=== PATIENT | male | born 1960 | race Caucasian/White ===

== ENCOUNTER 2017-02-01 12:47 | Inpatient (IN) ==
[2017-02-01] MEDS ORDERED: HYDROMORPHONE 2 MG/ML INJECTION IVP ONE ×2 (13:17→14:35)
[2017-02-01] MEDS ORDERED: ONDANSETRON 4 MG/2 ML INJECTION IVP ONE ×2 (13:17→14:20)
[2017-02-01] MEDS ORDERED: NS 1,000 ML IV ONE (13:17)
--- NOTE | 2017-02-01 13:34 | Emergency Department Report ---
General Adult HPI - General Chief complaint: Nausea/Vomiting/Diarrhea Stated complaint: Vomitting Time Seen by Provider: 02/01/17 12:59 Source: patient Mode of arrival: ambulatory Limitations: no limitations - History of Present Illness HPI narrative: 56-year-old male presents to the emergency department with a chief complaint of nausea and vomiting with abdominal pain. Patient states that he has a history of inflammatory bowel disease and has had frequent exacerbations with similar symptoms. Patient was at home when the symptoms began at approximately 8:00 this morning. He denies any trauma, travel, poorly prepared food, recent antibiotic use. Patient describes his abdominal discomfort is generalized throughout the lower abdomen. No radiation. It is moderate in nature. The abdominal discomfort is dull in nature. Patient notes multiple episodes of nonbloody nonbilious emesis. Patient states that he has a long-standing history of similar symptoms in the past. He has no other complaints or associated symptoms. Patient was at home when his symptoms began. Symptoms have been persistent in nature since onset. - Related Data Home Medications Medication Instructions Recorded Confirmed Escitalopram [Lexapro] 10 mg PO DAILY 02/01/17 02/01/17 Lipase/Protease/Amylase [Creon Dr 3 cap PO WM 02/01/17 02/01/17 36,000 Units Capsule] Mesalamine [Lialda] 4 tab PO DAILY 02/01/17 02/01/17 Ondansetron [Zofran Odt] 1 tab PO Q4HR 02/01/17 02/01/17 Oxycodone/Apap 10325 [Percocet 1 tab PO Q4H PRN 02/01/17 02/01/17 10325] Pregabalin Cap [Lyrica] 75 mg PO BID 02/01/17 02/01/17 Allergies Allergy/AdvReac Type Severity Reaction Status Date / Time codeine [Codiene] Allergy Unknown Verified 02/01/17 13:02 Penicillins Allergy Unknown Verified 02/01/17 13:02 Review of Systems Constitutional: Denies: fever, weakness Eyes: Denies: eye pain, vision change ENT: Denies: ear pain, throat pain Cardiovascular: Denies: chest pain, palpitations Respiratory: Denies: cough, dyspnea Gastrointestinal: Reports: abdominal pain, nausea, vomiting, diarrhea Genitourinary: Denies: urgency, dysuria Musculoskeletal: Denies: back pain, arthralgia Integumentary: Denies: erythema, rash Neurological: Denies: headache, numbness Psychiatric: Denies: anxiety, depression Endocrine: Denies: fatigue, heat or cold intolerance Hematological/Lymphatic: Denies: easy bleeding, easy bruising Allergic/Immunologic: Denies: facial swelling, urticaria PFSH Patient Stated Medical History Other GI Yes: pancreatitis, ulcerative colitis Other Musculoskeletal Yes: neck surgery Surgical History: Cholecystectomy, back surgery 4, neck surgery, appendectomy, bilateral carpal tunnels release, hand surgery Family History: Reviewed and Non-contributory. - Social History Smoking status: Never smoker Substance use type: does not use Alcohol intake frequency: does not drink Physical Exam - Limitations Limitations: no limitations - General General appearance: alert, in no apparent distress - Normal Exams: Head:: Normocephalic without trauma Eyes:: Pupils are PERRLA w/ EOMI, No scleral icterus, irritation, or foreign bodies noted ENMT:: No facial trauma, nasal exudates, pharyngeal erythema, or exudates are noted Dental: No fractured, loose, or missing teeth noted Neck:: Full range of motion, without adenopathy, JVD, bruits or thyromegaly Chest/Respirations:: Clear all amado, with good airflow, and symmetry bilaterally Cardiovascular:: Regular rate and rhythm, without murmur or gallop, Pulses 2+ all extremities, capillary refill, <2 seconds all extremities Abdomen:: Bowel sounds positive, non-distended (Soft. Generalized tenderness to palpation without rebound or guarding. No CVA tenderness.), no hepatosplenomegaly, masses or bruits noted Lymphatic:: No lymphadenopathy, or lymphedema noted Musculoskeletal:: No tenderness, or deformity noted, good range of motion, all extremities Integumentary:: No rashes, hives, or bruising noted, hair and nails, without abnormality Neurological:: Patient is alert, and oriented, cranial nerves, motor/sensory/ cerebellar, exams w/o gross deficits, to observation Psychiatric:: Patient exhibits, appropriate attention, emotion and affect Course Vital Signs Temperature 98.4 F 02/01/17 12:50 Pulse Rate 71 02/01/17 12:50 Respiratory Rate 24 02/01/17 12:50 Blood Pressure 175/98 H 02/01/17 12:50 Pulse Oximetry 100 02/01/17 12:50 Temperature 98.4 F 02/02/17 00:14 Pulse Rate 89 02/02/17 00:14 Respiratory Rate 16 02/02/17 00:14 Blood Pressure 104/65 02/02/17 00:14 Pulse Oximetry 96 02/02/17 00:14 Medical Decision Making - MDM Narrative Medical decision making narrative: Labs/imaging were discussed in detail with the patient and questions are answered. Patient is given parental narcotic and antiemetic medications intravenously with improvement of symptoms. Patient is given gentle IV hydration. Patient is admitted to the service of the hospitalist for further evaluation and treatment. I have no source for antibiotic therapy at this time. Patient is in agreement with the current plan of management. Patient is admitted to the service of Dr. Kent after discussion with the hospitalist in improved condition. No further orders from accepting physician who is in agreement with the current plan of management. - Differential Diagnosis dehydration, intractable nausea and vomiting, gastroenteritis, UC - Lab Data Result diagrams: 02/02/17 04:46 02/02/17 04:46 Lab Results 02/01/17 02/01/17 02/01/17 Range/Units 13:23 13:23 14:08 WBC 12.8 H (4.5-11.0) T/MM3 RBC 4.30 L (4.50-5.90) M/MM3 Hgb 13.0 L (13.5-17.5) GM/DL Hct 39.1 L (41-53) % MCV 90.9 (80-100) UM3 MCH 30.2 (26-34) UUG MCHC 33.2 (31-37) GM/DL RDW Std Deviation 43.4 (36.9-50.2) FL Plt Count 352 (130-400) T/MM3 MPV 10.6 (9.4-12.4) UM3 Immature Gran % (Auto) Not performed Neut % (Auto) Not performed Lymph % (Auto) Not performed Gaines % (Auto) Not performed Eos % (Auto) Not performed Baso % (Auto) Not performed Neut # (Auto) Not performed Lymph # (Auto) Not performed Gaines # (Auto) Not performed Eos # (Auto) Not performed Baso # (Auto) Not performed Abs Immat Gran (auto) Not performed Neutrophils % (Manual) 76.0 H (33-66) % Band Neutrophils % 17.0 H (0-6) % Lymphocytes % (Manual) 7.0 L (23-45) % Neutrophils # (Manual) 9.7 H (1.8-7.7) T/MM3 Band Neutrophils # 2.2 T/MM3 Lymphocytes # (Manual) 0.9 L (1-4.8) T/MM3 RBC Morph Comment Normal Turbidity < 20 (0-20) Sodium 141 (134-144) MEQ/L Potassium 3.6 (3.6-5) MEQ/L Chloride 105 (98-107) MEQ/L Carbon Dioxide 23 (22-30) MEQ/L Anion Gap 13 (5-15) MEQ/L BUN 8.0 L (9-20) MG/DL Creatinine 0.8 (0.8-1.5) MG/DL GFR Calculation 101 BUN/Creatinine Ratio 10 (6-26) RATIO Glucose 158 H (75-110) MG/DL Calculated Osmolality 272 (261-280) MOSM/KG Calcium 9.7 (8.4-10.2) MG/DL Total Bilirubin 1.10 (0.20-1.30) MG/DL Icterus Index < 2 (0-7) AST 25 (17-59) U/L ALT 32 (21-72) U/L Alkaline Phosphatase 119 (38-126) U/L Total Protein 7.9 (6.3-8.2) G/DL Albumin 4.5 (3.5-5.0) G/DL Globulin 3.4 (2.4-3.6) G/DL Albumin/Globulin Ratio 1.3 (1.1-2.2) RATIO Lipase 34 (23-300) U/L Plasma Lactate 1.5 (0.6-2.2) MMOL/L Procalcitonin NG/ML Specimen Hemolysis < 15 (0-25) Ur Collection Type Urine Color (YELLOW) Urine Clarity Urine pH (5.0-8.0) Ur Specific Holton (1.015-1.025) Urine Protein (NEGATIVE) Urine Glucose (UA) (NEGATIVE) Urine Ketones (NEGATIVE) Urine Occult Blood (NEGATIVE) Urine Nitrate (NEGATIVE) Urine Bilirubin (NEGATIVE) Urine Urobilinogen (NORMAL) EU/DL Ur Leukocyte Esterase (NEGATIVE) Urinalysis Comment 02/01/17 02/01/17 Range/Units 14:08 15:00 WBC (4.5-11.0) T/MM3 RBC (4.50-5.90) M/MM3 Hgb (13.5-17.5) GM/DL Hct (41-53) % MCV (80-100) UM3 MCH (26-34) UUG MCHC (31-37) GM/DL RDW Std Deviation (36.9-50.2) FL Plt Count (130-400) T/MM3 MPV (9.4-12.4) UM3 Immature Gran % (Auto) Neut % (Auto) Lymph % (Auto) Gaines % (Auto) Eos % (Auto) Baso % (Auto) Neut # (Auto) Lymph # (Auto) Gaines # (Auto) Eos # (Auto) Baso # (Auto) Abs Immat Gran (auto) Neutrophils % (Manual) (33-66) % Band Neutrophils % (0-6) % Lymphocytes % (Manual) (23-45) % Neutrophils # (Manual) (1.8-7.7) T/MM3 Band Neutrophils # T/MM3 Lymphocytes # (Manual) (1-4.8) T/MM3 RBC Morph Comment Turbidity (0-20) Sodium (134-144) MEQ/L Potassium (3.6-5) MEQ/L Chloride (98-107) MEQ/L Carbon Dioxide (22-30) MEQ/L Anion Gap (5-15) MEQ/L BUN (9-20) MG/DL Creatinine (0.8-1.5) MG/DL GFR Calculation BUN/Creatinine Ratio (6-26) RATIO Glucose (75-110) MG/DL Calculated Osmolality (261-280) MOSM/KG Calcium (8.4-10.2) MG/DL Total Bilirubin (0.20-1.30) MG/DL Icterus Index (0-7) AST (17-59) U/L ALT (21-72) U/L Alkaline Phosphatase (38-126) U/L Total Protein (6.3-8.2) G/DL Albumin (3.5-5.0) G/DL Globulin (2.4-3.6) G/DL Albumin/Globulin Ratio (1.1-2.2) RATIO Lipase (23-300) U/L Plasma Lactate (0.6-2.2) MMOL/L Procalcitonin 0.07 NG/ML Specimen Hemolysis (0-25) Ur Collection Type Urine, clean catch Urine Color Yellow (YELLOW) Urine Clarity Clear Urine pH 7.0 (5.0-8.0) Ur Specific Holton 1.020 (1.015-1.025) Urine Protein Negative (NEGATIVE) Urine Glucose (UA) Negative (NEGATIVE) Urine Ketones 3+ A (NEGATIVE) Urine Occult Blood Negative (NEGATIVE) Urine Nitrate Negative (NEGATIVE) Urine Bilirubin Negative (NEGATIVE) Urine Urobilinogen 0.2 (NORMAL) EU/DL Ur Leukocyte Esterase Negative (NEGATIVE) Urinalysis Comment Microscopic not ind. - Radiology Data CT ABD/PELVIS: No acute processes. - EKG Data EKG #1 EKG results narrative: Sinus rhythm. 73 bpm. No STEMI. Disposition Clinical Impression: Gastroenteritis Abdominal pain Qualifiers: Abdominal location: unspecified location Qualified Code(s): R10.9 - Unspecified abdominal pain Disposition: 02 To [facility] Condition: Stable Time of Disposition: 15:30 (Admit. Dr. Kent. ) - Seen By: physician
--- OUTSIDE RECORDS SUMMARY | 2017-02-01 13:53 | External Medical Summary ---
:1960 Author Organization [facility] Summary purpose CCDA Sent to [facility] Chief Complaint and Reason for Visit No authorized Reason for Visit (Admitting Diagnosis) is available for this visit. Problem list No authorized problems tracked for continuity of care are available for this visit. Encounters No authorized problems tracked for encounter diagnoses are available for this visit. Medications No medications recorded for this patient visit Allergies, adverse reactions, alerts Allergen Category Ingredient Status Reaction Severity Onset Codeine Drug Codeine Active Hives Adolescence Penicillins Drug Penicillins Active Hives Moderate Adolescence No known food No known food No known food Active allergies allergies allergies Immunizations No immunizations recorded for this patient visit Relevant diagnostic tests and/or laboratory data No authorized results are available for this patient visit History of procedures Procedure Code Code Type Description Date Performed Performing Physician 00930 CPT-4 HOSPITAL DISCHARGE DAY 10-28-2015 PEARL REZA 02920 CPT-4 SUBSEQUENT HOSPITAL 10-27-2015 PEARL REZA CARE 33266 CPT-4 INITIAL HOSPITAL CARE 10-26-2015 PEARL REZA Functional status No functional or cognitive status observations are available for this visit. Vital signs No authorized vital signs are available for this visit. Social history No Social History or smoking status observations were recorded for this visit. ( Unknown if ever smoked.) Treatment Plan No treatment plan text is available for this visit. Hospital discharge instructions No discharge instruction text is available for this visit.
--- OUTSIDE RECORDS SUMMARY | 2017-02-01 13:53 | External Medical Summary ---
:1960 Author Organization [facility] Summary purpose CCDA Sent to [facility] Chief Complaint and Reason for Visit No authorized Reason for Visit (Admitting Diagnosis) is available for this visit. Problem list No authorized problems tracked for continuity of care are available for this visit. Encounters No authorized problems tracked for encounter diagnoses are available for this visit. Medications No home medications recorded for this patient visit Allergies, [...] Code Type Description Date Performed Performing Physician [id number] CPT-4 OFFICE/OUTPATIENT VISIT 02-14-2015 PEARL DENG Functional status No functional or cognitive status [...]
--- OUTSIDE RECORDS SUMMARY | 2017-02-01 13:53 | External Medical Summary | Continuity Of Care Document ---
:1960 Author Organization [facility] Address [address] [place] [address] Phone Care Team Providers Name Role Phone SAKSHI SANDERS MD Primary Care Provider HANS BAEZA MD Consulting Provider UNASSIGNED, ED PHYSICIAN Unavailable Unavailable PREETHI ROOT MD Attending Provider TENZIN VELAZQUEZ DO Unavailable EDI RODRIGUEZ DO Consulting Provider Results Lab Results Visit/Account #[id number] (November 05, 2016 10:57am - November 09, 2016 2:18pm) Test Result Date/Time COMPLETE BLOOD COUNT WITH DIFF WHITE BLOOD COUNT(4.0-11.0 10E3/UL) 16.3 10E3/UL November 05, 2016 11:20am 11.1 10E3/UL November 06, 2016 5:32am RED BLOOD COUNT(4.50-5.90 10E6/UL) 4.45 10E6/UL November 05, 2016 11:20am 4.06 10E6/UL November 06, 2016 5:32am HEMOGLOBIN(13.5-17.5 G/DL) 13.3 G/DL November 05, 2016 11:20am 12.3 G/DL November 06, 2016 5:32am HEMATOCRIT(41.0-53.0 %) 39.1 % November 05, 2016 11:20am 36.4 % November 06, 2016 5:32am MEAN CORPUSCULAR VOLUME(82.0-100.0 FL) 87.9 FL November 05, 2016 11:20am 89.7 FL November 06, 2016 5:32am MEAN CORPUSCULAR HEMOGLOBIN(26.0-34.0 PG) 29.9 PG November 05, 2016 11:20am 30.3 PG November 06, 2016 5:32am MEAN CORPUSCULAR HGB CONC(31.5-36.5 G/DL) 34.0 G/DL November 05, 2016 11:20am 33.8 G/DL November 06, 2016 5:32am RED CELL DISTRIBUTION WIDTH(11.5-14.5 %) 14.6 % November 05, 2016 11:20am 14.8 % November 06, 2016 5:32am 777-3: PLATELET COUNT(150-450 10E3/UL) 396 10E3/UL November 05, 2016 11:20am 330 10E3/UL November 06, 2016 5:32am MEAN PLATELET VOLUME(8.2-12.4 FL) 10.6 FL November 05, 2016 11:20am 10.4 FL November 06, 2016 5:32am NEUTROPHILS % (AUTO)(40-70 %) 90 % November 05, 2016 11:20am 84 % November 06, 2016 5:32am LYMPHOCYTES % (AUTO)(15-45 %) 7 % November 05, 2016 11:20am 12 % November 06, 2016 5:32am MONOCYTES % (AUTO)(2-10 %) 3 % November 05, 2016 11:20am 4 % November 06, 2016 5:32am EOSINOPHILS % (AUTO)(0-6 %) 0 % November 05, 2016 11:20am 0 % November 06, 2016 5:32am BASOPHILS % (AUTO)(0-1 %) 0 % November 05, 2016 11:20am 0 % November 06, 2016 5:32am IMMATURE GRANS % (AUTO)(0-0 %) 1 % November 05, 2016 11:20am 1 % November 06, 2016 5:32am NUCLEATED RBCS (AUTO)(0-0 %) 0 % November 05, 2016 11:20am 0 % November 06, 2016 5:32am NEUTROPHILS # (AUTO)(2.5-7.5 10E3/UL) 14.6 10E3/UL November 05, 2016 11:20am 9.3 10E3/UL November 06, 2016 5:32am LYMPHOCYTES # (AUTO)(1.0-4.0 10E3/UL) 1.1 10E3/UL November 05, 2016 11:20am 1.3 10E3/UL November 06, 2016 5:32am MONOCYTES # (AUTO)(0.2-0.8 10E3/UL) 0.4 10E3/UL November 05, 2016 11:20am 0.4 10E3/UL November 06, 2016 5:32am EOSINOPHILS # (AUTO)(0.0-0.4 10E3/UL) 0.0 10E3/UL November 05, 2016 11:20am 0.0 10E3/UL November 06, 2016 5:32am BASOPHILS # (AUTO)(0.0-0.2 10E3/UL) 0.0 10E3/UL November 05, 2016 11:20am 0.0 10E3/UL November 06, 2016 5:32am IMMATURE GRANS # (AUTO)(0.0-0.0 10E3/UL) 0.2 10E3/UL November 05, 2016 11:20am 0.1 10E3/UL November 06, 2016 5:32am DIFF TYPE AUTOMATED November 05, 2016 11:20am AUTOMATED November 06, 2016 5:32am UA WITH SCREEN FOR CULTURE COLOR,URINE COLORLESS November 05, 2016 11:50am CLARITY,URINE CLEAR November 05, 2016 11:50am GLUCOSE, URINE(NEGATIVE MG/DL) NEGATIVE MG/DL November 05, 2016 11:50am URINE BILIRUBIN(NEGATIVE) NEGATIVE November 05, 2016 11:50am KETONES,URINE(NEGATIVE MG/DL) 15 MG/DL November 05, 2016 11:50am URINE SPECIFIC GRAVITY(1.001-1.035) 1.004 November 05, 2016 11:50am URINE BLOOD(NEGATIVE) NEGATIVE November 05, 2016 11:50am URINE PH(5.0-9.0) 8.0 November 05, 2016 11:50am URINE PROTEIN(Less than 20 MG/DL) NEGATIVE MG/DL November 05, 2016 11:50am URINE UROBILINOGEN(0.2-1.0 MG/DL) 0.2-1.0 MG/DL November 05, 2016 11:50am URINE NITRITE(NEGATIVE) NEGATIVE November 05, 2016 11:50am LEUKOCYTE ESTERASE ,URINE(NEGATIVE) NEGATIVE November 05, 2016 11:50am URINE CULTURE NOT INDICATED November 05, 2016 11:50am URINE MICROSCOPIC REQUIRED NO November 05, 2016 11:50am COMPLETE METABOLIC PROFILE GLUCOSE(70-110 MG/DL) 160 MG/DL November 05, 2016 11:20am BLOOD UREA NITROGEN(6-20 MG/DL) 13 MG/DL November 05, 2016 11:20am CREATININE(0.50-1.20 MG/DL) 0.89 MG/DL November 05, 2016 11:20am EST GLOMERULAR FILTRATION RATE(Greater than or equal to 60) Greater than or equal to 60 November 05, 2016 11:20am Result Comments: If the patient is of -Cub[place] descent/extraction multiply the eGFR value by 1.212 to obtain the actual eGFR. >=60 mg/dL Normal 30-59 mg/dL Moderate Kidney Disease 15-29 mg/dL Severe Kidney Disease <15 mg/dL Kidney Failure BUN CREATININE RATIO(10.0-20.0 RATIO) 15.0 RATIO November 05, 2016 11:20am SODIUM(135-145 MMOL/L) 137 MMOL/L November 05, 2016 11:20am POTASSIUM(3.6-5.0 MMOL/L) 3.1 MMOL/L November 05, 2016 11:20am CHLORIDE(101-111 MMOL/L) 100 MMOL/L November 05, 2016 11:20am CO2(21-31 MMOL/L) 22 MMOL/L November 05, 2016 11:20am ANION GAP(8-18) 18 November 05, 2016 11:20am OSMO CALCULATED(270.0-290.0) 277.4 November 05, 2016 11:20am CALCIUM(8.5-10.5 MG/DL) 9.0 MG/DL November 05, 2016 11:20am BILIRUBIN,TOTAL(0.1-1.2 MG/DL) 1.1 MG/DL November 05, 2016 11:20am ALKALINE PHOSPHATASE(42-121 IU/L) 80 IU/L November 05, 2016 11:20am ASPARTATE AMINO TRANSFERASE(10-42 IU/L) 27 IU/L November 05, 2016 11:20am ALANINE AMINOTRANSFERASE(10-60 IU/L) 18 IU/L November 05, 2016 11:20am TOTAL PROTEIN(6.4-8.2 G/DL) 7.8 G/DL November 05, 2016 11:20am ALBUMIN(3.5-5.5 G/DL) 4.2 G/DL November 05, 2016 11:20am GLOBULIN(2.4-3.6) 3.6 November 05, 2016 11:20am ALBUMIN/GLOBULIN RATIO(0.9-1.8 RATIO) 1.2 RATIO November 05, 2016 11:20am BASIC METABOLIC PANEL GLUCOSE(70-110 MG/DL) 113 MG/DL November 06, 2016 5:32am BLOOD UREA NITROGEN(6-20 MG/DL) 13 MG/DL November 06, 2016 5:32am CREATININE(0.50-1.20 MG/DL) 0.88 MG/DL November 06, 2016 5:32am EST GLOMERULAR FILTRATION RATE(Greater than or equal to 60) Greater than or equal to 60 November 06, 2016 5:32am Result Comments: If the patient is of -Cuban descent/extraction multiply the eGFR value by 1.212 to obtain the actual eGFR. >=60 mg/dL Normal 30-59 mg/dL Moderate Kidney Disease 15-29 mg/dL Severe Kidney Disease <15 mg/dL Kidney Failure BUN CREATININE RATIO(10.0-20.0 RATIO) 15.0 RATIO November 06, 2016 5:32am SODIUM(135-145 MMOL/L) 137 MMOL/L November 06, 2016 5:32am POTASSIUM(3.6-5.0 MMOL/L) 4.1 MMOL/L November 06, 2016 5:32am CHLORIDE(101-111 MMOL/L) 103 MMOL/L November 06, 2016 5:32am CO2(21-31 MMOL/L) 28 MMOL/L November 06, 2016 5:32am ANION GAP(8-18) 10 November 06, 2016 5:32am OSMO CALCULATED(270.0-290.0) 274.7 November 06, 2016 5:32am CALCIUM(8.5-10.5 MG/DL) 8.5 MG/DL November 06, 2016 5:32am POTASSIUM POTASSIUM(3.6-5.0 MMOL/L) 3.7 MMOL/L November 07, 2016 6:00am MAGNESIUM MAGNESIUM(1.8-2.5 MG/DL) 1.5 MG/DL November 05, 2016 11:20am LIPASE LIPASE(22-51 U/L) 20 U/L November 05, 2016 11:20am Allergies and Adverse Reactions Allergies and Adverse Reactions Patient Unit Number: [id number] Agent Type Reaction Severity Status PENICILLINS Drug Allergy rash and get sick Mild Active CODEINE Drug Allergy rash and get sick Mild Active Problem List Problem List Visit/Account #[id number] (November 05, 2016 10:57am - November 09, 2016 2:18pm) Acute Problems: Code/Condition Comments Documented Start Documented Code(s) Date Resolved Date Nausea and vomiting ICD10: R11.2 Nausea and vomiting SNOMED: 01207295 Nausea and vomiting Abdominal pain ICD10: R10.9 Abdominal pain SNOMED: 14536538 Abdominal pain Inflammatory bowel disease (ulcerative colitis) ICD10: K51.90 Inflammatory bowel disease (ulcerative colitis) SNOMED: 59599595 Ulcerative colitis Patient Unit Number: [id number] Chronic Problems: Code/Condition Comments Documented Start Documented Code(s) Date Resolved Date Chronic pancreatitis ICD10: K86.1 Chronic pancreatitis SNOMED: 595408986 Chronic pancreatitis Plan of Care Plan Of Care Visit/Account #[id number] (November 05, 2016 10:57am - November 09, 2016 2:18pm) Patient Instructions Instructions [facility] Resources Drug/Alcohol Use Resources for Recovery from Drug/Alcohol Use [facility] [address] [place] [address] Website: [email or web address] Email: [email or web address] [facility] offers Detoxification services, Residential services, Outpatient services, and Assessments. We can be reached at the phone number listed 23/11. [facility] [place] [address] [place] [address] Website: [email or web address] Email: [email or web address] Open 7a-9p Wednesday-Wednesday Open 1p-9p Wednesday Closed Wednesday [facility] is a drop-in center that offers support and events in a sober environment during the days/times listed. Alcoholics Anonymous (AA) Meetings in [place] [facility] [address] [place] [address] Website: www.[employer] [place] and [place]round[place] Area (For those who have been affected by someone else's drinking) , Website: [email or web address] Email: [email or web address] Narcotics Anonymous (NA) Meetings in [facility] [address] [place] [address] Website: [email or web address] Email: [email or web address] Vital Signs Vital Signs Visit/Account #[id number] (November 05, 2016 10:57am - November 09, 2016 2:18pm) Sign First Result Last Result Code(s) Blood Pressure 124/ 93 mm[Hg] On November 05, 2016 6:00pm 129/ 85 mm[Hg] On November 09, 2016 10:25am 8462-4 BP Diastolic 8480-6 BP Systolic Heart Rate/Pulse Pulse Rate (adult): 62 /min On November 05, 2016 6:00pm Pulse Rate (adult): 83 /min On November 09, 2016 10:25am 8867-4 Heart Rate Respiratory Rate Respiratory Rate: 16 /min On November 05, 2016 6:00pm Respiratory Rate: 20 /min On November 09, 2016 10:25am 9279-1 Respiratory Rate Temperature in Fahrenheit Temperature (Fahrenheit): 98.4 [degF] On November 05, 2016 10:56am Temperature (Fahrenheit): 98.1 [degF] On November 09, 2016 10:25am 8310-5 Body Temperature Weight in Kilograms Weight (Kilograms): 76.2000 kg On November 05, 2016 10:56am 3141-9 Weight Measured Functional Status Functional and Cognitive Status No Functional Status Data Medications Home Medications - Medications that the patient was taking prior to arrival at the hospital Visit/Account #[id number] (November 05, 2016 10:57am - November 09, 2016 2:18pm) Medication Route Sig/Schedule Precondition/Indication Comments/ Instructions Codes LYRICA(PREGABALIN) 75 MG CAP ORAL TWICE A DAY Rx Note Text Comments: pregabalin 75 MG Oral Capsule [Lyrica] (RxNorm): 935663 Dose: 75 MG *LF 10/26/16 #60* LYRICA (PREGABALIN) [facility]: [id number] SANDRO THORNTON 36,000 UNITS CAPSULE(LIPASE/PROTEASE/AMYLASE) 1 EACH CAPSULE.DR ORAL 3 TIMES DAILY WITH MEALS Amylases 682575 UNT / Endopeptidases 874656 UNT / Lipase 43702 UNT Delayed Release Oral Caps (RxNorm): 1768073 Dose: [address] 36,000 UNITS CAPSULE (LIPASE/PROTEASE/AMYLASE) NDC: 69224707347 CREON 36,000 UNITS CAPSULE(LIPASE/PROTEASE/AMYLASE) 1 EACH CAPSULE. ORAL NEEDED WITH SNACKS Amylases 473130 UNT / Endopeptidases 126405 UNT / Lipase 14735 UNT Delayed Release Oral Caps (RxNorm): 5995933 Dose: 1 CAP CREON 36,000 UNITS CAPSULE (LIPASE/PROTEASE/AMYLASE) NDC: 89488423328 PERCOCET 10-325(OxyCODONE HCL/ACETAMINOPHEN) 1 EACH TABLET ORAL 3 TIMES A DAY PAIN Rx Note Text Comments: Acetaminophen 325 MG / Oxycodone Hydrochloride 10 MG Oral Tablet [Percocet] (RxNorm): 2319586 Dose: 1 TAB * 10/19/16 #90* PERCOCET 10-325 (OxyCODONE HCL/ACETAMINOPHEN) NDC: 08023666467 FLEXERIL(CYCLOBENZAPRINE HCL) 10 MG TAB ORAL 3 TIMES A DAY MUSCLE SPASM Rx Note Text Comments: Cyclobenzaprine hydrochloride 10 MG Oral Tablet (RxNorm): 595460 Dose: 10 MG *LF 08/19/16 #90* FLEXERIL (CYCLOBENZAPRINE HCL) NDC: 87047347738 ELAVIL(AMITRIPTYLINE HCL) 50 MG TABLET ORAL AT BEDTIME Amitriptyline Hydrochloride 50 MG Oral Tablet (RxNorm): 856941 Dose: 50 MG ELAVIL (AMITRIPTYLINE HCL) NDC: 92872673878 Omeprazole(OMEPRAZOLE) 20 MG CAP ORAL 60 MIN BEFORE BKFST Rx Note Text Comments: Omeprazole 20 MG Delayed Release Oral Capsule (RxNorm): 923438 Dose: 20 MG * 09/19/16 #30* Omeprazole (OMEPRAZOLE) NDC: 95461768730 HALDOL(HALOPERIDOL) 5 MG TABLET ORAL AT BEDTIME NAUSEA Haloperidol 5 MG Oral Tablet (RxNorm): 609716 Dose: 5 MG HALDOL (HALOPERIDOL) NDC: 43788361172 LEXAPRO(ESCITALOPRAM OXALATE) 10 MG TABLET ORAL DAILY Rx Note Text Comments: Escitalopram 10 MG Oral Tablet [Lexapro] (RxNorm): 536391 Dose: 10 MG *LF 09/22/16 #30* LEXAPRO (ESCITALOPRAM OXALATE) NDC: 49149774630 LIALDA(MESALAMINE) 1.2 GM TABLET.DR ORAL DAILY AT [facility] mesalamine 1200 MG Delayed Release Oral Tablet [Lialda] (RxNorm): 620804 Dose: 2.4 GM LIALDA (MESALAMINE) NDC: 35192380626 DELTASONE(PredniSONE) 20 MG TAB ORAL DAILY AT [facility] Rx Instructions: Prednisone 20 MG Oral Tablet (RxNorm): 068558 Dose: 40 MG Taper prednisone by 5 mg weekly DELTASONE (PredniSONE) NDC: 02948355503 ZOFRAN ODT(ONDANSETRON) 4 MG TAB.RAPDIS ORAL EVERY 6 HOURS NAUSEA/VOMITING Ondansetron 4 MG Disintegrating Oral Tablet [Zofran] (RxNorm): 157130 Dose: 4 MG ZOFRAN ODT (ONDANSETRON) NDC: 11192312783 LIALDA(MESALAMINE) 1.2 GM TABLET.DR ORAL DAILY AT [facility] mesalamine 1200 MG Delayed Release Oral Tablet [Lialda] (RxNorm): 434711 Dose: 2.4 GM LIALDA (MESALAMINE) NDC: 39083698980 ZOFRAN ODT(ONDANSETRON) 4 MG TAB.RAPDIS ORAL EVERY 4 HOURS NAUSEA/VOMITING Ondansetron 4 MG Disintegrating Oral Tablet [Zofran] (RxNorm): 757471 Dose: 4 MG ZOFRAN ODT (ONDANSETRON) NDC: 02095892262 DELTASONE(PredniSONE) 20 MG TAB ORAL DAILY AT [facility] Rx Instructions: Prednisone 20 MG Oral Tablet (RxNorm): 771828 Dose: 40 MG STARTED 11/05/16 TAKE 40 MG DAILY x30 DAYS, THEN TAPER BY 5 MG WEEKLY DELTASONE ( PredniSONE) NDC: 13670790710 Inpatient/Ordered Medications - Medications administered during hospital visit Visit/Account #[id number] (November 05, 2016 10:57am - November 09, 2016 2:18pm) Medication Route Sig/Schedule Precondition/Indication Comments/ Instructions Codes NORMAL SALINE(SODIUM CHLORIDE) 20 ML INJECTION Route .THREAT STREAM 20 ML Sodium Chloride 9 MG/ML Injection (RxNorm): 0214095 Dose: 20 ML NORMAL SALINE (SODIUM CHLORIDE) NDC: 38711161072 IV Medication INTRAVEN .Q1H (Rate: 1000 MLS/HR Duration: 1 HR) Carriers: Carriers: 1000 ML Sodium Chloride 9 MG/ML Injection (RxNorm): 0600526 NORMAL SALINE(SODIUM CHLORIDE) 1000 ML INJECTION NORMAL SALINE ( SODIUM CHLORIDE) NDC: 65980274761 Dose: 1000 ML ZOFRAN INJ(ONDANSETRON HCL) 4 MG/2 ML INJECTION INTRAVEN NOW Rx Order Comments: 2 ML Ondansetron 2 MG/ML Injection (RxNorm): 6794695 Dose: 2 ML Order placed as verified: Dose Warnings differ from mill order scheduler ZOFRAN INJ (ONDANSETRON HCL) NDC : 27641417595 Label Comments: SLOW IV PUSH MAY INCREASE FALL RISK IV Medication INTRAVEN NOW (Rate: 400 MLS/HR Duration: 15 MIN) Label Comments: Carriers: * PROTECT FROM LIGHT * Carriers: 1 ML Promethazine Hydrochloride 25 MG/ML Injection (RxNorm) : 241708 PHENERGAN 25 MG/100 ML NS(PROMETHAZINE HCL IN 0.9 % NACL) 25 MG/100 ML INJECTION PHENERGAN 25 MG/100 ML NS (PROMETHAZINE HCL IN 0.9 % NACL) NDC: 98151908744 Dose: 100 ML BENADRYL INJ(DiphenhydrAMINE HCL) 50 MG/ML INJECTION INTRAVEN NOW Label Comments: Diphenhydramine Hydrochloride 50 MG/ML Injectable Solution (RxNorm): 1303428 Dose: 1 ML MAY INCREASE FALL RISK BENADRYL INJ (DiphenhydrAMINE HCL) NDC: 30619448545 DILAUDID(HYDROmorphone HCL) 2 MG/ML INJECTION INTRAVEN NOW Label Comments : 1 ML Hydromorphone Hydrochloride 2 MG/ML Cartridge (RxNorm): 0003721 Dose: 0.5 ML MAY INCREASE FALL RISK DILAUDID (HYDROmorphone HCL) NDC: 88625511999 KETALAR INJ(KETAMINE HCL IN 0.9 % NACL) 50 MG/5 ML INJECTION INTRAVEN NOW KETALAR INJ (KETAMINE HCL IN 0.9 % NACL) NDC: 68796637511 Dose: 2.3 ML HALDOL INJ(HALOPERIDOL LACTATE) 5 MG/ML INJECTION INTRAVEN NOW Label Comments: 1 ML Haloperidol 5 MG/ML Injection (RxNorm): 2504707 Dose: 1 ML MAY INCREASE FALL RISK HALDOL INJ (HALOPERIDOL LACTATE) NDC: 00220663807 NORCO 5-325(HYDROcodone BIT/ACETAMINOPHEN) 1 TAB TAB ORAL Q4H PRN Reason: MODERATE PAIN Label Comments: Acetaminophen 325 MG / Hydrocodone Bitartrate 5 MG Oral Tablet (RxNorm): 221282 Dose: 0 TAB Do not exceed 4000 mg acetaminophen/24 hours. NORCO 5-325 (HYDROcodone BIT/ACETAMINOPHEN) NDC: 93380710575 Special Dose Instructions: 1-2 TABS PROTONIX(PANTOPRAZOLE SOD) 40 MG TAB ORAL DAILY@06 pantoprazole 40 MG Delayed Release Oral Tablet [Protonix] (RxNorm): 781788 Dose: 40 MG PROTONIX (PANTOPRAZOLE SOD) NDC: 89781331997 IV Medication INTRAVEN .Q8H (Rate: 125 MLS/HR Duration: 8 HR) Carriers: Carriers: Glucose 50 MG/ML / Potassium Chloride 0.02 MEQ/ML / Sodium Chloride 0.0769 MEQ/ML Injectable (RxNorm): 176131 DEXTROSE 5% SODIUM CHLORIDE 0.45%- KCL 20 MEQ(KCL/DEXTROSE/SOD CHLORIDE) 20 MEQ /1000 ML INJECTION DEXTROSE 5% SODIUM CHLORIDE 0.45%- KCL 20 MEQ (KCL/ DEXTROSE/SOD CHLORIDE) NDC: 94997939715 Dose: 1000 ML DELTASONE(PredniSONE) 20 MG TAB ORAL DAILY AT [facility] Label Comments: Prednisone 20 MG Oral Tablet (RxNorm): 088636 Dose: 40 MG TAKE WITH FOOD OR MILK DELTASONE (PredniSONE) NDC: 53344448257 SANDRO Gilliam(LIPASE/AMYLASE/PROTEASE) 1 CAP CAP ORAL 3 TIMES DAILY WITH MEALS Rx Order Comments: Amylases 48777 UNT / Endopeptidases 35351 UNT / Lipase 28737 UNT Delayed Release Oral Capsul (RxNorm): 377973 Dose: 3 CAP Order filed UNV: Dose Warnings differ from mill order scheduler SANDRO Gilliam (LIPASE/AMYLASE/ PROTEASE) NDC: 46093793989 LOVENOX(ENOXAPARIN) 40 MG/0.4 ML INJECTION SUBCUTANEOUSLY DAILY@06 Label Comments: 0.4 ML Enoxaparin sodium 100 MG/ML Prefilled Syringe [Lovenox] ( RxNorm): 603619 Dose: 0.4 ML INJECT SC INTO ABDOMINAL WALL ONLY. LOVENOX (ENOXAPARIN) NDC: 03592799702 SUBLIMAZE INJ(FentaNYL CITRATE) 250 MCG/5 ML INJECTION Route .STK-MED Label Comments: 5 ML Fentanyl 0.05 MG/ML Injection (RxNorm): 7312028 Dose: 250 MCG GIVE BY SLOW PUSH OVER 2-5 MIN MAY INCREASE FALL RISK SUBLIMAZE INJ (FentaNYL CITRATE) NDC: 16454604835 VERSED INJ(MIDAZOLAM HCL) 10 MG/10 ML INJECTION Route .STK-MED Label Comments: Midazolam 1 MG/ML Injectable Solution (RxNorm): 023899 Dose: 10 MG MAY INCREASE FALL RISK VERSED INJ (MIDAZOLAM HCL) NDC: 69701644312 IV Medication INTRAVEN .Q10H (Rate: 100 MLS/HR Duration: 10 HR) Carriers : Carriers: Potassium Chloride 0.04 MEQ/ML / Sodium Chloride 0.154 MEQ/ ML Injectable Solution (RxNorm): 630944 SODIUM CHLORIDE 0.9%- POTASSIUM CHLOR 40 MEQ(KCL/SODIUM CHLORIDE) 40 MEQ/1000 ML INJECTION SODIUM CHLORIDE 0.9%- POTASSIUM CHLOR 40 MEQ (KCL/SODIUM CHLORIDE) NDC: 37360867553 Dose: 1000 ML ELAVIL(AMITRIPTYLINE HCL) 50 MG TAB ORAL AT BEDTIME Label Comments: Amitriptyline Hydrochloride 50 MG Oral Tablet (RxNorm): 796529 Dose: 50 MG MAY INCREASE FALL RISK ELAVIL (AMITRIPTYLINE HCL) NDC: 39417634527 LEXAPRO(ESCITALOPRAM OXALATE) 10 MG TAB ORAL DAILY Label Comments: Escitalopram 10 MG Oral Tablet (RxNorm): 773122 Dose: 10 MG MAY INCREASE FALL RISK LEXAPRO (ESCITALOPRAM OXALATE) NDC: 97160708400 LIALDA(MESALAMINE) 1.2 GM TAB ORAL DAILY AT [facility] Label Comments: mesalamine 1200 MG Delayed Release Oral Tablet [Lialda] (RxNorm): 107833 Dose: 2.4 GM TAKE WITH FOOD. DO NOT CRUSH, BREAK OR CHEW LIALDA (MESALAMINE) NDC: 12090674095 PERCOCET 10/325 MG(OxyCODONE/ACETAMINOPHEN) 1 TAB TAB ORAL 3 TIMES A DAY PRN Reason: PAIN Label Comments: Acetaminophen 325 MG / Oxycodone Hydrochloride 10 MG Oral Tablet (RxNorm): 9095635 Dose: 1 TAB MAX REC DOSE ACETAMINOPHEN: 4000MG/24HRS MAY INCREASE FALL RISK PERCOCET 10/325 MG (OxyCODONE/ACETAMINOPHEN) NDC: 01693823988 LYRICA(PREGABALIN) 75 MG CAP ORAL TWICE A DAY Label Comments: pregabalin 75 MG Oral Capsule [Lyrica] (RxNorm): 259662 Dose: 75 MG MAY INCREASE FALL RISK LYRICA (PREGABALIN) NDC: 10888759328 REGLAN INJ(METOCLOPRAMIDE HCL) 5 MG/ML INJECTION INTRAVEN EVERY 6 HOURS Label Comments: 2 ML Metoclopramide 5 MG/ML Injection (RxNorm): 346797 Dose: 2 ML MAY INCREASE FALL RISK REGLAN INJ (METOCLOPRAMIDE HCL) NDC: 10481445742 REGLAN(METOCLOPRAMIDE HCL) 10 MG TAB ORAL 30 MIN BEFORE MEALS & BEDTIME Label Comments: Metoclopramide 10 MG Oral Tablet (RxNorm): 772739 Dose: 10 MG MAY INCREASE FALL RISK REGLAN (METOCLOPRAMIDE HCL) NDC: 54916715268 HEP-LOCK FLUSH SYRINGE(HEPARIN LOCK FLUSH) 500 UNIT/5 ML INJECTION INTRAVEN NEEDED PRN Reason: PORT FLUSH Label Comments: HEP-LOCK FLUSH SYRINGE ( HEPARIN LOCK FLUSH) NDC: 31045189020 Dose: 5 ML PORT FLUSHES: 5 mls after saline flush after medications OR blood draws. ACCESSED minimum: at least 1-2 times per week DEACCESSED minimum: at least monthly Discharge Medications - Medications that patient should continue to take. Review with physician Visit/Account #[id number] (November 05, 2016 10:57am - November 09, 2016 2:18pm) Medication Route Sig/Schedule Precondition/Indication Comments/ Instructions Codes LYRICA(PREGABALIN) 75 MG CAP ORAL TWICE A DAY Rx Note Text Comments: pregabalin 75 MG Oral Capsule [Lyrica] (RxNorm): 684929 Dose: 75 MG *LF 10/26/16 #60* LYRICA (PREGABALIN) NDC: 80472941483 CREFRANCIS THORNTON 36,000 UNITS CAPSULE(LIPASE/PROTEASE/AMYLASE) 1 EACH CAPSULE. ORAL 3 TIMES DAILY WITH MEALS Amylases 565587 UNT / Endopeptidases 805859 UNT / Lipase 48517 UNT Delayed Release Oral Caps (RxNorm): 7114916 Dose: 1 CAP CREON 36,000 UNITS CAPSULE (LIPASE/PROTEASE/AMYLASE) NDC: 81789551982 SANDRO THORNTON 36,000 UNITS CAPSULE(LIPASE/PROTEASE/AMYLASE) 1 EACH CAPSULE. ORAL NEEDED WITH SNACKS Amylases 300817 UNT / Endopeptidases 194027 UNT / Lipase 07918 UNT Delayed Release Oral Caps (RxNorm): 2412580 Dose: 1 CAP CREON 36,000 UNITS CAPSULE (LIPASE/PROTEASE/AMYLASE) NDC: 17830906103 PERCOCET 10-325(OxyCODONE HCL/ACETAMINOPHEN) 1 EACH TABLET ORAL 3 TIMES A DAY PAIN Rx Note Text Comments: Acetaminophen 325 MG / Oxycodone Hydrochloride 10 MG Oral Tablet [Percocet] (RxNorm): 5400357 Dose: 1 TAB * 10/19/16 #90* PERCOCET 10-325 (OxyCODONE HCL/ACETAMINOPHEN) NDC: 92817398209 FLEXERIL(CYCLOBENZAPRINE HCL) 10 MG TAB ORAL 3 TIMES A DAY MUSCLE SPASM Rx Note Text Comments: Cyclobenzaprine hydrochloride 10 MG Oral Tablet (RxNorm): 078270 Dose: 10 MG * 08/19/16 #90* FLEXERIL (CYCLOBENZAPRINE HCL) NDC: 28400434475 ELAVIL(AMITRIPTYLINE HCL) 50 MG TABLET ORAL AT BEDTIME Amitriptyline Hydrochloride 50 MG Oral Tablet (RxNorm): 117178 Dose: 50 MG ELAVIL (AMITRIPTYLINE HCL) NDC: 85477922254 Omeprazole(OMEPRAZOLE) 20 MG CAP ORAL 60 MIN BEFORE BKFST Rx Note Text Comments: Omeprazole 20 MG Delayed Release Oral Capsule (RxNorm): 404923 Dose: 20 MG * 09/19/16 #30* Omeprazole (OMEPRAZOLE) NDC: 80295600835 HALDOL(HALOPERIDOL) 5 MG TABLET ORAL AT BEDTIME NAUSEA Haloperidol 5 MG Oral Tablet (RxNorm): 760724 Dose: 5 MG HALDOL (HALOPERIDOL) NDC: 05952190215 LEXAPRO(ESCITALOPRAM OXALATE) 10 MG TABLET ORAL DAILY Rx Note Text Comments: Escitalopram 10 MG Oral Tablet [Lexapro] (RxNorm): 720107 Dose: 10 MG *LF 09/22/16 #30* LEXAPRO (ESCITALOPRAM OXALATE) NDC: 44134401884 LIALDA(MESALAMINE) 1.2 GM TABLET.DR ORAL DAILY AT [facility] mesalamine 1200 MG Delayed Release Oral Tablet [Lialda] (RxNorm): 514521 Dose: 2.4 GM LIALDA (MESALAMINE) NDC: 26133432751 ZOFRAN ODT(ONDANSETRON) 4 MG TAB.RAPDIS ORAL EVERY 4 HOURS NAUSEA/VOMITING Ondansetron 4 MG Disintegrating Oral Tablet [Zofran] (RxNorm): 156853 Dose: 4 MG ZOFRAN ODT (ONDANSETRON) NDC: 79149641872 DELTASONE(PredniSONE) 20 MG TAB ORAL DAILY AT [facility] Rx Instructions: Prednisone 20 MG Oral Tablet (RxNorm): 795893 Dose: 40 MG STARTED 11/05/16 TAKE 40 MG DAILY x30 DAYS, THEN TAPER BY 5 MG WEEKLY DELTASONE ( PredniSONE) NDC: 41434186073 History Of Encounters Encounters Visit/Account #[id number] (November 05, 2016 10:57am - November 09, 2016 2:18pm) Account Status Physican Of Reason For Visit Diagnosis Start Date/Time Stop Date/Time Record Visit ER HANS BAEZA MD ABD PAIN Not Available Nov 05, 2016 10:57am Nov 05, 2016 2 :00pm Sarah PREETHI ROOT MD ABD PAIN Not Available Nov 08, 2016 10:48am Nov 09, 2016 2:18pm IN PREETHI ROOT MD ABD PAIN Not Available Nov 08, 2016 10:48am Nov 09, 2016 2:18pm History of Procedures Procedure List No procedures recorded. Discharge Instructions Discharge Instructions Visit/Account #[id number] (November 05, 2016 10:57am - November 09, 2016 2:18pm) DISCHARGE INSTRUCTIONS Physician Documentation PROVIDER INSTRUCTIONS Discharge Diet Low Residue Discharge Diet Low Residue FOLLOW UP APPOINTMENTS Follow Up Appointment Date/Time: Dr. China Helton [phone] Wednesday, November 16, 2016 at 10:30am. Social History Social History No Social History Data. Immunizations Immunizations Patient Unit Number: [id number] Immunizations No immunizations recorded.
--- OUTSIDE RECORDS SUMMARY | 2017-02-01 13:53 | External Medical Summary ---
:1960 Author Organization [facility] Summary purpose CCDA Sent to [facility] Chief Complaint and Reason for Visit No authorized Reason for Visit (Admitting Diagnosis) is available for this visit. Problem list No authorized problems tracked for continuity of care are available for this visit. Encounters No authorized problems tracked for encounter diagnoses are available for this visit. Medications Discharge Medications Status Medication Directions Current amitriptyline 50 mg tablet 50 miligram(s) oral BEDTIME Current Creon 24,000-76,000-120,000 unit 1 capsule(s) oral oral NEEDED for home med capsule,delayed release 3 caps with meals; 2 caps with snacks Current cyclobenzaprine 10 mg tablet 10 miligram(s) oral oral EVERY EIGHT HOURS NEEDED for home med Current diazepam 5 mg tablet 5 miligram(s) oral ONE TIME A DAY Current dicyclomine 10 mg capsule 10 miligram(s) oral ONE TIME A DAY Current gabapentin 300 mg capsule 300 miligram(s) oral FOUR TIMES A DAY Current Lialda 1.2 g tablet,delayed release 1.2 gram(s) oral FOUR TIMES A DAY Current ondansetron 8 mg disintegrating tablet 8 miligram(s) oral oral NEEDED for home med Current oxyCODONE-acetaminophen 7.5 mg-325 mg 1 tab(s) oral oral FOUR TIMES A DAY NEEDED for pain tablet gets med from pain clinic- Dr. Field Current pantoprazole 40 mg tablet,delayed release 40 miligram(s) oral oral ONE TIME A DAY Allergies, adverse reactions, alerts Allergen Category Ingredient Status Reaction Severity Onset Codeine Drug Codeine Active Hives Adolescence Penicillins Drug Penicillins Active Hives Moderate Adolescence No known food No known food No known food Active allergies allergies allergies Immunizations No immunizations recorded for this patient visit Relevant diagnostic tests and/or laboratory data RESULTS Chemistry Group [id number]:22:00 Result Normal Range Units Glucose H 118 74-106 mg/dl BUN 8 7-18 mg/dl Osmolality 277 268.0-292.0 Creatinine 0.82 0.70-1.30 mg/dl Sodium 139 136-145 mmol/L Potassium L 3.2 3.5-5.1 mmol/L Chloride 103 98-107 mmol/L CO2 21.4 21.0-32.0 mmol/L Calcium L 8.2 8.5-10.1 mg/dl Total Protein 7.7 6.4-8.2 g/dl Albumin 3.7 3.4-5.0 g/dl AST 34 15-37 U/L ALT 34 30-65 U/L ALP 89 50-136 U/L Bilirubin, Total 0.7 0.2-1.0 mg/dl eGFR 98 >=60 ml/min. 59-50-102142:40:00 Result Normal Range Units Glucose H 170 74-106 mg/dl BUN 9 7-18 mg/dl Osmolality 278 268.0-292.0 Creatinine 1.13 0.70-1.30 mg/dl Sodium 138 136-145 mmol/L Potassium 3.6 3.5-5.1 mmol/L Chloride 99 98-107 mmol/L CO2 24.2 21.0-32.0 mmol/L Calcium 8.9 8.5-10.1 mg/dl Total Protein 7.9 6.4-8.2 g/dl Albumin 4.0 3.4-5.0 g/dl AST H 39 15-37 U/L ALT 51 30-65 U/L ALP 96 50-136 U/L Bilirubin, Total 0.6 0.2-1.0 mg/dl eGFR 68 >=60 ml/min. Amylase 76 25-115 U/L Lipase 93 73-393 U/L [facility] :22:00 Result Normal Range Units Glucose H 118 74-106 mg/dl BUN 8 7-18 mg/dl Osmolality 277 268.0-292.0 Creatinine 0.82 0.70-1.30 mg/dl Sodium 139 136-145 mmol/L Potassium L 3.2 3.5-5.1 mmol/L Chloride 103 98-107 mmol/L CO2 21.4 21.0-32.0 mmol/L Calcium L 8.2 8.5-10.1 mg/dl Total Protein 7.7 6.4-8.2 g/dl Albumin 3.7 3.4-5.0 g/dl AST 34 15-37 U/L ALT 34 30-65 U/L ALP 89 50-136 U/L Bilirubin, Total 0.7 0.2-1.0 mg/dl eGFR 98 >=60 ml/min. :40:00 Result Normal Range Units Glucose H 170 74-106 mg/dl BUN 9 7-18 mg/dl Osmolality 278 268.0-292.0 Creatinine 1.13 0.70-1.30 mg/dl Sodium 138 136-145 mmol/L Potassium 3.6 3.5-5.1 mmol/L Chloride 99 98-107 mmol/L CO2 24.2 21.0-32.0 mmol/L Calcium 8.9 8.5-10.1 mg/dl Total Protein 7.9 6.4-8.2 g/dl Albumin 4.0 3.4-5.0 g/dl AST H 39 15-37 U/L ALT 51 30-65 U/L ALP 96 50-136 U/L Bilirubin, Total 0.6 0.2-1.0 mg/dl eGFR 68 >=60 ml/min. BMP :22:00 Result Normal Range Units Glucose H 118 74-106 mg/dl BUN 8 7-18 mg/dl Osmolality 277 268.0-292.0 Creatinine 0.82 0.70-1.30 mg/dl Sodium 139 136-145 mmol/L Potassium L 3.2 3.5-5.1 mmol/L Chloride 103 98-107 mmol/L CO2 21.4 21.0-32.0 mmol/L Calcium L 8.2 8.5-10.1 mg/dl eGFR 98 >=60 ml/min. :40:00 Result Normal Range Units Glucose H 170 74-106 mg/dl BUN 9 7-18 mg/dl Osmolality 278 268.0-292.0 Creatinine 1.13 0.70-1.30 mg/dl Sodium 138 136-145 mmol/L Potassium 3.6 3.5-5.1 mmol/L Chloride 99 98-107 mmol/L CO2 24.2 21.0-32.0 mmol/L Calcium 8.9 8.5-10.1 mg/dl eGFR 68 >=60 ml/min. Electrolyte Panel :22:00 Result Normal Range Units Sodium 139 136-145 mmol/L Potassium L 3.2 3.5-5.1 mmol/L Chloride 103 98-107 mmol/L CO2 21.4 21.0-32.0 mmol/L :40:00 Result Normal Range Units Sodium 138 136-145 mmol/L Potassium 3.6 3.5-5.1 mmol/L Chloride 99 98-107 mmol/L CO2 24.2 21.0-32.0 mmol/L Hepatic Profile :22:00 Result Normal Range Units Total Protein 7.7 6.4-8.2 g/dl Albumin 3.7 3.4-5.0 g/dl AST 34 15-37 U/L ALT 34 30-65 U/L ALP 89 50-136 U/L Bilirubin, Total 0.7 0.2-1.0 mg/dl :40:00 Result Normal Range Units Total Protein 7.9 6.4-8.2 g/dl Albumin 4.0 3.4-5.0 g/dl AST H 39 15-37 U/L ALT 51 30-65 U/L ALP 96 50-136 U/L Bilirubin, Total 0.6 0.2-1.0 mg/dl Renal Panel :22:00 Result Normal Range Units Glucose H 118 74-106 mg/dl BUN 8 7-18 mg/dl Osmolality 277 268.0-292.0 Creatinine 0.82 0.70-1.30 mg/dl Sodium 139 136-145 mmol/L Potassium L 3.2 3.5-5.1 mmol/L Chloride 103 98-107 mmol/L CO2 21.4 21.0-32.0 mmol/L Calcium L 8.2 8.5-10.1 mg/dl Albumin 3.7 3.4-5.0 g/dl eGFR 98 >=60 ml/min. :40:00 Result Normal Range Units Glucose H 170 74-106 mg/dl BUN 9 7-18 mg/dl Osmolality 278 268.0-292.0 Creatinine 1.13 0.70-1.30 mg/dl Sodium 138 136-145 mmol/L Potassium 3.6 3.5-5.1 mmol/L Chloride 99 98-107 mmol/L CO2 24.2 21.0-32.0 mmol/L Calcium 8.9 8.5-10.1 mg/dl Albumin 4.0 3.4-5.0 g/dl eGFR 68 >=60 ml/min. CBC [id number]:22:00 Result Normal Range Units WBC 10.2 4.5-11.0 K/uL Lymphocyte # 1.4 0.6-4.1 Lymphocyte % 13.6 10.0-58.5 % Mid # 0.7 0.0-1.8 *MID cells may include less frequently occurring and rare cells correlating to monocytes, eosinophils, basophils, blasts and other precursor white cells. Mid % 6.6 0.1-24.0 % Granulocyte # H 8.1 2.0-7.8 Granulocyte % 79.8 37.0-92.0 % RBC 4.43 4.20-6.30 M/uL Hemoglobin L 13.1 13.5-17.5 g/dl Hematocrit L 39.9 41.0-53.0 % MCV 90 80-100 FL MCH 29.6 26.0-32.0 pg MCHC 32.8 31.0-37.0 g/dl RDW 13.5 11.5-14.5 % Platelets 341 150-350 K/uL [id number]:40:00 Result Normal Range Units WBC H 12.4 4.5-11.0 K/uL Lymphocyte # 1 0.6-4.1 Lymphocyte % L 8.4 10.0-58.5 % Mid # 1.1 0.0-1.8 *MID cells may include less frequently occurring and rare cells correlating to monocytes, eosinophils, basophils, blasts and other precursor white cells. Mid % 9.1 0.1-24.0 % Granulocyte # H 10.2 2.0-7.8 Granulocyte % 82.5 37.0-92.0 % RBC 4.77 4.20-6.30 M/uL Hemoglobin 14.2 13.5-17.5 g/dl Hematocrit 43 41.0-53.0 % MCV 90.2 80-100 FL MCH 29.8 26.0-32.0 pg MCHC 33 31.0-37.0 g/dl RDW 12.8 11.5-14.5 % Platelets 349 150-350 K/uL CBC with Manual Diff [id number]:22:00 Result Normal Range Units WBC 10.2 4.5-11.0 K/uL Lymphocyte # 1.4 0.6-4.1 Lymphocyte % 13.6 10.0-58.5 % Mid # 0.7 0.0-1.8 *MID cells may include less frequently occurring and rare cells correlating to monocytes, eosinophils, basophils, blasts and other precursor white cells. Mid % 6.6 0.1-24.0 % Granulocyte # H 8.1 2.0-7.8 Granulocyte % 79.8 37.0-92.0 % RBC 4.43 4.20-6.30 M/uL Hemoglobin L 13.1 13.5-17.5 g/dl Hematocrit L 39.9 41.0-53.0 % MCV 90 80-100 FL MCH 29.6 26.0-32.0 pg MCHC 32.8 31.0-37.0 g/dl RDW 13.5 11.5-14.5 % Platelets 341 150-350 K/uL [id number]:40:00 Result Normal Range Units WBC H 12.4 4.5-11.0 K/uL Lymphocyte # 1 0.6-4.1 Lymphocyte % L 8.4 10.0-58.5 % Mid # 1.1 0.0-1.8 *MID cells may include less frequently occurring and rare cells correlating to monocytes, eosinophils, basophils, blasts and other precursor white cells. Mid % 9.1 0.1-24.0 % Granulocyte # H 10.2 2.0-7.8 Granulocyte % 82.5 37.0-92.0 % RBC 4.77 4.20-6.30 M/uL Hemoglobin 14.2 13.5-17.5 g/dl Hematocrit 43 41.0-53.0 % MCV 90.2 80-100 FL MCH 29.8 26.0-32.0 pg MCHC 33 31.0-37.0 g/dl RDW 12.8 11.5-14.5 % Platelets 349 150-350 K/uL Urinalysis [id number]:00:00 Result Normal Range Units Site Voided Color Yellow Yellow Appearance Clear Glucose Negative Negative Bilirubin Negative Negative Ketones AB 2+ Negative Specific [place] H 1.025 1.005-1.015 Blood Negative Negative PH 6.0 6.0-7.0 Protein AB Trace Negative mg/dl Urobilinogen 0.2 0.0-1.0 mg/dl Nitrites Negative Negative Leukocytes Negative Negative Occult Blood Screen [id number]:04:00 Result Normal Range Units Occult Blood #3 Negative Result Amended on 2015-09-05 at 16:17:29. Previous status was FR. [id number]:19:00 Result Normal Range Units Occult Blood #2 Positive Result Amended on 2015-09-05 at 16:17:29. Previous status was FR. Test Occult Bld 2nd with result of Positive was originally reported as Negative and was changed on 09/05/2015 16:17 by [facility] [id number]:07:00 Occult Blood #1 Positive - WEAK History of procedures Procedure Code Code Type Description Date Performed Performing Physician G0378 CPT-4 HOSPITAL OBSERVATION PER 09-04-[place] [address] CPT-4 HYDRATE IV INFUSION, 09-04-2015 PEARL REZA ADD-ON 28146 CPT-4 TX/PRO/DX INJ NEW DRUG 09-04-2015 PEARL REZA ADDON 70018 CPT-4 THER/PROPH/DIAG INJ, IV 09-04-2015 PEARL REZA PUSH 20792 CPT-4 EMERGENCY DEPT VISIT 09-04-2015 PEARL REZA 52664 CPT-4 HYDRATE IV INFUSION, 09-04-2015 PEARL REZA ADD-ON 46294 CPT-4 COMPLETE CBC W/AUTO DIFF 09-04-2015 PEARL REZA WBC 29238 CPT-4 COMPREHEN METABOLIC 09-04-2015 PEARL REZA PANEL 89483 CPT-4 ASSAY OF AMYLASE 09-04-2015 PEARL REZA 13933 CPT-4 ASSAY OF LIPASE 09-04-2015 PEARL REZA 36576 CPT-4 X-RAY EXAM OF ABDOMEN 09-04-2015 PEARL REZA 63759 CPT-4 CT ABD&PELV 1+ 09-04-2015 PEARL REZA SECTION/REGNS Q9967 CPT-4 LOCM 300-399MG/ML 09-04-2015 PEARL REZA IODINE,1ML 37851 CPT-4 COMPLETE CBC W/AUTO DIFF 09-04-2015 PEARL REZA WBC 54617 CPT-4 URINALYSIS, AUTO, W/O 09-05-2015 PEARL REZA SCOPE 95454 CPT-4 COMPREHEN METABOLIC 09-04-2015 PEARL REZA PANEL G0328 CPT-4 FECAL BLOOD SCRN 09-05-2015 PEARL REZA IMMUNOASSAY 69265 CPT-4 CLOSTRIDIUM AG, EIA 09-05-2015 PEARL REZA 45417 CPT-4 ROUTINE VENIPUNCTURE 09-04-2015 PEARL REZA 89116 CPT-4 ROUTINE VENIPUNCTURE 09-04-2015 PEARL REZA 84775 CPT-4 TX/PRO/DX INJ NEW DRUG 09-05-2015 PEARL REZA DOCTOR OF DENTAL SURGERY 25695 CPT-4 HYDRATE IV INFUSION, 09-05-2015 PEARL REZA ADD-ON J7030 CPT-4 INFUSION, NS, 1000 CC 09-04-2015 TIMOTHY BEREENS J2405 CPT-4 ONDANSETRON HCL 09-04-2015 TIMOTHY HOUCHENS INJECTION J7030 CPT-4 INFUSION, NS, 1000 CC 09-04-2015 TIMOTHY HOUCHENS J2550 CPT-4 PROMETHAZINE HCL 09-04-2015 TIMOTHY HOUCHENS INJECTION J2175 CPT-4 MEPERIDINE HYDROCHL /100 09-04-2015 TIMOTHY HOUCHENS MG J7030 CPT-4 INFUSION, NS, 1000 CC 09-04-2015 TIMOTHY HOUCHENS J2550 CPT-4 PROMETHAZINE HCL 09-05-2015 TIMOTHY HOUCHENS INJECTION J2175 CPT-4 MEPERIDINE HYDROCHL /100 09-05-2015 TIMOTHY HOUCHENS MG J2175 CPT-4 MEPERIDINE HYDROCHL /100 09-05-2015 TIMOTHY HOUCHENS MG J7030 CPT-4 INFUSION, NS, 1000 CC 09-05-2015 TIMOTHY HOUCHENS J7030 CPT-4 INFUSION, NS, 1000 CC 09-05-2015 TIMOTHY HOUCHENS Functional status Functional Status Finding Observation Time Weight Bearing Statu Full 22-02-238527:12 Cognitive Status Finding Observation Time Level of Consciousne Alert [id number]:02 Oriented to Person Yes 83-52-879436:[address] Yes :02 Oriented to Time Yes :02 Vital signs Type Value Date Respirations 20 :45 Pulse 91 :45 O2 Saturation 98% :45 Systolic Blood Press 154mm/HG :45 Diastolic Blood Pres 99mm/HG :45 Temperature (Fahr) 99.2Degrees :45 Height 70in : Weight 180.4LB :00 Social history Type Value Smoking Status FORMER SMOKER Treatment Plan No treatment plan text is available for this visit. Hospital discharge instructions Diagnosis Abdominal pain/ nausea/ hx pancreatitis Diet Clear Liquid Activity Level Bed Rest Other Instructions Follow up with DR Reza next week or clinic in am if any problems. Continue home meds as ordered.
--- OUTSIDE RECORDS SUMMARY | 2017-02-01 13:53 | External Medical Summary ---
:1960 Author Organization [facility] Summary purpose CCDA Sent to [facility] Chief Complaint and Reason for Visit Admit Diagnosis 1 CHRONIC PAIN NEC Admit Diagnosis 2 B-COMPLEX DEFIC NEC Problem list No authorized problems tracked for [...] Code Type Description Date Performed Performing Physician 10106 CPT-4 OFFICE/OUTPATIENT VISIT 01-17-2015 PEARL DENG Functional status No functional or [...]
--- OUTSIDE RECORDS SUMMARY | 2017-02-01 13:53 | External Medical Summary ---
:1960 Author Organization [facility] Care Team Providers Name Role Phone PEARL REZA MD Primary Care Provider [phone] Summary purpose CCDA Sent to [facility] Chief Complaint and Reason for Visit No [...] Allergen Category Ingredient Status Reaction Severity Onset Penicillins Drug Penicillins Active Rash codeine Drug codeine Active Nausea/Vomiting Mild Adult Immunizations No immunizations recorded for this patient visit Relevant diagnostic tests and/or laboratory data No authorized results are available for this patient visit History of procedures No procedures recorded for this patient visit. Functional status No functional or cognitive status [...]
--- OUTSIDE RECORDS SUMMARY | 2017-02-01 13:53 | External Medical Summary | Continuity Of Care Document ---
:1960 Author Organization [facility] Address [address] [place] [address] Phone Care Team Providers Name Role Phone SAKSHI SANDERS MD Primary Care Provider UNASSIGNED, ED PHYSICIAN Unavailable Unavailable MARIA TERESA LOWERY MD Consulting Provider TENZIN VELAZQUEZ DO Attending Provider Results Lab Results Visit/Account #[id number] (November 02, 2016 5:04pm - November 02, 2016 8:15pm) Test Result Date/Time COMPLETE BLOOD COUNT WITH DIFF WHITE BLOOD COUNT(4.0-11.0 10E3/UL) 12.4 10E3/UL November 02, 2016 5:23pm RED BLOOD COUNT(4.50-5.90 10E6/UL) 4.29 10E6/UL November 02, 2016 5:23pm HEMOGLOBIN(13.5-17.5 G/DL) 12.9 G/DL November 02, 2016 5:23pm HEMATOCRIT(41.0-53.0 %) 38.5 % November 02, 2016 5:23pm MEAN CORPUSCULAR VOLUME(82.0-100.0 FL) 89.7 FL November 02, 2016 5:23pm MEAN CORPUSCULAR HEMOGLOBIN(26.0-34.0 PG) 30.1 PG November 02, 2016 5:23pm MEAN CORPUSCULAR HGB CONC(31.5-36.5 G/DL) 33.5 G/DL November 02, 2016 5:23pm RED CELL DISTRIBUTION WIDTH(11.5-14.5 %) 14.3 % November 02, 2016 5:23pm 777-3: PLATELET COUNT(150-450 10E3/UL) 373 10E3/UL November 02, 2016 5:23pm MEAN PLATELET VOLUME(8.2-12.4 FL) 10.3 FL November 02, 2016 5:23pm NEUTROPHILS % (AUTO)(40-70 %) 90 % November 02, 2016 5:23pm LYMPHOCYTES % (AUTO)(15-45 %) 7 % November 02, 2016 5:23pm MONOCYTES % (AUTO)(2-10 %) 3 % November 02, 2016 5:23pm EOSINOPHILS % (AUTO)(0-6 %) 0 % November 02, 2016 5:23pm BASOPHILS % (AUTO)(0-1 %) 0 % November 02, 2016 5:23pm IMMATURE GRANS % (AUTO)(0-0 %) 1 % November 02, 2016 5:23pm NUCLEATED RBCS (AUTO)(0-0 %) 0 % November 02, 2016 5:23pm NEUTROPHILS # (AUTO)(2.5-7.5 10E3/UL) 11.2 10E3/UL November 02, 2016 5:23pm LYMPHOCYTES # (AUTO)(1.0-4.0 10E3/UL) 0.8 10E3/UL November 02, 2016 5:23pm MONOCYTES # (AUTO)(0.2-0.8 10E3/UL) 0.4 10E3/UL November 02, 2016 5:23pm EOSINOPHILS # (AUTO)(0.0-0.4 10E3/UL) 0.0 10E3/UL November 02, 2016 5:23pm BASOPHILS # (AUTO)(0.0-0.2 10E3/UL) 0.0 10E3/UL November 02, 2016 5:23pm IMMATURE GRANS # (AUTO)(0.0-0.0 10E3/UL) 0.1 10E3/UL November 02, 2016 5:23pm DIFF TYPE AUTOMATED November 02, 2016 5:23pm UA WITH SCREEN FOR CULTURE COLOR,URINE LIGHT YELLOW November 02, 2016 6:59pm CLARITY,URINE CLEAR November 02, 2016 6:59pm GLUCOSE, URINE(NEGATIVE MG/DL) TRACE MG/DL November 02, 2016 6:59pm URINE BILIRUBIN(NEGATIVE) NEGATIVE November 02, 2016 6:59pm KETONES,URINE(NEGATIVE MG/DL) NEGATIVE MG/DL November 02, 2016 6:59pm URINE SPECIFIC GRAVITY(1.001-1.035) 1.008 November 02, 2016 6:59pm URINE BLOOD(NEGATIVE) NEGATIVE November 02, 2016 6:59pm URINE PH(5.0-9.0) 7.5 November 02, 2016 6:59pm URINE PROTEIN(Less than 20 MG/DL) NEGATIVE MG/DL November 02, 2016 6:59pm URINE UROBILINOGEN(0.2-1.0 MG/DL) 0.2-1.0 MG/DL November 02, 2016 6:59pm URINE NITRITE(NEGATIVE) NEGATIVE November 02, 2016 6:59pm LEUKOCYTE ESTERASE ,URINE(NEGATIVE) NEGATIVE November 02, 2016 6:59pm URINE CULTURE NOT INDICATED November 02, 2016 6:59pm URINE MICROSCOPIC REQUIRED NO November 02, 2016 6:59pm COMPLETE METABOLIC PROFILE GLUCOSE(70-110 MG/DL) 169 MG/DL November 02, 2016 5:23pm BLOOD UREA NITROGEN(6-20 MG/DL) 9 MG/DL November 02, 2016 5:23pm CREATININE(0.50-1.20 MG/DL) 0.84 MG/DL November 02, 2016 5:23pm EST GLOMERULAR FILTRATION RATE(Greater than or equal to 60) Greater than or equal to 60 November 02, 2016 5:23pm Result Comments: If the patient is of -[place] descent/extraction multiply the eGFR value by 1.212 to obtain the actual eGFR. >=60 mg/dL Normal 30-59 mg/dL Moderate Kidney Disease 15-29 mg/dL Severe Kidney Disease <15 mg/dL Kidney Failure BUN CREATININE RATIO(10.0-20.0 RATIO) 11.0 RATIO November 02, 2016 5:23pm SODIUM(135-145 MMOL/L) 135 MMOL/L November 02, 2016 5:23pm POTASSIUM(3.6-5.0 MMOL/L) 3.3 MMOL/L November 02, 2016 5:23pm CHLORIDE(101-111 MMOL/L) 100 MMOL/L November 02, 2016 5:23pm CO2(21-31 MMOL/L) 21 MMOL/L November 02, 2016 5:23pm ANION GAP(8-18) 17 November 02, 2016 5:23pm OSMO CALCULATED(270.0-290.0) 272.7 November 02, 2016 5:23pm CALCIUM(8.5-10.5 MG/DL) 8.8 MG/DL November 02, 2016 5:23pm BILIRUBIN,TOTAL(0.1-1.2 MG/DL) 0.4 MG/DL November 02, 2016 5:23pm ALKALINE PHOSPHATASE(42-121 IU/L) 89 IU/L November 02, 2016 5:23pm ASPARTATE AMINO TRANSFERASE(10-42 IU/L) 29 IU/L November 02, 2016 5:23pm ALANINE AMINOTRANSFERASE(10-60 IU/L) 16 IU/L November 02, 2016 5:23pm TOTAL PROTEIN(6.4-8.2 G/DL) 7.7 G/DL November 02, 2016 5:23pm ALBUMIN(3.5-5.5 G/DL) 4.4 G/DL November 02, 2016 5:23pm GLOBULIN(2.4-3.6) 3.3 November 02, 2016 5:23pm ALBUMIN/GLOBULIN RATIO(0.9-1.8 RATIO) 1.3 RATIO November 02, 2016 5:23pm LIPASE LIPASE(22-51 U/L) 16 U/L November 02, 2016 5:23pm Allergies and Adverse Reactions Allergies and Adverse Reactions Patient Unit Number: [id number] Agent Type Reaction Severity Status PENICILLINS Drug Allergy UNSURE Mild Active CODEINE Drug Allergy UNSURE Mild Active Problem List Problem List Visit/Account #[id number] (November 02, 2016 5:04pm - November 02, 2016 8:15pm) Acute Problems: Code/Condition Comments Documented Start Documented Resolved Code(s) Date Date Nausea and vomiting ICD10: R11.2 Nausea and vomiting SNOMED: 74642539 Nausea and vomiting Abdominal pain ICD10: R10.9 Abdominal pain SNOMED: 37428739 Abdominal pain Plan of Care Plan Of Care Visit/Account #[id number] (November 02, 2016 5:04pm - November 02, 2016 8:15pm) Patient Instructions Return to the ED for any concerns. Take the Zofran every 6 hours as needed for nausea. Vital Signs Vital Signs Visit/Account #[id number] (November 02, 2016 5:04pm - November 02, 2016 8:15pm) Sign First Result Last Result Code(s) Temperature in Fahrenheit Temperature (Fahrenheit): 97.9 [degF] On November 02, 2016 5:05pm Temperature (Fahrenheit): 99.0 [degF] On November 02, 2016 8:15pm 8310 -5 Body Temperature Functional Status Functional and Cognitive Status No Functional Status Data Medications Inpatient/Ordered Medications - Medications administered during hospital visit Visit/Account #[id number] (November 02, 2016 5:04pm - November 02, 2016 8:15pm) Medication Route Sig/Schedule Precondition/Indication Comments/ Instructions Codes DILAUDID(HYDROmorphone HCL) 2 MG/ML INJECTION INTRAVEN NOW Label Comments : 1 ML Hydromorphone Hydrochloride 2 MG/ML Cartridge (RxNorm): 6369252 Dose: 0.5 ML MAY INCREASE FALL RISK DILAUDID (HYDROmorphone HCL) NDC: 04183787060 ZOFRAN INJ(ONDANSETRON HCL) 4 MG/2 ML INJECTION INTRAVEN ONE TIME ORDER Label Comments: 2 ML Ondansetron 2 MG/ML Injection (RxNorm): 2212366 Dose: 2 ML SLOW IV PUSH MAY BE SUBSTITUTED FOR ANZEMET (DOLASETRON) ZOFRAN INJ (ONDANSETRON HCL) NDC: 44708459291 MAY INCREASE FALL RISK HEP-LOCK FLUSH SYRINGE(HEPARIN LOCK FLUSH) 500 UNIT/5 ML INJECTION INTRAVEN NEEDED PRN Reason: PORT FLUSH Rx Order Comments: HEP-LOCK FLUSH SYRINGE ( HEPARIN LOCK FLUSH) NDC: 31134691650 Dose: 5 ML Order filed UNV: Allergies/Duplicates/Interactions differ from order tracer Label Comments: PORT FLUSHES: 5 mls after saline flush after medications OR blood draws. ACCESSED minimum: at least 1-2 times per week DEACCESSED minimum: at least monthly IV Medication INTRAVEN .Q1H (Rate: 1000 MLS/HR Duration: 1 HR) Carriers: Carriers: 1000 ML Sodium Chloride 9 MG/ML Injection (RxNorm): 8738462 NORMAL SALINE(SODIUM CHLORIDE) 1000 ML INJECTION NORMAL SALINE ( SODIUM CHLORIDE) NDC: 26720000139 Dose: 1000 ML IV Medication INTRAVEN .Q1H (Rate: 1000 MLS/HR Duration: 1 HR) Carriers: Carriers: 1000 ML Sodium Chloride 9 MG/ML Injection (RxNorm): 9260320 NORMAL SALINE(SODIUM CHLORIDE) 1000 ML INJECTION NORMAL SALINE ( SODIUM CHLORIDE) NDC: 70278455310 Dose: 1000 ML IV Medication INTRAVEN NOW (Rate: 400 MLS/HR Duration: 15 MIN) Label Comments: Carriers: * PROTECT FROM LIGHT * Carriers: 1 ML Promethazine Hydrochloride 25 MG/ML Injection (RxNorm) : 923641 PHENERGAN 25 MG/100 ML NS(PROMETHAZINE HCL IN 0.9 % NACL) 25 MG/100 ML INJECTION PHENERGAN 25 MG/100 ML NS (PROMETHAZINE HCL IN 0.9 % NACL) NDC: 55988098397 Dose: 100 ML ATIVAN INJ(LORazepam) 2 MG/ML INJECTION Route .STK-MED Label Comments: 1 ML Lorazepam 2 MG/ML Injection [Ativan] (RxNorm): 4525786 Dose: 2 MG *DILUTE WITH EQUAL VOLUME OF NORMAL SALINE PRIOR TO IV ADMINISTRATION ATIVAN INJ (LORazepam) NDC: 52103201909 MAY INCREASE FALL RISK K-DUR(POTASSIUM CHLORIDE) 20 MEQ TAB ORAL ONE TIME ORDER Label Comments: Microencapsulated Potassium Chloride 20 MEQ Extended Release Oral Tablet [Klor- Con] (RxNorm): [id number] Dose: 20 MEQ TAKE WITH FOOD TO AVOID GI UPSET K-DUR (POTASSIUM CHLORIDE) NDC: [id number] TORADOL INJ(KETOROLAC TROMETHAMINE) 30 MG/ML INJECTION Route .STK-MED Label Comments: 1 ML Ketorolac Tromethamine 30 MG/ML Injection (RxNorm): 2662368 Dose: 30 MG DO NOT EXCEED 5 DAYS OF THERAPY TORADOL INJ (KETOROLAC TROMETHAMINE) NDC: [id number] ZOFRAN INJ(ONDANSETRON HCL) 4 MG/2 ML INJECTION Route .STK-MED Label Comments: 2 ML Ondansetron 2 MG/ML Injection (RxNorm): 7095634 Dose: 4 MG SLOW IV PUSH MAY INCREASE FALL RISK ZOFRAN INJ (ONDANSETRON HCL) NDC: [id number] Discharge Medications - Medications that patient should continue to take. Review with physician Visit/Account #[id number] (November 02, 2016 5:04pm - November 02, 2016 8:15pm) Medication Route Sig/Schedule Precondition/Indication Comments/ Instructions Codes ZOFRAN ODT(ONDANSETRON) 4 MG TAB.RAPDIS ORAL EVERY 6 HOURS NAUSEA/VOMITING Ondansetron 4 MG Disintegrating Oral Tablet [Zofran] (RxNorm): 799562 Dose: 4 MG ZOFRAN ODT (ONDANSETRON) NDC: [id number] POTASSIUM CHLORIDE(POTASSIUM CHLORIDE) 10 MEQ CAPSULE.ER ORAL TWICE A DAY Potassium Chloride 10 MEQ Extended Release Oral Capsule (RxNorm): 981935 Dose: 20 MEQ POTASSIUM CHLORIDE (POTASSIUM CHLORIDE) NDC: [id number] History Of Encounters Encounters Visit/Account #[id number] (November 02, 2016 5:04pm - November 02, 2016 8:15pm) Account Physican Of Reason For Visit Diagnosis Start Date/Time Stop Date/ Time Status Record Visit ER TENZIN VELAZQUEZ, DO ABDOMEN PAIN SINCE THIS AM Not Available Nov 02, 2016 5:04pm Nov 02, 2016 8:15pm History of Procedures Procedure List No procedures recorded. Discharge Instructions Discharge Instructions Visit/Account #[id number] (November 02, 2016 5:04pm - November 02, 2016 8:15pm) DISCHARGE INSTRUCTIONS Physician Documentation Social History Social History No Social History Data. Immunizations Immunizations Patient Unit Number: [id number] Immunizations No immunizations recorded.
--- OUTSIDE RECORDS SUMMARY | 2017-02-01 13:53 | External Medical Summary ---
:1960 Author Organization [facility] Summary purpose CCDA Sent to [facility] Chief Complaint and Reason for Visit No [...] tests and/or laboratory data RESULTS Chemistry Group [id number]:00 Result Normal Range Units Glucose H 147 74-106 mg/dl BUN 8 7-18 mg/dl Osmolality 275 268.0-292.0 Creatinine 0.9 0.6-1.3 mg/dl Sodium 137 136-145 mmol/L Potassium L 3.1 3.5-5.1 mmol/L Chloride 100 98-107 mmol/L CO2 23.4 21.0-32.0 mmol/L Calcium 8.6 8.5-10.1 mg/dl Total Protein 7.5 6.4-8.2 g/dl Albumin 4.0 3.4-5.0 g/dl AST 22 15-37 U/L ALT L 25 30-65 U/L ALP 87 50-136 U/L Bilirubin, Total 0.6 0.2-1.0 mg/dl eGFR 88 >=60 ml/min. Amylase 86 25-115 U/L [facility] :35:00 Result Normal Range Units Glucose H 147 74-106 mg/dl BUN 8 7-18 mg/dl Osmolality 275 268.0-292.0 Creatinine 0.9 0.6-1.3 mg/dl Sodium 137 136-145 mmol/L Potassium L 3.1 3.5-5.1 mmol/L Chloride 100 98-107 mmol/L CO2 23.4 21.0-32.0 mmol/L Calcium 8.6 8.5-10.1 mg/dl Total Protein 7.5 6.4-8.2 g/dl Albumin 4.0 3.4-5.0 g/dl AST 22 15-37 U/L ALT L 25 30-65 U/L ALP 87 50-136 U/L Bilirubin, Total 0.6 0.2-1.0 mg/dl eGFR 88 >=60 ml/min. BMP :35:00 Result Normal Range Units Glucose H 147 74-106 mg/dl BUN 8 7-18 mg/dl Osmolality 275 268.0-292.0 Creatinine 0.9 0.6-1.3 mg/dl Sodium 137 136-145 mmol/L Potassium L 3.1 3.5-5.1 mmol/L Chloride 100 98-107 mmol/L CO2 23.4 21.0-32.0 mmol/L Calcium 8.6 8.5-10.1 mg/dl eGFR 88 >=60 ml/min. Electrolyte Panel :35:00 Result Normal Range Units Sodium 137 136-145 mmol/L Potassium L 3.1 3.5-5.1 mmol/L Chloride 100 98-107 mmol/L CO2 23.4 21.0-32.0 mmol/L Hepatic Profile :35:00 Result Normal Range Units Total Protein 7.5 6.4-8.2 g/dl Albumin 4.0 3.4-5.0 g/dl AST 22 15-37 U/L ALT L 25 30-65 U/L ALP 87 50-136 U/L Bilirubin, Total 0.6 0.2-1.0 mg/dl Renal Panel :35:00 Result Normal Range Units Glucose H 147 74-106 mg/dl BUN 8 7-18 mg/dl Osmolality 275 268.0-292.0 Creatinine 0.9 0.6-1.3 mg/dl Sodium 137 136-145 mmol/L Potassium L 3.1 3.5-5.1 mmol/L Chloride 100 98-107 mmol/L CO2 23.4 21.0-32.0 mmol/L Calcium 8.6 8.5-10.1 mg/dl Albumin 4.0 3.4-5.0 g/dl eGFR 88 >=60 ml/min. CBC :35:00 Result Normal Range Units WBC 10.5 4.5-11.0 K/uL Lymphocyte # 1.5 0.6-4.1 Lymphocyte % 14.6 10.0-58.5 % Mid # 1.1 0.0-1.8 *MID cells may include less frequently occurring and rare cells correlating to monocytes, eosinophils, basophils, blasts and other precursor white cells. Mid % 10.1 0.1-24.0 % Granulocyte # H 7.9 2.0-7.8 Granulocyte % 75.3 37.0-92.0 % RBC 4.51 4.20-6.30 M/uL Hemoglobin L 13.4 13.5-17.5 g/dl Hematocrit 41.3 41.0-53.0 % MCV 91.6 80-100 FL MCH 29.7 26.0-32.0 pg MCHC 32.4 31.0-37.0 g/dl RDW 14 11.5-14.5 % Platelets 345 150-350 K/uL CBC with Manual Diff :35:00 Result Normal Range Units WBC 10.5 4.5-11.0 K/uL Lymphocyte # 1.5 0.6-4.1 Lymphocyte % 14.6 10.0-58.5 % Mid # 1.1 0.0-1.8 *MID cells may include less frequently occurring and rare cells correlating to monocytes, eosinophils, basophils, blasts and other precursor white cells. Mid % 10.1 0.1-24.0 % Granulocyte # H 7.9 2.0-7.8 Granulocyte % 75.3 37.0-92.0 % RBC 4.51 4.20-6.30 M/uL Hemoglobin L 13.4 13.5-17.5 g/dl Hematocrit 41.3 41.0-53.0 % MCV 91.6 80-100 FL MCH 29.7 26.0-32.0 pg MCHC 32.4 31.0-37.0 g/dl RDW 14 11.5-14.5 % Platelets 345 150-350 K/uL History of procedures No procedures recorded for this patient visit. Functional status Cognitive Status Finding Observation Time Level of Consciousne Alert :18 Oriented to Person Yes :[address] Yes :18 Oriented to Time Yes :18 Vital signs Type Value Date Respirations 18 :07 Pulse 80 :24 O2 Saturation 97% :24 Systolic Blood Press 139mm/HG :24 Diastolic Blood Pres 97mm/HG :24 Temperature (Fahr) 98.9Degrees :07 Height 70in :06 Weight 178.8LB :06 Social history Type Value Smoking Status FORMER SMOKER Treatment Plan Treatment Plan at patient is to get medication filled that he was sent home with 07/23/15. Script given today for Percocet 7.5/325mg take one three times daily as needed Hospital discharge instructions Diagnosis nausea, vomiting, and abdomen pain Diet as tolerated Activity Level as tolerated Flu Vaccine Given Current/Not Needed Follow up with Dr. Calderon Other Instructions get medication filled that he was sent home with 07/23/2015 : Zoloft, and new script today for pain is Percocet 7.5/325mg one three times daily as needed for pain
--- OUTSIDE RECORDS SUMMARY | 2017-02-01 13:53 | External Medical Summary ---
:1960 Author Organization [facility] Care Team Providers Name Role Phone PEARL REZA MD Primary Care Provider [phone] Summary purpose CCDA Sent to [facility] Chief Complaint and Reason for Visit No [...]
--- OUTSIDE RECORDS SUMMARY | 2017-02-01 13:53 | External Medical Summary ---
:1960 Author Organization [facility] Summary purpose CCDA Sent to [facility] Chief Complaint and Reason for Visit Admit Diagnosis 1 NAUSEA WITH VOMITING Problem list No authorized problems tracked for continuity of care are available for this visit. Encounters No authorized problems tracked for encounter diagnoses are available for this visit. Medications Home Medications Medication Directions Started Status Source Mylanta oral 30 ml oral As needed for GI 07-14-13 Discont Physician Order not given at this hospital stay traMADol 50 mg tablet 1 tablet oral As Needed Every 4 Hours for pain Discont Physician Order not given at this hospital stay cyclobenzaprine 10 mg 1 tablet oral As Needed Every 8 Hours Current tablet not given at this hospital stay Lialda 1.2 g 1.2 gm Oral 4 times per day for colitis not given during Current Medication bottle tablet,delayed release not given at this hospital stay this admit label Creon 24,000 units Oral Before meals for colitis not given during Current Physician Order 24,000-76,000-120,000 not given at this hospital stay this admit unit capsule,delayed release amitriptyline 50 mg 1 tablet Oral At bed time for colitis not given during Current Physician Order tablet not given at this hospital stay this admit cyclobenzaprine 10 mg 1 tablet oral As Needed Every 8 Hours Current tablet not given at this hospital stay Percocet 10 mg-325 mg 1 tablet oral 2 Current Physician Order tablet times per day for pain Allergies, adverse reactions, alerts Allergen Category Ingredient [...] Code Type Description Date Performed Performing Physician 81064 CPT-4 THER/PROPH/DIAG INJ 10-31-2014 PEARL REZA SC/IM 21981 CPT-4 EMERGENCY DEPT VISIT 10-31-2014 PEARL REZA J2405 CPT-4 ONDANSETRON HCL 10-31-2014 JANIA DUNSTAN INJECTION J2175 CPT-4 MEPERIDINE HYDROCHL /100 10-31-2014 JANIA DUNSTAN MG J2550 CPT-4 PROMETHAZINE HCL 10-31-2014 JANIA DUNSTAN INJECTION J2175 CPT-4 MEPERIDINE HYDROCHL /100 10-31-2014 JANIA DUNSTAN MG Functional status No functional or cognitive status observations are available for this visit. Vital signs Type Value Date Respirations 22 :06 Pulse 92 :06 O2 Saturation 99% :06 Systolic Blood Press 151mm/HG :06 Diastolic Blood Pres 89mm/HG :06 Temperature (Fahr) 98.1Degrees 23-28-293654:06 Height 70in :21 Weight 162.6LB 50-70-093176:21 Social history Type Value Smoking Status FORMER SMOKER Treatment Plan No treatment plan text is available for this visit. Hospital discharge instructions Diagnosis nausea and vomiting Diet clear liquids Activity Level rest tonight stay out of sun and heat for 48 hours Flu Vaccine Given Current/Not Needed Follow up with clinic Appointment Date and as needed Other Instructions rest tonight, drink plenty of fluids to stay hydrated return if gets worse do not drive tonight family to give ride home
--- OUTSIDE RECORDS SUMMARY | 2017-02-01 13:54 | External Medical Summary ---
:1960 Author Organization [facility] Summary purpose CCDA Sent to [facility] Chief Complaint and Reason for Visit Admit Diagnosis 1 NAUSEA WITH VOMITING Problem list Condition Status Certainty Chronicity Onset .Nausea Active .Vomiting Active Encounters The following conditions tracked for encounter diagnoses were recorded for this visit: Finding or Diagnosis Status Certainty Chronicity Onset .Nausea Active .Vomiting Active Medications Home Medications Medication Directions Started Status Source cyclobenzaprine 10 mg 1 tablet oral As Needed Every 8 Hours for Muscle spasm Current Physician Order tablet not given at [...] given at this hospital stay this admit Percocet 10 mg-325 mg 1 tablet oral [...] Relevant diagnostic tests and/or laboratory data RESULTS Reference Lab Group [id number]:00 Result Normal Range Units Hepatitis A IgM NON-REACTIVE NON-REACTIVE Result Amended on 2014-12-25 at 09:17:42. Previous status was UT. TEST PERFORMED AT: [facility] [address] [place] [address] MERRICK HOLLEY DO,MPH Hepatitis B core Ab IgM NON-REACTIVE NON-REACTIVE Result Amended on 2014-12-25 at 09:17:45. Previous status was UT. TEST PERFORMED AT: [facility] [address] [address] MERRICK HOLLEY DO,MPH Hepatitis C Ab NON-REACTIVE NON-REACTIVE Result Amended on 2014-12-25 at 09:17:45. Previous status was UT. Signal to Cut-off 0.02 <1.00 Result Amended on 2014-12-25 at 09:17:45. Previous status was UT. TEST PERFORMED AT: [facility] [address] MERRICK HOLLEY DO,MPH Hepatitis BsAg NON-REACTIVE NON-REACTIVE Result Amended on 2014-12-25 at 09:17:45. Previous status was UT. TEST PERFORMED AT: [facility] [address] MERRICK HOLLEY DO,MPH Acute Hepatitis Profile [id number]:00 Result Normal Range Units Hepatitis A IgM NON-REACTIVE NON-REACTIVE Result Amended on 2014-12-25 at 09:17:42. Previous status was UT. TEST PERFORMED AT: [facility] [address] MERRICK HOLLEY DO,MPH Hepatitis B core Ab IgM NON-REACTIVE NON-REACTIVE Result Amended on 2014-12-25 at 09:17:45. Previous status was UT. TEST PERFORMED AT: [facility] [address] MERRICK HOLLEY DO,MPH Hepatitis C Ab NON-REACTIVE NON-REACTIVE Result Amended on 2014-12-25 at 09:17:45. Previous status was UT. Signal to Cut-off 0.02 <1.00 Result Amended on 2014-12-25 at 09:17:45. Previous status was UT. TEST PERFORMED AT: [facility] [address] MERRICK HOLLEY DO,MPH Hepatitis BsAg NON-REACTIVE NON-REACTIVE Result Amended on 2014-12-25 at 09:17:45. Previous status was UT. TEST PERFORMED AT: [facility] [place] [address] MERRICK HOLLEY DO,MPH History of procedures Procedure Code Code Type Description Date Performed Performing Physician G0378 CPT-4 HOSPITAL OBSERVATION PER 12-17-2014 PEARLSteven REZA HR G0378 CPT-4 HOSPITAL OBSERVATION PER 12-18-2014 [place] [address] CPT-4 THER/PROPH/DIAG INJ IV 12-17-2014 PEARLSteven REZA PUSH 80879 CPT-4 TX/PRO/DX INJ NEW DRUG 12-17-2014 PEARLSteven REZA ADDON 77166 CPT-4 TX/PRO/DX INJ SAME DRUG 12-17-2014 PEARLSteven REZA C[employer] BRICK 13823 CPT-4 HYDRATE IV INFUSION 12-17-2014 PEARLSteven REZA ADD-ON C9113 CPT-4 INJ PANTOPRAZOLE SODIUM, 12-17-2014 JANIA DUNSTAN VIA J7030 CPT-4 NORMAL SALINE SOLUTION 12-17-2014 JANIA DUNSTAN INFUS J2270 CPT-4 MORPHINE SULFATE 12-17-2014 JANIA DUNSTAN INJECTION J2270 CPT-4 MORPHINE SULFATE 12-17-2014 JANIA DUNSTAN INJECTION J2405 CPT-4 ONDANSETRON HCL 12-17-2014 JANIA DUNSTAN INJECTION J2270 CPT-4 MORPHINE SULFATE 12-17-2014 JANIA DUNSTAN INJECTION J2175 CPT-4 MEPERIDINE HYDROCHL /100 12-17-2014 SELAM BLACK MG C9113 CPT-4 INJ PANTOPRAZOLE SODIUM, 12-18-2014 JANIA DUNSTAN VIA J7030 CPT-4 NORMAL SALINE SOLUTION 12-18-2014 JANIA DUNSTAN INFUS J7030 CPT-4 NORMAL SALINE SOLUTION 12-18-2014 JANIA DUNSTAN INFUS J2175 CPT-4 MEPERIDINE HYDROCHL /100 12-18-2014 SELAM BLACK MG J2175 CPT-4 MEPERIDINE HYDROCHL /100 12-18-2014 SELAM BLACK MG C9113 CPT-4 INJ PANTOPRAZOLE SODIUM, 12-18-2014 JANIA DUNSTAN VIA 68699 CPT-4 ROUTINE VENIPUNCTURE 12-18-2014 PEARL REZA 96697 CPT-4 TX/PRO/DX INJ NEW DRUG 12-18-2014 PEARLSteven REZA ADDON 66442 CPT-4 HYDRATE IV INFUSION 12-18-2014 PEARL REZA ADD-ON Functional status Functional Status Finding Observation Time Dexterity Right-handed 98-36-651808:00 Weight Bearing Statu Full 13-61-668715:19 Transferring/Ambulat Independent 72-78-952156:00 Bathing Independent :00 Dressing Independent :00 Eating Independent : Drinking Independent : Toileting Independent : Able to Turn Self in Independent : Cognitive Status Finding Observation Time Level of Consciousne Alert :30 Oriented to Person Yes :[address] Yes :30 Oriented to Time Yes :30 Eyes - TROY Yes :00 Vital signs Type Value Date Respirations 22 :58 Pulse 82 :58 O2 Saturation 98% :58 Systolic Blood Press 152mm/HG : Diastolic Blood Pres 90mm/HG :58 Temperature (Fahr) 98.3Degrees :58 Height 70in :12 Weight 163.2LB 69-01-957885:12 Social history Type Value Smoking Status FORMER SMOKER Treatment Plan Treatment Plan at Di Return to Clinic to f/u Dr. Reza on 12-20-14 3: 15pm Hospital discharge instructions Diagnosis Abdominal Pain Diet Clear Liquid until after you see Dr. Reza 12-20-14 @ 3:15pm. He will give you further instructions at that time Activity Level Rest Flu Vaccine Given Current/Not Needed Follow up with Dr. Reza Appointment Date and 3:15pm 12-20-14 Other Instructions Follow up with Dr. Reza in Clinic on , discuss diet, testing and other questions you may have.
--- OUTSIDE RECORDS SUMMARY | 2017-02-01 13:54 | External Medical Summary ---
:1960 Author Organization [facility] Summary purpose CCDA Sent to [facility] Chief Complaint and Reason for Visit [...] Code Type Description Date Performed Performing Physician 39734 CPT-4 OFFICE/OUTPATIENT VISIT, 12-23-2015 JANIA DENG Functional status No functional or cognitive [...]
--- OUTSIDE RECORDS SUMMARY | 2017-02-01 13:54 | External Medical Summary ---
:1960 Author Organization [facility] Summary purpose CCDA Sent to [facility] Chief Complaint and Reason for Visit No [...] Code Type Description Date Performed Performing Physician 92229 CPT-4 OFFICE/OUTPATIENT VISIT, 11-05-2015 JANIA DENG Functional status No functional or [...]
--- OUTSIDE RECORDS SUMMARY | 2017-02-01 13:54 | External Medical Summary ---
:1960 Author Organization [facility] Summary purpose CCDA Sent to [facility] Chief Complaint and Reason for Visit Admit Diagnosis 1 ABDOMINAL PAIN LT LW CITLALI Problem list No authorized problems tracked for [...] Code Type Description Date Performed Performing Physician 68327 CPT-4 OFFICE/OUTPATIENT VISIT 12-07-2014 JANIA DENG Functional status No functional or [...]
--- OUTSIDE RECORDS SUMMARY | 2017-02-01 13:54 | External Medical Summary ---
:1960 Author Organization [facility] Summary purpose CCDA Sent to [facility] Chief Complaint and Reason for [...] tests and/or laboratory data RESULTS Chemistry Group :43:00 Result Normal Range Units Glucose H 153 74-106 mg/dl BUN 7 7-18 mg/dl Osmolality 277 268.0-292.0 Creatinine 1.0 0.6-1.3 mg/dl Sodium 138 136-145 mmol/L Potassium 3.5 3.5-5.1 mmol/L Chloride 100 98-107 mmol/L CO2 24.2 21.0-32.0 mmol/L Calcium 9.0 8.5-10.1 mg/dl Total Protein 8.0 6.4-8.2 g/dl Albumin 4.0 3.4-5.0 g/dl AST 25 15-37 U/L ALT 30 30-65 U/L ALP 107 50-136 U/L Bilirubin, Total 0.5 0.2-1.0 mg/dl eGFR 78 >=60 ml/min. Amylase 92 25-115 U/L Lipase 90 73-393 U/L [facility] :43:00 Result Normal Range Units Glucose H 153 74-106 mg/dl BUN 7 7-18 mg/dl Osmolality 277 268.0-292.0 Creatinine 1.0 0.6-1.3 mg/dl Sodium 138 136-145 mmol/L Potassium 3.5 3.5-5.1 mmol/L Chloride 100 98-107 mmol/L CO2 24.2 21.0-32.0 mmol/L Calcium 9.0 8.5-10.1 mg/dl Total Protein 8.0 6.4-8.2 g/dl Albumin 4.0 3.4-5.0 g/dl AST 25 15-37 U/L ALT 30 30-65 U/L ALP 107 50-136 U/L Bilirubin, Total 0.5 0.2-1.0 mg/dl eGFR 78 >=60 ml/min. BMP :43:00 Result Normal Range Units Glucose H 153 74-106 mg/dl BUN 7 7-18 mg/dl Osmolality 277 268.0-292.0 Creatinine 1.0 0.6-1.3 mg/dl Sodium 138 136-145 mmol/L Potassium 3.5 3.5-5.1 mmol/L Chloride 100 98-107 mmol/L CO2 24.2 21.0-32.0 mmol/L Calcium 9.0 8.5-10.1 mg/dl eGFR 78 >=60 ml/min. Electrolyte Panel :43:00 Result Normal Range Units Sodium 138 136-145 mmol/L Potassium 3.5 3.5-5.1 mmol/L Chloride 100 98-107 mmol/L CO2 24.2 21.0-32.0 mmol/L Hepatic Profile :43:00 Result Normal Range Units Total Protein 8.0 6.4-8.2 g/dl Albumin 4.0 3.4-5.0 g/dl AST 25 15-37 U/L ALT 30 30-65 U/L ALP 107 50-136 U/L Bilirubin, Total 0.5 0.2-1.0 mg/dl Renal Panel :43:00 Result Normal Range Units Glucose H 153 74-106 mg/dl BUN 7 7-18 mg/dl Osmolality 277 268.0-292.0 Creatinine 1.0 0.6-1.3 mg/dl Sodium 138 136-145 mmol/L Potassium 3.5 3.5-5.1 mmol/L Chloride 100 98-107 mmol/L CO2 24.2 21.0-32.0 mmol/L Calcium 9.0 8.5-10.1 mg/dl Albumin 4.0 3.4-5.0 g/dl eGFR 78 >=60 ml/min. CBC :43:00 Result Normal Range Units WBC H 12.8 4.5-11.0 K/uL Lymphocyte # 1.3 0.6-4.1 Lymphocyte % 10 10.0-58.5 % Mid # 0.8 0.0-1.8 *MID cells may include less frequently occurring and rare cells correlating to monocytes, eosinophils, basophils, blasts and other precursor white cells. Mid % 6.2 0.1-24.0 % Granulocyte # H 10.7 2.0-7.8 Granulocyte % 83.8 37.0-92.0 % RBC 4.53 4.20-6.30 M/uL Hemoglobin 13.6 13.5-17.5 g/dl Hematocrit 41.4 41.0-53.0 % MCV 91.4 80-100 FL MCH 30 26.0-32.0 pg MCHC 32.9 31.0-37.0 g/dl RDW 14.5 11.5-14.5 % Platelets 329 150-350 K/uL CBC with Manual Diff :43:00 Result Normal Range Units WBC H 12.8 4.5-11.0 K/uL Lymphocyte # 1.3 0.6-4.1 Lymphocyte % 10 10.0-58.5 % Mid # 0.8 0.0-1.8 *MID cells may include less frequently occurring and rare cells correlating to monocytes, eosinophils, basophils, blasts and other precursor white cells. Mid % 6.2 0.1-24.0 % Granulocyte # H 10.7 2.0-7.8 Granulocyte % 83.8 37.0-92.0 % RBC 4.53 4.20-6.30 M/uL Hemoglobin 13.6 13.5-17.5 g/dl Hematocrit 41.4 41.0-53.0 % MCV 91.4 80-100 FL MCH 30 26.0-32.0 pg MCHC 32.9 31.0-37.0 g/dl RDW 14.5 11.5-14.5 % Platelets 329 150-350 K/uL History of procedures Procedure Code Code Type Description Date Performed Performing Physician 59716 CPT-4 OFFICE/OUTPATIENT VISIT, 06-07-2015 DEBBIE ALCOCER EST J2550 CPT-4 PROMETHAZINE HCL 06-07-2015 DEBBIE ALCOCER INJECTION 82145 CPT-4 THER/PROPH/DIAG INJ, 06-07-2015 DEBBIE ALCOCER SC/IM Functional status No functional or cognitive status [...]
--- OUTSIDE RECORDS SUMMARY | 2017-02-01 13:54 | External Medical Summary ---
:1960 Author Organization [facility] Summary purpose CCDA Sent to [facility] Chief Complaint and Reason for [...]
--- OUTSIDE RECORDS SUMMARY | 2017-02-01 13:54 | External Medical Summary ---
:1960 Author Organization [facility] Summary purpose CCDA Sent to [facility] Chief Complaint and Reason for Visit Admit Diagnosis 1 NAUSEA AND DIARRHEA Problem list Condition Status Certainty Chronicity Onset .Colitis Active .Abdominal pain Active .Nausea Active .Vomiting Active Encounters The following conditions tracked for encounter diagnoses were recorded for this visit: Finding or Diagnosis Status Certainty Chronicity Onset .Colitis Active .Abdominal pain Active .Nausea Active .Vomiting Active Medications Discharge Medications Status Medication Directions Current amitriptyline 10 mg tablet 10 miligram(s) oral TWO TIMES A DAY 10mg in AM and afternoon Current amitriptyline 50 mg tablet 50 miligram(s) oral BEDTIME Current Creon 36,000-114,000-180,000 unit 1 capsule(s) oral oral NEEDED for with meals capsule,delayed release 3 capsules with meals; 2 capsules with snacks Current cyclobenzaprine 10 mg tablet 10 miligram(s) oral oral EVERY EIGHT HOURS NEEDED for back pain Current diazepam 5 mg tablet 5 miligram(s) oral ONE TIME A DAY Current dicyclomine 10 mg capsule 10 miligram(s) oral ONE TIME A DAY Current gabapentin 300 mg capsule 300 miligram(s) oral THREE TIMES A DAY Current Lialda 1.2 g tablet,delayed release 1.2 gram(s) oral FOUR TIMES A DAY Current ondansetron 8 mg disintegrating tablet 8 miligram(s) oral oral NEEDED for nausea Current oxyCODONE-acetaminophen 10 mg-325 mg 1 tab(s) oral oral FOUR TIMES A DAY tablet NEEDED for pain Current pantoprazole 40 mg tablet,delayed release 40 miligram(s) oral ONE TIME A DAY Current potassium chloride ER 10 mEq 10 milliequivilant(s) oral ONE TIME capsule,extended release A DAY Allergies, adverse reactions, alerts Allergen Category Ingredient Status Reaction Severity Onset Codeine Drug Codeine Active Hives Adolescence Penicillins Drug Penicillins Active Hives Moderate Adolescence No known food No known food No known food Active allergies allergies allergies Immunizations No immunizations recorded for this patient visit Relevant diagnostic tests and/or laboratory data RESULTS Chemistry Group :50:00 Result Normal Range Units Glucose 97 74-106 mg/dl BUN 13 7-18 mg/dl Osmolality 279 268.0-292.0 Creatinine 0.92 0.70-1.30 mg/dl Sodium 140 136-145 mmol/L Potassium 3.5 3.5-5.1 mmol/L Chloride 104 98-107 mmol/L CO2 24.0 21.0-32.0 mmol/L Calcium L 8.1 8.5-10.1 mg/dl Total Protein 6.7 6.4-8.2 g/dl Albumin L 3.3 3.4-5.0 g/dl AST 30 15-37 U/L ALT 30 30-65 U/L ALP 85 50-136 U/L Bilirubin, Total 0.5 0.2-1.0 mg/dl eGFR 86 >=60 ml/min. :04:00 Result Normal Range Units Glucose H 171 74-106 mg/dl BUN 13 7-18 mg/dl Osmolality 278 268.0-292.0 Creatinine 1.21 0.70-1.30 mg/dl Sodium 137 136-145 mmol/L Potassium 3.7 3.5-5.1 mmol/L Chloride 98 98-107 mmol/L CO2 26.7 21.0-32.0 mmol/L Calcium 9.6 8.5-10.1 mg/dl Total Protein 8.1 6.4-8.2 g/dl Albumin 4.2 3.4-5.0 g/dl AST 32 15-37 U/L ALT 45 30-65 U/L ALP 103 50-136 U/L Bilirubin, Total 0.4 0.2-1.0 mg/dl eGFR 63 >=60 ml/min. Amylase 83 25-115 U/L Lipase 88 73-393 U/L [facility] :50:00 Result Normal Range Units Glucose 97 74-106 mg/dl BUN 13 7-18 mg/dl Osmolality 279 268.0-292.0 Creatinine 0.92 0.70-1.30 mg/dl Sodium 140 136-145 mmol/L Potassium 3.5 3.5-5.1 mmol/L Chloride 104 98-107 mmol/L CO2 24.0 21.0-32.0 mmol/L Calcium L 8.1 8.5-10.1 mg/dl Total Protein 6.7 6.4-8.2 g/dl Albumin L 3.3 3.4-5.0 g/dl AST 30 15-37 U/L ALT 30 30-65 U/L ALP 85 50-136 U/L Bilirubin, Total 0.5 0.2-1.0 mg/dl eGFR 86 >=60 ml/min. :04:00 Result Normal Range Units Glucose H 171 74-106 mg/dl BUN 13 7-18 mg/dl Osmolality 278 268.0-292.0 Creatinine 1.21 0.70-1.30 mg/dl Sodium 137 136-145 mmol/L Potassium 3.7 3.5-5.1 mmol/L Chloride 98 98-107 mmol/L CO2 26.7 21.0-32.0 mmol/L Calcium 9.6 8.5-10.1 mg/dl Total Protein 8.1 6.4-8.2 g/dl Albumin 4.2 3.4-5.0 g/dl AST 32 15-37 U/L ALT 45 30-65 U/L ALP 103 50-136 U/L Bilirubin, Total 0.4 0.2-1.0 mg/dl eGFR 63 >=60 ml/min. [facility] :50:00 Result Normal Range Units Glucose 97 74-106 mg/dl BUN 13 7-18 mg/dl Osmolality 279 268.0-292.0 Creatinine 0.92 0.70-1.30 mg/dl Sodium 140 136-145 mmol/L Potassium 3.5 3.5-5.1 mmol/L Chloride 104 98-107 mmol/L CO2 24.0 21.0-32.0 mmol/L Calcium L 8.1 8.5-10.1 mg/dl eGFR 86 >=60 ml/min. :04:00 Result Normal Range Units Glucose H 171 74-106 mg/dl BUN 13 7-18 mg/dl Osmolality 278 268.0-292.0 Creatinine 1.21 0.70-1.30 mg/dl Sodium 137 136-145 mmol/L Potassium 3.7 3.5-5.1 mmol/L Chloride 98 98-107 mmol/L CO2 26.7 21.0-32.0 mmol/L Calcium 9.6 8.5-10.1 mg/dl eGFR 63 >=60 ml/min. Electrolyte Panel :50:00 Result Normal Range Units Sodium 140 136-145 mmol/L Potassium 3.5 3.5-5.1 mmol/L Chloride 104 98-107 mmol/L CO2 24.0 21.0-32.0 mmol/L :04:00 Result Normal Range Units Sodium 137 136-145 mmol/L Potassium 3.7 3.5-5.1 mmol/L Chloride 98 98-107 mmol/L CO2 26.7 21.0-32.0 mmol/L Hepatic Profile :50:00 Result Normal Range Units Total Protein 6.7 6.4-8.2 g/dl Albumin L 3.3 3.4-5.0 g/dl AST 30 15-37 U/L ALT 30 30-65 U/L ALP 85 50-136 U/L Bilirubin, Total 0.5 0.2-1.0 mg/dl :04:00 Result Normal Range Units Total Protein 8.1 6.4-8.2 g/dl Albumin 4.2 3.4-5.0 g/dl AST 32 15-37 U/L ALT 45 30-65 U/L ALP 103 50-136 U/L Bilirubin, Total 0.4 0.2-1.0 mg/dl Renal Panel :50:00 Result Normal Range Units Glucose 97 74-106 mg/dl BUN 13 7-18 mg/dl Osmolality 279 268.0-292.0 Creatinine 0.92 0.70-1.30 mg/dl Sodium 140 136-145 mmol/L Potassium 3.5 3.5-5.1 mmol/L Chloride 104 98-107 mmol/L CO2 24.0 21.0-32.0 mmol/L Calcium L 8.1 8.5-10.1 mg/dl Albumin L 3.3 3.4-5.0 g/dl eGFR 86 >=60 ml/min. :04:00 Result Normal Range Units Glucose H 171 74-106 mg/dl BUN 13 7-18 mg/dl Osmolality 278 268.0-292.0 Creatinine 1.21 0.70-1.30 mg/dl Sodium 137 136-145 mmol/L Potassium 3.7 3.5-5.1 mmol/L Chloride 98 98-107 mmol/L CO2 26.7 21.0-32.0 mmol/L Calcium 9.6 8.5-10.1 mg/dl Albumin 4.2 3.4-5.0 g/dl eGFR 63 >=60 ml/min. CBC :50:00 Result Normal Range Units WBC 10.3 4.5-11.0 K/uL Lymphocyte # 1.7 0.6-4.1 Lymphocyte % 16.9 10.0-58.5 % RBC 4.34 4.20-6.30 M/uL Hemoglobin L 13.0 13.5-17.5 g/dl Hematocrit L 38.2 41.0-53.0 % MCV 88.0 80-100 FL MCH 30.0 26.0-32.0 pg MCHC 34.0 31.0-37.0 g/dl RDW 14.2 11.5-14.5 % MPV 10.4 FL Platelets H 359 150-350 K/uL Neutrophil # H 7.7 2.5-7.0 Neutrophil % 74.4 37.0-80.0 % Monocyte # H 0.8 0.2-0.6 Monocyte % 8.1 0-9 % Eosinophil # L 0.0 0.1-0.3 Eosinophil % 0.3 0-5 % Basophil # L 0.0 .04-.10 Basophil % 0.3 0-2 % :04:00 Result Normal Range Units WBC H 14.2 4.5-11.0 K/uL Lymphocyte # 0.7 0.6-4.1 Lymphocyte % L 5.1 10.0-58.5 % RBC 4.95 4.20-6.30 M/uL Hemoglobin 14.9 13.5-17.5 g/dl Hematocrit 42.4 41.0-53.0 % MCV 85.7 80-100 FL MCH 30.1 26.0-32.0 pg MCHC 35.1 31.0-37.0 g/dl RDW 13.5 11.5-14.5 % MPV 10.1 FL Platelets H 396 150-350 K/uL Neutrophil # H 13.0 2.5-7.0 Neutrophil % H 91.4 37.0-80.0 % Monocyte # 0.5 0.2-0.6 Monocyte % 3.3 0-9 % Eosinophil # L 0.0 0.1-0.3 Eosinophil % 0.0 0-5 % Basophil # L 0.0 .04-.10 Basophil % 0.2 0-2 % CBC with Manual Diff :50:00 Result Normal Range Units WBC 10.3 4.5-11.0 K/uL Lymphocyte # 1.7 0.6-4.1 Lymphocyte % 16.9 10.0-58.5 % RBC 4.34 4.20-6.30 M/uL Hemoglobin L 13.0 13.5-17.5 g/dl Hematocrit L 38.2 41.0-53.0 % MCV 88.0 80-100 FL MCH 30.0 26.0-32.0 pg MCHC 34.0 31.0-37.0 g/dl RDW 14.2 11.5-14.5 % MPV 10.4 FL Platelets H 359 150-350 K/uL Neutrophil # H 7.7 2.5-7.0 Neutrophil % 74.4 37.0-80.0 % Monocyte # H 0.8 0.2-0.6 Monocyte % 8.1 0-9 % Eosinophil # L 0.0 0.1-0.3 Eosinophil % 0.3 0-5 % Basophil # L 0.0 .04-.10 Basophil % 0.3 0-2 % :04:00 Result Normal Range Units WBC H 14.2 4.5-11.0 K/uL Lymphocyte # 0.7 0.6-4.1 Lymphocyte % L 5.1 10.0-58.5 % RBC 4.95 4.20-6.30 M/uL Hemoglobin 14.9 13.5-17.5 g/dl Hematocrit 42.4 41.0-53.0 % MCV 85.7 80-100 FL MCH 30.1 26.0-32.0 pg MCHC 35.1 31.0-37.0 g/dl RDW 13.5 11.5-14.5 % MPV 10.1 FL Platelets H 396 150-350 K/uL Neutrophil # H 13.0 2.5-7.0 Neutrophil % H 91.4 37.0-80.0 % Monocyte # 0.5 0.2-0.6 Monocyte % 3.3 0-9 % Eosinophil # L 0.0 0.1-0.3 Eosinophil % 0.0 0-5 % Basophil # L 0.0 .04-.10 Basophil % 0.2 0-2 % Urinalysis 65-98-450749:10:00 Result Normal Range Units Site Voided Color Yellow Yellow Appearance Clear Glucose Negative Negative Bilirubin Negative Negative Ketones AB 1+ Negative Specific [place] 1.015 1.005-1.015 Blood Negative Negative PH H 8.5 6.0-7.0 Protein AB Trace Negative mg/dl Urobilinogen 0.2 0.0-1.0 mg/dl Nitrites Negative Negative Leukocytes Negative Negative History of procedures Procedure Code Code Type Description Date Performed Performing Physician G0378 CPT-4 HOSPITAL OBSERVATION PER 10-25-2015 [place] [address] CPT-4 HYDRATE IV INFUSION, 10-24-2015 JESSIKA BEAVERS ADD-ON 49139 CPT-4 EMERGENCY DEPT VISIT 10-24-2015 JESSIKA BEAVERS 21243 CPT-4 TX/PRO/DX INJ NEW DRUG 10-25-2015 JESSIKA BEAVERS HYDRAULIC MINER BLASTING 99088 CPT-4 HYDRATE IV INFUSION, 10-25-2015 JESSIKA BEAVERS ADD-ON 41017 CPT-4 OBSERVATION CARE 10-25-2015 JESSIKA BEAVERS DISCHARGE 16887 CPT-4 THER/PROPH/DIAG INJ, IV 10-24-2015 JESSIKA BEAVERS PUSH 22159 CPT-4 HYDRATE IV INFUSION, 10-24-2015 JESSIKA BEAVERS ADD-ON 66702 CPT-4 OBSERVATION CARE 10-24-2015 JESSIKA BEAVERS 22244 CPT-4 COMPLETE CBC W/AUTO DIFF 10-24-2015 JESSIKA BEAVERS WBC 09193 CPT-4 COMPREHEN METABOLIC 10-24-2015 JESSIKAGALLITO ZACARIASAVERS PANEL 75278 CPT-4 URINALYSIS, AUTO, W/O 10-24-2015 JESSIKA WALLER SCOPE 67420 CPT-4 ASSAY OF AMYLASE 10-24-2015 JESSIKA WALLER 66918 CPT-4 ASSAY OF LIPASE 10-24-2015 JESSIKA WALLER 98292 CPT-4 X-RAY EXAM OF ABDOMEN 10-24-2015 JESSIKA WALLER 93109 CPT-4 CT ABDOMEN&PELVIS 10-24-2015 JESSIKA WALLER W/CONTRAST Q9967 CPT-4 LOCM 300-399MG/ML 10-24-2015 JESSIKA WALLER IODINE,1ML 93414 CPT-4 COMPLETE CBC W/AUTO DIFF 10-25-2015 JESSIKA WALLER WBC 13744 CPT-4 COMPREHEN METABOLIC 10-25-2015 JESSIKA WILLINGHAMS PANEL J2550 CPT-4 PROMETHAZINE HCL 10-24-2015 TIMOTHY HOUCHENS INJECTION J7030 CPT-4 INFUSION, NS, 1000 CC 10-24-2015 TIMOTHY BEREENS J2300 CPT-4 NUBAIN INJ 10-24-2015 TIMOTHY HOUCHENS J7030 CPT-4 INFUSION, NS, 1000 CC 10-24-2015 TIMOTHY HOUCHENS J7030 CPT-4 INFUSION, NS, 1000 CC 10-24-2015 TIMOTHY HOUCHENS J2300 CPT-4 NUBAIN INJ 10-24-2015 TIMOTHY BLACKBURNENS J2550 CPT-4 PROMETHAZINE HCL 10-24-2015 TIMOTHY HOUCHENS INJECTION J1885 CPT-4 KETOROLAC TROMETHAMINE 10-24-2015 TIMOTHY HOUCHENS INJ J7030 CPT-4 INFUSION, NS, 1000 CC 10-25-2015 TIMOTHY HOUCHENS J2300 CPT-4 NUBAIN INJ 10-25-2015 TIMOTHY BEREENS 84193 CPT-4 ROUTINE VENIPUNCTURE 10-25-2015 JESSIKA WALLER Functional status Functional Status Finding Observation Time Dexterity Right-handed 22-95-656986:52 Weight Bearing Statu Full 31-26-324754:11 Transferring/Ambulat Independent 53-70-201344:52 Bathing Independent 22-50-380338:52 Dressing Independent 54-72-066799:52 Eating Independent 93-34-688908:52 Drinking Independent 26-87-884019:52 Toileting Independent :52 Able to Turn Self in Independent :52 Cognitive Status Finding Observation Time Level of Consciousne Alert :30 Oriented to Person Yes :[address] Yes :30 Oriented to Time Yes :30 Eyes - TROY Yes :30 Vital signs Type Value Date Respirations 20 :37 Pulse 82 :37 O2 Saturation 97% :37 Systolic Blood Press 132mm/HG :37 Diastolic Blood Pres 79mm/HG :37 Temperature (Fahr) 97.5Degrees :37 Height 70in :12 Weight 173LB 26-39-669649:12 Social history Type Value Smoking Status FORMER SMOKER Treatment Plan No treatment plan text is available for this visit. Hospital discharge instructions No discharge instruction text is available for this visit.
--- OUTSIDE RECORDS SUMMARY | 2017-02-01 13:54 | External Medical Summary ---
:1960 Author Organization [facility] Summary purpose CCDA Sent to [facility] Chief Complaint and Reason for Visit Admit Diagnosis 1 ACUTE BRONCHITIS Problem list No authorized problems tracked for [...] Code Type Description Date Performed Performing Physician 56581 CPT-4 OFFICE/OUTPATIENT VISIT, 07-06-2014 JANIA DENG Functional status No functional or [...]
--- OUTSIDE RECORDS SUMMARY | 2017-02-01 13:54 | External Medical Summary ---
:1960 Author Organization [facility] Summary purpose CCDA Sent to [facility] Chief Complaint and Reason for Visit [...] Code Type Description Date Performed Performing Physician 78615 CPT-4 OBSERVATION CARE 07-22-2015 PEARL REZA 25150 CPT-4 OBSERVATION CARE 07-23-2015 PEARL REZA DISCHARGE Functional status No functional or cognitive status [...]
--- OUTSIDE RECORDS SUMMARY | 2017-02-01 13:54 | External Medical Summary | Continuity Of Care Document ---
:1960 Author Organization [facility] Address [address] [place] [address] Phone Care Team Providers Name Role Phone SAKSHI SANDERS MD Primary Care Provider HANS BAEZA MD Attending Provider Results Lab Results Visit/Account #[id number] (August 27, 2016 4:59pm - August 27, 2016 7:45pm) Test Result Date/Time CREATININE,POINT OF CARE POC CREATININE(0.6-1.3 MG/DL) 0.8 MG/DL August 27, 2016 5:07pm EST GLOMERULAR FILTRATION RATE(Greater than or equal to 60) Greater than 60 August 27, 2016 5:07pm CBC WITH REFLEXED MANUAL DIFF WHITE BLOOD COUNT(4.0-11.0 10E3/UL) 16.7 10E3/UL August 27, 2016 5:00pm RED BLOOD COUNT(4.50-5.90 10E6/UL) 4.77 10E6/UL August 27, 2016 5:00pm HEMOGLOBIN(13.5-17.5 G/DL) 14.1 G/DL August 27, 2016 5:00pm HEMATOCRIT(41.0-53.0 %) 41.6 % August 27, 2016 5:00pm MEAN CORPUSCULAR VOLUME(82.0-100.0 FL) 87.2 FL August 27, 2016 5:00pm MEAN CORPUSCULAR HEMOGLOBIN(26.0-34.0 PG) 29.6 PG August 27, 2016 5:00pm MEAN CORPUSCULAR HGB CONC(31.5-36.5 G/DL) 33.9 G/DL August 27, 2016 5:00pm RED CELL DISTRIBUTION WIDTH(11.5-14.5 %) 13.4 % August 27, 2016 5:00pm 777-3: PLATELET COUNT(150-450 10E3/UL) 377 10E3/UL August 27, 2016 5:00pm MEAN PLATELET VOLUME(8.2-12.4 FL) 10.6 FL August 27, 2016 5:00pm DIFF TYPE MANUAL August 27, 2016 5:00pm NEUTROPHIL % (MANUAL)(40-70 %) 95 % August 27, 2016 5:00pm LYMPHOCYTES % (MANUAL)(15-45 %) 2 % August 27, 2016 5:00pm MONOCYTES % (MANUAL)(2-10 %) 3 % August 27, 2016 5:00pm EOSINOPHILS % (MANUAL)(0-6 %) 0 % August 27, 2016 5:00pm BASOPHILS % (MANUAL)(0-1 %) 0 % August 27, 2016 5:00pm NUCLEATED RBCS (MANUAL)(0-0 %) 0 % August 27, 2016 5:00pm NEUTROPHILS # (MANUAL)(2.5-7.5 10E3/UL) 15.9 10E3/UL August 27, 2016 5:00pm LYMPHOCYTES # (MANUAL)(1.0-4.0 10E3/UL) 0.3 10E3/UL August 27, 2016 5:00pm MONOCYTES # (MANUAL)(0.2-0.8 10E3/UL) 0.5 10E3/UL August 27, 2016 5:00pm EOSINOPHILS # (MANUAL)(0.0-0.4 10E3/UL) 0.0 10E3/UL August 27, 2016 5:00pm BASOPHILS # (MANUAL)(0.0-0.2 10E3/UL) 0.0 10E3/UL August 27, 2016 5:00pm PLATELET ESTIMATE ADEQUATE August 27, 2016 5:00pm WBC MORPHOLOGY COMMENT 1+ VACUOLIZATION August 27, 2016 5:00pm RBC MORPHOLOGY COMMENT NORMAL August 27, 2016 5:00pm PLATELET MORPHOLOGY COMMENT NORMAL August 27, 2016 5:00pm UA WITH SCREEN FOR CULTURE COLOR,URINE COLORLESS August 27, 2016 5:58pm CLARITY,URINE CLEAR August 27, 2016 5:58pm GLUCOSE, URINE(NEGATIVE MG/DL) NEGATIVE MG/DL August 27, 2016 5:58pm URINE BILIRUBIN(NEGATIVE) NEGATIVE August 27, 2016 5:58pm KETONES,URINE(NEGATIVE MG/DL) 15 MG/DL August 27, 2016 5:58pm URINE SPECIFIC GRAVITY(1.001-1.035) 1.026 August 27, 2016 5:58pm URINE BLOOD(NEGATIVE) NEGATIVE August 27, 2016 5:58pm URINE PH(5.0-9.0) 8.5 August 27, 2016 5:58pm URINE PROTEIN(Less than 20 MG/DL) NEGATIVE MG/DL August 27, 2016 5:58pm URINE UROBILINOGEN(0.2-1.0 MG/DL) 0.2-1.0 MG/DL August 27, 2016 5:58pm URINE NITRITE(NEGATIVE) NEGATIVE August 27, 2016 5:58pm LEUKOCYTE ESTERASE ,URINE(NEGATIVE) NEGATIVE August 27, 2016 5:58pm URINE CULTURE NOT INDICATED August 27, 2016 5:58pm URINE MICROSCOPIC REQUIRED NO August 27, 2016 5:58pm COMPLETE METABOLIC PROFILE GLUCOSE(70-110 MG/DL) 166 MG/DL August 27, 2016 5:00pm BLOOD UREA NITROGEN(6-20 MG/DL) 8 MG/DL August 27, 2016 5:00pm CREATININE(0.50-1.20 MG/DL) 1.03 MG/DL August 27, 2016 5:00pm EST GLOMERULAR FILTRATION RATE(Greater than or equal to 60) Greater than or equal to 60 August 27, 2016 5:00pm Result Comments: If the patient is of -[place] descent/extraction multiply the eGFR value by 1.212 to obtain the actual eGFR. >=60 mg/dL Normal 30-59 mg/dL Moderate Kidney Disease 15-29 mg/dL Severe Kidney Disease <15 mg/dL Kidney Failure BUN CREATININE RATIO(10.0-20.0 RATIO) 8.0 RATIO August 27, 2016 5:00pm SODIUM(135-145 MMOL/L) 134 MMOL/L August 27, 2016 5:00pm POTASSIUM(3.6-5.0 MMOL/L) 3.3 MMOL/L August 27, 2016 5:00pm CHLORIDE(101-111 MMOL/L) 98 MMOL/L August 27, 2016 5:00pm CO2(21-31 MMOL/L) 19 MMOL/L August 27, 2016 5:00pm ANION GAP(8-18) 20 August 27, 2016 5:00pm OSMO CALCULATED(270.0-290.0) 270.3 August 27, 2016 5:00pm CALCIUM(8.5-10.5 MG/DL) 9.2 MG/DL August 27, 2016 5:00pm BILIRUBIN,TOTAL(0.1-1.2 MG/DL) 1.0 MG/DL August 27, 2016 5:00pm ALKALINE PHOSPHATASE(42-121 IU/L) 97 IU/L August 27, 2016 5:00pm ASPARTATE AMINO TRANSFERASE(10-42 IU/L) 34 IU/L August 27, 2016 5:00pm ALANINE AMINOTRANSFERASE(10-60 IU/L) 22 IU/L August 27, 2016 5:00pm TOTAL PROTEIN(6.4-8.2 G/DL) 7.9 G/DL August 27, 2016 5:00pm ALBUMIN(3.5-5.5 G/DL) 4.4 G/DL August 27, 2016 5:00pm GLOBULIN(2.4-3.6) 3.5 August 27, 2016 5:00pm ALBUMIN/GLOBULIN RATIO(0.9-1.8 RATIO) 1.3 RATIO August 27, 2016 5:00pm LIPASE LIPASE(22-51 U/L) 14 U/L August 27, 2016 5:00pm ALCOHOL ALCOHOL(0.0-5.0 MG/DL) Less than 5.0 MG/DL August 27, 2016 5:00pm Allergies and Adverse Reactions Allergies and Adverse Reactions Patient Unit Number: [id number] Agent Type Reaction Severity Status PENICILLINS Drug Allergy UNSURE Mild Active CODEINE Drug Allergy UNSURE Mild Active Problem List Problem List Visit/Account #[id number] (August 27, 2016 4:59pm - August 27, 2016 7:45pm) Acute Problems: Code/Condition Comments Documented Start Date Documented Resolved Code(s) Date Abdominal pain ICD10: R10.9 Abdominal pain SNOMED: 86319077 Abdominal pain Plan of Care Plan Of Care Visit/Account #[id number] (August 27, 2016 4:59pm - August 27, 2016 7:45pm) Patient Instructions Return for uncontrolled pain, vomiting, any concern Followup with your doctor on Wednesday Take Zofran as needed for nausea/vomiting Vital Signs Vital Signs Visit/Account #[id number] (August 27, 2016 4:59pm - August 27, 2016 7:45pm) Sign First Result Last Result Code(s) Temperature in Fahrenheit Temperature (Fahrenheit): 98.0 [degF] On August 27, 2016 4:58pm Temperature (Fahrenheit): 98.0 [degF] On August 27, 2016 7:30pm 8310-5 Body Temperature Weight in Kilograms Weight (Kilograms): 79.2000 kg On August 27, 2016 4:58pm 3141-9 Weight Measured Functional Status Functional and Cognitive Status No Functional Status Data Medications Inpatient/Ordered Medications - Medications administered during hospital visit Visit/Account #[id number] (August 27, 2016 4:59pm - August 27, 2016 7:45pm) Medication Route Sig/Schedule Precondition/Indication Comments/ Instructions Codes NORMAL SALINE(SODIUM CHLORIDE) 20 ML INJECTION Route .[facility]-MED 20 ML Sodium Chloride 9 MG/ML Injection (RxNorm): 7646827 Dose: 20 ML NORMAL SALINE (SODIUM CHLORIDE) NDC: 14796444145 MORPHINE SULFATE 10 MG/ML INJECTION INTRAVEN NOW Label Comments: 1 ML Morphine Sulfate 10 MG/ML Cartridge (RxNorm): 5841973 Dose: 0.8 ML MAY INCREASE FALL RISK (MORPHINE SULFATE) NDC: 58747823138 ZOFRAN INJ(ONDANSETRON HCL) 4 MG/2 ML INJECTION INTRAVEN NOW Label Comments: 2 ML Ondansetron 2 MG/ML Injection (RxNorm): 3881212 Dose: 2 ML SLOW IV PUSH MAY INCREASE FALL RISK ZOFRAN INJ (ONDANSETRON HCL) NDC: 24165799778 IV Medication INTRAVEN .Q1H (Rate: 1000 MLS/HR Duration: 1 HR) Carriers: Carriers: 1000 ML Sodium Chloride 9 MG/ML Injection (RxNorm): 3289705 NORMAL SALINE(SODIUM CHLORIDE) 1000 ML INJECTION NORMAL SALINE ( SODIUM CHLORIDE) NDC: 08095215258 Dose: 1000 ML HEP-LOCK FLUSH SYRINGE(HEPARIN LOCK FLUSH) 500 UNIT/5 ML INJECTION INTRAVEN NEEDED PRN Reason: PORT FLUSH Rx Order Comments: HEP-LOCK FLUSH SYRINGE ( HEPARIN LOCK FLUSH) NDC: 71519290066 Dose: 5 ML Order filed UNV: Allergies/Duplicates/Interactions differ from service order clerk Label Comments: PORT FLUSHES: 5 mls after saline flush after medications OR blood draws. ACCESSED minimum: at least 1-2 times per week DEACCESSED minimum: at least monthly IV Medication INTRAVEN .Q1H (Rate: 1000 MLS/HR Duration: 1 HR) Carriers: Carriers: 1000 ML Sodium Chloride 9 MG/ML Injection (RxNorm): 7838131 NORMAL SALINE(SODIUM CHLORIDE) 1000 ML INJECTION NORMAL SALINE ( SODIUM CHLORIDE) NDC: 02286301478 Dose: 1000 ML DILAUDID(HYDROmorphone HCL) 2 MG/ML INJECTION INTRAVEN NOW Label Comments : 1 ML Hydromorphone Hydrochloride 2 MG/ML Cartridge (RxNorm): 6102723 Dose: 0.5 ML MAY INCREASE FALL RISK DILAUDID (HYDROmorphone HCL) NDC: 45767774054 DILAUDID(HYDROmorphone HCL) 2 MG/ML INJECTION INTRAVEN NOW Label Comments : 1 ML Hydromorphone Hydrochloride 2 MG/ML Cartridge (RxNorm): 0786672 Dose: 0.5 ML MAY INCREASE FALL RISK DILAUDID (HYDROmorphone HCL) NDC: 38585090625 KETALAR INJ(KETAMINE HCL IN 0.9 % NACL) 50 MG/5 ML INJECTION INTRAVEN NOW KETALAR INJ (KETAMINE HCL IN 0.9 % NACL) NDC: 94329941627 Dose: 1 ML ZOFRAN INJ(ONDANSETRON HCL) 4 MG/2 ML INJECTION INTRAVEN NOW Label Comments: 2 ML Ondansetron 2 MG/ML Injection (RxNorm): 8530122 Dose: 2 ML SLOW IV PUSH MAY INCREASE FALL RISK ZOFRAN INJ (ONDANSETRON HCL) NDC: 65016412114 IV Medication INTRAVEN NOW (Rate: 400 MLS/HR Duration: 15 MIN) Label Comments: Carriers: * PROTECT FROM LIGHT * Carriers: 1 ML Promethazine Hydrochloride 25 MG/ML Injection (RxNorm) : 216287 PHENERGAN 25 MG/100 ML NS(PROMETHAZINE HCL IN 0.9 % NACL) 25 MG/100 ML INJECTION PHENERGAN 25 MG/100 ML NS (PROMETHAZINE HCL IN 0.9 % NACL) NDC: 32141289577 Dose: 100 ML History Of Encounters Encounters Visit/Account #[id number] (August 27, 2016 4:59pm - August 27, 2016 7:45pm) Account Physican Of Reason For Visit Diagnosis Start Stop Date/Time Status Record Visit Date/Time ER HANS BAEZA MD ABDOMINAL PAIN R10.13: EPIGASTRIC PAIN ICD10 Aug 27, 2016 4:59pm Aug 27, 2016 7:45pm History of Procedures Procedure List No procedures recorded. Discharge Instructions Discharge Instructions Visit/Account #[id number] (August 27, 2016 4:59pm - August 27, 2016 7:45pm) DISCHARGE INSTRUCTIONS Physician Documentation Social History Social History No Social History Data. Immunizations Immunizations Patient Unit Number: [id number] Immunizations No immunizations recorded.
--- OUTSIDE RECORDS SUMMARY | 2017-02-01 13:54 | External Medical Summary ---
:1960 Author Organization [facility] Summary purpose CCDA Sent to [facility] Chief Complaint and Reason for Visit [...] Code Type Description Date Performed Performing Physician 71927 CPT-4 OFFICE/OUTPATIENT VISIT, 07-18-2015 PEARL DENG Functional status No functional or [...]
--- OUTSIDE RECORDS SUMMARY | 2017-02-01 13:54 | External Medical Summary ---
:1960 Author Organization [facility] Summary purpose CCDA Sent to [facility] Chief Complaint and Reason for [...] and/or laboratory data RESULTS Reference Lab Group [id number]:00 Result Normal Range Units Testosterone Total [phone] ng/dL TEST PERFORMED AT: [facility] [id number] [place] [id number] KHARI MATHEW MD,FCAP History of procedures Procedure Code Code Type Description Date Performed Performing Physician 89801 CPT-4 ROUTINE VENIPUNCTURE 08-06-2015 PEARL REZA Functional status No functional or [...]
--- OUTSIDE RECORDS SUMMARY | 2017-02-01 13:54 | External Medical Summary ---
:1960 Author Organization [facility] Summary purpose CCDA Sent to [facility] Chief Complaint and Reason for Visit Admit Diagnosis 1 ABDOMINAL PAIN, UNSPECIF Problem list Condition Status Certainty Chronicity Onset .Dehydration Active .Nausea Active .Vomiting Active Encounters The following conditions tracked for encounter diagnoses were recorded for this visit: Finding or Diagnosis Status Certainty Chronicity Onset .Dehydration Active .Nausea Active .Vomiting Active Medications Home Medications [...] Performing Physician G0378 CPT-4 HOSPITAL OBSERVATION PER 11-23-2014 [place] [address] CPT-4 EMERGENCY DEPT VISIT 11-22-2014 JESSIKA WALLER 86968 CPT-4 THER/PROPH/DIAG IV INF 11-23-2014 JESSIKA WALLER INIT 53841 CPT-4 TX/PRO/DX INJ NEW DRUG 11-23-2014 JESSIKA WALLER ADDON 96789 CPT-4 TX/PRO/DX INJ SAME DRUG 11-23-2014 JESSIKA WALLER ELECTRIC SWITCH TESTER 85946 CPT-4 HYDRATE IV INFUSION 11-23-2014 JESSIKA DEANNAVERS ADD-ON C9113 CPT-4 INJ PANTOPRAZOLE SODIUM, 11-23-2014 JANIA DUNSTAN VIA J7030 CPT-4 NORMAL SALINE SOLUTION 11-23-2014 JANIA DUNSTAN INFUS J2405 CPT-4 ONDANSETRON HCL 11-23-2014 JANIA DUNSTAN INJECTION J2175 CPT-4 MEPERIDINE HYDROCHL /100 11-23-2014 JANIA DUNSTAN MG J2405 CPT-4 ONDANSETRON HCL 11-23-2014 JANIA DUNSTAN INJECTION J2175 CPT-4 MEPERIDINE HYDROCHL /100 11-23-2014 JANIA DUNSTAN MG J7030 CPT-4 NORMAL SALINE SOLUTION 11-23-2014 JANIA DUNSTAN INFUS J2175 CPT-4 MEPERIDINE HYDROCHL /100 11-23-2014 JANIA MICHAELSTAN MG J1956 CPT-4 LEVOFLOXACIN INJECTION 11-23-2014 JANIA DUNSTAN J2175 CPT-4 MEPERIDINE HYDROCHL /100 11-23-2014 JANIA DUNSTAN MG Functional status Functional Status Finding Observation Time Dexterity Right-handed 48-31-365080:00 Weight Bearing Statu Full 13-77-178442:00 Transferring/Ambulat Independent 62-39-640161:00 Bathing Independent 86-25-432568:00 Dressing Independent 08-88-338834:00 Eating Independent 73-78-801460:00 Drinking Independent 99-15-960382:00 Toileting Independent 32-28-962191:00 Able to Turn Self in Independent 01-79-891606:00 Cognitive Status Finding Observation Time Level of Consciousne Alert 35-28-783822:15 Oriented to Person Yes 29-64-793357:[address] Yes 62-65-239191:15 Oriented to Time Yes 74-95-149693:15 Eyes - TROY Yes 12-93-316502:15 Vital signs Type Value Date Respirations 20 47-84-243638:28 Pulse 77 89-79-860413:28 O2 Saturation 97% 13-30-123428:28 Systolic Blood Press 116mm/HG 67-47-202820:28 Diastolic Blood Pres 70mm/HG :28 Temperature (Fahr) 99.1Degrees :28 Height 70in :23 Weight 150.2LB :23 Social history Type Value Smoking Status FORMER SMOKER Treatment Plan Treatment Plan at Take antibiotic daily for UTI and follow up in 1 week at clinic Hospital discharge instructions Diagnosis Dehydration, Nausea, and Vomiting Diet As Tolerated Activity Level As Tolerated Med Dispensed by [facility] called to [facility] for Levaquin 500mg Daily x 7 days Flu Vaccine Given Current/Not Needed Follow up with Victor Manuel Rivera Appointment Date and 11-30-14
--- OUTSIDE RECORDS SUMMARY | 2017-02-01 13:54 | External Medical Summary ---
:1960 Author Organization [facility] Summary purpose CCDA Sent to [facility] Chief Complaint and Reason for [...] Code Type Description Date Performed Performing Physician 55868 CPT-4 OFFICE/OUTPATIENT VISIT, 09-04-2015 TIMOTHY DENG Functional status No functional or cognitive [...]
--- OUTSIDE RECORDS SUMMARY | 2017-02-01 13:54 | External Medical Summary ---
:1960 Author Organization [facility] Summary purpose CCDA Sent to [facility] Chief Complaint and Reason for Visit Admit Diagnosis 1 FOLLOW-UP EXAM NEC Problem list No authorized problems tracked [...] Code Type Description Date Performed Performing Physician 57777 CPT-4 OFFICE/OUTPATIENT VISIT 10-05-2014 JANIA DENG Functional status No functional or [...]
--- OUTSIDE RECORDS SUMMARY | 2017-02-01 13:54 | External Medical Summary ---
:1960 Author Organization [facility] Summary purpose CCDA Sent to [facility] Chief Complaint and Reason for Visit No authorized Reason for Visit (Admitting Diagnosis) is available for this visit. Problem list Condition Status Certainty Chronicity Onset .Abdominal pain Active .Nausea Active .Vomiting Active .Pancreatic disorder Active Encounters The following conditions tracked for encounter diagnoses were recorded for this visit: Finding or Diagnosis Status Certainty Chronicity Onset .Abdominal pain Active .Nausea Active .Vomiting Active .Pancreatic disorder Active Medications Discharge Medications Status Medication Directions Current amitriptyline 10 mg tablet 1 oral oral TWO TIMES A DAY Current amitriptyline 50 mg tablet 50 miligram(s) oral BEDTIME Current Creon 24,000-76,000-120,000 unit 1 capsule(s) oral oral NEEDED for digestion capsule,delayed release 3 caps with meals; 2 caps with snacks Current diazepam 5 mg tablet 5 miligram(s) oral ONE TIME A DAY Current dicyclomine 10 mg capsule 10 miligram(s) oral oral THREE TIMES A DAY Current gabapentin 300 mg capsule 300 miligram(s) oral FOUR TIMES A DAY Current Lialda 1.2 g tablet,delayed release 1.2 gram(s) oral FOUR TIMES A DAY Current ondansetron 8 mg disintegrating tablet 8 miligram(s) oral oral NEEDED for nausea Current oxyCODONE-acetaminophen 7.5 mg-325 mg 1 tab(s) oral oral FOUR TIMES A DAY NEEDED for pain tablet gets med from pain clinic- Dr. Field Current pantoprazole 40 mg tablet,delayed release 40 miligram(s) oral ONE TIME A DAY Current potassium chloride (KLOR-CON) 10 mEq: Tab 10 milliequivilant(s) oral Give ORAL ER 12HR ONE TIME A DAY Stopped cyclobenzaprine 10 mg tablet 10 miligram(s) oral EVERY EIGHT HOURS NEEDED Allergies, adverse reactions, alerts Allergen Category Ingredient Status Reaction Severity Onset Codeine Drug Codeine Active Hives Adolescence Penicillins Drug Penicillins Active Hives Moderate Adolescence No known food No known food No known food Active allergies allergies allergies Immunizations No immunizations recorded for this patient visit Relevant diagnostic tests and/or laboratory data RESULTS Chemistry Group :30:00 Result Normal Range Units Glucose 94 74-106 mg/dl BUN L 6 7-18 mg/dl Osmolality 279 268.0-292.0 Creatinine 0.87 0.70-1.30 mg/dl Sodium 141 136-145 mmol/L Potassium L 3.0 3.5-5.1 mmol/L Chloride 103 98-107 mmol/L CO2 26.7 21.0-32.0 mmol/L Calcium 8.7 8.5-10.1 mg/dl Total Protein 7.3 6.4-8.2 g/dl Albumin 4.0 3.4-5.0 g/dl AST 25 15-37 U/L ALT 33 30-65 U/L ALP 79 50-136 U/L Bilirubin, Total 0.9 0.2-1.0 mg/dl eGFR 92 >=60 ml/min. :05:00 Result Normal Range Units Glucose 76 74-106 mg/dl BUN 8 7-18 mg/dl Osmolality 276 268.0-292.0 Creatinine 0.78 0.70-1.30 mg/dl Sodium 140 136-145 mmol/L Potassium L 3.1 3.5-5.1 mmol/L Chloride 104 98-107 mmol/L CO2 23.7 21.0-32.0 mmol/L Calcium L 7.6 8.5-10.1 mg/dl Total Protein L 6.2 6.4-8.2 g/dl Albumin L 3.3 3.4-5.0 g/dl AST 28 15-37 U/L ALT L 29 30-65 U/L ALP 74 50-136 U/L Bilirubin, Total H 1.1 0.2-1.0 mg/dl eGFR 104 >=60 ml/min. :25:00 Result Normal Range Units Glucose H 112 74-106 mg/dl BUN 11 7-18 mg/dl Osmolality 270 268.0-292.0 Creatinine 0.94 0.70-1.30 mg/dl Sodium L 135 136-145 mmol/L Potassium L 2.8 3.5-5.1 mmol/L Chloride 98 98-107 mmol/L CO2 L 19.8 21.0-32.0 mmol/L Calcium L 8.4 8.5-10.1 mg/dl Total Protein 7.6 6.4-8.2 g/dl Albumin 4.1 3.4-5.0 g/dl AST H 55 15-37 U/L ALT 42 30-65 U/L ALP 86 50-136 U/L Bilirubin, Total 0.8 0.2-1.0 mg/dl eGFR 84 >=60 ml/min. CMP :30:00 Result Normal Range Units Glucose 94 74-106 mg/dl BUN L 6 7-18 mg/dl Osmolality 279 268.0-292.0 Creatinine 0.87 0.70-1.30 mg/dl Sodium 141 136-145 mmol/L Potassium L 3.0 3.5-5.1 mmol/L Chloride 103 98-107 mmol/L CO2 26.7 21.0-32.0 mmol/L Calcium 8.7 8.5-10.1 mg/dl Total Protein 7.3 6.4-8.2 g/dl Albumin 4.0 3.4-5.0 g/dl AST 25 15-37 U/L ALT 33 30-65 U/L ALP 79 50-136 U/L Bilirubin, Total 0.9 0.2-1.0 mg/dl eGFR 92 >=60 ml/min. :05:00 Result Normal Range Units Glucose 76 74-106 mg/dl BUN 8 7-18 mg/dl Osmolality 276 268.0-292.0 Creatinine 0.78 0.70-1.30 mg/dl Sodium 140 136-145 mmol/L Potassium L 3.1 3.5-5.1 mmol/L Chloride 104 98-107 mmol/L CO2 23.7 21.0-32.0 mmol/L Calcium L 7.6 8.5-10.1 mg/dl Total Protein L 6.2 6.4-8.2 g/dl Albumin L 3.3 3.4-5.0 g/dl AST 28 15-37 U/L ALT L 29 30-65 U/L ALP 74 50-136 U/L Bilirubin, Total H 1.1 0.2-1.0 mg/dl eGFR 104 >=60 ml/min. 51-85-267930:25:00 Result Normal Range Units Glucose H 112 74-106 mg/dl BUN 11 7-18 mg/dl Osmolality 270 268.0-292.0 Creatinine 0.94 0.70-1.30 mg/dl Sodium L 135 136-145 mmol/L Potassium L 2.8 3.5-5.1 mmol/L Chloride 98 98-107 mmol/L CO2 L 19.8 21.0-32.0 mmol/L Calcium L 8.4 8.5-10.1 mg/dl Total Protein 7.6 6.4-8.2 g/dl Albumin 4.1 3.4-5.0 g/dl AST H 55 15-37 U/L ALT 42 30-65 U/L ALP 86 50-136 U/L Bilirubin, Total 0.8 0.2-1.0 mg/dl eGFR 84 >=60 ml/min. [facility] :30:00 Result Normal Range Units Glucose 94 74-106 mg/dl BUN L 6 7-18 mg/dl Osmolality 279 268.0-292.0 Creatinine 0.87 0.70-1.30 mg/dl Sodium 141 136-145 mmol/L Potassium L 3.0 3.5-5.1 mmol/L Chloride 103 98-107 mmol/L CO2 26.7 21.0-32.0 mmol/L Calcium 8.7 8.5-10.1 mg/dl eGFR 92 >=60 ml/min. :05:00 Result Normal Range Units Glucose 76 74-106 mg/dl BUN 8 7-18 mg/dl Osmolality 276 268.0-292.0 Creatinine 0.78 0.70-1.30 mg/dl Sodium 140 136-145 mmol/L Potassium L 3.1 3.5-5.1 mmol/L Chloride 104 98-107 mmol/L CO2 23.7 21.0-32.0 mmol/L Calcium L 7.6 8.5-10.1 mg/dl eGFR 104 >=60 ml/min. :25:00 Result Normal Range Units Glucose H 112 74-106 mg/dl BUN 11 7-18 mg/dl Osmolality 270 268.0-292.0 Creatinine 0.94 0.70-1.30 mg/dl Sodium L 135 136-145 mmol/L Potassium L 2.8 3.5-5.1 mmol/L Chloride 98 98-107 mmol/L CO2 L 19.8 21.0-32.0 mmol/L Calcium L 8.4 8.5-10.1 mg/dl eGFR 84 >=60 ml/min. Electrolyte Panel :30:00 Result Normal Range Units Sodium 141 136-145 mmol/L Potassium L 3.0 3.5-5.1 mmol/L Chloride 103 98-107 mmol/L CO2 26.7 21.0-32.0 mmol/L :05:00 Result Normal Range Units Sodium 140 136-145 mmol/L Potassium L 3.1 3.5-5.1 mmol/L Chloride 104 98-107 mmol/L CO2 23.7 21.0-32.0 mmol/L :25:00 Result Normal Range Units Sodium L 135 136-145 mmol/L Potassium L 2.8 3.5-5.1 mmol/L Chloride 98 98-107 mmol/L CO2 L 19.8 21.0-32.0 mmol/L Hepatic Profile :30:00 Result Normal Range Units Total Protein 7.3 6.4-8.2 g/dl Albumin 4.0 3.4-5.0 g/dl AST 25 15-37 U/L ALT 33 30-65 U/L ALP 79 50-136 U/L Bilirubin, Total 0.9 0.2-1.0 mg/dl :05:00 Result Normal Range Units Total Protein L 6.2 6.4-8.2 g/dl Albumin L 3.3 3.4-5.0 g/dl AST 28 15-37 U/L ALT L 29 30-65 U/L ALP 74 50-136 U/L Bilirubin, Total H 1.1 0.2-1.0 mg/dl :25:00 Result Normal Range Units Total Protein 7.6 6.4-8.2 g/dl Albumin 4.1 3.4-5.0 g/dl AST H 55 15-37 U/L ALT 42 30-65 U/L ALP 86 50-136 U/L Bilirubin, Total 0.8 0.2-1.0 mg/dl Renal Panel :30:00 Result Normal Range Units Glucose 94 74-106 mg/dl BUN L 6 7-18 mg/dl Osmolality 279 268.0-292.0 Creatinine 0.87 0.70-1.30 mg/dl Sodium 141 136-145 mmol/L Potassium L 3.0 3.5-5.1 mmol/L Chloride 103 98-107 mmol/L CO2 26.7 21.0-32.0 mmol/L Calcium 8.7 8.5-10.1 mg/dl Albumin 4.0 3.4-5.0 g/dl eGFR 92 >=60 ml/min. :05:00 Result Normal Range Units Glucose 76 74-106 mg/dl BUN 8 7-18 mg/dl Osmolality 276 268.0-292.0 Creatinine 0.78 0.70-1.30 mg/dl Sodium 140 136-145 mmol/L Potassium L 3.1 3.5-5.1 mmol/L Chloride 104 98-107 mmol/L CO2 23.7 21.0-32.0 mmol/L Calcium L 7.6 8.5-10.1 mg/dl Albumin L 3.3 3.4-5.0 g/dl eGFR 104 >=60 ml/min. :25:00 Result Normal Range Units Glucose H 112 74-106 mg/dl BUN 11 7-18 mg/dl Osmolality 270 268.0-292.0 Creatinine 0.94 0.70-1.30 mg/dl Sodium L 135 136-145 mmol/L Potassium L 2.8 3.5-5.1 mmol/L Chloride 98 98-107 mmol/L CO2 L 19.8 21.0-32.0 mmol/L Calcium L 8.4 8.5-10.1 mg/dl Albumin 4.1 3.4-5.0 g/dl eGFR 84 >=60 ml/min. CBC :30:00 Result Normal Range Units WBC 8.1 4.5-11.0 K/uL Lymphocyte # 1.9 0.6-4.1 Lymphocyte % 22.9 10.0-58.5 % Mid # 0.8 0.0-1.8 *MID cells may include less frequently occurring and rare cells correlating to monocytes, eosinophils, basophils, blasts and other precursor white cells. Mid % 10.2 0.1-24.0 % Granulocyte # 5.4 2.0-7.8 Granulocyte % 66.9 37.0-92.0 % RBC 4.58 4.20-6.30 M/uL Hemoglobin 13.5 13.5-17.5 g/dl Hematocrit 42.1 41.0-53.0 % MCV 91.9 80-100 FL MCH 29.5 26.0-32.0 pg MCHC 32.1 31.0-37.0 g/dl RDW 12.8 11.5-14.5 % Platelets 343 150-350 K/uL :05:00 Result Normal Range Units WBC 7.5 4.5-11.0 K/uL Lymphocyte # 1.9 0.6-4.1 Lymphocyte % 25.2 10.0-58.5 % Mid # 0.9 0.0-1.8 *MID cells may include less frequently occurring and rare cells correlating to monocytes, eosinophils, basophils, blasts and other precursor white cells. Mid % 12 0.1-24.0 % Granulocyte # 4.7 2.0-7.8 Granulocyte % 62.8 37.0-92.0 % RBC 4.28 4.20-6.30 M/uL Hemoglobin L 12.5 13.5-17.5 g/dl Hematocrit L 38.9 41.0-53.0 % MCV 90.9 80-100 FL MCH 29.2 26.0-32.0 pg MCHC 32.1 31.0-37.0 g/dl RDW 13.2 11.5-14.5 % Platelets 301 150-350 K/uL :25:00 Result Normal Range Units WBC H 12.5 4.5-11.0 K/uL Lymphocyte # 1.4 0.6-4.1 Lymphocyte % 11 10.0-58.5 % Mid # 0.7 0.0-1.8 *MID cells may include less frequently occurring and rare cells correlating to monocytes, eosinophils, basophils, blasts and other precursor white cells. Mid % 5.9 0.1-24.0 % Granulocyte # H 10.4 2.0-7.8 Granulocyte % 83.1 37.0-92.0 % RBC 4.58 4.20-6.30 M/uL Hemoglobin 13.6 13.5-17.5 g/dl Hematocrit 41.7 41.0-53.0 % MCV 91.1 80-100 FL MCH 29.7 26.0-32.0 pg MCHC 32.6 31.0-37.0 g/dl RDW 13.8 11.5-14.5 % Platelets H 365 150-350 K/uL CBC with Manual Diff :30:00 Result Normal Range Units WBC 8.1 4.5-11.0 K/uL Lymphocyte # 1.9 0.6-4.1 Lymphocyte % 22.9 10.0-58.5 % Mid # 0.8 0.0-1.8 *MID cells may include less frequently occurring and rare cells correlating to monocytes, eosinophils, basophils, blasts and other precursor white cells. Mid % 10.2 0.1-24.0 % Granulocyte # 5.4 2.0-7.8 Granulocyte % 66.9 37.0-92.0 % RBC 4.58 4.20-6.30 M/uL Hemoglobin 13.5 13.5-17.5 g/dl Hematocrit 42.1 41.0-53.0 % MCV 91.9 80-100 FL MCH 29.5 26.0-32.0 pg MCHC 32.1 31.0-37.0 g/dl RDW 12.8 11.5-14.5 % Platelets 343 150-350 K/uL :05:00 Result Normal Range Units WBC 7.5 4.5-11.0 K/uL Lymphocyte # 1.9 0.6-4.1 Lymphocyte % 25.2 10.0-58.5 % Mid # 0.9 0.0-1.8 *MID cells may include less frequently occurring and rare cells correlating to monocytes, eosinophils, basophils, blasts and other precursor white cells. Mid % 12 0.1-24.0 % Granulocyte # 4.7 2.0-7.8 Granulocyte % 62.8 37.0-92.0 % RBC 4.28 4.20-6.30 M/uL Hemoglobin L 12.5 13.5-17.5 g/dl Hematocrit L 38.9 41.0-53.0 % MCV 90.9 80-100 FL MCH 29.2 26.0-32.0 pg MCHC 32.1 31.0-37.0 g/dl RDW 13.2 11.5-14.5 % Platelets 301 150-350 K/uL :25:00 Result Normal Range Units WBC H 12.5 4.5-11.0 K/uL Lymphocyte # 1.4 0.6-4.1 Lymphocyte % 11 10.0-58.5 % Mid # 0.7 0.0-1.8 *MID cells may include less frequently occurring and rare cells correlating to monocytes, eosinophils, basophils, blasts and other precursor white cells. Mid % 5.9 0.1-24.0 % Granulocyte # H 10.4 2.0-7.8 Granulocyte % 83.1 37.0-92.0 % RBC 4.58 4.20-6.30 M/uL Hemoglobin 13.6 13.5-17.5 g/dl Hematocrit 41.7 41.0-53.0 % MCV 91.1 80-100 FL MCH 29.7 26.0-32.0 pg MCHC 32.6 31.0-37.0 g/dl RDW 13.8 11.5-14.5 % Platelets H 365 150-350 K/uL History of procedures No procedures recorded for this patient visit. Functional status Functional Status Finding Observation Time Dexterity Right-handed : Weight Bearing Statu Full :41 Transferring/Ambulat Independent :01 Bathing Independent :01 Dressing Independent :01 Eating Independent :01 Drinking Independent : Toileting Independent : Able to Turn Self in Independent :01 Cognitive Status Finding Observation Time Level of Consciousne Alert :48 Oriented to Person Yes :[address] Yes :48 Oriented to Time Yes :48 Eyes - TROY Yes :11 Vital signs Type Value Date Respirations 20 :14 Pulse 78 :14 O2 Saturation 98% :14 Systolic Blood Press 136mm/HG :14 Diastolic Blood Pres 91mm/HG 72-11-887929:14 Temperature (Fahr) 98.6Degrees :14 Height 70in :45 Weight 170.4LB :45 Social history Type Value Smoking Status FORMER SMOKER Treatment Plan No treatment plan text is available for this visit. Hospital discharge instructions Diagnosis Abdominal Pain, N/V, Hx Pancreatitis Diet As tolerates Activity Level As Tolerates Flu Vaccine Given Current/Not Needed Follow up with Bridget Appointment Date and 09-16-15 @ 10am Other Instructions Advance diet slowly, and continue to stay in contact with specialist @ [facility].
--- OUTSIDE RECORDS SUMMARY | 2017-02-01 13:55 | External Medical Summary ---
:1960 Author Organization [facility] Summary purpose CCDA Sent to [facility] Chief Complaint and Reason for Visit Admit Diagnosis 1 ABDOMINAL PAIN, UNSPECIF Problem list No authorized problems tracked for [...] Code Type Description Date Performed Performing Physician 51815 CPT-4 X-RAY EXAM OF ABDOMEN 12-07-2014 JESSIKA WALLER 62782 CPT-4 X-RAY EXAM THORAC SPINE 12-07-2014 JESSIKA WALLER 2VWS Functional status No functional or cognitive status [...]
--- OUTSIDE RECORDS SUMMARY | 2017-02-01 13:55 | External Medical Summary ---
:1960 Author Organization [facility] Summary purpose CCDA Sent to [facility] Chief Complaint and Reason for Visit Admit Diagnosis 1 CHRONIC PAIN NEC Problem list No authorized problems tracked [...] Code Type Description Date Performed Performing Physician 04667 CPT-4 OFFICE/OUTPATIENT VISIT 12-04-2014 SELAM DENG Functional status No functional or cognitive [...]
--- OUTSIDE RECORDS SUMMARY | 2017-02-01 13:55 | External Medical Summary ---
:1960 Author Organization [facility] Summary purpose CCDA Sent to [facility] Chief Complaint and Reason for Visit Admit Diagnosis 1 NONINF GASTROENTERIT NEC Problem list No authorized problems tracked [...] Code Type Description Date Performed Performing Physician 51523 CPT-4 OFFICE/OUTPATIENT VISIT 11-30-2014 JANIA DENG Functional status No functional or [...]
--- OUTSIDE RECORDS SUMMARY | 2017-02-01 13:55 | External Medical Summary ---
:1960 Author Organization [facility] Summary purpose CCDA Sent to [facility] Chief Complaint and Reason for [...] Code Type Description Date Performed Performing Physician 51667 CPT-4 OBSERVATION CARE 09-04-2015 PEARL REZA 18824 CPT-4 OBSERVATION CARE 09-05-2015 PEARL REZA DISCHARGE Functional status No functional [...]
--- OUTSIDE RECORDS SUMMARY | 2017-02-01 13:55 | External Medical Summary ---
:1960 Author Organization [facility] Summary purpose CCDA Sent to [facility] Chief Complaint and Reason for Visit Admit Diagnosis 1 FOLLOW UP EXAM AFTER NATALIA Problem list No authorized problems tracked for [...] Code Type Description Date Performed Performing Physician 32637 CPT-4 X-RAY EXAM NECK SPINE 07-31-2014 PEARL REZA 4/5VWS Functional status No functional or cognitive status [...]
--- OUTSIDE RECORDS SUMMARY | 2017-02-01 13:55 | External Medical Summary | Continuity Of Care Document ---
:1960 Author Organization [facility] Address [address] [place] [address] Phone Care Team Providers Name Role Phone SAKSHI SANDERS MD Primary Care Provider UNASSIGNED, ED PHYSICIAN Unavailable Unavailable RA RICARDO MD Unavailable GABBIE ANDERSON MD Attending Provider Results Lab Results Visit/Account #[id number] (July 13, 2016 4:44pm - July 13, 2016 7:45pm) Test Result Date/Time COMPLETE BLOOD COUNT WITH DIFF WHITE BLOOD COUNT(4.0-11.0 10E3/UL) 13.9 10E3/UL July 13, 2016 5:00pm RED BLOOD COUNT(4.50-5.90 10E6/UL) 4.81 10E6/UL July 13, 2016 5:00pm HEMOGLOBIN(13.5-17.5 G/DL) 14.5 G/DL July 13, 2016 5:00pm HEMATOCRIT(41.0-53.0 %) 43.3 % July 13, 2016 5:00pm MEAN CORPUSCULAR VOLUME(82.0-100.0 FL) 90.0 FL July 13, 2016 5:00pm MEAN CORPUSCULAR HEMOGLOBIN(26.0-34.0 PG) 30.1 PG July 13, 2016 5:00pm MEAN CORPUSCULAR HGB CONC(31.5-36.5 G/DL) 33.5 G/DL July 13, 2016 5:00pm RED CELL DISTRIBUTION WIDTH(11.5-14.5 %) 13.7 % July 13, 2016 5:00pm 777-3: PLATELET COUNT(150-450 10E3/UL) 360 10E3/UL July 13, 2016 5:00pm MEAN PLATELET VOLUME(8.2-12.4 FL) 10.4 FL July 13, 2016 5:00pm NEUTROPHILS % (AUTO)(40-70 %) 89 % July 13, 2016 5:00pm LYMPHOCYTES % (AUTO)(15-45 %) 7 % July 13, 2016 5:00pm MONOCYTES % (AUTO)(2-10 %) 4 % July 13, 2016 5:00pm EOSINOPHILS % (AUTO)(0-6 %) 0 % July 13, 2016 5:00pm BASOPHILS % (AUTO)(0-1 %) 0 % July 13, 2016 5:00pm IMMATURE GRANS % (AUTO)(0-0 %) 1 % July 13, 2016 5:00pm NUCLEATED RBCS (AUTO)(0-0 %) 0 % July 13, 2016 5:00pm NEUTROPHILS # (AUTO)(2.5-7.5 10E3/UL) 12.3 10E3/UL July 13, 2016 5:00pm LYMPHOCYTES # (AUTO)(1.0-4.0 10E3/UL) 1.0 10E3/UL July 13, 2016 5:00pm MONOCYTES # (AUTO)(0.2-0.8 10E3/UL) 0.5 10E3/UL July 13, 2016 5:00pm EOSINOPHILS # (AUTO)(0.0-0.4 10E3/UL) 0.0 10E3/UL July 13, 2016 5:00pm BASOPHILS # (AUTO)(0.0-0.2 10E3/UL) 0.0 10E3/UL July 13, 2016 5:00pm IMMATURE GRANS # (AUTO)(0.0-0.0 10E3/UL) 0.1 10E3/UL July 13, 2016 5:00pm DIFF TYPE AUTOMATED July 13, 2016 5:00pm COMPLETE METABOLIC PROFILE GLUCOSE(70-110 MG/DL) 166 MG/DL July 13, 2016 5:00pm BLOOD UREA NITROGEN(6-20 MG/DL) 8 MG/DL July 13, 2016 5:00pm CREATININE(0.50-1.20 MG/DL) 0.91 MG/DL July 13, 2016 5:00pm EST GLOMERULAR FILTRATION RATE(Greater than or equal to 60) Greater than or equal to 60 July 13, 2016 5:00pm Result Comments: If the patient is of -[place] descent/extraction multiply the eGFR value by 1.212 to obtain the actual eGFR. >=60 mg/dL Normal 30-59 mg/dL Moderate Kidney Disease 15-29 mg/dL Severe Kidney Disease <15 mg/dL Kidney Failure BUN CREATININE RATIO(10.0-20.0 RATIO) 9.0 RATIO July 13, 2016 5:00pm SODIUM(135-145 MMOL/L) 135 MMOL/L July 13, 2016 5:00pm POTASSIUM(3.6-5.0 MMOL/L) 3.7 MMOL/L July 13, 2016 5:00pm CHLORIDE(101-111 MMOL/L) 102 MMOL/L July 13, 2016 5:00pm CO2(21-31 MMOL/L) 22 MMOL/L July 13, 2016 5:00pm ANION GAP(8-18) 15 July 13, 2016 5:00pm OSMO CALCULATED(270.0-290.0) 272.2 July 13, 2016 5:00pm CALCIUM(8.5-10.5 MG/DL) 9.1 MG/DL July 13, 2016 5:00pm BILIRUBIN,TOTAL(0.1-1.2 MG/DL) 0.6 MG/DL July 13, 2016 5:00pm ALKALINE PHOSPHATASE(42-121 IU/L) 108 IU/L July 13, 2016 5:00pm ASPARTATE AMINO TRANSFERASE(10-42 IU/L) 34 IU/L July 13, 2016 5:00pm ALANINE AMINOTRANSFERASE(10-60 IU/L) 24 IU/L July 13, 2016 5:00pm TOTAL PROTEIN(6.4-8.2 G/DL) 8.2 G/DL July 13, 2016 5:00pm ALBUMIN(3.5-5.5 G/DL) 4.3 G/DL July 13, 2016 5:00pm GLOBULIN(2.4-3.6) 3.9 July 13, 2016 5:00pm ALBUMIN/GLOBULIN RATIO(0.9-1.8 RATIO) 1.1 RATIO July 13, 2016 5:00pm LIPASE LIPASE(22-51 U/L) 12 U/L July 13, 2016 5:00pm ALCOHOL ALCOHOL(0.0-5.0 MG/DL) Less than 5.0 MG/DL July 13, 2016 5:00pm Allergies and Adverse Reactions Allergies and Adverse Reactions Patient Unit Number: [id number] Agent Type Reaction Severity Status PENICILLINS Drug Allergy UNSURE Mild Active CODEINE Drug Allergy UNSURE Mild Active Problem List Problem List Visit/Account #[id number] (July 13, 2016 4:44pm - July 13, 2016 7:45pm) Acute Problems: Code/Condition Comments Documented Start Date Documented Resolved Code(s) Date Abdominal pain ICD10: R10.9 Abdominal pain SNOMED: 42671541 Abdominal pain Plan of Care Plan Of Care Visit/Account #[id number] (July 13, 2016 4:44pm - July 13, 2016 7:45pm) Patient Instructions Home to rest. Clear liquid diet until symptoms are resolved. 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 this week, if not improving Vital Signs Vital Signs Visit/Account #[id number] (July 13, 2016 4:44pm - July 13, 2016 7:45pm) Sign First Result Last Result Code(s) Temperature in Fahrenheit Temperature (Fahrenheit): 97.8 [degF] On July 13, 2016 4:44pm Temperature (Fahrenheit): 98.9 [degF] On July 13, 2016 7:39pm 8310-5 Body Temperature Weight in Kilograms Weight (Kilograms): 77.27 kg On July 13, 2016 4:44pm 3141-9 Weight Measured Functional Status Functional and Cognitive Status No Functional Status Data Medications Inpatient/Ordered Medications - Medications administered during hospital visit Visit/Account #[id number] (July 13, 2016 4:44pm - July 13, 2016 7:45pm) Medication Route Sig/Schedule Precondition/Indication Comments/ Instructions Codes NORMAL SALINE(SODIUM CHLORIDE) 20 ML INJECTION Route .STK-MED 20 ML Sodium Chloride 9 MG/ML Injection (RxNorm): 2535737 Dose: 20 ML NORMAL SALINE (SODIUM CHLORIDE) NDC: 95043787649 IV Medication INTRAVEN .Q1H (Rate: 1000 MLS/HR Duration: 1 HR) Carriers: Carriers: 1000 ML Sodium Chloride 9 MG/ML Injection (RxNorm): 3561938 NORMAL SALINE(SODIUM CHLORIDE) 1000 ML INJECTION NORMAL SALINE ( SODIUM CHLORIDE) NDC: 75482813929 Dose: 1000 ML PROTONIX INJ(PANTOPRAZOLE) 40 MG INJECTION INTRAVEN NOW Label Comments: pantoprazole 40 MG Injection [Protonix] (RxNorm): 232368 Dose: 40 MG DILUTE WITH 10 ML OF NORMAL SALINE. GIVE OVER 2 MINUTES. PROTONIX INJ (PANTOPRAZOLE) NDC: 04359005720 IV Medication INTRAVEN NOW (Rate: 400 MLS/HR Duration: 15 MIN) Label Comments: Carriers: * PROTECT FROM LIGHT * Carriers: 1 ML Promethazine Hydrochloride 25 MG/ML Injection (RxNorm) : 483947 PHENERGAN 25 MG/100 ML NS(PROMETHAZINE HCL IN 0.9 % NACL) 25 MG/100 ML INJECTION PHENERGAN 25 MG/100 ML NS (PROMETHAZINE HCL IN 0.9 % NACL) NDC: 06426556724 Dose: 100 ML DILAUDID(HYDROmorphone HCL) 2 MG/ML INJECTION INTRAVEN NOW Label Comments : 1 ML Hydromorphone Hydrochloride 2 MG/ML Cartridge (RxNorm): 5847734 Dose: 0.5 ML MAY INCREASE FALL RISK DILAUDID (HYDROmorphone HCL) NDC: 55574085554 IV Medication INTRAVEN NOW (Rate: 216 MLS/HR Duration: 15 MIN) Label Comments: Additives: MAY INCREASE FALL RISK Additives: 2 ML Metoclopramide 5 MG/ML Injection (RxNorm): 919642 REGLAN INJ(METOCLOPRAMIDE HCL) 5 MG/ML INJECTION REGLAN INJ ( METOCLOPRAMIDE HCL) NDC: 41778331833 Dose: 20 MG Carriers: Carriers: 50 ML Sodium Chloride 9 MG/ML Injection (RxNorm): 7090254 NORMAL SALINE(SODIUM CHLORIDE) 50 ML INJECTION Dose: 50 ML NORMAL SALINE (SODIUM CHLORIDE) NDC: 46185801373 ATIVAN INJ(LORazepam) 2 MG/ML INJECTION INTRAVEN NOW Label Comments: 1 ML Lorazepam 2 MG/ML Injection [Ativan] (RxNorm): 8780042 Dose: 0.5 ML *DILUTE WITH EQUAL VOLUME OF NORMAL SALINE PRIOR TO IV ATIVAN INJ (LORazepam) NDC: 22174666108 ADMINISTRATION MAY INCREASE FALL RISK DECADRON INJ(DEXAMETHASONE SOD PHOS) 10 MG/ML INJECTION INTRAVEN NOW Dexamethasone phosphate 10 MG/ML Injectable Solution (RxNorm): 182475 Dose: 1 ML DECADRON INJ (DEXAMETHASONE SOD PHOS) NDC: 68918548893 DILAUDID(HYDROmorphone HCL) 2 MG/ML INJECTION INTRAVEN NOW Label Comments : 1 ML Hydromorphone Hydrochloride 2 MG/ML Cartridge (RxNorm): 9420139 Dose: 0.5 ML MAY INCREASE FALL RISK DILAUDID (HYDROmorphone HCL) NDC: 22306266654 HEP-LOCK FLUSH SYRINGE(HEPARIN LOCK FLUSH) 500 UNIT/5 ML INJECTION INTRAVEN NEEDED PRN Reason: PORT FLUSH Label Comments: HEP-LOCK FLUSH SYRINGE ( HEPARIN LOCK FLUSH) NDC: 09807027551 Dose: 5 ML PORT FLUSHES: 5 mls after saline flush after medications OR blood draws. ACCESSED minimum: at least 1-2 times per week DEACCESSED minimum: at least monthly Discharge Medications - Medications that patient should continue to take. Review with physician Visit/Account #[id number] (July 13, 2016 4:44pm - July 13, 2016 7:45pm) Medication Route Sig/Schedule Precondition/Indication Comments/ Instructions Codes ZOFRAN ODT(ONDANSETRON) 4 MG/UDTABLET TAB.RAPDIS ORAL EVERY 8 HOURS NAUSEA/ VOMITING Ondansetron 4 MG Disintegrating Oral Tablet [Zofran] (RxNorm): 004246 Dose: 4 MG ZOFRAN ODT (ONDANSETRON) NDC: 13285682250 History Of Encounters Encounters Visit/Account #[id number] (July 13, 2016 4:44pm - July 13, 2016 7:45pm) Account Physican Of Reason For Visit Diagnosis Start Date/Time Stop Date/ Time Status Record Visit ER GABBIE ANDERSON MD N/V SINCE EARLY THIS AM R11.2: NAUSEA WITH VOMITING, UNSPECIFIED ICD10 Jul 13, 2016 4:44pm Jul 13, 2016 7:45pm History of Procedures Procedure List No procedures recorded. Discharge Instructions Discharge Instructions Visit/Account #[id number] (July 13, 2016 4:44pm - July 13, 2016 7:45pm) DISCHARGE INSTRUCTIONS Physician Documentation Social History Social History No Social History Data. Immunizations Immunizations Patient Unit Number: [id number] Immunizations No immunizations recorded.
--- OUTSIDE RECORDS SUMMARY | 2017-02-01 13:55 | External Medical Summary ---
:1960 Author Organization [facility] Summary purpose CCDA Sent to [facility] Chief Complaint and Reason for [...]
--- OUTSIDE RECORDS SUMMARY | 2017-02-01 13:55 | External Medical Summary | Continuity Of Care Document ---
:1960 Author Organization [facility] Address [address] [facility] [facility] [place] [address] Phone Care Team Providers Name Role Phone JANIA PABON Primary Care Provider CHI ALEXANDER, WINNIE Lindsay Attending Provider LIBIA ALEXANDER, PEARL Rausch Unavailable [phone] Results Lab Results Visit/Account #[id number] (February 11, 2016 5:18pm - February 11, 2016 9:59pm) Test Result Date/Time CBC WITH REFLEXED MANUAL DIFF WHITE BLOOD COUNT(4.0-11.0 10E3/UL) 14.9 10E3/UL February 11, 2016 6:00pm RED BLOOD COUNT(4.50-5.90 10E6/UL) 4.45 10E6/UL February 11, 2016 6:00pm HEMOGLOBIN(13.5-17.5 G/DL) 13.5 G/DL February 11, 2016 6:00pm HEMATOCRIT(41.0-53.0 %) 39.4 % February 11, 2016 6:00pm MEAN CORPUSCULAR VOLUME(82.0-100.0 FL) 88.5 FL February 11, 2016 6:00pm 98038-3: MEAN CORPUSCULAR HEMOGLOBIN(26.0-34.0 PG) 30.3 PG February 11, 2016 6 :00pm MEAN CORPUSCULAR HGB CONC(31.5-36.5 G/DL) 34.3 G/DL February 11, 2016 6:00pm RED CELL DISTRIBUTION WIDTH(11.5-14.5 %) 13.2 % February 11, 2016 6:00pm 777-3: PLATELET COUNT(150-450 10E3/UL) 346 10E3/UL February 11, 2016 6:00pm MEAN PLATELET VOLUME(8.2-12.4 FL) 11.0 FL February 11, 2016 6:00pm DIFF TYPE MANUAL February 11, 2016 6:00pm NEUTROPHIL % (MANUAL)(40-70 %) 97 % February 11, 2016 6:00pm LYMPHOCYTES % (MANUAL)(15-45 %) 2 % February 11, 2016 6:00pm MONOCYTES % (MANUAL)(2-10 %) 1 % February 11, 2016 6:00pm EOSINOPHILS % (MANUAL)(0-6 %) 0 % February 11, 2016 6:00pm 99034-1: BASOPHILS % (MANUAL)(0-1 %) 0 % February 11, 2016 6:00pm NUCLEATED RBCS (MANUAL)(0-0 %) 0 % February 11, 2016 6:00pm 753-4: NEUTROPHILS # (MANUAL)(2.5-7.5 10E3/UL) 14.5 10E3/UL February 11, 2016 6:00pm 732-8: LYMPHOCYTES # (MANUAL)(1.0-4.0 10E3/UL) 0.3 10E3/UL February 11, 2016 6 :00pm 743-5: MONOCYTES # (MANUAL)(0.2-0.8 10E3/UL) 0.1 10E3/UL February 11, 2016 6: 00pm 705-4: BASOPHILS # (MANUAL)(0.0-0.2 10E3/UL) 0.0 10E3/UL February 11, 2016 6: 00pm 9317-9: PLATELET ESTIMATE ADEQUATE February 11, 2016 6:00pm 77026-0: WBC MORPHOLOGY COMMENT NORMAL February 11, 2016 6:00pm 6742-1: RBC MORPHOLOGY COMMENT NORMAL February 11, 2016 6:00pm 00404-9: PLATELET MORPHOLOGY COMMENT NORMAL February 11, 2016 6:00pm 00930-5: COMPLETE METABOLIC PROFILE GLUCOSE(70-110 MG/DL) 184 MG/DL February 11, 2016 6:00pm BLOOD UREA NITROGEN(6-20 MG/DL) 8 MG/DL February 11, 2016 6:00pm CREATININE(0.50-1.20 MG/DL) 0.89 MG/DL February 11, 2016 6:00pm 99458-8: EST GLOMERULAR FILTRATION RATE(Greater than or equal to 60) Greater than or equal to 60 February 11, 2016 6:00pm Result Comments: If the patient is of -[place] descent/extraction multiply the eGFR value by 1.212 to obtain the actual eGFR. >=60 mg/dL Normal 30-59 mg/dL Moderate Kidney Disease 15-29 mg/dL Severe Kidney Disease <15 mg/dL Kidney Failure BUN CREATININE RATIO(10.0-20.0 RATIO) 9.0 RATIO February 11, 2016 6:00pm SODIUM(135-145 MMOL/L) 138 MMOL/L February 11, 2016 6:00pm POTASSIUM(3.6-5.0 MMOL/L) 3.6 MMOL/L February 11, 2016 6:00pm CHLORIDE(101-111 MMOL/L) 102 MMOL/L February 11, 2016 6:00pm CO2(21-31 MMOL/L) 21 MMOL/L February 11, 2016 6:00pm ANION GAP(8-18) 19 February 11, 2016 6:00pm OSMO CALCULATED(270.0-290.0) 278.8 February 11, 2016 6:00pm CALCIUM(8.5-10.5 MG/DL) 9.6 MG/DL February 11, 2016 6:00pm BILIRUBIN,TOTAL(0.1-1.2 MG/DL) 0.7 MG/DL February 11, 2016 6:00pm ALKALINE PHOSPHATASE(42-121 IU/L) 77 IU/L February 11, 2016 6:00pm ASPARTATE AMINO TRANSFERASE(10-42 IU/L) 42 IU/L February 11, 2016 6:00pm ALANINE AMINOTRANSFERASE(10-60 IU/L) 27 IU/L February 11, 2016 6:00pm TOTAL PROTEIN(6.4-8.2 G/DL) 7.5 G/DL February 11, 2016 6:00pm ALBUMIN(3.5-5.5 G/DL) 4.4 G/DL February 11, 2016 6:00pm GLOBULIN(2.4-3.6) 3.1 February 11, 2016 6:00pm ALBUMIN/GLOBULIN RATIO(0.9-1.8 RATIO) 1.4 RATIO February 11, 2016 6:00pm 3040-3: LIPASE 3040-3: LIPASE(22-51 U/L) 15 U/L February 11, 2016 6:00pm Allergies and Adverse Reactions Allergies and Adverse Reactions Patient Unit Number: [id number] Agent Type Reaction Severity Status PENICILLINS Drug Allergy UNSURE Mild Active CODEINE Drug Allergy UNSURE Mild Active Problem List Problem List Visit/Account #[id number] (February 11, 2016 5:18pm - February 11, 2016 9:59pm) Acute Problems: Code/Condition Comments Documented Start Documented Code(s) Date Resolved Date Nausea and vomiting ICD10: R11.2 Nausea and vomiting ICD9: 787.01 Nausea and vomiting SNOMED: 62813857 Nausea and vomiting Abdominal pain ICD10: R10.9 Abdominal pain ICD9: 789.00 Abdominal pain SNOMED: 07581606 Abdominal pain Inflammatory bowel disease (ulcerative colitis) ICD10: K51.919 Ulcerative colitis ICD9: 556.9 Ulcerative colitis SNOMED: 52896242 Ulcerative colitis Plan of Care Plan Of Care Visit/Account #[id number] (February 11, 2016 5:18pm - February 11, 2016 9:59pm) Patient Instructions Recommend a clear liquid diet and push fluids for 24 hours, then slowly advance as tolerated. Take your prescribed pain medicine that you've already have at home, as directed by your pain management doctor. Take the prednisone as directed this evening. 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 Return to the ER if symptoms worsen acutely or worsening symptoms. Vital Signs Vital Signs Visit/Account #[id number] (February 11, 2016 5:18pm - February 11, 2016 9:59pm) Sign First Result Last Result Code(s) Temperature in Fahrenheit Temperature (Fahrenheit): 98.1 [degF] On January 5:15pm Temperature (Fahrenheit): 98.2 [degF] On February 11, 2016 9: 50pm 8310-5 Body Temperature Weight in Kilograms Weight (Kilograms): 73.3 kg On February 11, 2016 5:15pm 3141-9 Weight Measured 38610-5 Body weight measured in kilograms Functional Status Functional and Cognitive Status No Functional Status Data Medications Inpatient/Ordered Medications - Medications administered during hospital visit Visit/Account #[id number] (February 11, 2016 5:18pm - February 11, 2016 9:59pm) Medication Route Sig/Schedule Precondition/Indication Comments/ Instructions Codes HEP-LOCK FLUSH SYRINGE(HEPARIN LOCK FLUSH) 500 UNIT/5 ML INJECTION INTRAVEN NEEDED PRN Reason: PORT FLUSH Special Dose Instructions: HEP-LOCK FLUSH SYRINGE (HEPARIN LOCK FLUSH) NDC: 02182214655 Dose: 5 ML PORT FLUSH IV Medication INTRAVEN .Q1H (Rate: 1000 MLS/HR Duration: 1 HR) Carriers: Carriers: Sodium Chloride 0.154 MEQ/ML Injectable Solution (RxNorm): 933188 NORMAL SALINE(SODIUM CHLORIDE) 1000 ML INJECTION NORMAL SALINE ( SODIUM CHLORIDE) NDC: 60717360194 Dose: 1000 ML ZOFRAN INJ(ONDANSETRON HCL) 4 MG/2 ML INJECTION INTRAVEN NOW 2 ML Ondansetron 2 MG/ML Injection (RxNorm): 2007928 Dose: 2 ML ZOFRAN INJ (ONDANSETRON HCL) NDC: 19661435863 NORMAL SALINE(SODIUM CHLORIDE) 20 ML INJECTION Route .[facility] Sodium Chloride 0.154 MEQ/ML Injectable Solution (RxNorm): 734031 Dose: 20 ML NORMAL SALINE (SODIUM CHLORIDE) NDC: 57121533037 SUBLIMAZE INJ(FentaNYL CITRATE) 100 MCG/2 ML INJECTION INTRAVEN NOW SUBLIMAZE INJ (FentaNYL CITRATE) NDC: 73643141468 Dose: 1 ML DILAUDID(HYDROmorphone HCL) 2 MG/ML INJECTION INTRAVEN NOW 1 ML Hydromorphone Hydrochloride 2 MG/ML Cartridge (RxNorm): 2777050 Dose: 0.5 ML DILAUDID (HYDROmorphone HCL) NDC: 87064459821 IV Medication INTRAVEN NOW (Rate: 402 MLS/HR Duration: 15 MIN) Additives : Additives: 1 ML Promethazine Hydrochloride 25 MG/ML Injection (RxNorm) : 298879 PHENERGAN INJ(PROMETHAZINE HCL) 25 MG/ML INJECTION PHENERGAN INJ ( PROMETHAZINE HCL) NDC: 28057992852 Dose: 12.5 MG Carriers: Carriers: Sodium Chloride 0.154 MEQ/ML Injectable Solution (RxNorm): 348970 SODIUM CHLORIDE 100 ML INJECTION Dose: 100 ML (SODIUM CHLORIDE) NDC: 86132260483 IV Medication INTRAVEN .Q1H (Rate: 1000 MLS/HR Duration: 1 HR) Carriers: Carriers: Sodium Chloride 0.154 MEQ/ML Injectable Solution (RxNorm): 805294 NORMAL SALINE(SODIUM CHLORIDE) 1000 ML INJECTION NORMAL SALINE ( SODIUM CHLORIDE) NDC: 17787787916 Dose: 1000 ML DILAUDID(HYDROmorphone HCL) 2 MG/ML INJECTION INTRAVEN NOW 1 ML Hydromorphone Hydrochloride 2 MG/ML Cartridge (RxNorm): 4349055 Dose: 0.5 ML DILAUDID (HYDROmorphone HCL) NDC: 19428683593 Solu-MEDROL INJ(MethylPREDNISolone SOD SUCC) 125 MG/2 ML INJECTION INTRAVEN NOW Methylprednisolone 125 MG Injection [Solu-Medrol] (RxNorm): 2615830 Dose: 2 ML Solu-MEDROL INJ (MethylPREDNISolone SOD SUCC) NDC: 87449240252 Discharge Medications - Medications that patient should continue to take. Review with physician Visit/Account #[id number] (February 11, 2016 5:18pm - February 11, 2016 9:59pm) Medication Route Sig/Schedule Precondition/Indication Comments/ Instructions Codes Prednisone(PredniSONE) 20 MG TAB ORAL DAILY Prednisone 20 MG Oral Tablet (RxNorm): 211828 Dose: 40 MG Prednisone (PredniSONE) NDC: 92635974870 PROMETHazine HCL(PROMETHAZINE HCL) 25 MG TABLET ORAL EVERY 6 HOURS NAUSEA/ VOMITING Promethazine Hydrochloride 25 MG Oral Tablet (RxNorm): 432717 Dose: 0.5-1 MG PROMETHazine HCL (PROMETHAZINE HCL) NDC: 09022860614 History Of Encounters Encounters Visit/Account #[id number] (February 11, 2016 5:18pm - February 11, 2016 9:59pm) Account Physican Of Reason For Visit Diagnosis Start Stop Date/Time Status Record Visit Date/Time ER WINNIE MIRELES MD VOMITING R11.2: NAUSEA WITH VOMITING, UNSPECIFIED ICD10 Feb 11, 2016 5:18pm Feb 11, 2016 9:59pm History of Procedures Procedure List No procedures recorded. Discharge Instructions Discharge Instructions Visit/Account #[id number] (February 11, 2016 5:18pm - February 11, 2016 9:59pm) DISCHARGE INSTRUCTIONS Physician Documentation Social History Social History No Social History Data. Immunizations Immunizations Patient Unit Number: [id number] Immunizations No immunizations recorded.
--- OUTSIDE RECORDS SUMMARY | 2017-02-01 13:55 | External Medical Summary ---
:1960 Author Organization [facility] Summary purpose CCDA Sent to [facility] Chief Complaint and Reason for Visit [...] Code Type Description Date Performed Performing Physician [id number] CPT-4 EMERGENCY DEPT VISIT 10-31-2014 PEARL REZA Functional status No functional or [...]
--- OUTSIDE RECORDS SUMMARY | 2017-02-01 13:55 | External Medical Summary ---
:1960 Author Organization [facility] Care Team Providers Name Role Phone LIBIA ALEXANDER, PEARL Primary Care Provider [phone] PEARL REZA MD Primary Care Provider [phone] Summary purpose CCDA Sent to [facility] Chief Complaint and Reason for Visit No authorized Reason for Visit (Admitting Diagnosis) is available for this visit. Problem list Condition Status Certainty Chronicity Onset .Abdominal pain; MID ABDOMEN (STATES CHRONIC Active PANCREATITIS/ULCERATIVE COLITIS) .Nausea Active .Vomiting Active Encounters The following conditions tracked for encounter diagnoses were recorded for this visit: Finding or Diagnosis Status Certainty Chronicity Onset .Abdominal pain; MID ABDOMEN (STATES CHRONIC Active PANCREATITIS/ULCERATIVE COLITIS) .Nausea Active .Vomiting Active Medications Home Medications Medication Directions Started Status Source oxyCODONE-acetaminophen 5 1 tablet oral As Needed Current Physician Order mg-325 mg tablet Every 4-6 Hours methocarbamol 750 mg tablet 1 tablet oral 3 times Current Physician Order per day Neurontin 100 mg capsule 1 capsule oral 3 times Current Physician Order per day Lialda 1.2 gram 4 tablet oral -Daily Current Physician Order tablet,delayed release Flexeril 10 mg tablet 1 tablet oral As Needed Current Physician Order Every 8 Hours Creon 24,000-76,000-120,000 2 capsule oral 3 times per day Current Physician Order unit capsule,delayed release NOTICE DOSE CHANGE TO 2 CAPSULES WITH MEALS Protonix 40 mg tablet,delayed 1 tablet oral -Daily Current Physician Order release Allergy (diphenhydramine) 25 1 tablet oral As Needed Current Patient recall mg tablet Every 4-6 Hours B complex-folic acid oral 1 tablet oral -Daily Current Physician Order Lactobacills 1 tablet oral -Daily Current Physician Order gasseri-Bifidobac bifidum&longum 1.5 billion cell capsule Zofran ODT 8 mg 1 tablet oral As Needed Current Physician Order disintegrating tablet Every 4 Hours amitriptyline 50 mg tablet 1 tablet oral At bed Current Physician Order time Linzess 145 mcg capsule 1 capsule oral -Daily Current Physician Order for IRRITABLE BOWEL Allergies, adverse reactions, alerts Allergen Category Ingredient Status Reaction Severity Onset Penicillins Drug Penicillins Active Rash codeine Drug codeine Active Nausea/Vomiting Mild Adult Immunizations No immunizations recorded for this patient visit Relevant diagnostic tests and/or laboratory data RESULTS CBC :05:00 Result Normal Range Units White Blood Count 6.73 4.80-10.80 x 103/uL Red Blood Cells L 4.11 4.70-6.10 x 106/uL Hemoglobin L 12.5 14.0-18.0 g/dl Hematocrit L 36.4 42.0-52.0 % Mean Woody Volume 88.6 80.0-100.0 fL Mean Woody Hemoglobin 30.4 27.0-31.0 pg Mean Woody Hemoglobin Conc 34.3 32.0-36.0 g/dl Platelet Count 283 130-450 x 103/uL Mean Platelet Volume 10.8 FL :50:00 Result Normal Range Units White Blood Count 6.66 4.80-10.80 x 103/uL Red Blood Cells L 4.18 4.70-6.10 x 106/uL Hemoglobin L 12.8 14.0-18.0 g/dl Hematocrit L 37.0 42.0-52.0 % Mean Owody Volume 88.5 80.0-100.0 fL Mean Woody Hemoglobin 30.6 27.0-31.0 pg Mean Woody Hemoglobin Conc 34.6 32.0-36.0 g/dl Platelet Count 254 130-450 x 103/uL Mean Platelet Volume 11.3 FL :10:00 Result Normal Range Units White Blood Count 8.09 4.80-10.80 x 103/uL Red Blood Cells L 4.29 4.70-6.10 x 106/uL Hemoglobin L 13.0 14.0-18.0 g/dl Hematocrit L 37.5 42.0-52.0 % Mean Woody Volume 87.4 80.0-100.0 fL Mean Woody Hemoglobin 30.3 27.0-31.0 pg Mean Woody Hemoglobin Conc 34.7 32.0-36.0 g/dl Platelet Count 282 130-450 x 103/uL Mean Platelet Volume 10.5 FL :35:00 Result Normal Range Units White Blood Count H 11.88 4.80-10.80 x 103/uL Red Blood Cells L 4.67 4.70-6.10 x 106/uL Hemoglobin 14.2 14.0-18.0 g/dl Hematocrit L 40.5 42.0-52.0 % Mean Woody Volume 86.7 80.0-100.0 fL Mean Woody Hemoglobin 30.4 27.0-31.0 pg Mean Woody Hemoglobin Conc 35.1 32.0-36.0 g/dl Platelet Count 350 130-450 x 103/uL Mean Platelet Volume 10.9 FL Chemistry Group :05:00 Result Normal Range Units Glucose 79 75-110 mg/dl Creatinine .8 0.8-1.5 mg/dl Urea Nitrogen (BUN) L 3 9-20 mg/dl Bun/Creatinine Ratio 4.2 Ratio Sodium 140 137-145 mmol/L Potassium 3.9 3.6-5.0 mmol/L Chloride 102 98-107 mmol/L CO2 27 22-30 mmol/L Anion GAP 11 mmol Protein Total 6.5 6.3-8.2 g/dl Albumin 3.7 3.5-5.0 g/dl Globulin 2.7 mg/dl A/G Ratio 1.4 Ratio Bilirubin Total .8 0.2-1.3 mg/dl Alkaline Phosphatase 74 38-126 U/L AST 17 17-59 U/L ALT 27 21-72 U/L Calcium 9.2 8.4-10.2 mg/dl Osmolality Calculation 267 mOsm/kg 00-02-544569:50:00 Result Normal Range Units Glucose 103 75-110 mg/dl Creatinine L .7 0.8-1.5 mg/dl Urea Nitrogen (BUN) L 4 9-20 mg/dl Bun/Creatinine Ratio 5.7 Ratio Sodium 139 137-145 mmol/L Potassium 3.7 3.6-5.0 mmol/L Chloride 103 98-107 mmol/L CO2 26 22-30 mmol/L Anion GAP 10 mmol Protein Total L 6.2 6.3-8.2 g/dl Albumin 3.5 3.5-5.0 g/dl Globulin 2.7 mg/dl A/G Ratio 1.3 Ratio Bilirubin Total .8 0.2-1.3 mg/dl Alkaline Phosphatase 69 38-126 U/L AST 28 17-59 U/L ALT 41 21-72 U/L Calcium 9.2 8.4-10.2 mg/dl Osmolality Calculation 265 mOsm/kg 44-64-453330:10:00 Result Normal Range Units Glucose H 112 75-110 mg/dl Creatinine L .7 0.8-1.5 mg/dl Urea Nitrogen (BUN) L 6 9-20 mg/dl Bun/Creatinine Ratio 8.4 Ratio Sodium 137 137-145 mmol/L Potassium L 3.5 3.6-5.0 mmol/L Chloride 100 98-107 mmol/L CO2 25 22-30 mmol/L Anion GAP 12 mmol Protein Total 6.6 6.3-8.2 g/dl Albumin 3.7 3.5-5.0 g/dl Globulin 2.9 mg/dl A/G Ratio 1.3 Ratio Bilirubin Total .7 0.2-1.3 mg/dl Alkaline Phosphatase 75 38-126 U/L AST 48 17-59 U/L ALT 54 21-72 U/L Calcium 9.2 8.4-10.2 mg/dl Osmolality Calculation 263 mOsm/kg 00-82-482804:35:00 Result Normal Range Units Glucose H 129 75-110 mg/dl Creatinine .8 0.8-1.5 mg/dl Urea Nitrogen (BUN) L 6 9-20 mg/dl Bun/Creatinine Ratio 7.8 Ratio Sodium 138 137-145 mmol/L Potassium L 3.2 3.6-5.0 mmol/L Chloride 98 98-107 mmol/L CO2 L 21 22-30 mmol/L Anion GAP 19 mmol Protein Total 7.8 6.3-8.2 g/dl Albumin 4.5 3.5-5.0 g/dl Globulin 3.3 mg/dl A/G Ratio 1.4 Ratio Bilirubin Total .8 0.2-1.3 mg/dl Alkaline Phosphatase 96 38-126 U/L AST H 68 17-59 U/L ALT 58 21-72 U/L Calcium 9.4 8.4-10.2 mg/dl Osmolality Calculation 266 mOsm/kg Amylase H 128 30-110 U/L Lipase 67 23-300 U/L History of procedures No procedures recorded for this patient visit. Functional status Functional Status Finding Observation Time Dexterity Right-handed 10-25-962842:20 Weight Bearing Statu Full 50-48-274383:42 Transferring/Ambulat Independent :20 Bathing Independent :20 Dressing Independent :20 Eating Independent :20 Drinking Independent :20 Toileting Independent :20 Able to Turn Self in Independent :20 Stairs Independent :20 Cognitive Status Finding Observation Time Level of Consciousne Alert : Oriented to Person Yes : Oriented to Place Yes :00 Oriented to Time Yes : Vital signs Type Value Date Respirations 18 :35 Pulse 81 :35 O2 Saturation 97% :35 Systolic Blood Press 134mm/HG :35 Diastolic Blood Pres 76mm/HG :35 Temperature (Fahr) 98.4Degrees :35 Height 70in :10 Weight 164.6LB :10 Social history Type Value Smoking Status NEVER SMOKER Treatment Plan No treatment plan text is available for this visit. Hospital discharge instructions Diagnosis ABDOMEN PAIN Diet TOLERATES Activity Level AMBULATE Med Dispensed by [facility] Follow up with DR REZA Appointment Date and Jan @ 1 30 Wound Care CLEAN INSION WITH SOAP AND WATER DAILY. WATCH FOR SIGNS OF INFECTIONS SUCH REDNESS, WARMTH AND PUS. Other Instructions CONTINUE HOME MEDICATIONS BEFORE. NOTICE THE DOSE CHANGE ON YOUR LIPASE, YOU WILL NEED TO TAKE 2 CAPSULES WITH EACH MEAL. YOU HAVE ONE NEW MEDICATION CALLED LINZESS, YOU WILL NEED TO TAKE 1 TABLET DAILY. YOU CAN SEE THE LAST DOSE AND TIME GIVEN OF EACH MEDICATION LISTED BELOW. IF YOU HAVE ANY QUESTION REGUARDING YOUR DISCHARGE PLEASE CALL THE HOSPITAL AT [phone] AND ASK FOR THE NURSES STATION;.
--- OUTSIDE RECORDS SUMMARY | 2017-02-01 13:55 | External Medical Summary ---
:1960 Author Organization [facility] Summary purpose CCDA Sent to [facility] Chief Complaint and Reason for Visit No authorized Reason for Visit (Admitting Diagnosis) is available for this visit. Problem list Condition Status Certainty Chronicity Onset .Nausea Active .Vomiting Active .Diarrhea Active Encounters The following conditions tracked for encounter diagnoses were recorded for this visit: Finding or Diagnosis Status Certainty Chronicity Onset .Nausea Active .Vomiting Active .Diarrhea Active Medications Discharge Medications Status Medication Directions Current acetaminophen (TYLENOL) 325 mg: TABLET 650 MG oral EVERY SIX HOURS NEEDED for PAIN OR FEVER Current amitriptyline 10 mg tablet 10 miligram(s) oral TWO TIMES A DAY 10mg in AM and afternoon Current amitriptyline 50 mg tablet 50 miligram(s) oral BEDTIME Current Creon 36,000-114,000-180,000 unit 1 capsule(s) oral oral NEEDED for diarrhea capsule,delayed release 3 capsules with meals; 2 capsules with snacks Current cyclobenzaprine 10 mg tablet 10 miligram(s) oral oral EVERY EIGHT HOURS NEEDED for muscle pain Current diazepam 5 mg tablet 5 miligram(s) oral ONE TIME A DAY Current dicyclomine 10 mg capsule 10 miligram(s) oral ONE TIME A DAY Current gabapentin 300 mg capsule 300 miligram(s) oral THREE TIMES A DAY Current Lialda 1.2 g tablet,delayed release 1.2 gram(s) oral FOUR TIMES A DAY Current ondansetron 8 mg disintegrating tablet 8 miligram(s) oral oral NEEDED for nausea or vomiting Current oxyCODONE-acetaminophen 10 mg-325 mg 1 tab(s) oral oral FOUR TIMES A DAY tablet NEEDED for pain Current pantoprazole 40 mg tablet,delayed release 40 miligram(s) oral ONE TIME A DAY Current potassium chloride ER 10 mEq 10 milliequivilant(s) oral ONE TIME capsule,extended release A DAY Current promethazine (PHENERGAN) 25 mg/mL: VIAL 25 MG injection Give IV EVERY FOUR HOURS NEEDED for NAUSEA Allergies, adverse reactions, alerts Allergen Category Ingredient Status Reaction Severity Onset Codeine Drug Codeine Active Hives Adolescence Penicillins Drug Penicillins Active Hives Moderate Adolescence No known food No known food No known food Active allergies allergies allergies Immunizations No immunizations recorded for this patient visit Relevant diagnostic tests and/or laboratory data RESULTS Chemistry Group [id number]:20:00 Result Normal Range Units Glucose 83 74-106 mg/dl BUN L 6 7-18 mg/dl Osmolality 276 268.0-292.0 Creatinine 0.89 0.70-1.30 mg/dl Sodium 140 136-145 mmol/L Potassium L 3.3 3.5-5.1 mmol/L Chloride 104 98-107 mmol/L CO2 26.2 21.0-32.0 mmol/L Calcium L 8.4 8.5-10.1 mg/dl eGFR 89 >=60 ml/min. :40:00 Result Normal Range Units Glucose 87 74-106 mg/dl BUN 8 7-18 mg/dl Osmolality 275 268.0-292.0 Creatinine 1.00 0.70-1.30 mg/dl Sodium 139 136-145 mmol/L Potassium L 2.9 3.5-5.1 mmol/L Chloride 102 98-107 mmol/L CO2 27.2 21.0-32.0 mmol/L Calcium L 8.2 8.5-10.1 mg/dl Total Protein 6.8 6.4-8.2 g/dl Albumin 3.4 3.4-5.0 g/dl AST 30 15-37 U/L ALT 30 30-65 U/L ALP 83 50-136 U/L Bilirubin, Total H 1.1 0.2-1.0 mg/dl eGFR 78 >=60 ml/min. :54:00 Result Normal Range Units Glucose 102 74-106 mg/dl BUN 11 7-18 mg/dl Osmolality 273 268.0-292.0 Creatinine 1.18 0.70-1.30 mg/dl Sodium 137 136-145 mmol/L Potassium L 3.2 3.5-5.1 mmol/L Chloride 99 98-107 mmol/L CO2 26.3 21.0-32.0 mmol/L Calcium L 8.4 8.5-10.1 mg/dl Total Protein 7.7 6.4-8.2 g/dl Albumin 3.9 3.4-5.0 g/dl AST H 43 15-37 U/L ALT 35 30-65 U/L ALP 97 50-136 U/L Bilirubin, Total 0.8 0.2-1.0 mg/dl eGFR 65 >=60 ml/min. Amylase 72 25-115 U/L Lipase 89 73-393 U/L [facility] [id number]:20:00 Result Normal Range Units Glucose 83 74-106 mg/dl BUN L 6 7-18 mg/dl Osmolality 276 268.0-292.0 Creatinine 0.89 0.70-1.30 mg/dl Sodium 140 136-145 mmol/L Potassium L 3.3 3.5-5.1 mmol/L Chloride 104 98-107 mmol/L CO2 26.2 21.0-32.0 mmol/L Calcium L 8.4 8.5-10.1 mg/dl eGFR 89 >=60 ml/min. 35-95-198562:40:00 Result Normal Range Units Glucose 87 74-106 mg/dl BUN 8 7-18 mg/dl Osmolality 275 268.0-292.0 Creatinine 1.00 0.70-1.30 mg/dl Sodium 139 136-145 mmol/L Potassium L 2.9 3.5-5.1 mmol/L Chloride 102 98-107 mmol/L CO2 27.2 21.0-32.0 mmol/L Calcium L 8.2 8.5-10.1 mg/dl Total Protein 6.8 6.4-8.2 g/dl Albumin 3.4 3.4-5.0 g/dl AST 30 15-37 U/L ALT 30 30-65 U/L ALP 83 50-136 U/L Bilirubin, Total H 1.1 0.2-1.0 mg/dl eGFR 78 >=60 ml/min. 87-53-759269:54:00 Result Normal Range Units Glucose 102 74-106 mg/dl BUN 11 7-18 mg/dl Osmolality 273 268.0-292.0 Creatinine 1.18 0.70-1.30 mg/dl Sodium 137 136-145 mmol/L Potassium L 3.2 3.5-5.1 mmol/L Chloride 99 98-107 mmol/L CO2 26.3 21.0-32.0 mmol/L Calcium L 8.4 8.5-10.1 mg/dl Total Protein 7.7 6.4-8.2 g/dl Albumin 3.9 3.4-5.0 g/dl AST H 43 15-37 U/L ALT 35 30-65 U/L ALP 97 50-136 U/L Bilirubin, Total 0.8 0.2-1.0 mg/dl eGFR 65 >=60 ml/min. [facility] 72-59-589095:20:00 Result Normal Range Units Glucose 83 74-106 mg/dl BUN L 6 7-18 mg/dl Osmolality 276 268.0-292.0 Creatinine 0.89 0.70-1.30 mg/dl Sodium 140 136-145 mmol/L Potassium L 3.3 3.5-5.1 mmol/L Chloride 104 98-107 mmol/L CO2 26.2 21.0-32.0 mmol/L Calcium L 8.4 8.5-10.1 mg/dl eGFR 89 >=60 ml/min. :40:00 Result Normal Range Units Glucose 87 74-106 mg/dl BUN 8 7-18 mg/dl Osmolality 275 268.0-292.0 Creatinine 1.00 0.70-1.30 mg/dl Sodium 139 136-145 mmol/L Potassium L 2.9 3.5-5.1 mmol/L Chloride 102 98-107 mmol/L CO2 27.2 21.0-32.0 mmol/L Calcium L 8.2 8.5-10.1 mg/dl eGFR 78 >=60 ml/min. :54:00 Result Normal Range Units Glucose 102 74-106 mg/dl BUN 11 7-18 mg/dl Osmolality 273 268.0-292.0 Creatinine 1.18 0.70-1.30 mg/dl Sodium 137 136-145 mmol/L Potassium L 3.2 3.5-5.1 mmol/L Chloride 99 98-107 mmol/L CO2 26.3 21.0-32.0 mmol/L Calcium L 8.4 8.5-10.1 mg/dl eGFR 65 >=60 ml/min. Electrolyte Panel :20:00 Result Normal Range Units Sodium 140 136-145 mmol/L Potassium L 3.3 3.5-5.1 mmol/L Chloride 104 98-107 mmol/L CO2 26.2 21.0-32.0 mmol/L :40:00 Result Normal Range Units Sodium 139 136-145 mmol/L Potassium L 2.9 3.5-5.1 mmol/L Chloride 102 98-107 mmol/L CO2 27.2 21.0-32.0 mmol/L :54:00 Result Normal Range Units Sodium 137 136-145 mmol/L Potassium L 3.2 3.5-5.1 mmol/L Chloride 99 98-107 mmol/L CO2 26.3 21.0-32.0 mmol/L Hepatic Profile :40:00 Result Normal Range Units Total Protein 6.8 6.4-8.2 g/dl Albumin 3.4 3.4-5.0 g/dl AST 30 15-37 U/L ALT 30 30-65 U/L ALP 83 50-136 U/L Bilirubin, Total H 1.1 0.2-1.0 mg/dl :54:00 Result Normal Range Units Total Protein 7.7 6.4-8.2 g/dl Albumin 3.9 3.4-5.0 g/dl AST H 43 15-37 U/L ALT 35 30-65 U/L ALP 97 50-136 U/L Bilirubin, Total 0.8 0.2-1.0 mg/dl Renal Panel :20:00 Result Normal Range Units Glucose 83 74-106 mg/dl BUN L 6 7-18 mg/dl Osmolality 276 268.0-292.0 Creatinine 0.89 0.70-1.30 mg/dl Sodium 140 136-145 mmol/L Potassium L 3.3 3.5-5.1 mmol/L Chloride 104 98-107 mmol/L CO2 26.2 21.0-32.0 mmol/L Calcium L 8.4 8.5-10.1 mg/dl eGFR 89 >=60 ml/min. :40:00 Result Normal Range Units Glucose 87 74-106 mg/dl BUN 8 7-18 mg/dl Osmolality 275 268.0-292.0 Creatinine 1.00 0.70-1.30 mg/dl Sodium 139 136-145 mmol/L Potassium L 2.9 3.5-5.1 mmol/L Chloride 102 98-107 mmol/L CO2 27.2 21.0-32.0 mmol/L Calcium L 8.2 8.5-10.1 mg/dl Albumin 3.4 3.4-5.0 g/dl eGFR 78 >=60 ml/min. :54:00 Result Normal Range Units Glucose 102 74-106 mg/dl BUN 11 7-18 mg/dl Osmolality 273 268.0-292.0 Creatinine 1.18 0.70-1.30 mg/dl Sodium 137 136-145 mmol/L Potassium L 3.2 3.5-5.1 mmol/L Chloride 99 98-107 mmol/L CO2 26.3 21.0-32.0 mmol/L Calcium L 8.4 8.5-10.1 mg/dl Albumin 3.9 3.4-5.0 g/dl eGFR 65 >=60 ml/min. CBC :40:00 Result Normal Range Units WBC 7.4 4.5-11.0 K/uL Lymphocyte # 2.1 0.6-4.1 Lymphocyte % 28.9 10.0-58.5 % RBC 4.42 4.20-6.30 M/uL Hemoglobin L 13.4 13.5-17.5 g/dl Hematocrit L 38.8 41.0-53.0 % MCV 87.8 80-100 FL MCH 30.3 26.0-32.0 pg MCHC 34.5 31.0-37.0 g/dl RDW 13.5 11.5-14.5 % MPV 10.5 FL Platelets H 353 150-350 K/uL Neutrophil # 4.5 2.5-7.0 Neutrophil % 61.3 37.0-80.0 % Monocyte # 0.5 0.2-0.6 Monocyte % 7.2 0-9 % Eosinophil # 0.1 0.1-0.3 Eosinophil % 1.8 0-5 % Basophil # 0.1 .04-.10 Basophil % 0.8 0-2 % :54:00 Result Normal Range Units WBC H 12.9 4.5-11.0 K/uL Lymphocyte # 1.5 0.6-4.1 Lymphocyte % 11.7 10.0-58.5 % RBC 4.73 4.20-6.30 M/uL Hemoglobin 14.2 13.5-17.5 g/dl Hematocrit 41.1 41.0-53.0 % MCV 86.9 80-100 FL MCH 30.0 26.0-32.0 pg MCHC 34.5 31.0-37.0 g/dl RDW 13.8 11.5-14.5 % MPV 10.6 FL Platelets H 363 150-350 K/uL Neutrophil # H 10.7 2.5-7.0 Neutrophil % H 82.6 37.0-80.0 % Monocyte # H 0.7 0.2-0.6 Monocyte % 5.2 0-9 % Eosinophil # L 0.0 0.1-0.3 Eosinophil % 0.0 0-5 % Basophil # 0.1 .04-.10 Basophil % 0.5 0-2 % CBC with Manual Diff :40:00 Result Normal Range Units WBC 7.4 4.5-11.0 K/uL Lymphocyte # 2.1 0.6-4.1 Lymphocyte % 28.9 10.0-58.5 % RBC 4.42 4.20-6.30 M/uL Hemoglobin L 13.4 13.5-17.5 g/dl Hematocrit L 38.8 41.0-53.0 % MCV 87.8 80-100 FL MCH 30.3 26.0-32.0 pg MCHC 34.5 31.0-37.0 g/dl RDW 13.5 11.5-14.5 % MPV 10.5 FL Platelets H 353 150-350 K/uL Neutrophil # 4.5 2.5-7.0 Neutrophil % 61.3 37.0-80.0 % Monocyte # 0.5 0.2-0.6 Monocyte % 7.2 0-9 % Eosinophil # 0.1 0.1-0.3 Eosinophil % 1.8 0-5 % Basophil # 0.1 .04-.10 Basophil % 0.8 0-2 % 24-69-728919:54:00 Result Normal Range Units WBC H 12.9 4.5-11.0 K/uL Lymphocyte # 1.5 0.6-4.1 Lymphocyte % 11.7 10.0-58.5 % RBC 4.73 4.20-6.30 M/uL Hemoglobin 14.2 13.5-17.5 g/dl Hematocrit 41.1 41.0-53.0 % MCV 86.9 80-100 FL MCH 30.0 26.0-32.0 pg MCHC 34.5 31.0-37.0 g/dl RDW 13.8 11.5-14.5 % MPV 10.6 FL Platelets H 363 150-350 K/uL Neutrophil # H 10.7 2.5-7.0 Neutrophil % H 82.6 37.0-80.0 % Monocyte # H 0.7 0.2-0.6 Monocyte % 5.2 0-9 % Eosinophil # L 0.0 0.1-0.3 Eosinophil % 0.0 0-5 % Basophil # 0.1 .04-.10 Basophil % 0.5 0-2 % History of procedures No procedures recorded for this patient visit. Functional status Functional Status Finding Observation Time Dexterity Right-handed :35 Weight Bearing Statu Full 22-63-787767:40 Transferring/Ambulat Independent :35 Bathing Independent :35 Dressing Independent :35 Eating Independent :35 Drinking Independent :35 Toileting Independent :35 Able to Turn Self in Independent :35 Cognitive Status Finding Observation Time Level of Consciousne Alert :45 Oriented to Person Yes :[address] Yes :45 Oriented to Time Yes :45 Eyes - TROY Yes :36 Vital signs Type Value Date Respirations 18 :27 Pulse 70 :27 O2 Saturation 97% :27 Systolic Blood Press 132mm/HG : Diastolic Blood Pres 80mm/HG :27 Temperature (Fahr) 98.8Degrees :27 Height 70in :49 Weight 172.2LB :49 Social history Type Value Smoking Status FORMER SMOKER Treatment Plan No treatment plan text is available for this visit. Hospital discharge instructions Diagnosis Nausea, vomiting, and diarrhea Diet BRAT diet as tolerates Activity Level As tolerates Follow up with Clinic Appointment Date and 1 week
--- OUTSIDE RECORDS SUMMARY | 2017-02-01 13:55 | External Medical Summary | Continuity Of Care Document ---
:1960 Author Organization [facility] Address [address] [place] [address] Phone Care Team Providers Name Role Phone SAKSHI SANDERS MD Primary Care Provider UNASSIGNED, ED PHYSICIAN Unavailable Unavailable CHI ALEXANDER, WINNIE Lindsay Consulting Provider PREETHI ROOT MD Consulting Provider SHILOH LOPEZ MD Attending Provider Results Lab Results Visit/Account #[id number] (November 03, 2016 9:35am - November 04, 2016 2:30pm) Test Result Date/Time COMPLETE BLOOD COUNT WITH DIFF WHITE BLOOD COUNT(4.0-11.0 10E3/UL) 12.0 10E3/UL November 03, 2016 10:06am RED BLOOD COUNT(4.50-5.90 10E6/UL) 4.59 10E6/UL November 03, 2016 10:06am HEMOGLOBIN(13.5-17.5 G/DL) 13.6 G/DL November 03, 2016 10:06am HEMATOCRIT(41.0-53.0 %) 40.6 % November 03, 2016 10:06am MEAN CORPUSCULAR VOLUME(82.0-100.0 FL) 88.5 FL November 03, 2016 10:06am MEAN CORPUSCULAR HEMOGLOBIN(26.0-34.0 PG) 29.6 PG November 03, 2016 10:06am MEAN CORPUSCULAR HGB CONC(31.5-36.5 G/DL) 33.5 G/DL November 03, 2016 10:06am RED CELL DISTRIBUTION WIDTH(11.5-14.5 %) 14.6 % November 03, 2016 10:06am 777-3: PLATELET COUNT(150-450 10E3/UL) 380 10E3/UL November 03, 2016 10:06am MEAN PLATELET VOLUME(8.2-12.4 FL) 10.3 FL November 03, 2016 10:06am NEUTROPHILS % (AUTO)(40-70 %) 82 % November 03, 2016 10:06am LYMPHOCYTES % (AUTO)(15-45 %) 11 % November 03, 2016 10:06am MONOCYTES % (AUTO)(2-10 %) 6 % November 03, 2016 10:06am EOSINOPHILS % (AUTO)(0-6 %) 0 % November 03, 2016 10:06am BASOPHILS % (AUTO)(0-1 %) 0 % November 03, 2016 10:06am IMMATURE GRANS % (AUTO)(0-0 %) 1 % November 03, 2016 10:06am NUCLEATED RBCS (AUTO)(0-0 %) 0 % November 03, 2016 10:06am NEUTROPHILS # (AUTO)(2.5-7.5 10E3/UL) 9.9 10E3/UL November 03, 2016 10:06am LYMPHOCYTES # (AUTO)(1.0-4.0 10E3/UL) 1.3 10E3/UL November 03, 2016 10:06am MONOCYTES # (AUTO)(0.2-0.8 10E3/UL) 0.8 10E3/UL November 03, 2016 10:06am EOSINOPHILS # (AUTO)(0.0-0.4 10E3/UL) 0.0 10E3/UL November 03, 2016 10:06am BASOPHILS # (AUTO)(0.0-0.2 10E3/UL) 0.0 10E3/UL November 03, 2016 10:06am IMMATURE GRANS # (AUTO)(0.0-0.0 10E3/UL) 0.1 10E3/UL November 03, 2016 10:06am DIFF TYPE AUTOMATED November 03, 2016 10:06am COMPLETE BLOOD COUNT WHITE BLOOD COUNT(4.0-11.0 10E3/UL) 10.3 10E3/UL November 04, 2016 6:17am RED BLOOD COUNT(4.50-5.90 10E6/UL) 4.12 10E6/UL November 04, 2016 6:17am HEMOGLOBIN(13.5-17.5 G/DL) 12.4 G/DL November 04, 2016 6:17am HEMATOCRIT(41.0-53.0 %) 37.3 % November 04, 2016 6:17am MEAN CORPUSCULAR VOLUME(82.0-100.0 FL) 90.5 FL November 04, 2016 6:17am MEAN CORPUSCULAR HEMOGLOBIN(26.0-34.0 PG) 30.1 PG November 04, 2016 6:17am MEAN CORPUSCULAR HGB CONC(31.5-36.5 G/DL) 33.2 G/DL November 04, 2016 6:17am RED CELL DISTRIBUTION WIDTH(11.5-14.5 %) 14.9 % November 04, 2016 6:17am 777-3: PLATELET COUNT(150-450 10E3/UL) 330 10E3/UL November 04, 2016 6:17am MEAN PLATELET VOLUME(8.2-12.4 FL) 10.0 FL November 04, 2016 6:17am NUCLEATED RBCS (AUTO)(0-0 %) 0 % November 04, 2016 6:17am UA WITH SCREEN FOR CULTURE COLOR,URINE LIGHT YELLOW November 03, 2016 11:12am CLARITY,URINE CLEAR November 03, 2016 11:12am GLUCOSE, URINE(NEGATIVE MG/DL) NEGATIVE MG/DL November 03, 2016 11:12am URINE BILIRUBIN(NEGATIVE) NEGATIVE November 03, 2016 11:12am KETONES,URINE(NEGATIVE MG/DL) 15 MG/DL November 03, 2016 11:12am URINE SPECIFIC GRAVITY(1.001-1.035) 1.013 November 03, 2016 11:12am URINE BLOOD(NEGATIVE) NEGATIVE November 03, 2016 11:12am URINE PH(5.0-9.0) 8.0 November 03, 2016 11:12am URINE PROTEIN(Less than 20 MG/DL) TRACE MG/DL November 03, 2016 11:12am URINE UROBILINOGEN(0.2-1.0 MG/DL) 0.2-1.0 MG/DL November 03, 2016 11:12am URINE NITRITE(NEGATIVE) NEGATIVE November 03, 2016 11:12am LEUKOCYTE ESTERASE ,URINE(NEGATIVE) NEGATIVE November 03, 2016 11:12am URINE RBCS(0-3 /HPF) 0-3 /HPF November 03, 2016 11:12am URINE WBCS(0-3 /HPF) 0-3 /HPF November 03, 2016 11:12am URINE EPITHELIAL CELLS(0-3 /HPF) 0-3 /HPF November 03, 2016 11:12am URINE HYALINE CASTS(0-3 /LPF) 0-3 /LPF November 03, 2016 11:12am URINE BACTERIA(NEGATIVE /HPF) NEGATIVE /HPF November 03, 2016 11:12am URINE CULTURE NOT INDICATED November 03, 2016 11:12am URINE MICROSCOPIC REQUIRED YES November 03, 2016 11:12am COMPLETE METABOLIC PROFILE GLUCOSE(70-110 MG/DL) 155 MG/DL November 03, 2016 10:06am BLOOD UREA NITROGEN(6-20 MG/DL) 10 MG/DL November 03, 2016 10:06am CREATININE(0.50-1.20 MG/DL) 1.10 MG/DL November 03, 2016 10:06am EST GLOMERULAR FILTRATION RATE(Greater than or equal to 60) Greater than or equal to 60 November 03, 2016 10:06am Result Comments: If the patient is of -[place]amese descent/extraction multiply the eGFR value by 1.212 to obtain the actual eGFR. >=60 mg/dL Normal 30-59 mg/dL Moderate Kidney Disease 15-29 mg/dL Severe Kidney Disease <15 mg/dL Kidney Failure BUN CREATININE RATIO(10.0-20.0 RATIO) 9.0 RATIO November 03, 2016 10:06am SODIUM(135-145 MMOL/L) 139 MMOL/L November 03, 2016 10:06am POTASSIUM(3.6-5.0 MMOL/L) 3.2 MMOL/L November 03, 2016 10:06am CHLORIDE(101-111 MMOL/L) 102 MMOL/L November 03, 2016 10:06am CO2(21-31 MMOL/L) 23 MMOL/L November 03, 2016 10:06am ANION GAP(8-18) 17 November 03, 2016 10:06am OSMO CALCULATED(270.0-290.0) 279.7 November 03, 2016 10:06am CALCIUM(8.5-10.5 MG/DL) 9.4 MG/DL November 03, 2016 10:06am BILIRUBIN,TOTAL(0.1-1.2 MG/DL) 0.7 MG/DL November 03, 2016 10:06am ALKALINE PHOSPHATASE(42-121 IU/L) 84 IU/L November 03, 2016 10:06am ASPARTATE AMINO TRANSFERASE(10-42 IU/L) 26 IU/L November 03, 2016 10:06am ALANINE AMINOTRANSFERASE(10-60 IU/L) 15 IU/L November 03, 2016 10:06am TOTAL PROTEIN(6.4-8.2 G/DL) 7.9 G/DL November 03, 2016 10:06am ALBUMIN(3.5-5.5 G/DL) 4.1 G/DL November 03, 2016 10:06am GLOBULIN(2.4-3.6) 3.8 November 03, 2016 10:06am ALBUMIN/GLOBULIN RATIO(0.9-1.8 RATIO) 1.1 RATIO November 03, 2016 10:06am BASIC METABOLIC PANEL GLUCOSE(70-110 MG/DL) 136 MG/DL November 04, 2016 6:17am BLOOD UREA NITROGEN(6-20 MG/DL) 13 MG/DL November 04, 2016 6:17am CREATININE(0.50-1.20 MG/DL) 0.70 MG/DL November 04, 2016 6:17am EST GLOMERULAR FILTRATION RATE(Greater than or equal to 60) Greater than or equal to 60 November 04, 2016 6:17am Result Comments: If the patient is of -[place] descent/extraction multiply the eGFR value by 1.212 to obtain the actual eGFR. >=60 mg/dL Normal 30-59 mg/dL Moderate Kidney Disease 15-29 mg/dL Severe Kidney Disease <15 mg/dL Kidney Failure BUN CREATININE RATIO(10.0-20.0 RATIO) 19.0 RATIO November 04, 2016 6:17am SODIUM(135-145 MMOL/L) 137 MMOL/L November 04, 2016 6:17am POTASSIUM(3.6-5.0 MMOL/L) 4.0 MMOL/L November 04, 2016 6:17am CHLORIDE(101-111 MMOL/L) 105 MMOL/L November 04, 2016 6:17am CO2(21-31 MMOL/L) 24 MMOL/L November 04, 2016 6:17am ANION GAP(8-18) 12 November 04, 2016 6:17am OSMO CALCULATED(270.0-290.0) 276.0 November 04, 2016 6:17am CALCIUM(8.5-10.5 MG/DL) 8.7 MG/DL November 04, 2016 6:17am LIPASE LIPASE(22-51 U/L) 19 U/L November 03, 2016 10:06am ALCOHOL ALCOHOL(0.0-5.0 MG/DL) Less than 5.0 MG/DL November 03, 2016 10:06am DRUGS OF ABUSE, URINE OPIATE SCREEN,URINE(NEGATIVE) NEGATIVE November 03, 2016 11:12am BARBITURATES SCREEN, URINE(NEGATIVE) NEGATIVE November 03, 2016 11:12am AMPHETAMINE SCREEN,URINE(NEGATIVE) NEGATIVE November 03, 2016 11:12am BENZODIAZEPINES SCREEN,URINE(NEGATIVE) NEGATIVE November 03, 2016 11:12am COCAINE SCREEN, URINE(NEGATIVE) NEGATIVE November 03, 2016 11:12am CANNABINOID SCREEN,URINE(NEGATIVE) PRESUMPTIVE POSITIVE November 03, 2016 11:12am Allergies and Adverse Reactions Allergies and Adverse Reactions Patient Unit Number: [id number] Agent Type Reaction Severity Status PENICILLINS Drug Allergy rash and get sick Mild Active CODEINE Drug Allergy rash and get sick Mild Active Problem List Problem List Visit/Account #[id number] (November 03, 2016 9:35am - November 04, 2016 2:30pm) Acute Problems: Code/Condition Comments Documented Start Date Documented Resolved Code(s) Date Abdominal pain ICD10: R10.9 Abdominal pain SNOMED: [id number] Abdominal pain Patient Unit Number: [id number] Chronic Problems: Code/Condition Comments Documented Start Documented Code(s) Date Resolved Date Chronic pancreatitis ICD10: K86.1 Chronic pancreatitis SNOMED: [id number] Chronic pancreatitis Plan of Care Plan Of Care Visit/Account #[id number] (November 03, 2016 9:35am - November 04, 2016 2:30pm) Patient Instructions Instructions DI for Ulcerative Colitis Prednisone Mesalamine Vital Signs Vital Signs Visit/Account #[id number] (November 03, 2016 9:35am - November 04, 2016 2:30pm) Sign First Result Last Result Code(s) Blood Pressure 134/ 88 mm[Hg] On November 03, 2016 2:50pm 123/ 79 mm[Hg] On October 1:45pm 8462-4 BP Diastolic 8480-6 BP Systolic Heart Rate/Pulse Pulse Rate (adult): 85 /min On November 03, 2016 2:50pm Pulse Rate (adult): 79 /min On November 04, 2016 1:45pm 8867-4 Heart Rate Respiratory Rate Respiratory Rate: 18 /min On November 03, 2016 10:10pm Respiratory Rate: 20 /min On November 04, 2016 1:45pm 9279-1 Respiratory Rate Temperature in Fahrenheit Temperature (Fahrenheit): 98.2 [degF] On November 03, 2016 9:40am Temperature (Fahrenheit): 98.1 [degF] On November 04, 2016 1:45pm 8310 -5 Body Temperature Functional Status Functional and Cognitive Status No Functional Status Data Medications Home Medications - Medications that the patient was taking prior to arrival at the hospital Visit/Account #[id number] (November 03, 2016 9:35am - November 04, 2016 2:30pm) Medication Route Sig/Schedule Precondition/Indication Comments/ Instructions Codes LIALDA(MESALAMINE) 1.2 G TAB ORAL 4 TIMES DAILY mesalamine 1200 MG Delayed Release Oral Tablet [Lialda] (RxNorm): 989683 Dose: 1.2 G LIALDA (MESALAMINE) NDC: 59464963222 LYRICA(PREGABALIN) 75 MG CAP ORAL TWICE A DAY Rx Note Text Comments: pregabalin 75 MG Oral Capsule [Lyrica] (RxNorm): 916253 Dose: 75 MG *LF 10/26/16 #60* LYRICA (PREGABALIN) NDC: 24162813102 SANDRO THORNTON 36,000 UNITS CAPSULE(LIPASE/PROTEASE/AMYLASE) 1 EACH CAPSULE.DR ORAL 3 TIMES DAILY WITH MEALS Amylases 213551 UNT / Endopeptidases 816287 UNT / Lipase 76647 UNT Delayed Release Oral Caps (RxNorm): 3156904 Dose: 1 CAP CREFRANCIS THORNTON 36,000 UNITS CAPSULE (LIPASE/PROTEASE/AMYLASE) NDC: 66648992113 SANDRO THORNTON 36,000 UNITS CAPSULE(LIPASE/PROTEASE/AMYLASE) 1 EACH CAPSULE. ORAL NEEDED WITH SNACKS Amylases 774431 UNT / Endopeptidases 766961 UNT / Lipase 42484 UNT Delayed Release Oral Caps (RxNorm): 2142679 Dose: 1 CAP CREFRANCIS THORNTON 36,000 UNITS CAPSULE (LIPASE/PROTEASE/AMYLASE) NDC: 09529605508 ZOFRAN ODT(ONDANSETRON) 4 MG/UDTABLET TAB.RAPDIS ORAL EVERY 8 HOURS NAUSEA/ VOMITING Ondansetron 4 MG Disintegrating Oral Tablet [Zofran] (RxNorm): 434271 Dose: 4 MG ZOFRAN ODT (ONDANSETRON) NDC: 86146780216 PERCOCET 10-325(OxyCODONE HCL/ACETAMINOPHEN) 1 EACH TABLET ORAL 3 TIMES A DAY PAIN Rx Note Text Comments: Acetaminophen 325 MG / Oxycodone Hydrochloride 10 MG Oral Tablet [Percocet] (RxNorm): 8162470 Dose: 1 TAB *LF 10/19/16 #90* PERCOCET 10-325 (OxyCODONE HCL/ACETAMINOPHEN) NDC: 65678666721 FLEXERIL(CYCLOBENZAPRINE HCL) 10 MG TAB ORAL 3 TIMES A DAY MUSCLE SPASM Rx Note Text Comments: Cyclobenzaprine hydrochloride 10 MG Oral Tablet (RxNorm): 859802 Dose: 10 MG *LF 08/19/16 #90* FLEXERIL (CYCLOBENZAPRINE HCL) NDC: 22711087870 ELAVIL(AMITRIPTYLINE HCL) 50 MG TABLET ORAL AT BEDTIME Amitriptyline Hydrochloride 50 MG Oral Tablet (RxNorm): 168191 Dose: 50 MG ELAVIL (AMITRIPTYLINE HCL) NDC: 38837542938 Omeprazole(OMEPRAZOLE) 20 MG CAP ORAL 60 MIN BEFORE BKFST Rx Note Text Comments: Omeprazole 20 MG Delayed Release Oral Capsule (RxNorm): 716918 Dose: 20 MG *LF 09/19/16 #30* Omeprazole (OMEPRAZOLE) NDC: 70520216285 VOLTAREN 1% GEL(DICLOFENAC SODIUM) 100 GM GEL..GRAM. TOPICALLY 4 TIMES DAILY PAIN Diclofenac Sodium 0.01 MG/MG Topical Gel [Voltaren] (RxNorm): 683270 Dose: 2 GM VOLTAREN 1% GEL (DICLOFENAC SODIUM) NDC: 19503447599 DILAUDID(HYDROmorphone HCL) 4 MG TABLET ORAL 3 TIMES A DAY PAIN Rx Note Text Comments: Hydromorphone Hydrochloride 4 MG Oral Tablet [Dilaudid] (RxNorm) : 771567 Dose: 4 MG LAST FILLED 07/17/16 #90 DILAUDID (HYDROmorphone HCL) NDC: 31256192245 HALDOL(HALOPERIDOL) 5 MG TABLET ORAL AT BEDTIME NAUSEA Haloperidol 5 MG Oral Tablet (RxNorm): 781291 Dose: 5 MG HALDOL (HALOPERIDOL) NDC: 42927432896 ZOFRAN ODT(ONDANSETRON) 4 MG TAB.RAPDIS ORAL EVERY 6 HOURS NAUSEA/VOMITING Ondansetron 4 MG Disintegrating Oral Tablet [Zofran] (RxNorm): 596580 Dose: 4 MG ZOFRAN ODT (ONDANSETRON) NDC: 05129224188 POTASSIUM CHLORIDE(POTASSIUM CHLORIDE) 10 MEQ CAPSULE.ER ORAL TWICE A DAY Potassium Chloride 10 MEQ Extended Release Oral Capsule (RxNorm): 526285 Dose: 20 MEQ POTASSIUM CHLORIDE (POTASSIUM CHLORIDE) NDC: 03454643111 HALDOL(HALOPERIDOL) 5 MG TABLET ORAL AT BEDTIME NAUSEA Haloperidol 5 MG Oral Tablet (RxNorm): 584047 Dose: 5 MG HALDOL (HALOPERIDOL) NDC: 69480636610 LEXAPRO(ESCITALOPRAM OXALATE) 10 MG TABLET ORAL DAILY Rx Note Text Comments: Escitalopram 10 MG Oral Tablet [Lexapro] (RxNorm): 277274 Dose: 10 MG *LF 09/22/16 #30* LEXAPRO (ESCITALOPRAM OXALATE) NDC: 12106329375 LIALDA(MESALAMINE) 1.2 GM TABLET.DR ORAL DAILY AT [facility] mesalamine 1200 MG Delayed Release Oral Tablet [Lialda] (RxNorm): 478385 Dose: 2.4 GM LIALDA (MESALAMINE) NDC: 21329824715 ZOFRAN ODT(ONDANSETRON) 4 MG TAB.RAPDIS ORAL EVERY 6 HOURS NAUSEA/VOMITING Ondansetron 4 MG Disintegrating Oral Tablet [Zofran] (RxNorm): 786871 Dose: 4 MG ZOFRAN ODT (ONDANSETRON) NDC: 69200257489 Inpatient/Ordered Medications - Medications administered during hospital visit Visit/Account #[id number] (November 03, 2016 9:35am - November 04, 2016 2:30pm) Medication Route Sig/Schedule Precondition/Indication Comments/ Instructions Codes IV Medication INTRAVEN .Q1H (Rate: 1000 MLS/HR Duration: 1 HR) Carriers: Carriers: 1000 ML Sodium Chloride 9 MG/ML Injection (RxNorm): 6677516 NORMAL SALINE(SODIUM CHLORIDE) 1000 ML INJECTION NORMAL SALINE ( SODIUM CHLORIDE) NDC: 70529016827 Dose: 1000 ML ZOFRAN INJ(ONDANSETRON HCL) 4 MG/2 ML INJECTION INTRAVEN NOW Rx Order Comments: 2 ML Ondansetron 2 MG/ML Injection (RxNorm): 2429837 Dose: 2 ML Order placed as verified: Dose Warnings differ from border measurer ZOFRAN INJ (ONDANSETRON HCL) NDC : 55827265288 HEP-LOCK FLUSH SYRINGE(HEPARIN LOCK FLUSH) 500 UNIT/5 ML INJECTION INTRAVEN NEEDED PRN Reason: PORT FLUSH Rx Order Comments: HEP-LOCK FLUSH SYRINGE ( HEPARIN LOCK FLUSH) NDC: 52964762705 Dose: 5 ML Order filed UNV: Allergies/Duplicates/Interactions differ from border measurer Special Dose Instructions: PORT FLUSH SUBLIMAZE INJ(FentaNYL CITRATE) 100 MCG/2 ML INJECTION INTRAVEN NOW SUBLIMAZE INJ (FentaNYL CITRATE) NDC: 73610643723 Dose: 1 ML IV Medication INTRAVEN NOW (Rate: 400 MLS/HR Duration: 15 MIN) Label Comments: Carriers: * PROTECT FROM LIGHT * Carriers: 1 ML Promethazine Hydrochloride 25 MG/ML Injection (RxNorm) : 840443 PHENERGAN 25 MG/100 ML NS(PROMETHAZINE HCL IN 0.9 % NACL) 25 MG/100 ML INJECTION PHENERGAN 25 MG/100 ML NS (PROMETHAZINE HCL IN 0.9 % NACL) NDC: 11599151980 Dose: 100 ML IV Medication INTRAVEN .Q1H (Rate: 1000 MLS/HR Duration: 1 HR) Carriers: Carriers: 1000 ML Sodium Chloride 9 MG/ML Injection (RxNorm): 0853941 NORMAL SALINE(SODIUM CHLORIDE) 1000 ML INJECTION NORMAL SALINE ( SODIUM CHLORIDE) NDC: 20811721975 Dose: 1000 ML SUBLIMAZE INJ(FentaNYL CITRATE) 100 MCG/2 ML INJECTION Route .STK-MED Label Comments: SUBLIMAZE INJ (FentaNYL CITRATE) NDC: 00424597549 Dose: 100 MCG GIVE BY SLOW PUSH OVER 2-5 MIN MAY INCREASE FALL RISK ZOFRAN INJ(ONDANSETRON HCL) 4 MG/2 ML INJECTION Route .STK-MED Label Comments: 2 ML Ondansetron 2 MG/ML Injection (RxNorm): 6926768 Dose: 4 MG SLOW IV PUSH MAY INCREASE FALL RISK ZOFRAN INJ (ONDANSETRON HCL) NDC: 55079609852 IV Medication INTRAVEN .Q1H (Rate: 1000 MLS/HR Duration: 1 HR) Carriers: Carriers: 1000 ML Sodium Chloride 9 MG/ML Injection (RxNorm): 5557614 NORMAL SALINE(SODIUM CHLORIDE) 1000 ML INJECTION NORMAL SALINE ( SODIUM CHLORIDE) NDC: 54260995081 Dose: 1000 ML ZOFRAN INJ(ONDANSETRON HCL) 4 MG/2 ML INJECTION INTRAVEN Q4H PRN Reason: NAUSEA/VOMITING Rx Order Comments: 2 ML Ondansetron 2 MG/ML Injection (RxNorm) : 8982661 Dose: 2 ML Order filed UNV: Allergies/Duplicates/Interactions differ from border measurer ZOFRAN INJ ( ONDANSETRON HCL) NDC: 77695942905 PROTONIX(PANTOPRAZOLE SOD) 40 MG TAB ORAL DAILY@06 pantoprazole 40 MG Delayed Release Oral Tablet [Protonix] (RxNorm): 130262 Dose: 40 MG PROTONIX (PANTOPRAZOLE SOD) NDC: 72751522188 LOVENOX(ENOXAPARIN) 40 MG/0.4 ML INJECTION SUBCUTANEOUSLY DAILY@06 Label Comments: 0.4 ML Enoxaparin sodium 100 MG/ML Prefilled Syringe [Lovenox] ( RxNorm): 733717 Dose: 0.4 ML INJECT SC INTO ABDOMINAL WALL ONLY. LOVENOX (ENOXAPARIN) NDC: 52189875066 SOLU-Medrol INJ(MethylPREDNISolone SOD SUCC) 125 MG/2 ML INJECTION INTRAVEN EVERY 12 HOURS Methylprednisolone 125 MG Injection [Solu-Medrol] (RxNorm): 3769873 Dose: 0.96 ML SOLU-Medrol INJ (MethylPREDNISolone SOD SUCC) NDC: 57286910464 LIALDA(MESALAMINE) 1.2 GM TAB ORAL DAILY AT [facility] Label Comments: mesalamine 1200 MG Delayed Release Oral Tablet [Lialda] (RxNorm): 307081 Dose: 2.4 GM TAKE WITH FOOD. DO NOT CRUSH, BREAK OR CHEW LIALDA (MESALAMINE) NDC: 24308119416 PERCOCET 10/325 MG(OxyCODONE/ACETAMINOPHEN) 1 TAB TAB ORAL Q4H PRN Reason: MODERATE TO SEVERE PAIN Label Comments: Acetaminophen 325 MG / Oxycodone Hydrochloride 10 MG Oral Tablet (RxNorm): 1893621 Dose: 1 TAB MAX REC DOSE ACETAMINOPHEN: 4000MG/24HRS MAY INCREASE FALL RISK PERCOCET 10/325 MG (OxyCODONE/ACETAMINOPHEN) NDC: 55973759282 ELAVIL(AMITRIPTYLINE HCL) 50 MG TAB ORAL AT BEDTIME Label Comments: Amitriptyline Hydrochloride 50 MG Oral Tablet (RxNorm): 385802 Dose: 50 MG MAY INCREASE FALL RISK ELAVIL (AMITRIPTYLINE HCL) NDC: 26988407218 LEXAPRO(ESCITALOPRAM OXALATE) 10 MG TAB ORAL DAILY Label Comments: Escitalopram 10 MG Oral Tablet (RxNorm): 930454 Dose: 10 MG MAY INCREASE FALL RISK LEXAPRO (ESCITALOPRAM OXALATE) NDC: 20815842726 LYRICA(PREGABALIN) 75 MG CAP ORAL TWICE A DAY Label Comments: pregabalin 75 MG Oral Capsule [Lyrica] (RxNorm): 540349 Dose: 75 MG MAY INCREASE FALL RISK LYRICA (PREGABALIN) NDC: 76006433721 MORPHINE SULFATE 4 MG/ML INJECTION INTRAVEN Q2H PRN Reason: SEVERE PAIN Label Comments: 1 ML Morphine Sulfate 4 MG/ML Cartridge (RxNorm): 4885392 Dose: 0 ML MAY INCREASE FALL RISK (MORPHINE SULFATE) NDC: 45082677893 Special Dose Instructions: 1-4 MG IV Medication INTRAVEN .Q10H (Rate: 100 MLS/HR Duration: 10 HR) Carriers : Carriers: Potassium Chloride 0.04 MEQ/ML / Sodium Chloride 0.154 MEQ/ ML Injectable Solution (RxNorm): 941978 SODIUM CHLORIDE 0.9%- POTASSIUM CHLOR 40 MEQ(KCL/SODIUM CHLORIDE) 40 MEQ/1000 ML INJECTION SODIUM CHLORIDE 0.9%- POTASSIUM CHLOR 40 MEQ (KCL/SODIUM CHLORIDE) NDC: 53702391419 Dose: [address] [place] [address](LIPASE/AMYLASE/PROTEASE) 1 CAP CAP ORAL 3 TIMES DAILY WITH MEALS Label Comments: Amylases 48099 UNT / Endopeptidases 53941 UNT / Lipase 48483 UNT Delayed Release Oral Capsul (RxNorm): 705914 Dose: 3 CAP FOR [place] 36[address] [address] (LIPASE/AMYLASE/PROTEASE) NDC: 80415045895 Discharge Medications - Medications that patient should continue to take. Review with physician Visit/Account #[id number] (November 03, 2016 9:35am - November 04, 2016 2:30pm) Medication Route Sig/Schedule Precondition/Indication Comments/ Instructions Codes LYRICA(PREGABALIN) 75 MG CAP ORAL TWICE A DAY Rx Note Text Comments: pregabalin 75 MG Oral Capsule [Lyrica] (RxNorm): 056246 Dose: 75 MG *LF 10/26/16 #60* LYRICA (PREGABALIN) NDC: 65744877899 SANDRO THORNTON 36,000 UNITS CAPSULE(LIPASE/PROTEASE/AMYLASE) 1 EACH CAPSULE.DR PERERA 3 TIMES DAILY WITH MEALS Amylases 486582 UNT / Endopeptidases 341009 UNT / Lipase 06540 UNT Delayed Release Oral Caps (RxNorm): 1009067 Dose: 1 CAP SANDRO THORNTON 36,000 UNITS CAPSULE (LIPASE/PROTEASE/AMYLASE) NDC: 50245674102 SANDRO THORNTON 36,000 UNITS CAPSULE(LIPASE/PROTEASE/AMYLASE) 1 EACH CAPSULE.DR PERERA NEEDED WITH SNACKS Amylases 949632 UNT / Endopeptidases 632939 UNT / Lipase 62876 UNT Delayed Release Oral Caps (RxNorm): 1194490 Dose: 1 CAP SANDRO THORNTON 36,000 UNITS CAPSULE (LIPASE/PROTEASE/AMYLASE) NDC: 39829840907 PERCOCET 10-325(OxyCODONE HCL/ACETAMINOPHEN) 1 EACH TABLET ORAL 3 TIMES A DAY PAIN Rx Note Text Comments: Acetaminophen 325 MG / Oxycodone Hydrochloride 10 MG Oral Tablet [Percocet] (RxNorm): 0690376 Dose: 1 TAB *LF 10/19/16 #90* PERCOCET 10-325 (OxyCODONE HCL/ACETAMINOPHEN) NDC: 46646926663 FLEXERIL(CYCLOBENZAPRINE HCL) 10 MG TAB ORAL 3 TIMES A DAY MUSCLE SPASM Rx Note Text Comments: Cyclobenzaprine hydrochloride 10 MG Oral Tablet (RxNorm): 497018 Dose: 10 MG *LF 08/19/16 #90* FLEXERIL (CYCLOBENZAPRINE HCL) NDC: 09696715044 ELAVIL(AMITRIPTYLINE HCL) 50 MG TABLET ORAL AT BEDTIME Amitriptyline Hydrochloride 50 MG Oral Tablet (RxNorm): 711634 Dose: 50 MG ELAVIL (AMITRIPTYLINE HCL) NDC: 64250471130 Omeprazole(OMEPRAZOLE) 20 MG CAP ORAL 60 MIN BEFORE [facility] Rx Note Text Comments: Omeprazole 20 MG Delayed Release Oral Capsule (RxNorm): 572374 Dose: 20 MG *LF 09/19/16 #30* Omeprazole (OMEPRAZOLE) NDC: 98948606853 HALDOL(HALOPERIDOL) 5 MG TABLET ORAL AT BEDTIME NAUSEA Haloperidol 5 MG Oral Tablet (RxNorm): 573899 Dose: 5 MG HALDOL (HALOPERIDOL) NDC: 50892502056 LEXAPRO(ESCITALOPRAM OXALATE) 10 MG TABLET ORAL DAILY Rx Note Text Comments: Escitalopram 10 MG Oral Tablet [Lexapro] (RxNorm): 731248 Dose: 10 MG *LF 09/22/16 #30* LEXAPRO (ESCITALOPRAM OXALATE) NDC: 76712355977 LIALDA(MESALAMINE) 1.2 GM TABLET.DR ORAL DAILY AT [facility] mesalamine 1200 MG Delayed Release Oral Tablet [Lialda] (RxNorm): 558077 Dose: 2.4 GM LIALDA (MESALAMINE) NDC: 43950017261 DELTASONE(PredniSONE) 20 MG TAB ORAL DAILY AT [facility] Rx Instructions: Prednisone 20 MG Oral Tablet (RxNorm): 189768 Dose: 40 MG Taper prednisone by 5 mg weekly DELTASONE (PredniSONE) NDC: 80689801429 ZOFRAN ODT(ONDANSETRON) 4 MG TAB.RAPDIS ORAL EVERY 6 HOURS NAUSEA/VOMITING Ondansetron 4 MG Disintegrating Oral Tablet [Zofran] (RxNorm): 554614 Dose: 4 MG ZOFRAN ODT (ONDANSETRON) NDC: 53663283311 History Of Encounters Encounters Visit/Account #[id number] (November 03, 2016 9:35am - November 04, 2016 2:30pm) Account Physican Of Reason For Visit Visit Diagnosis Start Stop Status Record Date/Time Date/Time RYLEE MIRELES MD INFLAMMATORY BOWEL DISEASE (ULCERATIVE COLITIS) K51.90: ULCERATIVE COLITIS, UNSPECIFIED, WITHOUT COMPLICATIONS ICD10 Nov 03, 2016 9:35am Nov 03, 2016 2:45pm Sarah LOPEZ MD INFLAMMATORY BOWEL DISEASE (ULCERATIVE COLITIS) K51.90 : ULCERATIVE COLITIS, UNSPECIFIED, WITHOUT COMPLICATIONS ICD10 Nov 03, 2016 12: 46pm Nov 04, 2016 2:30pm History of Procedures Procedure List No procedures recorded. Discharge Instructions Discharge Instructions Visit/Account #[id number] (November 03, 2016 9:35am - November 04, 2016 2:30pm) DISCHARGE INSTRUCTIONS Physician Documentation FOLLOW UP APPOINTMENTS Follow Up Appointment Date/Time: I called Dr. Aaron Zeng [phone]) to make appointment and they asked I fax the discharge order to the office and they stated they would call you back with an appointment but if you hadn't heard from them in 48 hours to give the office a call. Thank you and sorry for any inconviences! Social History Social History No Social History Data. Immunizations Immunizations Patient Unit Number: [id number] Immunizations No immunizations recorded.
--- OUTSIDE RECORDS SUMMARY | 2017-02-01 13:55 | External Medical Summary ---
:1960 Author Organization [facility] Summary purpose CCDA Sent to [facility] Chief Complaint and Reason for Visit No authorized Reason for Visit (Admitting Diagnosis) is available for this visit. Problem list Condition Status Certainty Chronicity Onset .Abdominal pain Active .Dehydration Active Encounters The following conditions tracked for encounter diagnoses were recorded for this visit: Finding or Diagnosis Status Certainty Chronicity Onset .Abdominal pain Active .Dehydration Active Medications Discharge Medications Status Medication Directions Current amitriptyline 50 mg tablet 50 miligram(s) oral BEDTIME Current Creon 24,000-76,000-120,000 unit 1 tab(s) oral oral NEEDED for eating capsule,delayed release 3 caps with meals; 2 caps with snacks Current cyclobenzaprine 10 mg tablet 10 miligram(s) oral oral EVERY EIGHT HOURS NEEDED for back pain Current diazepam 5 mg tablet 5 miligram(s) oral ONE TIME A DAY Current dicyclomine 10 mg capsule 10 miligram(s) oral ONE TIME A DAY Current gabapentin 100 mg capsule 100 miligram(s) oral THREE TIMES A DAY Current Lialda 1.2 g tablet,delayed release 1 tab(s) oral FOUR TIMES A DAY Current ondansetron 8 mg disintegrating tablet 8 miligram(s) oral oral NEEDED for nausea Current oxyCODONE-acetaminophen 7.5 mg-325 mg 1 tab(s) oral FOUR TIMES A DAY tablet gets med from pain clinic- Dr. Field Current pantoprazole 40 mg tablet,delayed release 40 miligram(s) oral ONE TIME A DAY Current Zoloft 50 mg tablet 1/2 tab daily for a week, then one daily oral oral ONE TIME A DAY Allergies, adverse reactions, alerts Allergen Category Ingredient Status Reaction Severity Onset Codeine Drug Codeine Active Hives Adolescence Penicillins Drug Penicillins Active Hives Moderate Adolescence No known food No known food No known food Active allergies allergies allergies Immunizations No immunizations recorded for this patient visit Relevant diagnostic tests and/or laboratory data RESULTS Chemistry Group :15:00 Result Normal Range Units Glucose H 170 74-106 mg/dl BUN 9 7-18 mg/dl Osmolality 278 268.0-292.0 Creatinine 1.0 0.6-1.3 mg/dl Sodium 138 136-145 mmol/L Potassium 3.5 3.5-5.1 mmol/L Chloride 100 98-107 mmol/L CO2 24.5 21.0-32.0 mmol/L Calcium 8.7 8.5-10.1 mg/dl Total Protein 7.4 6.4-8.2 g/dl Albumin 4.0 3.4-5.0 g/dl AST 18 15-37 U/L ALT L 26 30-65 U/L ALP 91 50-136 U/L Bilirubin, Total 0.2 0.2-1.0 mg/dl eGFR 78 >=60 ml/min. Amylase 110 25-115 U/L Lipase 110 73-393 U/L CMP :15:00 Result Normal Range Units Glucose H 170 74-106 mg/dl BUN 9 7-18 mg/dl Osmolality 278 268.0-292.0 Creatinine 1.0 0.6-1.3 mg/dl Sodium 138 136-145 mmol/L Potassium 3.5 3.5-5.1 mmol/L Chloride 100 98-107 mmol/L CO2 24.5 21.0-32.0 mmol/L Calcium 8.7 8.5-10.1 mg/dl Total Protein 7.4 6.4-8.2 g/dl Albumin 4.0 3.4-5.0 g/dl AST 18 15-37 U/L ALT L 26 30-65 U/L ALP 91 50-136 U/L Bilirubin, Total 0.2 0.2-1.0 mg/dl eGFR 78 >=60 ml/min. BMP :15:00 Result Normal Range Units Glucose H 170 74-106 mg/dl BUN 9 7-18 mg/dl Osmolality 278 268.0-292.0 Creatinine 1.0 0.6-1.3 mg/dl Sodium 138 136-145 mmol/L Potassium 3.5 3.5-5.1 mmol/L Chloride 100 98-107 mmol/L CO2 24.5 21.0-32.0 mmol/L Calcium 8.7 8.5-10.1 mg/dl eGFR 78 >=60 ml/min. Electrolyte Panel :15:00 Result Normal Range Units Sodium 138 136-145 mmol/L Potassium 3.5 3.5-5.1 mmol/L Chloride 100 98-107 mmol/L CO2 24.5 21.0-32.0 mmol/L Hepatic Profile :15:00 Result Normal Range Units Total Protein 7.4 6.4-8.2 g/dl Albumin 4.0 3.4-5.0 g/dl AST 18 15-37 U/L ALT L 26 30-65 U/L ALP 91 50-136 U/L Bilirubin, Total 0.2 0.2-1.0 mg/dl Renal Panel :15:00 Result Normal Range Units Glucose H 170 74-106 mg/dl BUN 9 7-18 mg/dl Osmolality 278 268.0-292.0 Creatinine 1.0 0.6-1.3 mg/dl Sodium 138 136-145 mmol/L Potassium 3.5 3.5-5.1 mmol/L Chloride 100 98-107 mmol/L CO2 24.5 21.0-32.0 mmol/L Calcium 8.7 8.5-10.1 mg/dl Albumin 4.0 3.4-5.0 g/dl eGFR 78 >=60 ml/min. CBC :40:00 Result Normal Range Units WBC 7.8 4.5-11.0 K/uL Lymphocyte # 1.7 0.6-4.1 Lymphocyte % 21.5 10.0-58.5 % Mid # 0.9 0.0-1.8 *MID cells may include less frequently occurring and rare cells correlating to monocytes, eosinophils, basophils, blasts and other precursor white cells. Mid % 11.2 0.1-24.0 % Granulocyte # 5.2 2.0-7.8 Granulocyte % 67.3 37.0-92.0 % RBC L 4.12 4.20-6.30 M/uL Hemoglobin L 12.1 13.5-17.5 g/dl Hematocrit L 38.2 41.0-53.0 % MCV 92.7 80-100 FL MCH 29.4 26.0-32.0 pg MCHC 31.7 31.0-37.0 g/dl RDW 14.2 11.5-14.5 % Platelets 297 150-350 K/uL [id number]:15:00 Result Normal Range Units WBC 10.9 4.5-11.0 K/uL Lymphocyte # 1.1 0.6-4.1 Lymphocyte % 10.1 10.0-58.5 % Mid # 0.9 0.0-1.8 *MID cells may include less frequently occurring and rare cells correlating to monocytes, eosinophils, basophils, blasts and other precursor white cells. Mid % 7.8 0.1-24.0 % Granulocyte # H 8.9 2.0-7.8 Granulocyte % 82.1 37.0-92.0 % RBC 4.43 4.20-6.30 M/uL Hemoglobin L 13.1 13.5-17.5 g/dl Hematocrit L 40.3 41.0-53.0 % MCV 90.9 80-100 FL MCH 29.6 26.0-32.0 pg MCHC 32.5 31.0-37.0 g/dl RDW 13.9 11.5-14.5 % Platelets 338 150-350 K/uL CBC with Manual Diff [id number]:40:00 Result Normal Range Units WBC 7.8 4.5-11.0 K/uL Lymphocyte # 1.7 0.6-4.1 Lymphocyte % 21.5 10.0-58.5 % Mid # 0.9 0.0-1.8 *MID cells may include less frequently occurring and rare cells correlating to monocytes, eosinophils, basophils, blasts and other precursor white cells. Mid % 11.2 0.1-24.0 % Granulocyte # 5.2 2.0-7.8 Granulocyte % 67.3 37.0-92.0 % RBC L 4.12 4.20-6.30 M/uL Hemoglobin L 12.1 13.5-17.5 g/dl Hematocrit L 38.2 41.0-53.0 % MCV 92.7 80-100 FL MCH 29.4 26.0-32.0 pg MCHC 31.7 31.0-37.0 g/dl RDW 14.2 11.5-14.5 % Platelets 297 150-350 K/uL [id number]:15:00 Result Normal Range Units WBC 10.9 4.5-11.0 K/uL Lymphocyte # 1.1 0.6-4.1 Lymphocyte % 10.1 10.0-58.5 % Mid # 0.9 0.0-1.8 *MID cells may include less frequently occurring and rare cells correlating to monocytes, eosinophils, basophils, blasts and other precursor white cells. Mid % 7.8 0.1-24.0 % Granulocyte # H 8.9 2.0-7.8 Granulocyte % 82.1 37.0-92.0 % RBC 4.43 4.20-6.30 M/uL Hemoglobin L 13.1 13.5-17.5 g/dl Hematocrit L 40.3 41.0-53.0 % MCV 90.9 80-100 FL MCH 29.6 26.0-32.0 pg MCHC 32.5 31.0-37.0 g/dl RDW 13.9 11.5-14.5 % Platelets 338 150-350 K/uL History of procedures Procedure Code Code Type Description Date Performed Performing Physician G0378 CPT-4 HOSPITAL OBSERVATION PER 07-22-2015 [place] [address] CPT-4 COMPLETE CBC W/AUTO DIFF 07-22-2015 PEARL REZA WBC 13982 CPT-4 COMPREHEN METABOLIC 07-22-2015 PEARL REZA PANEL 34149 CPT-4 ASSAY OF AMYLASE 07-22-2015 PEARL REZA 44003 CPT-4 ASSAY OF LIPASE 07-22-2015 PEARL REZA J2270 CPT-4 MORPHINE 07-22-2015 DEBBIE ALCOCER J2270 CPT-4 MORPHINE 07-22-2015 DEBBIE ALCOCER C9113 CPT-4 INJ PANTOPRAZOLE SODIUM, 07-22-2015 DEBBIE ALCOCER VIA J7030 CPT-4 INFUSION, NS, 1000 CC 07-22-2015 DEBBIE ALCOCER J2405 CPT-4 ONDANSETRON HCL 07-22-2015 DEBBIE ALCOCER INJECTION J2270 CPT-4 MORPHINE 07-22-2015 DEBBIE ALCOCER 71091 CPT-4 TX/PRO/DX INJ NEW DRUG 07-22-2015 PEARL REZA ADDON 61968 CPT-4 TX/PRO/DX INJ NEW DRUG 07-22-2015 PEARL REZA MAKE UP OPERATOR 93965 CPT-4 HYDRATE IV INFUSION, 07-22-2015 PEARL LIBIA ADD-ON 21235 CPT-4 THER/PROPH/DIAG IV INF, 07-23-2015 PEARL REZA INIT 89343 CPT-4 TX/PRO/DX INJ NEW DRUG 07-23-2015 PEARL LIBIA MAKE UP OPERATOR 36973 CPT-4 HYDRATE IV INFUSION, 07-23-2015 PEARLSteven REZA ADD-ON 50548 CPT-4 COMPLETE CBC W/AUTO DIFF 07-23-2015 PEARL LIBIA WBC J2270 CPT-4 MORPHINE 07-22-2015 DEBBIE ALCOCER J2405 CPT-4 ONDANSETRON HCL 07-23-2015 DEBBIE ALCOCER INJECTION J7030 CPT-4 INFUSION, NS, 1000 CC 07-23-2015 DEBBIE ALCOCER J2270 CPT-4 MORPHINE 07-23-2015 DEBBIE ALCOCER J2270 CPT-4 MORPHINE 07-23-2015 DEBBIE ALCOCER J7030 CPT-4 INFUSION, NS, 1000 CC 07-23-2015 DEBBIE ALCOCER C9113 CPT-4 INJ PANTOPRAZOLE SODIUM, 07-23-2015 DEBBIE ALCOCER VIA Functional status Functional Status Finding Observation Time Dexterity Right-handed :27 Weight Bearing Statu Full :27 Transferring/Ambulat Independent :27 Bathing Independent :27 Dressing Independent :27 Eating Independent : Drinking Independent :27 Toileting Independent : Able to Turn Self in Independent :27 Cognitive Status Finding Observation Time Level of Consciousne Alert :24 Oriented to Person Yes :[address] Yes :24 Oriented to Time Yes :24 Eyes - [place] Yes :20 Vital signs Type Value Date Respirations 20 :12 Pulse 81 :12 O2 Saturation 99% :12 Systolic Blood Press 127mm/HG :12 Diastolic Blood Pres 74mm/HG :12 Temperature (Fahr) 98.8Degrees :12 Height 70in 79-91-038880:19 Weight 178.8LB :19 Social history Type Value Smoking Status FORMER SMOKER Treatment Plan No treatment plan text is available for this visit. Hospital discharge instructions Diagnosis Abdominal pain, vomiting Diet as Tolerated Activity Level As Tolerated Personal Items Retur Yes Flu Vaccine Given Current/Not Needed Follow up with Dr. Reza Appointment Date and prev scheduled
--- OUTSIDE RECORDS SUMMARY | 2017-02-01 13:55 | External Medical Summary ---
:1960 Author Organization [facility] Summary purpose CCDA Sent to [facility] Chief Complaint and Reason for [...] Code Type Description Date Performed Performing Physician 69261 CPT-4 INITIAL HOSPITAL CARE 09-06-2015 PEARL WALKER 85031 CPT-4 SUBSEQUENT HOSPITAL 09-07-2015 PEARL WALKER CARE 80566 CPT-4 SUBSEQUENT HOSPITAL 09-08-2015 PEARL WALKER CARE 70032 CPT-4 HOSPITAL DISCHARGE DAY 09-09-2015 PEARL WALKER Functional status No functional or cognitive status [...]
--- OUTSIDE RECORDS SUMMARY | 2017-02-01 13:55 | External Medical Summary ---
:1960 Author Organization [facility] Summary purpose CCDA Sent to [facility] Chief Complaint and Reason for [...] Code Type Description Date Performed Performing Physician 70294 CPT-4 OFFICE/OUTPATIENT VISIT, 06-20-2015 PEARL DENG Functional status No functional or [...]
--- OUTSIDE RECORDS SUMMARY | 2017-02-01 13:55 | External Medical Summary ---
:1960 Author Organization [facility] Summary purpose CCDA Sent to [facility] Chief Complaint and Reason for Visit No authorized Reason for Visit (Admitting Diagnosis) is available for this visit. Problem list No authorized problems tracked for continuity of care are available for this visit. Encounters No authorized problems tracked for encounter diagnoses are available for this visit. Medications Home Medications Medication Directions Started Status Source cyclobenzaprine 10 mg 1 tablet oral As Current Physician Order tablet Needed Every 8 Hours for Muscle spasm Lialda 1.2 g tablet,delayed 1 tablet Oral 4 times Current Medication bottle release per day for colitis label Creon 24,000-76,000-120,000 1 capsule Oral See medication notes for colitis Current Physician Order unit capsule,delayed 3 caps with meals; 2 caps with snacks release amitriptyline 50 mg tablet 1 tablet Oral At bed Current Physician Order time for colitis Percocet 10 mg-325 mg 1 tablet oral 2 times Discont Physician Order tablet per day for pain ondansetron 8 mg 1 tablet oral As Current disintegrating tablet needed diazepam 5 mg tablet 1 tablet oral -Daily Current oxyCODONE-acetaminophen 7.5 1 tablet oral 4 times per day Current mg-325 mg tablet gets med from pain clinic- Dr. Field dicyclomine 10 mg capsule 1 capsule oral -Daily Current gabapentin 100 mg capsule 1 capsule oral 3 Current times per day pantoprazole 40 mg 1 tablet oral -Daily Current tablet,delayed release Allergies, adverse reactions, alerts Allergen Category Ingredient [...] Code Type Description Date Performed Performing Physician 00608 CPT-4 OFFICE/OUTPATIENT VISIT 03-14-2015 PEARL DENG Functional status No functional or [...]
--- OUTSIDE RECORDS SUMMARY | 2017-02-01 13:56 | External Medical Summary ---
:1960 Author Organization [facility] Summary purpose CCDA Sent to [facility] Chief Complaint and Reason for Visit [...] tests and/or laboratory data RESULTS Chemistry Group [id number]:45:00 Result Normal Range Units Glucose H 118 74-106 mg/dl BUN 17 7-18 mg/dl Osmolality 278 268.0-292.0 Result Amended on 2014-11-23 at 10:47:24. Previous status was MS. Creatinine 0.9 0.6-1.3 mg/dl Sodium 138 136-145 mmol/L Result Amended on 2014-11-23 at 10:47:25. Previous status was MS. Potassium 3.8 3.5-5.1 mmol/L Result Amended on 2014-11-23 at 10:47:25. Previous status was MS. Chloride 101 98-107 mmol/L Result Amended on 2014-11-23 at 10:47:25. Previous status was MS. CO2 26.0 21.0-32.0 mmol/L Calcium 8.8 8.5-10.1 mg/dl Total Protein 8.0 6.4-8.2 g/dl Albumin 4.0 3.4-5.0 g/dl AST 28 15-37 U/L ALT 35 30-65 U/L ALP 97 50-136 U/L Bilirubin, Total 0.7 0.2-1.0 mg/dl eGFR 89 >=60 ml/min. Result Amended on 2014-11-23 at 10:47:26. Previous status was MS. Test EGFR with result of 89 was originally reported as 78 and was changed on 11/23/2014 10:45 by KAELA Amylase 100 25-115 U/L Lipase 115 73-393 Reference Lab Group [id number]:45:00 Result Normal Range Units H. pylori IgG NEGATIVE NEGATIVE Measurement of antibodies to H. pylori is not recommended for the diagnosis of active infection. The [employer] and the [employer] [employer] recommend either the urea breath test or the fecal antigen test for diagnosis and confirmation of eradication in cases of suspected or proven H. pylori infection. TEST PERFORMED AT: [address] [place] [address] MERRICK HOLLEY DO,[facility] :45:00 Result Normal Range Units Glucose H 118 74-106 mg/dl BUN 17 7-18 mg/dl Osmolality 278 268.0-292.0 Result Amended on 2014-11-23 at 10:47:24. Previous status was MS. Creatinine 0.9 0.6-1.3 mg/dl Sodium 138 136-145 mmol/L Result Amended on 2014-11-23 at 10:47:25. Previous status was MS. Potassium 3.8 3.5-5.1 mmol/L Result Amended on 2014-11-23 at 10:47:25. Previous status was MS. Chloride 101 98-107 mmol/L Result Amended on 2014-11-23 at 10:47:25. Previous status was MS. CO2 26.0 21.0-32.0 mmol/L Calcium 8.8 8.5-10.1 mg/dl Total Protein 8.0 6.4-8.2 g/dl Albumin 4.0 3.4-5.0 g/dl AST 28 15-37 U/L ALT 35 30-65 U/L ALP 97 50-136 U/L Bilirubin, Total 0.7 0.2-1.0 mg/dl eGFR 89 >=60 ml/min. Result Amended on 2014-11-23 at 10:47:26. Previous status was MS. Test EGFR with result of 89 was originally reported as 78 and was changed on 11/23/2014 10:45 [facility] Result Normal Range Units Glucose H 118 74-106 mg/dl BUN 17 7-18 mg/dl Osmolality 278 268.0-292.0 Result Amended on 2014-11-23 at 10:47:24. Previous status was MS. Creatinine 0.9 0.6-1.3 mg/dl Sodium 138 136-145 mmol/L Result Amended on 2014-11-23 at 10:47:25. Previous status was MS. Potassium 3.8 3.5-5.1 mmol/L Result Amended on 2014-11-23 at 10:47:25. Previous status was MS. Chloride 101 98-107 mmol/L Result Amended on 2014-11-23 at 10:47:25. Previous status was MS. CO2 26.0 21.0-32.0 mmol/L Calcium 8.8 8.5-10.1 mg/dl eGFR 89 >=60 ml/min. Result Amended on 2014-11-23 at 10:47:26. Previous status was MS. Test EGFR with result of 89 was originally reported as 78 and was changed on 11/23/2014 10:45 by [facility] Electrolyte Panel :45:00 Result Normal Range Units Sodium 138 136-145 mmol/L Result Amended on 2014-11-23 at 10:47:25. Previous status was MS. Potassium 3.8 3.5-5.1 mmol/L Result Amended on 2014-11-23 at 10:47:25. Previous status was MS. Chloride 101 98-107 mmol/L Result Amended on 2014-11-23 at 10:47:25. Previous status was MS. CO2 26.0 21.0-32.0 mmol/L Hepatic Profile [id number]:45:00 Result Normal Range Units Total Protein 8.0 6.4-8.2 g/dl Albumin 4.0 3.4-5.0 g/dl AST 28 15-37 U/L ALT 35 30-65 U/L ALP 97 50-136 U/L Bilirubin, Total 0.7 0.2-1.0 mg/dl Renal Panel [id number]:45:00 Result Normal Range Units Glucose H 118 74-106 mg/dl BUN 17 7-18 mg/dl Osmolality 278 268.0-292.0 Result Amended on 2014-11-23 at 10:47:24. Previous status was MS. Creatinine 0.9 0.6-1.3 mg/dl Sodium 138 136-145 mmol/L Result Amended on 2014-11-23 at 10:47:25. Previous status was MS. Potassium 3.8 3.5-5.1 mmol/L Result Amended on 2014-11-23 at 10:47:25. Previous status was MS. Chloride 101 98-107 mmol/L Result Amended on 2014-11-23 at 10:47:25. Previous status was MS. CO2 26.0 21.0-32.0 mmol/L Calcium 8.8 8.5-10.1 mg/dl Albumin 4.0 3.4-5.0 g/dl eGFR 89 >=60 ml/min. Result Amended on 2014-11-23 at 10:47:26. Previous status was MS. Test EGFR with result of 89 was originally reported as 78 and was changed on 11/23/2014 10:45 by [facility] CBC :45:00 Result Normal Range Units WBC 8.3 4.5-11.0 K/uL Lymphocyte # 1.6 0.6-4.1 Lymphocyte % 18.8 10.0-58.5 % Mid # 0.9 0.0-1.8 *MID cells may include less frequently occurring and rare cells correlating to monocytes, eosinophils, basophils, blasts and other precursor white cells. Mid % 10.9 0.1-24.0 % Granulocyte # 5.8 2.0-7.8 Granulocyte % 70.3 37.0-92.0 % RBC 4.57 4.20-6.30 M/uL Hemoglobin 14.1 13.5-17.5 g/dl Hematocrit L 40.7 41.0-53.0 % MCV 89.1 80-100 FL MCH 30.9 26.0-32.0 pg MCHC 34.6 31.0-37.0 g/dl RDW 13.6 11.5-14.5 % Platelets H 369 150-350 K/uL CBC with Manual Diff :45:00 Result Normal Range Units WBC 8.3 4.5-11.0 K/uL Lymphocyte # 1.6 0.6-4.1 Lymphocyte % 18.8 10.0-58.5 % Mid # 0.9 0.0-1.8 *MID cells may include less frequently occurring and rare cells correlating to monocytes, eosinophils, basophils, blasts and other precursor white cells. Mid % 10.9 0.1-24.0 % Granulocyte # 5.8 2.0-7.8 Granulocyte % 70.3 37.0-92.0 % RBC 4.57 4.20-6.30 M/uL Hemoglobin 14.1 13.5-17.5 g/dl Hematocrit L 40.7 41.0-53.0 % MCV 89.1 80-100 FL MCH 30.9 26.0-32.0 pg MCHC 34.6 31.0-37.0 g/dl RDW 13.6 11.5-14.5 % Platelets H 369 150-350 K/uL Urinalysis [id number]:30:00 Result Normal Range Units Site Voided Color AB Tamara Yellow Appearance Slightly cloudy Glucose Negative Negative Bilirubin AB 1+ Negative Ketones AB 2+ Negative Specific Lyman H 1.025 1.005-1.015 Blood Negative Negative PH 7.0 6.0-7.0 Protein AB 2+ Negative mg/dl Urobilinogen 0.2 0.0-1.0 mg/dl Nitrites Negative Negative Leukocytes Negative Negative History of procedures Procedure Code Code Type Description Date Performed Performing Physician 38885 CPT-4 OBSERV/HOSP SAME DATE 11-23-2014 [facility] Functional status No functional or cognitive status [...]
--- OUTSIDE RECORDS SUMMARY | 2017-02-01 13:56 | External Medical Summary ---
:1960 Author Organization [facility] Summary purpose CCDA Sent to [facility] Chief Complaint and Reason for Visit No authorized Reason for Visit (Admitting Diagnosis) is available for this visit. Problem list Condition Status Certainty Chronicity Onset .Nausea Active .Vomiting Active .Abdominal pain Active Encounters The following conditions tracked for encounter diagnoses were recorded for this visit: Finding or Diagnosis Status Certainty Chronicity Onset .Nausea Active .Vomiting Active .Abdominal pain Active Medications Home Medications Medication Directions Started Status Source Lialda 1.2 g 1.2 gm Oral 4 [...] given at this hospital stay this admit Mylanta oral 30 ml oral As needed for GI 3-14-14 Current Physician Order not given at this hospital stay traMADol 50 mg tablet 1 tablet oral As Needed Every 4 Hours for pain Current Physician Order not given at this hospital stay cyclobenzaprine 10 mg 1 tablet oral As Needed Every 8 Hours Current tablet not given at this hospital stay Allergies, adverse reactions, alerts Allergen Category Ingredient Status Reaction Severity Onset Codeine Drug Codeine Active Hives Adolescence Penicillins Drug Penicillins Active Hives Moderate Adolescence No known food No known food No known food Active allergies allergies allergies Immunizations No immunizations recorded for this patient visit Relevant diagnostic tests and/or laboratory data RESULTS Chemistry Group [id number]:02:00 Result Normal Range Units Glucose H 157 74-106 mg/dl Result Amended on 2014-10-02 at 16:22:28. Previous status was FL. BUN 7 7-18 mg/dl Result Amended on 2014-10-02 at 16:22:28. Previous status was FL. Osmolality 277 268.0-292.0 Result Amended on 2014-10-02 at 16:22:28. Previous status was FL. Creatinine 0.8 0.6-1.3 mg/dl Result Amended on 2014-10-02 at 16:22:28. Previous status was FL. Sodium 138 136-145 mmol/L Result Amended on 2014-10-02 at 16:22:28. Previous status was FL. Potassium 4.0 3.5-5.1 mmol/L Result Amended on 2014-10-02 at 16:22:28. Previous status was FL. Chloride 101 98-107 mmol/L Result Amended on 2014-10-02 at 16:22:28. Previous status was FL. CO2 21.4 21.0-32.0 mmol/L Result Amended on 2014-10-02 at 16:22:29. Previous status was FL. Calcium 9.1 8.5-10.1 mg/dl Result Amended on 2014-10-02 at 16:22:29. Previous status was FL. Total Protein 7.5 6.4-8.2 g/dl Result Amended on 2014-10-02 at 16:22:29. Previous status was FL. Albumin 4.2 3.4-5.0 g/dl Result Amended on 2014-10-02 at 16:22:29. Previous status was FL. AST 26 15-37 U/L Result Amended on 2014-10-02 at 16:22:29. Previous status was FL. ALT L 22 30-65 U/L ALP 96 50-136 U/L Result Amended on 2014-10-02 at 16:22:29. Previous status was FL. Bilirubin, Total 0.6 0.2-1.0 mg/dl Result Amended on 2014-10-02 at 16:22:29. Previous status was FL. eGFR 102 >=60 ml/min. Result Amended on 2014-10-02 at 16:22:29. Previous status was FL. CMP [id number]:02:00 Result Normal Range Units Glucose H 157 74-106 mg/dl Result Amended on 2014-10-02 at 16:22:28. Previous status was FL. BUN 7 7-18 mg/dl Result Amended on 2014-10-02 at 16:22:28. Previous status was FL. Osmolality 277 268.0-292.0 Result Amended on 2014-10-02 at 16:22:28. Previous status was FL. Creatinine 0.8 0.6-1.3 mg/dl Result Amended on 2014-10-02 at 16:22:28. Previous status was FL. Sodium 138 136-145 mmol/L Result Amended on 2014-10-02 at 16:22:28. Previous status was FL. Potassium 4.0 3.5-5.1 mmol/L Result Amended on 2014-10-02 at 16:22:28. Previous status was FL. Chloride 101 98-107 mmol/L Result Amended on 2014-10-02 at 16:22:28. Previous status was FL. CO2 21.4 21.0-32.0 mmol/L Result Amended on 2014-10-02 at 16:22:29. Previous status was FL. Calcium 9.1 8.5-10.1 mg/dl Result Amended on 2014-10-02 at 16:22:29. Previous status was FL. Total Protein 7.5 6.4-8.2 g/dl Result Amended on 2014-10-02 at 16:22:29. Previous status was FL. Albumin 4.2 3.4-5.0 g/dl Result Amended on 2014-10-02 at 16:22:29. Previous status was FL. AST 26 15-37 U/L Result Amended on 2014-10-02 at 16:22:29. Previous status was FL. ALT L 22 30-65 U/L ALP 96 50-136 U/L Result Amended on 2014-10-02 at 16:22:29. Previous status was FL. Bilirubin, Total 0.6 0.2-1.0 mg/dl Result Amended on 2014-10-02 at 16:22:29. Previous status was FL. eGFR 102 >=60 ml/min. Result Amended on 2014-10-02 at 16:22:29. Previous status was FL. BMP [id number]:02:00 Result Normal Range Units Glucose H 157 74-106 mg/dl Result Amended on 2014-10-02 at 16:22:28. Previous status was FL. BUN 7 7-18 mg/dl Result Amended on 2014-10-02 at 16:22:28. Previous status was FL. Osmolality 277 268.0-292.0 Result Amended on 2014-10-02 at 16:22:28. Previous status was FL. Creatinine 0.8 0.6-1.3 mg/dl Result Amended on 2014-10-02 at 16:22:28. Previous status was FL. Sodium 138 136-145 mmol/L Result Amended on 2014-10-02 at 16:22:28. Previous status was FL. Potassium 4.0 3.5-5.1 mmol/L Result Amended on 2014-10-02 at 16:22:28. Previous status was FL. Chloride 101 98-107 mmol/L Result Amended on 2014-10-02 at 16:22:28. Previous status was FL. CO2 21.4 21.0-32.0 mmol/L Result Amended on 2014-10-02 at 16:22:29. Previous status was FL. Calcium 9.1 8.5-10.1 mg/dl Result Amended on 2014-10-02 at 16:22:29. Previous status was FL. eGFR 102 >=60 ml/min. Result Amended on 2014-10-02 at 16:22:29. Previous status was FL. Electrolyte Panel [id number]:02:00 Result Normal Range Units Sodium 138 136-145 mmol/L Result Amended on 2014-10-02 at 16:22:28. Previous status was FL. Potassium 4.0 3.5-5.1 mmol/L Result Amended on 2014-10-02 at 16:22:28. Previous status was FL. Chloride 101 98-107 mmol/L Result Amended on 2014-10-02 at 16:22:28. Previous status was FL. CO2 21.4 21.0-32.0 mmol/L Result Amended on 2014-10-02 at 16:22:29. Previous status was FL. Hepatic Profile [id number]:02:00 Result Normal Range Units Total Protein 7.5 6.4-8.2 g/dl Result Amended on 2014-10-02 at 16:22:29. Previous status was FL. Albumin 4.2 3.4-5.0 g/dl Result Amended on 2014-10-02 at 16:22:29. Previous status was FL. AST 26 15-37 U/L Result Amended on 2014-10-02 at 16:22:29. Previous status was FL. ALT L 22 30-65 U/L ALP 96 50-136 U/L Result Amended on 2014-10-02 at 16:22:29. Previous status was FL. Bilirubin, Total 0.6 0.2-1.0 mg/dl Result Amended on 2014-10-02 at 16:22:29. Previous status was FL. Renal Panel :02:00 Result Normal Range Units Glucose H 157 74-106 mg/dl Result Amended on 2014-10-02 at 16:22:28. Previous status was FL. BUN 7 7-18 mg/dl Result Amended on 2014-10-02 at 16:22:28. Previous status was FL. Osmolality 277 268.0-292.0 Result Amended on 2014-10-02 at 16:22:28. Previous status was FL. Creatinine 0.8 0.6-1.3 mg/dl Result Amended on 2014-10-02 at 16:22:28. Previous status was FL. Sodium 138 136-145 mmol/L Result Amended on 2014-10-02 at 16:22:28. Previous status was FL. Potassium 4.0 3.5-5.1 mmol/L Result Amended on 2014-10-02 at 16:22:28. Previous status was FL. Chloride 101 98-107 mmol/L Result Amended on 2014-10-02 at 16:22:28. Previous status was FL. CO2 21.4 21.0-32.0 mmol/L Result Amended on 2014-10-02 at 16:22:29. Previous status was FL. Calcium 9.1 8.5-10.1 mg/dl Result Amended on 2014-10-02 at 16:22:29. Previous status was FL. Albumin 4.2 3.4-5.0 g/dl Result Amended on 2014-10-02 at 16:22:29. Previous status was FL. eGFR 102 >=60 ml/min. Result Amended on 2014-10-02 at 16:22:29. Previous status was FL. CBC :02:00 Result Normal Range Units WBC H 13.7 4.5-11.0 K/uL Lymphocyte # 0.9 0.6-4.1 Lymphocyte % L 6.6 10.0-58.5 % Mid # 1.1 0.0-1.8 *MID cells may include less frequently occurring and rare cells correlating to monocytes, eosinophils, basophils, blasts and other precursor white cells. Mid % 8.3 0.1-24.0 % Granulocyte # H 11.7 2.0-7.8 Granulocyte % 85.1 37.0-92.0 % RBC 4.69 4.20-6.30 M/uL Hemoglobin 14.3 13.5-17.5 g/dl Hematocrit 41.8 41.0-53.0 % MCV 89.1 80-100 FL MCH 30.5 26.0-32.0 pg MCHC 34.2 31.0-37.0 g/dl RDW 13.5 11.5-14.5 % Platelets 296 150-350 K/uL CBC with Manual Diff :02:00 Result Normal Range Units WBC H 13.7 4.5-11.0 K/uL Lymphocyte # 0.9 0.6-4.1 Lymphocyte % L 6.6 10.0-58.5 % Mid # 1.1 0.0-1.8 *MID cells may include less frequently occurring and rare cells correlating to monocytes, eosinophils, basophils, blasts and other precursor white cells. Mid % 8.3 0.1-24.0 % Granulocyte # H 11.7 2.0-7.8 Granulocyte % 85.1 37.0-92.0 % RBC 4.69 4.20-6.30 M/uL Hemoglobin 14.3 13.5-17.5 g/dl Hematocrit 41.8 41.0-53.0 % MCV 89.1 80-100 FL MCH 30.5 26.0-32.0 pg MCHC 34.2 31.0-37.0 g/dl RDW 13.5 11.5-14.5 % Platelets 296 150-350 K/uL History of procedures No procedures recorded for this patient visit. Functional status Functional Status Finding Observation Time Dexterity Right-handed :00 Weight Bearing Statu Full 20-27-204028:00 Transferring/Ambulat Independent 93-89-653423:00 Bathing Independent :00 Dressing Independent :00 Eating Independent : Drinking Independent 85-77-517542:00 Toileting Independent : Able to Turn Self in Independent :00 Cognitive Status Finding Observation Time Level of Consciousne Alert : Oriented to Person Yes :[address] :30 Oriented to Time Yes :30 Eyes - TROY Yes :30 Vital signs Type Value Date Respirations 20 :00 Pulse 78 :00 O2 Saturation 98% :00 Systolic Blood Press 154mm/HG :00 Diastolic Blood Pres 99mm/HG :00 Temperature (Fahr) 99.2Degrees :00 Height 70in 14-38-660110:26 Weight 167LB 91-09-127802:26 Social history Type Value Smoking Status FORMER SMOKER Treatment Plan Treatment Plan at continue home medications as before, drink plenty of fluids and follow up in clinic 10/05/2014 at 1000 Hospital discharge instructions Diagnosis nausea, vomiting and abdominal pain Diet as tolerated Activity Level as tolerated Personal Items Retur Yes Flu Vaccine Given Current/Not Needed Follow up with Victor [facility] Rivera Appointment Date and 10/05/2014 at 1000 Other Instructions continue home medications as before, drink plenty of fluids , and follow up in clinic 10/05/2014 at 1000
--- OUTSIDE RECORDS SUMMARY | 2017-02-01 13:56 | External Medical Summary ---
:1960 Author Organization [facility] Summary purpose CCDA Sent to [facility] Chief Complaint and Reason for [...] Code Type Description Date Performed Performing Physician 97028 CPT-4 OFFICE/OUTPATIENT VISIT, 09-16-2015 JANIA DENG Functional status No functional or [...]
--- OUTSIDE RECORDS SUMMARY | 2017-02-01 13:56 | External Medical Summary ---
:1960 Author Organization [facility] Summary purpose CCDA Sent to [facility] Chief Complaint and Reason for Visit [...] Code Type Description Date Performed Performing Physician 20247 CPT-4 IRRIG DRUG DELIVERY 05-09-2015 PEARL WALKER DEVICE J1642 CPT-4 HEP INJECTION 05-09-2015 PEARL WALKER Functional status No functional or [...]
--- OUTSIDE RECORDS SUMMARY | 2017-02-01 13:56 | External Medical Summary ---
:1960 Author Organization [facility] Summary purpose CCDA Sent to [facility] Chief Complaint and Reason for Visit [...] Code Type Description Date Performed Performing Physician 32569 CPT-4 OFFICE/OUTPATIENT VISIT, 09-26-2015 PEARL DENG Functional status No functional or [...]
--- OUTSIDE RECORDS SUMMARY | 2017-02-01 13:56 | External Medical Summary ---
:1960 Author Organization [facility] Summary purpose CCDA Sent to [facility] Chief Complaint and Reason [...] Code Type Description Date Performed Performing Physician 28417 CPT-4 IRRIG DRUG DELIVERY 04-15-2016 PEARL WALKER DEVICE Functional status No functional or cognitive status [...]
--- OUTSIDE RECORDS SUMMARY | 2017-02-01 13:56 | External Medical Summary ---
:1960 Author Organization [facility] Summary purpose CCDA Sent to [facility] Chief Complaint and Reason for [...] Code Type Description Date Performed Performing Physician 58647 CPT-4 OFFICE/OUTPATIENT VISIT 07-23-2014 JANIA DENG Functional status No functional or [...]
--- OUTSIDE RECORDS SUMMARY | 2017-02-01 13:56 | External Medical Summary ---
:1960 Author Organization [facility] Summary purpose CCDA Sent to [facility] Chief Complaint and Reason for Visit [...] Code Type Description Date Performed Performing Physician 23209 CPT-4 INITIAL OBSERVATION 12-17-2014 PEARL WALKER CARE 84789 CPT-4 OBSERVATION CARE 12-18-2014 PEARL REZA DISCHARGE Functional status No functional [...]
--- OUTSIDE RECORDS SUMMARY | 2017-02-01 13:56 | External Medical Summary ---
:1960 Author Organization [facility] Care Team Providers Name Role Phone PEARL REZA MD Primary Care Provider [phone] Summary purpose CCDA Sent to [facility] Chief Complaint and Reason for Visit No [...]
--- OUTSIDE RECORDS SUMMARY | 2017-02-01 13:56 | External Medical Summary | Continuity Of Care Document ---
:1960 Author Organization [facility] Address [address] [place] [address] Phone Care Team Providers Name Role Phone RA RICARDO MD Attending Provider GABBIE ANDERSON MD Unavailable Results Lab Results Visit/Account #[id number] (October 14, 2016 4:28pm - October 14, 2016 6:22pm) Test Result Date/Time CREATININE,POINT OF CARE POC CREATININE(0.6-1.3 MG/DL) 0.7 MG/DL October 14, 2016 4:38pm EST GLOMERULAR FILTRATION RATE(Greater than or equal to 60) Greater than 60 October 14, 2016 4:38pm POC LACTIC ACID VENOUS POC LACTIC ACID VENOUS(0.90-1.70 MMOL/L) 2.64 MMOL/L October 14, 2016 4:39pm 1.40 MMOL/L October 14, 2016 5:56pm COMPLETE BLOOD COUNT WITH DIFF WHITE BLOOD COUNT(4.0-11.0 10E3/UL) 13.2 10E3/UL October 14, 2016 4:30pm RED BLOOD COUNT(4.50-5.90 10E6/UL) 4.32 10E6/UL October 14, 2016 4:30pm HEMOGLOBIN(13.5-17.5 G/DL) 13.0 G/DL October 14, 2016 4:30pm HEMATOCRIT(41.0-53.0 %) 38.5 % October 14, 2016 4:30pm MEAN CORPUSCULAR VOLUME(82.0-100.0 FL) 89.1 FL October 14, 2016 4:30pm MEAN CORPUSCULAR HEMOGLOBIN(26.0-34.0 PG) 30.1 PG October 14, 2016 4:30pm MEAN CORPUSCULAR HGB CONC(31.5-36.5 G/DL) 33.8 G/DL October 14, 2016 4:30pm RED CELL DISTRIBUTION WIDTH(11.5-14.5 %) 14.3 % October 14, 2016 4:30pm 777-3: PLATELET COUNT(150-450 10E3/UL) 377 10E3/UL October 14, 2016 4:30pm MEAN PLATELET VOLUME(8.2-12.4 FL) 10.1 FL October 14, 2016 4:30pm NEUTROPHILS % (AUTO)(40-70 %) 90 % October 14, 2016 4:30pm LYMPHOCYTES % (AUTO)(15-45 %) 6 % October 14, 2016 4:30pm MONOCYTES % (AUTO)(2-10 %) 3 % October 14, 2016 4:30pm EOSINOPHILS % (AUTO)(0-6 %) 0 % October 14, 2016 4:30pm BASOPHILS % (AUTO)(0-1 %) 0 % October 14, 2016 4:30pm IMMATURE GRANS % (AUTO)(0-0 %) 1 % October 14, 2016 4:30pm NUCLEATED RBCS (AUTO)(0-0 %) 0 % October 14, 2016 4:30pm NEUTROPHILS # (AUTO)(2.5-7.5 10E3/UL) 11.8 10E3/UL October 14, 2016 4:30pm LYMPHOCYTES # (AUTO)(1.0-4.0 10E3/UL) 0.8 10E3/UL October 14, 2016 4:30pm MONOCYTES # (AUTO)(0.2-0.8 10E3/UL) 0.4 10E3/UL October 14, 2016 4:30pm EOSINOPHILS # (AUTO)(0.0-0.4 10E3/UL) 0.0 10E3/UL October 14, 2016 4:30pm BASOPHILS # (AUTO)(0.0-0.2 10E3/UL) 0.0 10E3/UL October 14, 2016 4:30pm IMMATURE GRANS # (AUTO)(0.0-0.0 10E3/UL) 0.1 10E3/UL October 14, 2016 4:30pm DIFF TYPE AUTOMATED October 14, 2016 4:30pm COMPLETE METABOLIC PROFILE GLUCOSE(70-110 MG/DL) 163 MG/DL October 14, 2016 4:30pm BLOOD UREA NITROGEN(6-20 MG/DL) 7 MG/DL October 14, 2016 4:30pm CREATININE(0.50-1.20 MG/DL) 0.79 MG/DL October 14, 2016 4:30pm EST GLOMERULAR FILTRATION RATE(Greater than or equal to 60) Greater than or equal to 60 October 14, 2016 4:30pm Result Comments: If the patient is of -[place] descent/extraction multiply the eGFR value by 1.212 to obtain the actual eGFR. >=60 mg/dL Normal 30-59 mg/dL Moderate Kidney Disease 15-29 mg/dL Severe Kidney Disease <15 mg/dL Kidney Failure BUN CREATININE RATIO(10.0-20.0 RATIO) 9.0 RATIO October 14, 2016 4:30pm SODIUM(135-145 MMOL/L) 135 MMOL/L October 14, 2016 4:30pm POTASSIUM(3.6-5.0 MMOL/L) 3.7 MMOL/L October 14, 2016 4:30pm CHLORIDE(101-111 MMOL/L) 101 MMOL/L October 14, 2016 4:30pm CO2(21-31 MMOL/L) 22 MMOL/L October 14, 2016 4:30pm ANION GAP(8-18) 16 October 14, 2016 4:30pm OSMO CALCULATED(270.0-290.0) 271.7 October 14, 2016 4:30pm CALCIUM(8.5-10.5 MG/DL) 8.6 MG/DL October 14, 2016 4:30pm BILIRUBIN,TOTAL(0.1-1.2 MG/DL) 0.6 MG/DL October 14, 2016 4:30pm ALKALINE PHOSPHATASE(42-121 IU/L) 90 IU/L October 14, 2016 4:30pm ASPARTATE AMINO TRANSFERASE(10-42 IU/L) 25 IU/L October 14, 2016 4:30pm ALANINE AMINOTRANSFERASE(10-60 IU/L) 15 IU/L October 14, 2016 4:30pm TOTAL PROTEIN(6.4-8.2 G/DL) 7.4 G/DL October 14, 2016 4:30pm ALBUMIN(3.5-5.5 G/DL) 4.0 G/DL October 14, 2016 4:30pm GLOBULIN(2.4-3.6) 3.4 October 14, 2016 4:30pm ALBUMIN/GLOBULIN RATIO(0.9-1.8 RATIO) 1.2 RATIO October 14, 2016 4:30pm MAGNESIUM MAGNESIUM(1.8-2.5 MG/DL) 1.4 MG/DL October 14, 2016 4:30pm LIPASE LIPASE(22-51 U/L) 21 U/L October 14, 2016 4:30pm Allergies and Adverse Reactions Allergies and Adverse Reactions Patient Unit Number: [id number] Agent Type Reaction Severity Status PENICILLINS Drug Allergy UNSURE Mild Active CODEINE Drug Allergy UNSURE Mild Active Problem List Problem List Visit/Account #[id number] (October 14, 2016 4:28pm - October 14, 2016 6:22pm) Acute Problems: Code/Condition Comments Documented Start Documented Resolved Code(s) Date Date Nausea and vomiting ICD10: R11.2 Nausea and vomiting SNOMED: 72286212 Nausea and vomiting Abdominal pain ICD10: R10.9 Abdominal pain SNOMED: 22837025 Abdominal pain Plan of Care Plan Of Care Visit/Account #[id number] (October 14, 2016 4:28pm - October 14, 2016 6:22pm) Patient Instructions Return if worse or any concern. Follow-up with your PCP within 48 hrs for further evaluation and care. If you have twitching from the Haloperidol, take Benadryl 50 mg by mouth as this may resolve it. Vital Signs Vital Signs Visit/Account #[id number] (October 14, 2016 4:28pm - October 14, 2016 6:22pm) Sign First Result Last Result Code(s) Temperature in Fahrenheit Temperature (Fahrenheit): 98.8 [degF] On October 14, 2016 4:28pm Temperature (Fahrenheit): 98.4 [degF] On October 14, 2016 6:00pm 8310-5 Body Temperature Weight in Kilograms Weight (Kilograms): 77.2700 kg On October 14, 2016 4:28pm 3141-9 Weight Measured Functional Status Functional and Cognitive Status No Functional Status Data Medications Inpatient/Ordered Medications - Medications administered during hospital visit Visit/Account #[id number] (October 14, 2016 4:28pm - October 14, 2016 6:22pm) Medication Route Sig/Schedule Precondition/Indication Comments/ Instructions Codes IV Medication INTRAVEN .Q1H (Rate: 2318.1 MLS/HR Duration: 1 HR) Rx Order Comments: Additives: Order placed as verified: Additives: Allergies/Duplicates/Interactions differ from telephone order clerk 1000 ML Sodium Chloride 9 MG/ML Injection (RxNorm): 9903821 NORMAL SALINE(SODIUM CHLORIDE) 1000 ML INJECTION Label Comments: NORMAL SALINE (SODIUM CHLORIDE) NDC: 89699864293 Dose: 2318.1 ML use 1000 mL bag Carriers: BOLUS INFUSION 1 BAG INJECTION Dose: 1 BAG HALDOL INJ(HALOPERIDOL LACTATE) 5 MG/ML INJECTION INTRAVEN NOW Label Comments: 1 ML Haloperidol 5 MG/ML Injection (RxNorm): 6148478 Dose: 0.5 ML MAY INCREASE FALL RISK HALDOL INJ (HALOPERIDOL LACTATE) NDC: 42046089077 SUBLIMAZE INJ(FentaNYL CITRATE) 100 MCG/2 ML INJECTION INTRAVEN NOW Label Comments: SUBLIMAZE INJ (FentaNYL CITRATE) NDC: 27862050138 Dose: 1 ML GIVE BY SLOW PUSH OVER 2-5 MIN MAY INCREASE FALL RISK IV Medication INTRAVEN NOW (Rate: 300 MLS/HR Duration: 20 MIN) Carriers: Carriers: 100 ML Magnesium Sulfate 10 MG/ML Injection (RxNorm): 774152 MAGNESIUM SULFATE/D5W 1 GM/100 ML INJECTION (MAGNESIUM SULFATE/D5W) NDC: 44764971303 Dose: 100 ML HALDOL INJ(HALOPERIDOL LACTATE) 5 MG/ML INJECTION INTRAVEN NOW Label Comments: 1 ML Haloperidol 5 MG/ML Injection (RxNorm): 3342546 Dose: 0.5 ML MAY INCREASE FALL RISK HALDOL INJ (HALOPERIDOL LACTATE) NDC: 10883407712 KETALAR INJ(KETAMINE HCL IN 0.9 % NACL) 50 MG/5 ML INJECTION INTRAVEN NOW KETALAR INJ (KETAMINE HCL IN 0.9 % NACL) NDC: 33392848629 Dose: 1 ML MAALOX PLUS(AL HYDROX/MG HYDROX/SIMETH) 30 ML LIQUID ORAL NOW Label Comments: Aluminum Hydroxide 40 MG/ML / Magnesium Hydroxide 40 MG/ML / Simethicone 4 MG/ML Oral Suspen (RxNorm): 461970 Dose: 30 ML GI COCKTAIL MAALOX PLUS (AL HYDROX/MG HYDROX/SIMETH) NDC: 68814414534 BENADRYL ELIX(DiphenhydrAMINE HCL) 12.5 MG/5 ML ELIXIR ORAL NOW Label Comments: Diphenhydramine Hydrochloride 2.5 MG/ML Oral Solution (RxNorm): 4733583 Dose: 5 ML GI COCKTAIL BENADRYL ELIX (DiphenhydrAMINE HCL) NDC: 50816792637 XYLOCAINE 2% VISCOUS(LIDOCAINE HCL) 15 ML SOLUTION ORAL NOW Label Comments : Lidocaine Hydrochloride 20 MG/ML Mucous Membrane Topical Solution (RxNorm): 6993706 Dose: 10 ML GI COCKTAIL XYLOCAINE 2% VISCOUS (LIDOCAINE HCL) NDC: 09724085535 HEP-LOCK FLUSH SYRINGE(HEPARIN LOCK FLUSH) 500 UNIT/5 ML INJECTION INTRAVEN NEEDED PRN Reason: LINE FLUSH Label Comments: HEP-LOCK FLUSH SYRINGE ( HEPARIN LOCK FLUSH) NDC: 59389699353 Dose: 5 ML Portacath flush: 5 mls after saline flush after medications OR blood draws. ACCESSED minimum: at least 1-2 times per week DEACCESSED minimum: at least monthly Discharge Medications - Medications that patient should continue to take. Review with physician Visit/Account #[id number] (October 14, 2016 4:28pm - October 14, 2016 6:22pm) Medication Route Sig/Schedule Precondition/Indication Comments/ Instructions Codes HALDOL(HALOPERIDOL) 5 MG TABLET ORAL AT BEDTIME NAUSEA Haloperidol 5 MG Oral Tablet (RxNorm): 328218 Dose: 5 MG HALDOL (HALOPERIDOL) NDC: 78402722003 History Of Encounters Encounters Visit/Account #[id number] (October 14, 2016 4:28pm - October 14, 2016 6:22pm) Account Physican Of Reason For Visit Diagnosis Start Date/Time Stop Date/ Time Status Record Visit ER RA RICARDO MD Nausea Vomiting. R11.2: NAUSEA WITH VOMITING, UNSPECIFIED ICD10 Oct 14, 2016 4:28pm Oct 14, 2016 6:22pm History of Procedures Procedure List No procedures recorded. Discharge Instructions Discharge Instructions Visit/Account #[id number] (October 14, 2016 4:28pm - October 14, 2016 6:22pm) DISCHARGE INSTRUCTIONS Physician Documentation Social History Social History No Social History Data. Immunizations Immunizations Patient Unit Number: [id number] Immunizations No immunizations recorded.
--- OUTSIDE RECORDS SUMMARY | 2017-02-01 13:56 | External Medical Summary ---
:1960 Author Organization [facility] Summary purpose CCDA Sent to [facility] Chief Complaint and Reason for [...] and/or laboratory data RESULTS Reference Lab Group :00:00 Result Normal Range Units Hepatitis B Core Ab NON-REACTIVE NON-REACTIVE TEST PERFORMED AT: [facility] [address] [place] [address] MERRICK HOLLEY DO,MPH Hepatitis B sAb, QL NON-REACTIVE NON-REACTIVE TEST PERFORMED AT: [facility] [address] [address] [place] [phone] MERRICK HOLLEY DO,MPH Hepatitis B sAg NON-REACTIVE NON-REACTIVE TEST PERFORMED AT: [facility] [address] [address] [place] [address] MERRICK HOLLEY DO,MPH Hepatitis C Ab NON-REACTIVE NON-REACTIVE Signal to Cutoff 0.01 <1.00 TEST PERFORMED AT: [facility] [address] [place] [address] MERRICK HOLLEY DO,MPH Hepatitis C Ab :00:00 Result Normal Range Units Hepatitis C Ab NON-REACTIVE NON-REACTIVE Signal to Cutoff 0.01 <1.00 TEST PERFORMED AT: [facility] [address] [place] [address] MERRICK HOLLEY DO,MPH History of procedures Procedure Code Code Type Description Date Performed Performing Physician 64664 CPT-4 HEPATITIS B SURFACE AG, 04-15-2016 PEARL REZA EIA 62001 CPT-4 HEP B CORE ANTIBODY, 04-15-2016 PEARL REZA TOTAL 57114 CPT-4 HEPATITIS C AB TEST 04-15-2016 PEARL REZA 75156 CPT-4 ROUTINE VENIPUNCTURE 04-15-2016 PEARL REZA Functional status No functional or cognitive status observations are available for this visit. Vital signs Type Value Date Respirations 20 28-60-398299:10 Pulse 78 59-92-451867:10 O2 Saturation 99% 37-60-294666:10 Systolic Blood Press 140mm/HG 83-20-744958:10 Diastolic Blood Pres 95mm/HG 33-71-342727:10 Temperature (Fahr) 98.8Degrees 07-95-542349:10 Social history No Social History or smoking status observations were recorded for this visit. ( Unknown if ever smoked.) Treatment Plan No treatment plan text is available for this visit. Hospital discharge instructions No discharge instruction text is available for this visit.
--- OUTSIDE RECORDS SUMMARY | 2017-02-01 13:56 | External Medical Summary ---
:1960 Author Organization [facility] Summary purpose CCDA Sent to [facility] Chief Complaint and Reason for Visit No authorized Reason for Visit (Admitting Diagnosis) is available for this visit. Problem list Condition Status Certainty Chronicity Onset .Abdominal pain Active .Vomiting Active Encounters The following conditions tracked for encounter diagnoses were recorded for this visit: Finding or Diagnosis Status Certainty Chronicity Onset .Abdominal pain Active .Vomiting Active Medications Discharge Medications Status Medication Directions Current amitriptyline 50 mg tablet 50 miligram(s) oral BEDTIME Current Creon 24,000-76,000-120,000 unit 1 capsule(s) oral oral NEEDED for digestion capsule,delayed release 3 caps with meals; 2 caps with snacks Current cyclobenzaprine 10 mg tablet 10 miligram(s) oral oral EVERY EIGHT HOURS NEEDED for muscle spasm Current diazepam 5 mg tablet 5 miligram(s) oral ONE TIME A DAY Current dicyclomine 10 mg capsule 10 miligram(s) oral ONE TIME A DAY Current gabapentin 300 mg capsule 300 miligram(s) oral TWO TIMES A DAY Current Lialda 1.2 g tablet,delayed release 1.2 gram(s) oral FOUR TIMES A DAY Current ondansetron 8 mg disintegrating tablet 8 miligram(s) oral oral NEEDED for nausea Current oxyCODONE-acetaminophen 7.5 mg-325 mg 1 tab(s) oral FOUR TIMES A DAY tablet gets med from pain clinic- Dr. Field Current pantoprazole 40 mg tablet,delayed release 40 miligram(s) oral ONE TIME A DAY Allergies, adverse [...] Performing Physician G0378 CPT-4 HOSPITAL OBSERVATION PER 06-08-2015 [place] [address] CPT-4 HYDRATE IV INFUSION, 06-08-2015 JESSIKAGALLITO ZACARIASAVERS ADD-ON 86435 CPT-4 THER/PROPH/DIAG INJ, IV 06-08-2015 JESSIKA WALLER PUSH 05499 CPT-4 TX/PRO/DX INJ NEW DRUG 06-08-2015 JESSIKA BEAVERS ADDON 05928 CPT-4 TX/PRO/DX INJ NEW DRUG 06-08-2015 JESSIKA ZACARIASAVERS TEST DECK SUPERVISOR 26765 CPT-4 HYDRATE IV INFUSION, 06-08-2015 JESSIKA ZACARIASAVERS ADD-ON 03538 CPT-4 X-RAY EXAM OF ABDOMEN 06-07-2015 JESSIKA WALLER J2270 CPT-4 MORPHINE 06-07-2015 DEBBIE ALCOCER J2270 CPT-4 MORPHINE 06-07-2015 DEBBIE ALCOCER J2270 CPT-4 MORPHINE 06-07-2015 DEBBIE ALCOCER J2405 CPT-4 ONDANSETRON HCL 06-07-2015 DEBBIE ALCOCER INJECTION J7030 CPT-4 INFUSION, NS, 1000 CC 06-07-2015 DEBBIE ALCOCER J2270 CPT-4 MORPHINE 06-07-2015 DEBBIE ALCOCER J2405 CPT-4 ONDANSETRON HCL 06-07-2015 DEBBIE ALCOCER INJECTION C9113 CPT-4 INJ PANTOPRAZOLE SODIUM, 06-07-2015 DEBBIE ALCOCER VIA J7030 CPT-4 INFUSION, NS, 1000 CC 06-08-2015 DEBBIE ALCOCER 87092 CPT-4 COMPLETE CBC W/AUTO DIFF 06-07-2015 JESSIKA WALLER WBC 79524 CPT-4 COMPREHEN METABOLIC 06-07-2015 JESSIKAGALLITO ZACARIASAVERTru PANEL 02939 CPT-4 ASSAY OF AMYLASE 06-07-2015 JESSIKAGALLITO ZACARIASAVERS 44152 CPT-4 ASSAY OF LIPASE 06-07-2015 JESSIKAGALLITO ZACARIASAVERS 11501 CPT-4 ROUTINE VENIPUNCTURE 06-07-2015 JESSIKA WALLER Functional status Functional Status Finding Observation Time Dexterity Right-handed 26-15-825929:40 Weight Bearing Statu Full 45-56-472548:25 Transferring/Ambulat Independent 04-39-471515:40 Bathing Independent 71-39-127748:40 Dressing Independent 67-06-321979:40 Eating Independent 56-07-234114:40 Drinking Independent 84-13-213778:40 Toileting Independent :40 Able to Turn Self in Independent 52-97-777771:40 Cognitive Status Finding Observation Time Level of Consciousne Alert :35 Oriented to Person Yes :[address] Yes :35 Oriented to Time Yes :35 Eyes - TORY Yes :06 Vital signs Type Value Date Respirations 20 :40 Pulse 83 :40 O2 Saturation 99% :40 Systolic Blood Press 146mm/HG :40 Diastolic Blood Pres 104mm/HG :40 Temperature (Fahr) 98.4Degrees :40 Height 70in 56-14-398861:29 Weight 169.6LB 48-02-072372:29 Social history Type Value Smoking Status FORMER SMOKER Treatment Plan No treatment plan text is available for this visit. Hospital discharge instructions Diagnosis Nausea and Vomiting Diet As Tolerated Activity Level As Tolerated Personal Items Retur Yes Flu Vaccine Given Current/Not Needed Follow up with Dr. Calderon Appointment Date and prev scheduled
[2017-02-01] MEDS ORDERED: NS 100 ML ONE (14:48)
[2017-02-01] MEDS ORDERED: IOHEXOL 300mg/ml 100ml INJECTION ONE (14:48)
[2017-02-01] MEDS ORDERED: SALINE FLUSH 10ml SYRINGE ONE (14:49)
[2017-02-01] MEDS: SALINE FLUSH 10ml SYRINGE IVF PRN (14:50)
--- NOTE | 2017-02-01 15:49 | CT Scan Report ---
EXAM: CT abdomen pelvis w con COMPARISON: None available. HISTORY: ABD PAIN [place]ATION OF DICT[place]: [facility] [place]: Axial images were obtained from the domes of the diaphragms to the ischial tuberosities with administration of 100 mL Omnipaque 240 contrast. The study was reconstructed into thinner axial sections and in coronal and sagittal reformations. Study is reviewed in lung, soft tissue, bone and liver windows. The current CT scan was performed using radiation dose-reduction techniques. ABDOMEN AND PELVIS FINDINGS: LUNG BASES: There is mild dependent atelectatic changes. Small 4 mm nodular density seen at the right cardiophrenic angle which is likely of benign etiology. HEART: Unremarkable. No significant pericardial effusion. LIVER: Diffusely hypodense which may represent fatty infiltration. There is mild intrahepatic ductal dilatation or periportal edema. GALLBLADDER: The gallbladder is surgically absent with surgical clips seen in the gallbladder fossa. SPLEEN: Calcification is seen in the spleen likely from old granulomatous disease. PANCREAS: Unremarkable. ADRENAL GLANDS: Unremarkable. AORTA/IVC/VASCULATURE: Unremarkable. LYMPH NODES: No lymphadenopathy is identified. Small lymph nodes are noted, but are not pathologically enlarged. GENITOURINARY: Unremarkable. No renal calculi or obstructive uropathy. The bladder and ureters appear unremarkable. The kidneys perfuse symmetrically. BOWEL: There is diffuse wall thickening and fatty infiltration of the colon including the rectosigmoid, descending colon, splenic flexure, transverse colon and ascending colon which may represent sequela from prior inflammatory process. The terminal ileum is patulous but otherwise appears unremarkable. The small bowel and stomach is fluid-filled but does not appear dilated. A gastroenteritis is a consideration. Acute inflammation from Crohn's disease is not seen with certainty. ABDOMINAL/PELVIC WALL: Small umbilical defect without herniated loops of bowel. BONES: Posterior spinal fixation rods and pedicle screws are noted at L2, L3, and L4 with posterior lateral spinal fusion. SI joint degenerative changes with sclerosis is noted. IMPRESSION: 1. There is diffuse wall thickening and fatty infiltration of the entire colon which may represent sequela from prior inflammatory process. However acute inflammation is not seen. 2. The stomach and small bowel is fluid-filled and not dilated. Gastroenteritis is a consideration. Clinical correlation is suggested. 3. Fatty infiltration of the liver. 4. Status post cholecystectomy with mild intrahepatic ductal dilatation. NOTE: The results were reviewed with the ordering clinician, Ac Cox DO immediately after the exam was performed and reviewed on 02/01/2017 3:43 PM. .
[2017-02-01] MEDS: HYDROMORPHONE 2 MG/ML INJECTION IVP PRN ×2 (18:19→20:39)
[2017-02-01] MEDS: ONDANSETRON 4 MG/2 ML INJECTION IVP PRN (18:20)
[2017-02-01] MEDS: NS 1,000 ML IV SCH (18:25)
--- NOTE | 2017-02-01 20:28 | History & Physical Report ---
History of Present Illness Date: 02/01/17 Chief complaint: nausea, vomiting, abdominal pain HPI: Mr. Conde prescription [id number] male with a history of ulcerative colitis and pancreatitis. He reports several day history of increased diarrhea compared to baseline followed by onset of severe nausea with repeated episodes of emesis starting at 8 AM today. He has had no hematemesis or rectal bleeding. Abdominal pain escalated with pain primarily in the epigastric region and is worsened with dry heaves. He has been lightheaded and feels he is becoming dehydrated. He received 1 L of normal saline in the emergency room in addition to 2 doses of Zofran and 2 doses of Dilaudid for symptomatic management. CT of the abdomen/ pelvis was without acute inflammatory changes and felt most consistent with gastroenteritis. Review of Systems All systems PM: 10-point ROS was reviewed, no additional remarkable complaints except (patient reports epistaxis earlier, recent chest pain leading to a negative stress test after which he had some type of a pain shot along the sternum or in the subxiphoid region, and chronic cough with yellow sputum. Urine output is remained good today.) [facility] Patient Stated Medical History Ulcerative colitis History of pancreatitis Hiatal hernia/reflux Alcoholic-alcohol free 7 years Surgical History: Cholecystectomy, back surgery 4, neck surgery, appendectomy, bilateral carpal tunnels release, hand surgery Family History: Brother has sleep apnea and coronary artery disease; hypertension reported in extended family - Social History Smoking status: Former smoker Substance use type: marijuana (occasional) Alcohol intake frequency: former alcohol drinker (discontinued alcohol 7 years ago) Housing: other ([facility] Social history: PCP Dr. De La Torre in [place], rn obgyn Dr. Zeng in [place] Full code, no alternate decision maker identified Medications Home Medications Medication Instructions Recorded Confirmed Type Escitalopram [Lexapro] 10 mg PO DAILY 02/01/17 02/01/17 History Lipase/Protease/Amylase [Korey Powell 3 cap PO WM 02/01/17 02/01/17 History 36,000 Units Capsule] Mesalamine [Lialda] 4 tab PO DAILY 02/01/17 02/01/17 History Ondansetron [Zofran Odt] 1 tab PO Q4HR 02/01/17 02/01/17 History Oxycodone/Apap 10 [Percocet 1 tab PO Q4H PRN 02/01/17 02/01/17 History ] Pregabalin Cap [Lyrica] 75 mg PO BID 02/01/17 02/01/17 History Allergies Allergy/AdvReac Type Severity Reaction Status Date / Time codeine [Codiene] Allergy Unknown Verified 02/01/17 13:02 Penicillins Allergy Unknown Verified 02/01/17 13:02 Exam Vital Signs: Temperature 98.1 F 02/01/17 17:03 Pulse Rate 73 02/01/17 17:03 Respiratory Rate 20 02/01/17 17:03 Blood Pressure 155/77 H 02/01/17 17:03 Pulse Oximetry 100 - RA 02/01/17 17:03 EXAM: General-uncomfortable appearing male, alert, responds appropriately HEENT-PERRL, EOMI without nystagmus, conjugate gaze, conjunctiva clear, sclera anicteric facial structures symmetric, oropharynx clear, neck supple and without adenopathy Lungs-respirations nonlabored, good airflow, breath sounds clear Cardiac-regular rhythm, S1-S2 Abd-soft, moderate tenderness epigastrium and upper quadrants without guarding, bowel sounds diminished Ext-without edema Skin-without rash or wounds, several small scratches/abrasions on arms, hands, and legs MS-no acute inflammatory changes noted Neuro-MAEW, sensation intact to light touch 4 extremities, motor tone normal, no tremor, cranial nerves 3-12 intact Psych-cooperative Height/Weight/BMI: Height 1.73 m Weight 78.7 kg Body Mass Index 26.4 Results - Labs CBC & Chem 7: 02/01/17 13:23 02/01/17 13:23 Labs: Segs 76, bands 17, lymphocytes 7 Liver enzymes within normal limits, lipase 34 Lactic acid 1.5-1.4, procalcitonin 0.07 Urinalysis notable only for +3 ketones - Imaging and Cardiology CT scan - abdomen Status: image reviewed by me (basilar atelectasis, fatty infiltration of the liver, diffuse thickening of the colonic wall consistent with known ulcerative colitis; small umbilical hernia incidentally noted.) Assessment and Plan (1) Acute gastroenteritis Current visit: Yes Status: Acute (2) Dehydration Current visit: Yes Status: Acute (3) Ulcerative colitis Current visit: Yes Status: Acute GI Prophylaxis: Pepcid Resuscitation Status: Full Code Assessment and Plan: Assessment: Acute gastroenteritis Nausea and vomiting, refractory Abdominal pain Dehydration SIRS Ulcerative colitis History pancreatitis Hiatal hernia with reflux Plan: Ok is admitted for hydration and symptomatic management. At present acute gastroenteritis appears to be probable diagnosis although I cannot fully exclude a UC flare. CT scan is not suggestive of acute exacerbation of UC and I am going to hold off on initiation of IV steroids at this time but will continue his chronic medication and reassess overnight. Stool will be obtained for GI panel. Neither CT or laboratory data suggests pancreatitis. Antiemetics and pain medications will be available both IV and by mouth. SIRS criteria present however there is no compelling evidence for acute infection and subsequently antibiotics are not being initiated. Patient will be nothing by mouth overnight with ice chips chips for comfort and diet will be advanced as tolerated tomorrow. Monitor electrolytes and CBC for change. Sepsis Assessment - Evaluation Possible source: GI tract/intra-abdominal Confirmed Suspected Infection: No SIRS Criteria: WBC > or equal to 12,000, Bands > or equal to 10%, blood sugar > 120 in non-diabetic, RR > or equal to 20 Hospital Course Summary Disclaimer: The visit summary below is not to be considered part of the above Progress Note. Hospital Course: 02/01/17 Ok is admitted for hydration and symptomatic management. At present acute gastroenteritis appears to be probable diagnosis although I cannot fully exclude a UC flare. CT scan is not suggestive of acute exacerbation of UC and I am going to hold off on initiation of IV steroids at this time but will continue his chronic medication and reassess overnight. Stool will be obtained for GI panel. Neither CT or laboratory data suggests pancreatitis. Antiemetics and pain medications will be available both IV and by mouth. Patient will be nothing by mouth overnight with ice chips chips for comfort and diet will be advanced as tolerated tomorrow. SIRS criteria present but no significant data to support underlying infection and antibiotics are not being initiated.
[2017-02-01] MEDS ORDERED: ACETAMINOPHEN 325 MG TABLET PO PRN (20:40)
[2017-02-01] MEDS: PREGABALIN 75 MG CAPSULE PO SCH (21:10)
[2017-02-01] MEDS: FAMOTIDINE PB 20 MG/50 ML BAG IV SCH (21:23)
[2017-02-02] MEDS: NS 1,000 ML IV SCH ×4 (01:34→23:54)
[2017-02-02] MEDS: HYDROMORPHONE 2 MG/ML INJECTION IVP PRN ×6 (01:40→23:06)
[2017-02-02] MEDS: ONDANSETRON 4 MG/2 ML INJECTION IVP PRN (06:50)
[2017-02-02] MEDS: FAMOTIDINE PB 20 MG/50 ML BAG IV SCH ×2 (08:46→20:43)
[2017-02-02] MEDS ORDERED: VANCOMYCIN - PHARMACY CONSULT MC ONE (10:00)
--- NOTE | 2017-02-02 10:51 | Pharmacy Consult-Antibiotics ---
Pharmacy Consult-Vancomycin - Laboratory Information WBC 9.6 T/MM3 (4.5-11.0) 02/02/17 04:46 BUN 9.0 MG/DL (9-20) 02/02/17 04:46 Creatinine 0.8 MG/DL (0.8-1.5) 02/02/17 04:46 Procalcitonin 0.07 NG/ML 02/01/17 14:08 VANCOMYCIN CONSULT: Dx: SIRS, Gastroenteritis Current Renal Function: Serum Creatinine is equal to 0.8 mg/dL, with an estimated creatinine clearance of 108 mL/min. I ordered a bolus with Vancomycin 2,000 mg and will continue with Vancomycin 1, 250 mg IV q8hrs thereafter. The pharmacy will continue to monitor and adjust regimen to maintain therapeutic levels. Thank you for the Vancomycin Protocol, Shravan Altaorre, Pharmacist.
[2017-02-02] MEDS: ESCITALOPRAM 10 MG TABLET PO SCH (11:08)
[2017-02-02] MEDS: PREGABALIN 75 MG CAPSULE PO SCH ×2 (11:10→20:43)
[2017-02-02] MEDS: MESALAMINE 1.2 GM PO SCH (11:10)
[2017-02-02 13:19] VITALS: BMI 25.9
--- NOTE | 2017-02-02 14:46 | Progress Note ---
<Lina Vizcarra - Last Filed: 02/02/17 14:43> Subjective: Patient is seen lying in bed this afternoon. He continues to have abdominal pain. He reports with previous episodes, by now his symptoms have improved some. He's been using Dilaudid and reports usually it helps some. His most recent dose of Dilaudid was over 30 minutes ago and he states he's not had much improvement. He thinks if he uses the antirheumatic it causes the pain to last longer. He reports his pain as a 3 out of 10 right now. He's had no vomiting. He 's had no stools since admission. His pain is most significant in the epigastric region, but he reports he will have times of "discomfort" that is generalized to the entire abdomen. He has been up and down to the bathroom and states that he gets the chills when he is up.He is still NPO. Objective Vital signs: Temperature 97.7 F 02/02/17 07:19 Pulse Rate 76 02/02/17 07:19 Respiratory Rate 20 02/02/17 07:19 Blood Pressure 172/90 H 02/02/17 07:19 Pulse Oximetry 99 02/02/17 07:19 Height/Weight/BMI: Height 1.73 m Weight 77.564 kg Body Mass Index 25.9 - Constitutional Present: mild distress (appears to be in pain), well nourished, well developed - Routine HEENT Exam Head: Present: normocephalic, atraumatic - Routine Respiratory Exam Present: CTA bilaterally. Absent: wheezes - Routine Cardiovascular Exam Present: RRR, S1, S2. Absent: murmur - Routine Abdominal Exam Present: soft, normoactive bowel sounds, tenderness (moderate tenderness to palpation- epigastric and right upper quadrant.), non distended. Absent: organomegaly, mass - Routine Extremities Exam Present: no edema, normal capillary refill - Routine Skin Exam Present: dry, warm - Routine Neurological Exam Present: alert, oriented X3 - Routine Lymphatic Exam Lymphatic: Absent: adenopathy - Routine Psychiatric Exam Present: normal affect, cooperative Results - Labs CBC & Chem 7: 02/02/17 04:46 02/02/17 04:46 Labs: GI panel negative. Microbiology Results: Microbiology Port/PICC blood culture-Growth of Staphylococcus species (preliminary report) - Imaging and Cardiology CT scan - abdomen Additional comments: 1. There is diffuse wall thickening and fatty infiltration of the entire colon which may represent sequela from prior inflammatory process. However acute inflammation is not seen. 2. The stomach and small bowel is fluid-filled and not dilated. Gastroenteritis is a consideration. Clinical correlation is suggested. 3. Fatty infiltration of the liver. 4. Status post cholecystectomy with mild intrahepatic ductal dilatation. Assessment and Plan (1) Acute gastroenteritis Current visit: Yes Status: Acute (2) Dehydration Current visit: Yes Status: Acute (3) Ulcerative colitis Current visit: Yes Status: Acute Assessment and Plan: Assessment: Bacteremia-Staphylococcus species growing out in blood culture from port Acute gastroenteritis Nausea and vomiting, refractory Abdominal pain Dehydration SIRS Ulcerative colitis History pancreatitis Hiatal hernia with reflux Plan: Vancomycin was started for coverage of bacteremia Continue antiemetics and pain meds prn Continue NPO with ice chips and advance as tolerated. At this point, he feels the ice chips cause increased pain. Continue IV fluids. Repeat labs in am to follow blood counts, renal/liver function and electrolytes. Hospital Course Summary Disclaimer: The visit summary below is not to be considered part of the above Progress Note. Hospital Course: Bacteremia-Staphylococcus species growing out on blood culture from port site Acute gastroenteritis Nausea and vomiting, refractory Abdominal pain Dehydration SIRS Ulcerative colitis History pancreatitis Hiatal hernia with reflux 02/01/17-hospital admission Ok is admitted for hydration and symptomatic management. At present acute gastroenteritis appears to be probable diagnosis although I cannot fully exclude a UC flare. CT scan is not suggestive of acute exacerbation of UC and I am going to hold off on initiation of IV steroids at this time but will continue his chronic medication and reassess overnight. Stool will be obtained for GI panel. Neither CT or laboratory data suggests pancreatitis. Antiemetics and pain medications will be available both IV and by mouth. SIRS criteria present however there is no compelling evidence for acute infection and subsequently antibiotics are not being initiated. Patient will be nothing by mouth overnight with ice chips chips for comfort and diet will be advanced as tolerated tomorrow. Monitor electrolytes and CBC for change. 02/02/17 Vancomycin was started for coverage of bacteremia Continue antiemetics and pain meds prn Continue NPO with ice chips and advance as tolerated. At this point, he feels the ice chips cause increased pain. Continue IV fluids. Repeat labs in am to follow blood counts, renal/liver function and electrolytes. <Venita Kent - Last Filed: 02/02/17 16:44> Objective Vital signs: Temperature 97.7 F 02/02/17 07:19 Pulse Rate 76 02/02/17 07:19 Respiratory Rate 20 02/02/17 07:19 Blood Pressure 172/90 H 02/02/17 07:19 Pulse Oximetry 99 02/02/17 07:19 Results - Labs CBC & Chem 7: 02/02/17 04:46 02/02/17 04:46 Assessment and Plan (1) Acute gastroenteritis Current visit: Yes Status: Acute (2) Dehydration Current visit: Yes Status: Acute (3) Ulcerative colitis Current visit: Yes Status: Acute DVT Prophylaxis: SCD's Resuscitation Status: Full Code Assessment and Plan: I have independently evaluated and examined this patient. I reviewed the chart, the patient's history, and the FOOD SERVICE CLERK/PA's documented findings as above. We discussed and formulated the assessment and plan as above with additions as below: Patient reports that he feels feverish "inside his body" and has for some time but whenever he is at a hospital no temperatures were recorded. He's had chills and sweats overnight but denied dyspnea. He's less lightheaded today than he was yesterday but has ongoing nausea and retching with decreased emesis. Abdominal pain persists in the upper abdomen. Urine output is good and his had minimal stool. Patient is alert and appears uncomfortable Conjunctiva clear, conjugate gaze Respirations nonlabored with good airflow, breath sounds clear Persistent discomfort on palpation in the epigastrium and right upper quadrant without guarding Cardiac rhythm regular, no murmur appreciated 1/2 blood cultures from admission positive-culture drawn from the port reported positive for staph species Stool panel negative. Given patient's inability to maintain oral intake for hydration or nutrition will convert to inpatient status. Additionally patient unable to take oral medications-initiate low-dose IV steroids. Scopolamine patch initiated. Blood cultures repeated with one drawn through the Port-A-Cath. Vancomycin initiated as noted. Discussed with nursing/case management. High-risk medications in use. Hospital Course Summary Disclaimer: The visit summary below is not to be considered part of the above Progress Note.
[2017-02-02] MEDS ORDERED: SCOPOLAMINE 1.5 MG PATCH TD SCH (15:30)
[2017-02-02] MEDS: METHYLPREDNISOLONE SOD SUCC 125mg/2ml INJECTION IVP SCH (17:28)
[2017-02-03] MEDS: METHYLPREDNISOLONE SOD SUCC 125mg/2ml INJECTION IVP SCH ×4 (00:55→23:52)
[2017-02-03] MEDS: HYDROMORPHONE 2 MG/ML INJECTION IVP PRN ×5 (01:07→23:18)
[2017-02-03] MEDS: SALINE FLUSH 10ml SYRINGE IVF PRN ×2 (01:08→06:09)
[2017-02-03] MEDS: METOCLOPRAMIDE 10mg/2ml INJECTION IVP PRN ×3 (01:14→19:22)
[2017-02-03] MEDS: NS 1,000 ML IV SCH ×2 (06:14→17:25)
[2017-02-03] MEDS: ESCITALOPRAM 10 MG TABLET PO SCH (08:03)
[2017-02-03] MEDS: PREGABALIN 75 MG CAPSULE PO SCH ×2 (08:03→22:20)
[2017-02-03] MEDS: MESALAMINE 1.2 GM PO SCH (08:03)
[2017-02-03] MEDS: FAMOTIDINE PB 20 MG/50 ML BAG IV SCH (08:07)
--- NOTE | 2017-02-03 10:54 | Progress Note ---
<Lina Vizcarra - Last Filed: 02/03/17 10:50> Subjective: Patient seen today lying in his bed. He reports his pain is still off and on. He rates it currently at a 3/10. Thinks he may be just slightly better. Still has discomfort in his epigastric region if he eats ice chips. Nausea is somewhat improved in that he doesn't constantly feel like he will vomit. After he is up going to the bathroom, he has increased nausea and dry heaves. No chest pain or shortness of breath. Still has episodes of sweating alternating with feeling cold. Objective Vital signs: Temperature 97.7 F 02/03/17 07:48 Pulse Rate 66 02/03/17 07:48 Respiratory Rate 16 02/03/17 07:48 Blood Pressure 141/79 H 02/03/17 07:48 Pulse Oximetry 98 02/03/17 07:48 Height/Weight/BMI: Weight 78.1 kg - Constitutional Present: no acute distress, well nourished, well developed - Routine Respiratory Exam Present: CTA bilaterally. Absent: wheezes - Routine Cardiovascular Exam Present: RRR, S1, S2. Absent: murmur - Routine Abdominal Exam Present: soft, normoactive bowel sounds, tenderness (epigastric. Improved from yesterday.), non distended - Routine Extremities Exam Present: no edema, normal capillary refill - Routine Skin Exam Present: dry, warm - Routine Neurological Exam Present: alert, oriented X3 - Routine Lymphatic Exam Lymphatic: Absent: adenopathy - Routine Psychiatric Exam Present: normal affect, cooperative Results - Labs CBC & Chem 7: 02/03/17 04:22 02/03/17 09:54 Microbiology Results: Positive growth of coag-negative Staphylococcus from both port site and peripheral site Assessment and Plan (1) Acute gastroenteritis Current visit: Yes Status: Acute (2) Dehydration Current visit: Yes Status: Acute (3) Ulcerative colitis Current visit: Yes Status: Acute Assessment and Plan: I have independently evaluated and examined this patient. I reviewed the chart, the patient's history, and the [employer]/PA's documented findings as above. We discussed and formulated the assessment and plan as above with additions as below: Patient reports that he feels feverish "inside his body" and has for some time but whenever he is at a hospital no temperatures were recorded. He's had chills and sweats overnight but denied dyspnea. He's less lightheaded today than he was yesterday but has ongoing nausea and retching with decreased emesis. Abdominal pain persists in the upper abdomen. Urine output is good and his had minimal stool. Patient is alert and appears uncomfortable Conjunctiva clear, conjugate gaze Respirations nonlabored with good airflow, breath sounds clear Persistent discomfort on palpation in the epigastrium and right upper quadrant without guarding Cardiac rhythm regular, no murmur appreciated 1/2 blood cultures from admission positive-culture drawn from the port reported positive for staph species Stool panel negative. Given patient's inability to maintain oral intake for hydration or nutrition will convert to inpatient status. Additionally patient unable to take oral medications-initiate low-dose IV steroids. Scopolamine patch initiated. Blood cultures repeated with one drawn through the Port-A-Cath. Vancomycin initiated as noted. Discussed with nursing/case management. High-risk medications in use. Assessment: Bacteremia-Staphylococcus species growing out in blood culture from port and peripheral site Acute gastroenteritis Nausea and vomiting, refractory Abdominal pain Dehydration - resolved SIRS Ulcerative colitis History pancreatitis Hiatal hernia with reflux Plan: Continue vancomycin for bacteremia DC famotidine and start Protonix 40 mg IV for continued epigastric pain. Patient has history of gastric ulcer in the past. Patient making very slow improvement. Continue IVF's, pain control and PRN antiemetics. Hospital Course Summary Disclaimer: The visit summary below is not to be considered part of the above Progress Note. Hospital Course: Bacteremia-Staphylococcus species growing out on blood culture from port site Acute gastroenteritis Nausea and vomiting, refractory Abdominal pain Dehydration SIRS Ulcerative colitis History pancreatitis Hiatal hernia with reflux 02/01/17-hospital admission Ok is admitted for hydration and symptomatic management. At present acute gastroenteritis appears to be probable diagnosis although I cannot fully exclude a UC flare. CT scan is not suggestive of acute exacerbation of UC and I am going to hold off on initiation of IV steroids at this time but will continue his chronic medication and reassess overnight. Stool will be obtained for GI panel. Neither CT or laboratory data suggests pancreatitis. Antiemetics and pain medications will be available both IV and by mouth. SIRS criteria present however there is no compelling evidence for acute infection and subsequently antibiotics are not being initiated. Patient will be nothing by mouth overnight with ice chips chips for comfort and diet will be advanced as tolerated tomorrow. Monitor electrolytes and CBC for change. 02/02/17 Vancomycin was started for coverage of bacteremia Continue antiemetics and pain meds prn Continue NPO with ice chips and advance as tolerated. At this point, he feels the ice chips cause increased pain. Continue IV fluids. Repeat labs in am to follow blood counts, renal/liver function and electrolytes. 02/03/17 Continue vancomycin for bacteremia DC famotidine and start Protonix 40 mg IV for continued epigastric pain. Patient has history of gastric ulcer in the past. Patient making very slow improvement. Continue IVF's, pain control and PRN antiemetics. <Marie Pollock Arline - Last Filed: 02/03/17 13:03> Objective Vital signs: Temperature 97.7 F 02/03/17 07:48 Pulse Rate 66 02/03/17 07:48 Respiratory Rate 16 02/03/17 07:48 Blood Pressure 141/79 H 02/03/17 07:48 Pulse Oximetry 98 02/03/17 07:48 Height/Weight/BMI: Weight 78.1 kg Results - Labs CBC & Chem 7: 02/03/17 04:22 02/03/17 09:54 Assessment and Plan (1) Acute gastroenteritis Current visit: Yes Status: Acute (2) Dehydration Current visit: Yes Status: Acute (3) Ulcerative colitis Current visit: Yes Status: Acute Assessment and Plan: 02/03/2017-I reviewed this chart, the patient history, and the [employer]'s/PA's documented findings as above. We discussed and formulated the assessment and plan as above with the additions below.-Dr. Pollock The patient complains of continued upper abdominal pain and inability to eat or drink. He continues to feel fatigued and occasionally having chills and sweats. He has not had any diarrhea. He has some mild chronic neck pain from the neck injury in the past. He denies any headache or chest pain. He states he had chest pain several months ago and later had a stress test that was normal. He states he thinks his chest pain was from hiatal hernia with reflux. He admits that he smokes marijuana, sometimes daily. He denies any skin sores or skin lesions. He denies any shortness of breath or cough. On exam he is alert and appears in pain. His nurse gave him Dilaudid which then caused hiccups and nausea, but after that passed he looked better. HEENT reveals sclerae to be anicteric, pupils are equal, oropharynx is moist. He has poor dentition but no obvious abscesses. Neck is supple and carotids are silent. Chest is clear to auscultation. Port-A- Cath is accessed but is not being used. There is no surrounding erythema or swelling around the Port-A-Cath. Cardiovascular reveals a regular rate and rhythm with a 2/6 systolic murmur. Abdomen is nondistended. Bowel sounds are hypoactive but present. He has tenderness and guarding in the upper abdomen. No masses are appreciated. Extremities are free of edema. SCDs are on. Skin is warm and dry and without rashes. Lab was reviewed and reveals white count is trending down and is 8.5. Bands are 7% down from 17% maximum. Hemoglobin is mildly low at 11.9 down from 13 on admission. GI panel was negative. Lipase was normal on admission. UA was negative other than 3+ ketones. Blood cultures 2 are positive for coag-negative staph. Port-A-Cath was initially positive and then the peripheral site blood culture. CT abdomen results were reviewed with Dr. Louise. Impression Bacteremia with coag-negative staph in a patient with Port-A-Cath and history of back surgery with retained hardware. Abdominal pain with history of chronic pancreatitis and history of ulcerative colitis. Nausea and vomiting Poor by mouth intake Dehydration Leukocytosis-improved Chronic marijuana use-may be contributing to his abdominal pain, nausea and vomiting History of hiatal hernia with reflux History of chest pain months ago with normal stress test Plan Continue vancomycin for now. We'll discuss with infectious disease regarding antibiotics and any further workup needed. Dr. Louise consulted regarding abdominal pain. Continue IV fluids Continue low-dose steroids for now Continue anti-emetics and pain medication as needed. Discussed with patient's nurse and Dr. Louise. Hospital Course Summary Disclaimer: The visit summary below is not to be considered part of the above Progress Note.
[2017-02-03] MEDS: PANTOPRAZOLE 40 MG INJECTION IVP SCH (11:56)
--- NOTE | 2017-02-03 14:36 | Pharmacy Consult-Antibiotics ---
Pharmacy Consult-Vancomycin - Laboratory Information WBC 8.5 T/MM3 (4.5-11.0) 02/03/17 04:22 BUN 11.0 MG/DL (9-20) 02/03/17 04:22 Creatinine 0.7 MG/DL (0.8-1.5) L 02/03/17 09:54 Procalcitonin 0.10 NG/ML 02/03/17 09:52 Vancomycin Trough 15.24 UG/ML (15-20) 02/03/17 09:54 VANCOMYCIN CONSULT: Admitting Diagnoses: SIRS, Gastroenteritis TS is a 56 yo male admitted for severe gastroenteritis and SIRS. Cultures were done on his PICC line and he appears to bacteremia due to Staphylococcus species. S Cr = 0.7 mg/dl Estimated Cr Cl = 123 mL/min. WBC's = 8.5 T/mm3 Vancomycin Trough = 15.24 mcg/mL The trough was good so I ordered a continuation of Vancomycin 1,250 mg IV q8hrs. The pharmacy will continue to monitor the renal function and the vancomycin troughs and adjust regimen to maintain therapeutic levels. Thank you for the Vancomycin Protocol, Shravan Alatorre, Pharmacist.
--- NOTE | 2017-02-03 16:55 | General Surgery Consult Note ---
Consult date: 02/03/17 Attending Physician: Marie Pollock MD Reason for consult: abdominal pain FOR[facility], [facility] Medical History Updates: ADD. * Ulcerative colitis: Onset ~2006 Comment: Gastroenterology at [facility] in [place]. On Lialda. * Chronic pancreatitis (chronic) Onset: ~1987. * Pancreatic insufficiency (chronic). * GERD. * Alcoholism (chronic) Comment: Sober since 2010. * Irritable bowel syndrome (chronic) Comment: with diarrhea. * Head injury (resolved): Onset : 12/2012 Comment: Kicked by horse Surgical History: * Colonoscopy - Summer [address] Zeng with [facility] in [place], [place]. * Neck surgery with hardware - 2012. * Appendectomy - ~2007 in [facility] in [place], [place]. * Laparoscopic cholecystectomy - ~2006 in [facility] in [place], [place]. * Exploratory Laparotomy - ~ 2012 in [place], [place]. * Left inguinal hernia repair - ~2003 in [place], [place]. * Back surgery including some with hardware 4. * Bilateral carpal tunnels releases - ~2003. * Left hand ORIF for 5th finger fracture. Family History Updates: Brother: Sleep apnea, HTN, CAD. Mother: HTN - Social History Smoking status: Former smoker Substance use type: marijuana (for appetite stimulation and relaxation of bowels ) Alcohol intake: former Medications Home Medications Medication Instructions Recorded Confirmed Type Escitalopram [Lexapro] 10 mg PO DAILY 02/01/17 02/01/17 History Lipase/Protease/Amylase [Creon Dr 3 cap PO WM 02/01/17 02/01/17 History 36,000 Units Capsule] Mesalamine [Lialda] 4 tab PO DAILY 02/01/17 02/01/17 History Ondansetron [Zofran Odt] 1 tab PO Q4HR 02/01/17 02/01/17 History Oxycodone/Apap 10/325 [Percocet 1 tab PO Q4H PRN 02/01/17 02/01/17 History 10/325] Pregabalin Cap [Lyrica] 75 mg PO BID 02/01/17 02/01/17 History Allergies Allergy/AdvReac Type Severity Reaction Status Date / Time codeine [Codiene] Allergy Unknown Verified 02/01/17 13:02 Penicillins Allergy Unknown Verified 02/01/17 13:02 Review of Systems 10-point ROS: negative except for HPI and the following: - General General: Present: fever, chills, night sweats - Eyes/Ears/Nose/Throat Ear Nose Throat: Present: dentures (upper), loose/chipped/cracked teeth - Cardiovascular Cardiovascular: Present: chest pain (angina) (had coronary testing) - Musculoskeletal Musculoskeletal: Present: neck pain - Psychiatric Psychiatric: Present: depression - Endocrine Additional comments: pancreatic insufficiency - Vital Signs Last Vital Signs Temp 98.3 F 02/03/17 15:28 Pulse 65 02/03/17 15:28 Resp 18 02/03/17 15:28 BP 160/87 H 02/03/17 15:43 Pulse Ox 100 02/03/17 15:28 - Laboratory Result Diagrams: 02/03/17 04:22 02/03/17 09:54 - Normal Exam General: awake, alert, oriented Eyes: PERRL, EOMI, sclera clear Neck: supple, midline trachea, no thyromegaly Cardiovascular: regular rhythm, regular rate Respiratory: clear bilaterally Abdominal: soft Lymphatic: no cervical adenopathy Psychiatric: normal affect, normal mood Neurological: CN 2-12 grossly intact Wound/Stoma/Drain Assessment - Wound Management Left Finger - 2nd Digit Wound Present on Admission?: No General Surgery Results - Results Labs: 02/03/17 04:22 02/03/17 09:54 Hospital Course Summary Disclaimer: The visit summary below is not to be considered part of the above Progress Note. Hospital Course: Bacteremia-Staphylococcus species growing out on blood culture from port site Acute gastroenteritis Nausea and vomiting, refractory Abdominal pain Dehydration SIRS Ulcerative colitis History pancreatitis Hiatal hernia with reflux 02/01/17-hospital admission Ok is admitted for hydration and symptomatic management. At present acute gastroenteritis appears to be probable diagnosis although I cannot fully exclude a UC flare. CT scan is not suggestive of acute exacerbation of UC and I am going to hold off on initiation of IV steroids at this time but will continue his chronic medication and reassess overnight. Stool will be obtained for GI panel. Neither CT or laboratory data suggests pancreatitis. Antiemetics and pain medications will be available both IV and by mouth. SIRS criteria present however there is no compelling evidence for acute infection and subsequently antibiotics are not being initiated. Patient will be nothing by mouth overnight with ice chips chips for comfort and diet will be advanced as tolerated tomorrow. Monitor electrolytes and CBC for change. 02/02/17 Vancomycin was started for coverage of bacteremia Continue antiemetics and pain meds prn Continue NPO with ice chips and advance as tolerated. At this point, he feels the ice chips cause increased pain. Continue IV fluids. Repeat labs in am to follow blood counts, renal/liver function and electrolytes. 02/03/17 Continue vancomycin for bacteremia DC famotidine and start Protonix 40 mg IV for continued epigastric pain. Patient has history of gastric ulcer in the past. Patient making very slow improvement. Continue IVF's, pain control and PRN antiemetics.
--- NOTE | 2017-02-03 20:54 | Consultation ---
DATE OF CONSULTATION 02/03/2017 CONSULTING PHYSICIAN Lionel Louise MD REQUESTING PHYSICIAN Dr. Marie Pollock REASON FOR CONSULTATION Abdominal pain. IMPRESSION 1. Epigastric abdominal pain of uncertain etiology. 2. Ulcerative colitis. 3. Bacteremia with coag-negative staphylococcus. 4. Nausea and vomiting. 5. History of alcoholic pancreatitis. 6. Gastroesophageal reflux disease. RECOMMENDATIONS 1. I do not see need for surgical intervention since I would not have a surgical target for Ok. 2. Continue antibiotics. 3. I think his port site in the left chest looks stable and I do not see evidence of infection of his subcutaneous pocket. It would be desirable to keep this placed if this is deemed reasonable by Infectious Disease. 4. Per the patient's request I will advance him to a sparing clear liquid diet. 5. I encouraged ambulation to the patient. 6. Steroids may help whatever his symptomatology is from an abdominal standpoint. HISTORY OF PRESENT ILLNESS Ok is a 56-year-old male who previously has had most of his medical care in the [facility]. He had moved to the [facility] and is living out of his camper at a local [place]ground. About two or three days prior to his admission to the hospital on 02/01/2017 he was having decreased appetite. He was feeling like he may be developing an episode of pancreatitis or a flare of his ulcerative colitis. His stools changed to becoming more small amounts of diarrhea. He also noticed that his stools developed a "terrible" odor. He did not see any blood in his stools. He felt like he was drained of energy. Eventually his problems were bad enough to present to the emergency department and he was admitted to the hospital. He has been receiving IV fluids for rehydration and antiemetics since he has been having nausea after eating ice chips and also after doses of Dilaudid. He did have a subjective fever, chills , and sweats prior to arrival. He reports some abdominal pain that he believes is due to a hiatal hernia. He says the pain is located behind his xiphoid process. He describes it as a "dry heave type of pain." His pain is up to 8 out of 10 in severity. It has been averaging 6 out of 10 in severity. It has been 4 out of 10 at its best with medication. LABORATORY White blood cell count currently is 8.5 with 87% neutrophils. Blood cultures from 02/01/2017 showed coag-negative staph with one being drawn from his port and another drawn peripherally. A GI panel was negative. Lipase was normal on admission and on repeat exam today. IMAGING CT scan of the abdomen and pelvis was reviewed both personally by me and by radiology report. There was thickening of the colon but no evidence of acute inflammation. I did not appreciate a hiatal hernia on CT scan. Thank you for allowing me to participate in Ok's care. See the electronic consultation note for other consultation details. BARBARA
[2017-02-04] MEDS: NS 1,000 ML IV SCH ×3 (02:17→14:14)
[2017-02-04] MEDS: METHYLPREDNISOLONE SOD SUCC 125mg/2ml INJECTION IVP SCH ×3 (02:20→17:50)
[2017-02-04] MEDS: HYDROMORPHONE 2 MG/ML INJECTION IVP PRN (06:24)
[2017-02-04] MEDS: ONDANSETRON 4 MG/2 ML INJECTION IVP PRN (06:31)
[2017-02-04] MEDS: ESCITALOPRAM 10 MG TABLET PO SCH (09:37)
[2017-02-04] MEDS: PANTOPRAZOLE 40 MG INJECTION IVP SCH (09:37)
[2017-02-04] MEDS: PREGABALIN 75 MG CAPSULE PO SCH ×2 (09:37→21:42)
[2017-02-04] MEDS: MESALAMINE 1.2 GM PO SCH (09:40)
[2017-02-04] MEDS: POTASSIUM CHLORIDE INJ 40 MEQ in NS 1,000 ML IV SCH ×2 (13:40→23:30)
--- NOTE | 2017-02-04 17:02 | Progress Note ---
<OndinaKaylee A - Last Filed: 02/04/17 17:42> Subjective: Ok is seen today in follow up for his bacteremia and intractable abdominal pain with nausea and vomiting. He is seen while resting in bed, watching TV. He states that he is feeling a little better but continues to have epigastric abdominal pain which he currently rates 3/10 as well as nausea whenever he drinks anything. He also complains of feeling like he has increased acid in his stomach and believes that all his pain is related to his hiatal hernia. He denies any chest pain or shortness of breath. He continues to have episodes of feeling like he has a fever as well as occasional chills but has remained afebrile since admission. He also reports night sweats and states he has been sweating through his gown at night. He reports increased diarrhea stools today x 4 but denies any apparent blood or black, tarry stools. He does admit to seeing "pods" in his stool similar to previous ulcerative colitis flares. He reports that he thinks the Dilaudid is contributing to his nausea so he does not want it any more. His marijuana use and the possible correlation to his symptoms is discussed at length. His lab results were reviewed with him including new leukocytosis with WBC elevated to 14.3 and persistent anemia with hemoglobin at 12.4. New hypokalemia noted with potassium at 3.2. BGMs have been stable. Repeat blood cultures revealed gram+ cocci in clusters, similar to the previous blood culture which grew out staph epidermidis which was noted to be pansensitive. He remains on vancomycin for empiric treatment. Blood pressures have been elevated since admission, with systolic pressures between 150-160 on average. Objective Vital signs: Temperature 98.8 F 02/04/17 15:40 Pulse Rate 74 02/04/17 15:40 Respiratory Rate 16 02/04/17 15:40 Blood Pressure 137/90 H 02/04/17 15:40 Pulse Oximetry 97 02/04/17 15:40 Height/Weight/BMI: Weight 172 lb 9.951 oz - Constitutional Present: no acute distress, well nourished, well developed, cooperative - Routine HEENT Exam Head: Present: normocephalic, atraumatic Eye: Present: PERRL. Absent: conjunctival icterus ENT: Present: mucous membranes moist - Routine Respiratory Exam Present: CTA bilaterally. Absent: stridor, wheezes, crackles - Routine Cardiovascular Exam Present: RRR, S1, S2 - Routine Abdominal Exam Present: soft, tenderness (diffuse, epigastric), distended (mild). Absent: guarding, hernia - Routine Extremities Exam Present: no edema, pulses intact Comments: SCDs intact. - Routine Back/Spine/Pelvis Exam Back/Spine: Present: full ROM - Routine Musculoskeletal Exam Musculoskeletal: Present: moving extremities well - Routine Skin Exam Present: intact, dry, warm. Absent: jaundice Comments: afebrile. - Routine Neurological Exam Present: alert, oriented X3, moving all extremities, normal speech - Routine Lymphatic Exam Lymphatic: Absent: lymphedema - Routine Psychiatric Exam Present: cooperative, depressed Results - Labs CBC & Chem 7: 02/04/17 07:59 02/04/17 08:00 Assessment and Plan (1) Acute gastroenteritis Current visit: Yes Status: Acute (2) Dehydration Current visit: Yes Status: Acute (3) Ulcerative colitis Current visit: Yes Status: Chronic DVT Prophylaxis: SCD's GI Prophylaxis: Protonix Resuscitation Status: Full Code Assessment and Plan: Impression Bacteremia with coag-negative staph in a patient with Port-A-Cath and history of back surgery with retained hardware, acute. Abdominal pain with history of chronic pancreatitis and history of ulcerative colitis, acute. Intractable nausea and vomiting, acute. Poor oral intake, acute. Dehydration, acute. Leukocytosis, acute. Chronic marijuana use-may be contributing to his abdominal pain, nausea and vomiting, chronic. History of hiatal hernia with reflux, chronic. History of chest pain months ago with normal stress test. Plan-02/04/17 (Mirakian) Overall, Ok feels like he is slowly improving but continues to have abdominal pain with nausea and vomiting. Diarrhea x 4 today. Repeat blood cultures again revealed gram + cocci in clusters, similar to blood culture obtained on 02/01 which revealed pansensitive staph epidermidis. Discussed and reviewed with Dr. Pollock. Lab was consulted as neither Dr. Pollock , PA, [employer] ME[employer] or the patient's nurse were notified of positive blood cultures. He currently is on Vancomycin for empiric antimicrobial treatment. We'll discuss with infectious disease regarding culture and sensitivity results and antibiotics and additional workup recommended. Dr. Louise saw and evaluated the patient and recommended continuation of antibiotics and steroids. He did not feel that any surgical treatment was warranted at this time. We appreciate his time and expertise. IV fluids were changed to NS with KCl at a rate of 125cc/hr for continued hydration in light of decreased oral intake as well as potassium supplementation as he was hypokalemic on repeat labs this AM with potassium at 3.2. Will recheck BMP in AM to monitor electrolytes and renal function. New leukocytosis noted with WBC at 14.3, possibly secondary to steroid effect. Will recheck CBC in AM to monitor blood counts as well as repeat procalcitonin in AM. Initial procalcitonin on admission was 0.07 and was noted to increase slightly upon recheck on 02/03 at 0.10. Continue with low-dose steroids for possible ulcerative colitis flare. Continue anti-emetics and pain medication as needed. Patient reports that he is having difficulty sleeping at night because his mind is racing and requests his home dose of amitriptyline 50mg QHS. Review of literature indicates that amitriptyline can also be used for abortive treatment for cyclic vomiting. May also consider Ativan 0.5mg Q12 hours PRN in addition to Zofran as additional treatment of abdominal pain, nausea and cyclic vomiting pattern. Continue Protonix for GERD as patient continues to complain of feeling as if he has increased acid in his stomach. Continue clear liquid diet and encourage oral intake as well as ambulation. Blood pressure remains elevated with systolic pressure averaging 150-160. Continue to monitor closely. Will initiate Norvasc 2.5mg daily as patient is no currently on antihypertensive medications. - Time spent with patient Time with patient PN: 50 minutes Hospital Course Summary Disclaimer: The visit summary below is not to be considered part of the above Progress Note. Hospital Course: Bacteremia-Staphylococcus species growing out on blood culture from port site Acute gastroenteritis Nausea and vomiting, refractory Abdominal pain Dehydration SIRS Ulcerative colitis History pancreatitis Hiatal hernia with reflux 02/01/17-hospital admission Ok is admitted for hydration and symptomatic management. At present acute gastroenteritis appears to be probable diagnosis although I cannot fully exclude a UC flare. CT scan is not suggestive of acute exacerbation of UC and I am going to hold off on initiation of IV steroids at this time but will continue his chronic medication and reassess overnight. Stool will be obtained for GI panel. Neither CT or laboratory data suggests pancreatitis. Antiemetics and pain medications will be available both IV and by mouth. SIRS criteria present however there is no compelling evidence for acute infection and subsequently antibiotics are not being initiated. Patient will be nothing by mouth overnight with ice chips chips for comfort and diet will be advanced as tolerated tomorrow. Monitor electrolytes and CBC for change. 02/02/17 Vancomycin was started for coverage of bacteremia Continue antiemetics and pain meds prn Continue NPO with ice chips and advance as tolerated. At this point, he feels the ice chips cause increased pain. Continue IV fluids. Repeat labs in am to follow blood counts, renal/liver function and electrolytes. 02/03/17 Continue vancomycin for bacteremia DC famotidine and start Protonix 40 mg IV for continued epigastric pain. Patient has history of gastric ulcer in the past. Patient making very slow improvement. Continue IVF's, pain control and PRN antiemetics. Plan-02/04/17 (Mirakian) Overall, Ok feels like he is slowly improving but continues to have abdominal pain with nausea and vomiting. Diarrhea x 4 today. Repeat blood cultures again revealed gram + cocci in clusters, similar to blood culture obtained on 02/01 which revealed pansensitive staph epidermidis. Discussed and reviewed with Dr. Pollock. Lab was consulted as neither Dr. Pollock , PA, [employer] or the patient's nurse were notified of positive blood cultures. He currently is on Vancomycin for empiric antimicrobial treatment. We'll discuss with infectious disease regarding culture and sensitivity results and antibiotics and additional workup recommended. Dr. Louise saw and evaluated the patient and recommended continuation of antibiotics and steroids. He did not feel that any surgical treatment was warranted at this time. We appreciate his time and expertise. IV fluids were changed to NS with KCl at a rate of 125cc/hr for continued hydration in light of decreased oral intake as well as potassium supplementation as he was hypokalemic on repeat labs this AM with potassium at 3.2. Will recheck BMP in AM to monitor electrolytes and renal function. New leukocytosis noted with WBC at 14.3, possibly secondary to steroid effect. Will recheck CBC in AM to monitor blood counts as well as repeat procalcitonin in AM. Initial procalcitonin on admission was 0.07 and was noted to increase slightly upon recheck on 02/03 at 0.10. Continue with low-dose steroids for possible ulcerative colitis flare. Continue anti-emetics and pain medication as needed. Patient reports that he is having difficulty sleeping at night because his mind is racing and requests his home dose of amitriptyline 50mg QHS. Review of literature indicates that amitriptyline can also be used for abortive treatment for cyclic vomiting. May also consider Ativan 0.5mg Q12 hours PRN in addition to Zofran as additional treatment of abdominal pain, nausea and cyclic vomiting pattern. Continue Protonix for GERD as patient continues to complain of feeling as if he has increased acid in his stomach. Continue clear liquid diet and encourage oral intake as well as ambulation. Blood pressure remains elevated with systolic pressure averaging 150-160. Continue to monitor closely. Will initiate Norvasc 2.5mg daily as patient is no currently on antihypertensive medications. <Marie Pollock - Last Filed: 02/04/17 22:40> Objective Vital signs: Temperature 98.8 F 02/04/17 15:40 Pulse Rate 74 02/04/17 15:40 Respiratory Rate 16 02/04/17 15:40 Blood Pressure 137/90 H 02/04/17 15:40 Pulse Oximetry 97 02/04/17 15:40 Height/Weight/BMI: Weight 78.3 kg Results - Labs CBC & Chem 7: 02/04/17 07:59 02/04/17 08:00 Microbiology Results: Microbiology 02/04/17 18:49 Port/Picc Blood Culture - Preliminary Culture Initiated - Results Pending 02/04/17 18:53 Peripheral/Iv Start Blood Culture - Preliminary Culture Initiated - Results Pending Assessment and Plan (1) Acute gastroenteritis Current visit: Yes Status: Acute (2) Dehydration Current visit: Yes Status: Acute (3) Ulcerative colitis Current visit: Yes Status: Chronic Assessment and Plan: 02/04/2017-I reviewed this chart, the patient history, and the S[employer]ING MECH[employer]IC's/PA's documented findings as above. We discussed and formulated the assessment and plan as above with the additions below.-Dr. Pollock Overall, the patient appears to be feeling better today. He states his appetite has improved a little bit. His abdominal pain is still present but getting better. He has started having diarrhea, which she states is normal for him. On exam he is alert and in no acute distress. Chest is clear to auscultation. Port-A-Cath is accessed but not in use. There is no surrounding erythema or tenderness. Cardiovascular reveals a regular rate and rhythm. Abdomen reveals some tenderness in the epigastrium but no rebound or guarding. Bowel sounds are normal. Extremities are free of edema. Blood cultures 2 from 02/01/2017 shows staph epidermidis which is pansensitive on both blood cultures. Blood cultures 1 of 2 on 02/02/2017 preliminarily shows gram-positive cocci in clusters. Cultures from both 02/01/2017 and 02/02/2017 were drawn with the patient off of antibiotics. After blood cultures were done on 02/02/2017 the patient was started on vancomycin. Lab today shows an elevated white count of 14.3 with 92% neutrophils and 1% bands. A weighted white count may in part be secondary to steroids. He does not have a fever. Impression and plan Blood cultures are showing staph epidermidis and are pansensitive. Discussed with Dr. Pace and she recommends initiation of Ancef. She recommends waiting on culture results from 02/02/2017. She also recommends repeating blood cultures. She would leave Port-A-Cath again at this time and await further cultures and see how the patient is doing. These plans were discussed with the patient. He is a little anxious about having his Port-A-Cath kept in place if it is possibly infectious but understands the reasoning for waiting on culture results and seeing how he does on antibiotics. Abdominal pain seems to be improving. Discussed with Dr. Louise today. Amitriptyline was ordered at at bedtime. This was a home med that he had run out of recently. He states he has not slept well without it. Hospital Course Summary Disclaimer: The visit summary below is not to be considered part of the above Progress Note.
[2017-02-04] MEDS: AMLODIPINE 2.5 MG TABLET PO SCH (17:57)
[2017-02-04] MEDS: CEFAZOLIN 2 G in NS 100 ML IV SCH (18:52)
[2017-02-04] MEDS: AMITRIPTYLINE 50 MG TABLET PO SCH (21:42)
[2017-02-05] MEDS: SALINE FLUSH 10ml SYRINGE IVF PRN ×3 (00:56→09:31)
[2017-02-05] MEDS: METHYLPREDNISOLONE SOD SUCC 125mg/2ml INJECTION IVP SCH ×3 (00:56→16:46)
[2017-02-05] MEDS: CEFAZOLIN 2 G in NS 100 ML IV SCH ×3 (00:56→17:21)
--- NOTE | 2017-02-05 08:03 | Progress Note ---
DATE OF VISIT 02/04/2017 REASON FOR VISIT Follow abdominal pain and Port-A-Cath. SUBJECTIVE Ok feels like his abdominal pain is slightly better, but he continues to have nausea with oral intake. He has been able to take some clear liquids. He feels like his abdominal pain has improved slightly. OBJECTIVE VITAL SIGNS: Temperature 98.8, pulse 74, blood pressure 137/90, respiratory rate 16, oxygen saturation 97% on room air. GENERAL: The patient is awake, alert, in no acute distress. ABDOMEN: Soft, decreased tenderness in the epigastric region, no guarding or rebound. LABORATORY DATA White blood cell count had increased to 14.3 with 92% neutrophils. IMPRESSION 1. Ulcerative colitis - he may have an episode of an acute flare leading to some of his abdominal complaints. 2. Staphylococcus epidermis bacteremia - now on antibiotic treatment. It is unclear whether his port is contaminated since no cultures have been drawn since initiation of antibiotics. PLAN 1. Continue to follow infectious disease recommendations of treatment of bacteremia with repeat blood cultures following treatment to see if his port is able to stay in place or if it needs removed. 2. I think I would continue steroids for possible help with his potential ulcerative colitis flare. 3. The case was discussed personally with Dr. Pollock this evening. BARBARA
[2017-02-05] MEDS: POTASSIUM CHLORIDE INJ 40 MEQ in NS 1,000 ML IV SCH ×2 (08:30→17:16)
[2017-02-05] MEDS: PANTOPRAZOLE 40 MG INJECTION IVP SCH (09:30)
[2017-02-05] MEDS: ESCITALOPRAM 10 MG TABLET PO SCH (09:31)
[2017-02-05] MEDS: MESALAMINE 1.2 GM PO SCH (09:31)
[2017-02-05] MEDS: PREGABALIN 75 MG CAPSULE PO SCH ×2 (09:31→21:13)
[2017-02-05] MEDS: AMLODIPINE 2.5 MG TABLET PO SCH (09:31)
[2017-02-05] MEDS: Oxycodone/Apap 10/325 1 TAB PO PRN (09:49)
[2017-02-05] MEDS: ONDANSETRON 4 MG/2 ML INJECTION IVP PRN (11:42)
[2017-02-05] MEDS: SUCRALFATE 1gm/10ml ORAL LIQUID PO SCH ×3 (13:54→21:13)
--- NOTE | 2017-02-05 15:28 | Progress Note ---
<Lina Vizcarra - Last Filed: 02/05/17 15:25> Subjective: Patient is seen lying in his bed. He does report he is feeling a little bit better. He is able to take in clear fluids now. He still has epigastric pain. He has had a soft bowel movement. His main concern is that he will continue to have infection in the port and it will need to be removed. He mentions that he would rather have it removed so he doesn't have to worry about it getting infected. He worries that he was sicker this time than he ever has been and it is taking him longer to recover. He's not having any chest pain or shortness of breath. He does continue to get hiccups periodically. Objective Vital signs: Temperature 96.7 F L 02/05/17 07:51 Pulse Rate 58 L 02/05/17 07:51 Respiratory Rate 15 02/05/17 07:51 Blood Pressure 113/63 02/05/17 07:51 Pulse Oximetry 98 02/05/17 07:51 Height/Weight/BMI: Weight 77 kg - Constitutional Present: no acute distress, well nourished, well developed - Routine HEENT Exam Head: Present: normocephalic, atraumatic - Routine Respiratory Exam Present: CTA bilaterally. Absent: wheezes - Routine Cardiovascular Exam Present: RRR, S1, S2. Absent: murmur - Routine Abdominal Exam Present: soft, normoactive bowel sounds, tenderness (epigastric), non distended. Absent: distended, rebound, organomegaly, mass - Routine Extremities Exam Present: no edema, normal capillary refill - Routine Skin Exam Present: dry, warm - Routine Neurological Exam Present: alert, oriented X3 - Routine Lymphatic Exam Lymphatic: Absent: adenopathy - Routine Psychiatric Exam Present: normal affect, cooperative, depressed, anxious Results - Labs CBC & Chem 7: 02/05/17 05:13 02/05/17 05:13 Microbiology Results: Microbiology Initial blood cultures grew out staph epidermidis Post antibiotic blood cultures are pending Assessment and Plan (1) Acute gastroenteritis Current visit: Yes Status: Acute (2) Dehydration Current visit: Yes Status: Acute (3) Ulcerative colitis Current visit: Yes Status: Chronic Assessment and Plan: Assessment Bacteremia-Staphylococcus epidermidis-pansensitive Acute gastroenteritis Nausea and vomiting, refractory Abdominal pain Dehydration SIRS Ulcerative colitis-possible flare causing current symptoms History pancreatitis Hiatal hernia with reflux Plan Continue cefazolin for bacteremia. Blood cultures collected after initiation of antibiotics is pending. White count is improving, procalcitonin is negative. Add Carafate slurry before meals and at bedtime for epigastric pain and nausea. Consideration was given to adding in Reglan routinely before meals and at bedtime, however, due to interaction with Lexapro and patient already having a prolonged QT on EKG, this will not be started. Continues on steroids for possible colitis flare Consider EGD, although patient had an essentially negative EGD 2 months ago in [place]. It is encouraging his labs are improving and he is able to take more by mouth. He has significant depression and anxiety that could be playing a role in his chronic pain and slow improvement. He is on Lexapro 10 mg daily, will increase this to 20 mg. Repeat CBC and BMP in the a.m. to follow blood counts, renal function and electrolytes. Hospital Course Summary Disclaimer: The visit summary below is not to be considered part of the above Progress Note. Hospital Course: Bacteremia-Staphylococcus species growing out on blood culture Acute gastroenteritis Nausea and vomiting, refractory Abdominal pain Dehydration SIRS Ulcerative colitis - possibility of flareup causing current symptoms History pancreatitis Hiatal hernia with reflux 02/01/17-hospital admission Ok is admitted for hydration and symptomatic management. At present acute gastroenteritis appears to be probable diagnosis although I cannot fully exclude a UC flare. CT scan is not suggestive of acute exacerbation of UC and I am going to hold off on initiation of IV steroids at this time but will continue his chronic medication and reassess overnight. Stool will be obtained for GI panel. Neither CT or laboratory data suggests pancreatitis. Antiemetics and pain medications will be available both IV and by mouth. SIRS criteria present however there is no compelling evidence for acute infection and subsequently antibiotics are not being initiated. Patient will be nothing by mouth overnight with ice chips chips for comfort and diet will be advanced as tolerated tomorrow. Monitor electrolytes and CBC for change. 02/02/17 Vancomycin was started for coverage of bacteremia Continue antiemetics and pain meds prn Continue NPO with ice chips and advance as tolerated. At this point, he feels the ice chips cause increased pain. Continue IV fluids. Repeat labs in am to follow blood counts, renal/liver function and electrolytes. 02/03/17 Continue vancomycin for bacteremia DC famotidine and start Protonix 40 mg IV for continued epigastric pain. Patient has history of gastric ulcer in the past. Patient making very slow improvement. Continue IVF's, pain control and PRN antiemetics. Plan-02/04/17 (Mirakian) Overall, Ok feels like he is slowly improving but continues to have abdominal pain with nausea and vomiting. Diarrhea x 4 today. Repeat blood cultures again revealed gram + cocci in clusters, similar to blood culture obtained on 02/01 which revealed pansensitive staph epidermidis. Discussed and reviewed with Dr. Pollock. Lab was consulted as neither Dr. Pollock , PA, LITHOGRAPHIC PROOFER APPRENTICE or the patient's nurse were notified of positive blood cultures. He currently is on Vancomycin for empiric antimicrobial treatment. We'll discuss with infectious disease regarding culture and sensitivity results and antibiotics and additional workup recommended. Dr. Louise saw and evaluated the patient and recommended continuation of antibiotics and steroids. He did not feel that any surgical treatment was warranted at this time. We appreciate his time and expertise. IV fluids were changed to NS with KCl at a rate of 125cc/hr for continued hydration in light of decreased oral intake as well as potassium supplementation as he was hypokalemic on repeat labs this AM with potassium at 3.2. Will recheck BMP in AM to monitor electrolytes and renal function. New leukocytosis noted with WBC at 14.3, possibly secondary to steroid effect. Will recheck CBC in AM to monitor blood counts as well as repeat procalcitonin in AM. Initial procalcitonin on admission was 0.07 and was noted to increase slightly upon recheck on 02/03 at 0.10. Continue with low-dose steroids for possible ulcerative colitis flare. Continue anti-emetics and pain medication as needed. Patient reports that he is having difficulty sleeping at night because his mind is racing and requests his home dose of amitriptyline 50mg QHS. Review of literature indicates that amitriptyline can also be used for abortive treatment for cyclic vomiting. May also consider Ativan 0.5mg Q12 hours PRN in addition to Zofran as additional treatment of abdominal pain, nausea and cyclic vomiting pattern. Continue Protonix for GERD as patient continues to complain of feeling as if he has increased acid in his stomach. Continue clear liquid diet and encourage oral intake as well as ambulation. Blood pressure remains elevated with systolic pressure averaging 150-160. Continue to monitor closely. Will initiate Norvasc 2.5mg daily as patient is no currently on antihypertensive medications. 02/05/17 Continue cefazolin for bacteremia. Blood cultures collected after initiation of antibiotics is pending. White count is improving, procalcitonin is negative. Add Carafate slurry before meals and at bedtime for epigastric pain and nausea. Consideration was given to adding in Reglan routinely before meals and at bedtime, however, due to interaction with Lexapro and patient already having a prolonged QT on EKG, this will not be started. Continues on steroids for possible colitis flare Consider EGD, although patient had an essentially negative EGD 2 months ago in [place]. It is encouraging his labs are improving and he is able to take more by mouth. He has significant depression and anxiety that could be playing a role in his chronic pain and slow improvement. He is on Lexapro 10 mg daily, will increase this to 20 mg. Repeat CBC and BMP in the a.m. to follow blood counts, renal function and electrolytes. <Marie Pollock - Last Filed: 02/05/17 19:26> Objective Vital signs: Temperature 98.7 F 02/05/17 16:15 Pulse Rate 84 02/05/17 16:15 Respiratory Rate 18 02/05/17 16:15 Blood Pressure 168/108 H 02/05/17 16:15 Pulse Oximetry 95 02/05/17 16:15 Height/Weight/BMI: Weight 77 kg Results - Labs CBC & Chem 7: 02/05/17 05:13 02/05/17 05:13 Microbiology Results: Microbiology 02/04/17 18:49 Port/Picc Blood Culture - Preliminary No Growth After 1 Day 02/04/17 18:53 Peripheral/Iv Start Gram Stain - Final 02/04/17 18:53 Peripheral/Iv Start Blood Culture - Preliminary Gram Positive Cocci in Cluster Assessment and Plan (1) Acute gastroenteritis Current visit: Yes Status: Acute (2) Dehydration Current visit: Yes Status: Acute (3) Ulcerative colitis Current visit: Yes Status: Chronic Assessment and Plan: 02/05/2017-I reviewed this chart, the patient history, and the LITHOGRAPHIC PROOFER APPRENTICE's/PA's documented findings as above. We discussed and formulated the assessment and plan as above with the additions below.-Dr. Pollock Patient feels much better this evening after starting Carafate. The pain in his epigastrium is gone. His appetite is better. He denies any chest pains or palpitations. He denies any shortness of breath. On exam he is alert and in no acute distress. Chest is clear to auscultation. Port-A-Cath site shows no erythema, drainage or fluctuance. Cardiovascular reveals a regular rate and rhythm without murmur. Abdomen is soft and nontender. Extremities are free of edema. Skin is warm and dry and without rashes. EKG was obtained due to a previous EKG with prolonged QT. Today's EKG shows normal QT interval of 392 and QTC of 431 Impression and plan Blood cultures drawn February 01 and February 02 were drawn off of antibiotics. Vanco was started on 02/02/2017 after blood cultures were drawn. Repeat blood cultures were drawn yesterday and the peripheral blood culture is positive for gram-positive cocci in clusters. The culture from the port is negative so far. We'll continue cefazolin 2 g IV every 8 for now. Cefazolin was started yesterday in place of vancomycin when culture results showed staph epidermidis which was pansensitive. Discussed yesterday with Dr. Pace. She will be consulted to see the patient on Wednesday. Regarding abdominal pain, this is markedly improved with Carafate. Regarding prolonged QT seen on previous EKG, EKG this evening does not show prolonged QT. We'll continue on amitriptyline and current dose of Lexapro 10 mg daily. Discussed patient today with Dr. Louise. Repeat CBC and basic metabolic profile tomorrow. Hospital Course Summary Disclaimer: The visit summary below is not to be considered part of the above Progress Note.
[2017-02-05] MEDS ORDERED: ESCITALOPRAM 20 MG TABLET PO SCH (15:57)
[2017-02-05] MEDS ORDERED: METOCLOPRAMIDE 10mg/2ml INJECTION IM SCH (17:00)
[2017-02-05] MEDS ORDERED: METOCLOPRAMIDE 10mg/2ml INJECTION IVP SCH (17:00)
[2017-02-05] MEDS: AMITRIPTYLINE 50 MG TABLET PO SCH (21:13)
[2017-02-06] MEDS: CEFAZOLIN 2 G in NS 100 ML IV SCH ×3 (00:07→17:02)
[2017-02-06] MEDS: METHYLPREDNISOLONE SOD SUCC 125mg/2ml INJECTION IVP SCH ×3 (00:08→17:02)
[2017-02-06] MEDS: POTASSIUM CHLORIDE INJ 40 MEQ in NS 1,000 ML IV SCH ×3 (02:46→21:40)
[2017-02-06] MEDS: SALINE FLUSH 10ml SYRINGE IVF PRN (04:15)
[2017-02-06] MEDS: SUCRALFATE 1gm/10ml ORAL LIQUID PO SCH ×4 (06:33→21:14)
[2017-02-06] MEDS: AMLODIPINE 2.5 MG TABLET PO SCH (08:38)
[2017-02-06] MEDS: ESCITALOPRAM 10 MG TABLET PO SCH (08:38)
[2017-02-06] MEDS: PREGABALIN 75 MG CAPSULE PO SCH ×2 (08:39→21:14)
[2017-02-06] MEDS: ONDANSETRON 4 MG/2 ML INJECTION IVP PRN (08:39)
[2017-02-06] MEDS: Oxycodone/Apap 10/325 1 TAB PO PRN ×2 (08:39→21:15)
[2017-02-06] MEDS: PANTOPRAZOLE 40 MG INJECTION IVP SCH (08:40)
[2017-02-06] MEDS: MESALAMINE 1.2 GM PO SCH (08:41)
--- NOTE | 2017-02-06 10:21 | Progress Note ---
DATE OF VISIT 02/05/2017 REASON FOR VISIT Follow abdominal pain and Port-A-Cath. SUBJECTIVE Ok says that he felt more nauseous after eating breakfast. He also reports slight increase of his pain up to 4 out of 10 in severity in the abdomen. OBJECTIVE VITAL SIGNS: Temperature 96.7, pulse 58, blood pressure 113/63, respiratory rate 15, oxygen saturation 98% on room air. GENERAL: The patient is awake and alert. He was resting in bed comfortably upon entering. ABDOMEN: Soft, minimally tender in the epigastric region but nontender in the remainder of the abdomen. There is no guarding or rebound noted. LABORATORY DATA White blood cell count 8.5 with 95% neutrophils. IMPRESSION 1. Ulcerative colitis - stable. 2. Epigastric abdominal pain - I am still not sure what his abdominal pain is from unless it is from his ulcerative colitis. He apparently had a normal EGD a few months ago by his patent drafter. 3. Staphylococcus epidermidis bacteremia - repeat blood cultures following antibiotics are pending. They have been negative to date. PLAN 1. Continue to follow blood cultures. 2. No change to antibiotics or steroids. 3. With recent EGD I do not think that it needs to be repeated. However, if no explanation of his epigastric pain can be obtained he may need to have endoscopy performed. 4. The case was discussed with Dr. Pollock today. [facility]
--- NOTE | 2017-02-06 17:47 | Progress Note ---
Subjective: 56-year-old male with a history of ulcerative colitis and pancreatitis. He reports several day history of increased diarrhea compared to baseline followed by onset of severe nausea with repeated episodes of emesis starting at 8 AM on the day of admission. He has had no hematemesis or rectal bleeding. Abdominal pain escalated with pain primarily in the epigastric region and is worsened with dry heaves. He has been lightheaded and feels he is becoming dehydrated. He received 1 L of normal saline in the emergency room in addition to 2 doses of Zofran and 2 doses of Dilaudid for symptomatic management. CT of the abdomen/ pelvis was without acute inflammatory changes and felt most consistent with gastroenteritis. 02/06/17 Today, he is sitting in the chair eating a regular diet for the 1st time. So far he's tolerating it. He has been up and ambulating without difficulty. He still has mild abdominal pain. Denies nausea. He denies shortness of breath, chest discomfort or lower extremity edema. He denies lightheadedness or dizziness. He is quite concerned about keeping the taryn cath despite the fact that the last culture from the port came back negative. He denies chills and has been afebrile now for several days. Objective Vital signs: Temperature 98.2 F 02/06/17 15:45 Pulse Rate 68 02/06/17 16:00 Respiratory Rate 16 02/06/17 15:45 Blood Pressure 125/86 02/06/17 15:45 Pulse Oximetry 97 02/06/17 15:45 Height/Weight/BMI: Weight 78.5 kg Comments: GEN: alert, oriented, no acute distress HEENT: NC/AT PERRL, EOMI, Sclera anicteric, MMM, OP clear. NECK: Supple, No JVD, carotids 2+ and upstroke without bruits CV: regular rate and rhythm, no murmur, Helder or gallop. LUNGS: clear without vowels, rhonchi her wheezes. ABD: soft, mild tender to palpation in the upp EXT: no edema. Good distal pulses. NEURO: no focal deficits SKIN: warm and dry Results - Labs CBC & Chem 7: 02/06/17 04:12 02/06/17 04:12 Microbiology Results: Microbiology 02/04/17 18:53 Peripheral/Iv Start Gram Stain - Final 02/04/17 18:53 Peripheral/Iv Start Blood Culture - Preliminary Coag negative Staphylococcus 02/04/17 18:49 Port/Picc Blood Culture - Preliminary No Growth After 1 Day Assessment and Plan (1) Acute gastroenteritis Current visit: Yes Status: Acute (2) Dehydration Current visit: Yes Status: Acute (3) Ulcerative colitis Current visit: Yes Status: Chronic Assessment and Plan: 02/05/2017-I reviewed this chart, the patient history, and the BOARD CERTIFIED BEHAVIORAL ANALYST's/PA's documented findings as above. We discussed and formulated the assessment and plan as above with the additions below.-Dr. Pollock Patient feels much better this evening after starting Carafate. The pain in his epigastrium is gone. His appetite is better. He denies any chest pains or palpitations. He denies any shortness of breath. On exam he is alert and in no acute distress. Chest is clear to auscultation. Port-A-Cath site shows no erythema, drainage or fluctuance. Cardiovascular reveals a regular rate and rhythm without murmur. Abdomen is soft and nontender. Extremities are free of edema. Skin is warm and dry and without rashes. EKG was obtained due to a previous EKG with prolonged QT. Today's EKG shows normal QT interval of 392 and QTC of 431 Impression and plan Blood cultures drawn February 01 and February 02 were drawn off of antibiotics. Vanco was started on 02/02/2017 after blood cultures were drawn. Repeat blood cultures were drawn yesterday and the peripheral blood culture is positive for gram-positive cocci in clusters. The culture from the port is negative so far. We'll continue cefazolin 2 g IV every 8 for now. Cefazolin was started yesterday in place of vancomycin when culture results showed staph epidermidis which was pansensitive. Discussed yesterday with Dr. Pace. She will be consulted to see the patient on Wednesday. Regarding abdominal pain, this is markedly improved with Carafate. Regarding prolonged QT seen on previous EKG, EKG this evening does not show prolonged QT. We'll continue on amitriptyline and current dose of Lexapro 10 mg daily. Discussed patient today with Dr. Louise. Repeat CBC and basic metabolic profile tomorrow. 02/06/2017 1. Acute gastroenteritis -patient improving. Diet advanced to normal today 2. Bacteremia -Cefazolin 3. Ulcerative colitis -Surgery consulted and following -Advanced pt to regular diet today -Appears euvolemic -Improved -on steroids for possible flare 6. Refractory nausea and vomiting -Resolved. 7. History of pancreatitis -Stable at present. 8. Abdominal pain -appears to be improved 9. Depression -on Lexapro. Dr. Pace will be in Wednesday to evaluate patient and help determine should the port be discontinued. Surgery continues to follow and does not feel intervention or more procedures are due at this time Hospital Course Summary Disclaimer: The visit summary below is not to be considered part of the above Progress Note. Hospital Course: Bacteremia-Staphylococcus species growing out on blood culture Acute gastroenteritis Nausea and vomiting, refractory Abdominal pain Dehydration SIRS Ulcerative colitis - possibility of flareup causing current symptoms History pancreatitis Hiatal hernia with reflux 02/01/17-hospital admission Ok is admitted for hydration and symptomatic management. At present acute gastroenteritis appears to be probable diagnosis although I cannot fully exclude a UC flare. CT scan is not suggestive of acute exacerbation of UC and I am going to hold off on initiation of IV steroids at this time but will continue his chronic medication and reassess overnight. Stool will be obtained for GI panel. Neither CT or laboratory data suggests pancreatitis. Antiemetics and pain medications will be available both IV and by mouth. SIRS criteria present however there is no compelling evidence for acute infection and subsequently antibiotics are not being initiated. Patient will be nothing by mouth overnight with ice chips chips for comfort and diet will be advanced as tolerated tomorrow. Monitor electrolytes and CBC for change. 02/02/17 Vancomycin was started for coverage of bacteremia Continue antiemetics and pain meds prn Continue NPO with ice chips and advance as tolerated. At this point, he feels the ice chips cause increased pain. Continue IV fluids. Repeat labs in am to follow blood counts, renal/liver function and electrolytes. 02/03/17 Continue vancomycin for bacteremia DC famotidine and start Protonix 40 mg IV for continued epigastric pain. Patient has history of gastric ulcer in the past. Patient making very slow improvement. Continue IVF's, pain control and PRN antiemetics. Plan-02/04/17 (Mirakian) Overall, Ok feels like he is slowly improving but continues to have abdominal pain with nausea and vomiting. Diarrhea x 4 today. Repeat blood cultures again revealed gram + cocci in clusters, similar to blood culture obtained on 02/01 which revealed pansensitive staph epidermidis. Discussed and reviewed with Dr. Pollock. Lab was consulted as neither Dr. Pollock , PA, BOARD CERTIFIED BEHAVIORAL ANALYST or the patient's nurse were notified of positive blood cultures. He currently is on Vancomycin for empiric antimicrobial treatment. We'll discuss with infectious disease regarding culture and sensitivity results and antibiotics and additional workup recommended. Dr. Louise saw and evaluated the patient and recommended continuation of antibiotics and steroids. He did not feel that any surgical treatment was warranted at this time. We appreciate his time and expertise. IV fluids were changed to NS with KCl at a rate of 125cc/hr for continued hydration in light of decreased oral intake as well as potassium supplementation as he was hypokalemic on repeat labs this AM with potassium at 3.2. Will recheck BMP in AM to monitor electrolytes and renal function. New leukocytosis noted with WBC at 14.3, possibly secondary to steroid effect. Will recheck CBC in AM to monitor blood counts as well as repeat procalcitonin in AM. Initial procalcitonin on admission was 0.07 and was noted to increase slightly upon recheck on 02/03 at 0.10. Continue with low-dose steroids for possible ulcerative colitis flare. Continue anti-emetics and pain medication as needed. Patient reports that he is having difficulty sleeping at night because his mind is racing and requests his home dose of amitriptyline 50mg QHS. Review of literature indicates that amitriptyline can also be used for abortive treatment for cyclic vomiting. May also consider Ativan 0.5mg Q12 hours PRN in addition to Zofran as additional treatment of abdominal pain, nausea and cyclic vomiting pattern. Continue Protonix for GERD as patient continues to complain of feeling as if he has increased acid in his stomach. Continue clear liquid diet and encourage oral intake as well as ambulation. Blood pressure remains elevated with systolic pressure averaging 150-160. Continue to monitor closely. Will initiate Norvasc 2.5mg daily as patient is no currently on antihypertensive medications. 02/05/17 Continue cefazolin for bacteremia. Blood cultures collected after initiation of antibiotics is pending. White count is improving, procalcitonin is negative. Add Carafate slurry before meals and at bedtime for epigastric pain and nausea. Consideration was given to adding in Reglan routinely before meals and at bedtime, however, due to interaction with Lexapro and patient already having a prolonged QT on EKG, this will not be started. Continues on steroids for possible colitis flare Consider EGD, although patient had an essentially negative EGD 2 months ago in [place]. It is encouraging his labs are improving and he is able to take more by mouth. He has significant depression and anxiety that could be playing a role in his chronic pain and slow improvement. He is on Lexapro 10 mg daily, will increase this to 20 mg. Repeat CBC and BMP in the a.m. to follow blood counts, renal function and electrolytes.
[2017-02-06] MEDS: AMITRIPTYLINE 50 MG TABLET PO SCH (21:14)
--- NOTE | 2017-02-06 22:46 | Progress Note ---
DATE OF VISIT 02/06/2017 REASON FOR VISIT Follow abdominal pain and Port-A-Cath. SUBJECTIVE Ok says that he feels better in the afternoon and evening but continues to have symptoms more so in the morning. He has been tolerating more of the liquid diet and he is wondering if he can have some other options as far as fruit such as peaches. He has continued to have some bowel function and was concerned about a possible coffee-ground appearance to his stools. OBJECTIVE VITAL SIGNS: Temperature 97.8, pulse 83, blood pressure 168/107, respiratory rate 18, oxygen saturation 99% on room air. GENERAL: The patient is awake and alert, in no acute distress. ABDOMEN: Soft, minimally tender in the epigastric region without guarding or rebound. LABORATORY DATA White blood cell count remains normal at 8.4 and percent neutrophils has decreased to 88. His peripheral IV/IV start blood culture from 02/04/2017 has shown gram-positive cocci in clusters. His blood culture from his port on the same day has shown no growth after one day. IMPRESSION 1. Ulcerative colitis - stable. 2. Epigastric abdominal pain - still no apparent surgical etiology. 3. Staphylococcus epidermidis bacteremia - repeat blood cultures have been confusing since growth has been from the peripheral blood draw as opposed to from the port. PLAN 1. Await Infectious Disease consultation on Wednesday by Dr. Harriet Pace. 2. Continue to leave port in position until Infectious Disease evaluation. 3. Since his abdominal pain is improving some I will advance him to a regular diet consistency. 4. The case was discussed with Dr. Sam, who is covering for the hospitalist service. BARBARA
[2017-02-07] MEDS: METHYLPREDNISOLONE SOD SUCC 125mg/2ml INJECTION IVP SCH ×3 (01:20→16:48)
[2017-02-07] MEDS: CEFAZOLIN 2 G in NS 100 ML IV SCH ×3 (01:23→16:48)
[2017-02-07] MEDS: SUCRALFATE 1gm/10ml ORAL LIQUID PO SCH ×4 (06:45→20:56)
[2017-02-07] MEDS: POTASSIUM CHLORIDE INJ 40 MEQ in NS 1,000 ML IV SCH ×2 (06:46→15:59)
[2017-02-07] MEDS: ESCITALOPRAM 10 MG TABLET PO SCH (08:59)
[2017-02-07] MEDS: AMLODIPINE 2.5 MG TABLET PO SCH (08:59)
[2017-02-07] MEDS: PREGABALIN 75 MG CAPSULE PO SCH ×2 (08:59→21:37)
[2017-02-07] MEDS: MESALAMINE 1.2 GM PO SCH (09:00)
[2017-02-07] MEDS: PANTOPRAZOLE 40 MG INJECTION IVP SCH (09:08)
[2017-02-07] MEDS: Oxycodone/Apap 10/325 1 TAB PO PRN ×2 (14:18→21:02)
--- NOTE | 2017-02-07 15:00 | Progress Note ---
Subjective: 56-year-old male with a history of ulcerative colitis and pancreatitis. He reports several day history of increased diarrhea compared to baseline followed by onset of severe nausea with repeated episodes of emesis starting at 8 AM on the day of admission. He has had no hematemesis or rectal bleeding. Abdominal pain escalated with pain primarily in the epigastric region and is worsened with dry heaves. He has been lightheaded and feels he is becoming dehydrated. He received 1 L of normal saline in the emergency room in addition to 2 doses of Zofran and 2 doses of Dilaudid for symptomatic management. CT of the abdomen/ pelvis was without acute inflammatory changes and felt most consistent with gastroenteritis. 02/07/2017 the patient was seen this morning. He was in bed resting comfortably. He states he actually was feeling pretty good today. He tolerated regular diet yesterday. He has had a couple of runny stools today but this is not unusual for him. He denies nausea. He denies any abdominal pain at this time. He denies any issues with shortness of breath, chest pain, palpitations or urination. He is up and around in the room and out in the halls from time to time. Overall it's encouraging to hear him say he is feeling better. Objective Vital signs: Temperature 99.0 F 02/07/17 08:52 Pulse Rate 74 02/07/17 08:52 Respiratory Rate 18 02/07/17 08:52 Blood Pressure 150/95 H 02/07/17 08:52 Pulse Oximetry 97 02/07/17 08:52 Height/Weight/BMI: Weight 79.4 kg Comments: GEN: alert, oriented, no acute distress HEENT: NC/AT PERRL, EOMI, Sclera anicteric, MMM, OP clear. NECK: Supple, No JVD, carotids 2+ and upstroke without bruits CV: regular rate and rhythm, no murmur, Rub or gallop. LUNGS: clear without rales, rhonchi her wheezes. ABD: soft, mild tender to palpation in the upper abdomen EXT: no edema. Good distal pulses. NEURO: no focal deficits SKIN: warm and dry Results - Labs CBC & Chem 7: 02/06/17 04:12 02/06/17 04:12 Microbiology Results: Microbiology 02/04/17 18:49 Port/Picc Blood Culture - Preliminary No Growth After 2 Days 02/04/17 18:53 Peripheral/Iv Start Gram Stain - Final 02/04/17 18:53 Peripheral/Iv Start Blood Culture - Preliminary Coag negative Staphylococcus Assessment and Plan (1) Acute gastroenteritis Current visit: Yes Status: Acute (2) Dehydration Current visit: Yes Status: Acute (3) Ulcerative colitis Current visit: Yes Status: Chronic Assessment and Plan: 02/07/2017 1. Acute gastroenteritis -patient improving. -Tolerated regular diet yesterday 2. Bacteremia -Cefazolin -repeat peripheral blood cultures today -Dr. Pace to see tomorrow and render an opinion about the port 3. Ulcerative colitis -Surgery consulted and following -Appears euvolemic -on steroids for possible flare 6. Refractory nausea and vomiting -Resolved. 7. History of pancreatitis -Stable at present. 8. Abdominal pain -appears to be improved 9. Depression -on Lexapro. Dr. Pace will be in Wednesday to evaluate patient and help determine should the port be discontinued. Surgery continues to follow and does not feel intervention or more procedures are due at this time Hospital Course Summary Disclaimer: The visit summary below is not to be considered part of the above Progress Note. Hospital Course: Bacteremia-Staphylococcus species growing out on blood culture Acute gastroenteritis Nausea and vomiting, refractory Abdominal pain Dehydration SIRS Ulcerative colitis - possibility of flareup causing current symptoms History pancreatitis Hiatal hernia with reflux 02/01/17-hospital admission Ok is admitted for hydration and symptomatic management. At present acute gastroenteritis appears to be probable diagnosis although I cannot fully exclude a UC flare. CT scan is not suggestive of acute exacerbation of UC and I am going to hold off on initiation of IV steroids at this time but will continue his chronic medication and reassess overnight. Stool will be obtained for GI panel. Neither CT or laboratory data suggests pancreatitis. Antiemetics and pain medications will be available both IV and by mouth. SIRS criteria present however there is no compelling evidence for acute infection and subsequently antibiotics are not being initiated. Patient will be nothing by mouth overnight with ice chips chips for comfort and diet will be advanced as tolerated tomorrow. Monitor electrolytes and CBC for change. 02/02/17 Vancomycin was started for coverage of bacteremia Continue antiemetics and pain meds prn Continue NPO with ice chips and advance as tolerated. At this point, he feels the ice chips cause increased pain. Continue IV fluids. Repeat labs in am to follow blood counts, renal/liver function and electrolytes. 02/03/17 Continue vancomycin for bacteremia DC famotidine and start Protonix 40 mg IV for continued epigastric pain. Patient has history of gastric ulcer in the past. Patient making very slow improvement. Continue IVF's, pain control and PRN antiemetics. Plan-02/04/17 ([place]) Overall, Ok feels like he is slowly improving but continues to have abdominal pain with nausea and vomiting. Diarrhea x 4 today. Repeat blood cultures again revealed gram + cocci in clusters, similar to blood culture obtained on 02/01 which revealed pansensitive staph epidermidis. Discussed and reviewed with Dr. Pollock. Lab was consulted as neither Dr. Pollock , PA, INSTALLATION SUPERVISOR or the patient's nurse were notified of positive blood cultures. He currently is on Vancomycin for empiric antimicrobial treatment. We'll discuss with infectious disease regarding culture and sensitivity results and antibiotics and additional workup recommended. Dr. Louise saw and evaluated the patient and recommended continuation of antibiotics and steroids. He did not feel that any surgical treatment was warranted at this time. We appreciate his time and expertise. IV fluids were changed to NS with KCl at a rate of 125cc/hr for continued hydration in light of decreased oral intake as well as potassium supplementation as he was hypokalemic on repeat labs this AM with potassium at 3.2. Will recheck BMP in AM to monitor electrolytes and renal function. New leukocytosis noted with WBC at 14.3, possibly secondary to steroid effect. Will recheck CBC in AM to monitor blood counts as well as repeat procalcitonin in AM. Initial procalcitonin on admission was 0.07 and was noted to increase slightly upon recheck on 02/03 at 0.10. Continue with low-dose steroids for possible ulcerative colitis flare. Continue anti-emetics and pain medication as needed. Patient reports that he is having difficulty sleeping at night because his mind is racing and requests his home dose of amitriptyline 50mg QHS. Review of literature indicates that amitriptyline can also be used for abortive treatment for cyclic vomiting. May also consider Ativan 0.5mg Q12 hours PRN in addition to Zofran as additional treatment of abdominal pain, nausea and cyclic vomiting pattern. Continue Protonix for GERD as patient continues to complain of feeling as if he has increased acid in his stomach. Continue clear liquid diet and encourage oral intake as well as ambulation. Blood pressure remains elevated with systolic pressure averaging 150-160. Continue to monitor closely. Will initiate Norvasc 2.5mg daily as patient is no currently on antihypertensive medications. 02/05/17 Continue cefazolin for bacteremia. Blood cultures collected after initiation of antibiotics is pending. White count is improving, procalcitonin is negative. Add Carafate slurry before meals and at bedtime for epigastric pain and nausea. Consideration was given to adding in Reglan routinely before meals and at bedtime, however, due to interaction with Lexapro and patient already having a prolonged QT on EKG, this will not be started. Continues on steroids for possible colitis flare Consider EGD, although patient had an essentially negative EGD 2 months ago in [place]. It is encouraging his labs are improving and he is able to take more by mouth. He has significant depression and anxiety that could be playing a role in his chronic pain and slow improvement. He is on Lexapro 10 mg daily, will increase this to 20 mg. Repeat CBC and BMP in the a.m. to follow blood counts, renal function and electrolytes.
[2017-02-07] MEDS: AMLODIPINE 5 MG TABLET PO SCH (16:02)
[2017-02-07] MEDS: AMITRIPTYLINE 50 MG TABLET PO SCH (20:56)
[2017-02-07] MEDS: SALINE FLUSH 10ml SYRINGE IVF PRN (21:02)
[2017-02-08] MEDS: POTASSIUM CHLORIDE INJ 40 MEQ in NS 1,000 ML IV SCH ×2 (00:48→02:19)
[2017-02-08] MEDS: CEFAZOLIN 2 G in NS 100 ML IV SCH ×3 (00:50→16:47)
[2017-02-08] MEDS: METHYLPREDNISOLONE SOD SUCC 125mg/2ml INJECTION IVP SCH (01:50)
[2017-02-08] MEDS: SALINE FLUSH 10ml SYRINGE IVF PRN ×2 (01:50→04:55)
[2017-02-08] MEDS: SUCRALFATE 1gm/10ml ORAL LIQUID PO SCH ×4 (06:47→21:14)
[2017-02-08] MEDS: PANTOPRAZOLE 40 MG TABLET PO SCH (06:47)
[2017-02-08] MEDS: PREGABALIN 75 MG CAPSULE PO SCH ×3 (09:20→15:39)
[2017-02-08] MEDS: ESCITALOPRAM 10 MG TABLET PO SCH (09:20)
[2017-02-08] MEDS: Oxycodone/Apap 10/325 1 TAB PO PRN (09:20)
[2017-02-08] MEDS: AMLODIPINE 5 MG TABLET PO SCH (09:20)
[2017-02-08] MEDS: MESALAMINE 1.2 GM PO SCH (09:21)
--- NOTE | 2017-02-08 11:26 | Infectious Disease Consult ---
Infectious Disease Consult Date of Consultation: 02/08/17 Requesting Physician: Marie Pollock Reason for Consultation: antibiotic recs History of Present Illness: Mr. Conde is a 56 y/o male with a history of ulcerative colitis and chronic pancreatitis. He was admitted on 02/01/17 with a h/o several days of increased diarrhea compared to baseline followed by onset of severe nausea with repeated episodes of emesis. He also had abdominal pain. He was lightheaded and felt dehydrated. He received 1 L of normal saline in the emergency room in addition to 2 doses of Zofran and 2 doses of Dilaudid for symptomatic management. CT of the abdomen/pelvis was without acute inflammatory changes and felt most consistent with gastroenteritis. He was treated with steroids for an UC flare. Blood cultures drawn on admission, 02/01 were both positive for S. epi (one through the Port and one peripheral), diaz-sensitive. Blood cultures from 02/02 were positive in 05/04, both of these were drawn through the port. Blood cx from 02/04 were positive on 05/04, drawn from the periphery (Port cx was negative). Blood cx from yesterday are NGTD. He was on Vanco, then narrowed to ancef. I have been asked to help with his antibiotics. He reports that his symptoms are improved, but it seemed to take longer than usual for his symptoms to improve. Medications Home Medications Medication Instructions Recorded Confirmed Type Escitalopram [Lexapro] 10 mg PO DAILY 02/01/17 02/01/17 History Lipase/Protease/Amylase [Creon Dr 3 cap PO WM 02/01/17 02/01/17 History 36,000 Units Capsule] Mesalamine [Lialda] 4 tab PO DAILY 02/01/17 02/01/17 History Ondansetron [Zofran Odt] 1 tab PO Q4HR 02/01/17 02/01/17 History Oxycodone/Apap [Percocet 1 tab PO Q4H PRN 02/01/17 02/01/17 History 10] Pregabalin Cap [Lyrica] 75 mg PO BID 02/01/17 02/01/17 History Allergies Allergy/AdvReac Type Severity Reaction Status Date / Time codeine [Codiene] Allergy Unknown Verified 02/01/17 13:02 Penicillins Allergy Unknown Verified 02/01/17 13:02 [facility] Patient Stated Medical History Hx Renal Disease No Medical History Updates: ADD. * Ulcerative colitis: Onset ~2006 Comment: Gastroenterology at [facility] in [place]. On Lialda. * Chronic pancreatitis (chronic) Onset: ~1987. * Pancreatic insufficiency (chronic). * GERD. * Alcoholism (chronic) Comment: Sober since 2010. * Irritable bowel syndrome (chronic) Comment: with diarrhea. * Head injury (resolved): Onset : 12/2012 Comment: Kicked by horse Surgical History: * Colonoscopy - Summer [address] Zeng with [facility] in [place], [place]. * Neck surgery with hardware - 2012. * Appendectomy - ~2007 in [facility] in [place], [place]. * Laparoscopic cholecystectomy - ~2006 in [facility] in [place], [place]. * Exploratory Laparotomy - ~ 2012 in [place], [place]. * Left inguinal hernia repair - ~2003 in [place], [place]. * Back surgery including some with hardware 4. * Bilateral carpal tunnels releases - ~2003. * Left hand ORIF for 5th finger fracture. Family History: brother with CAD, sleep apnea - Social History Smoking status: Former smoker Review of Systems All systems PM: 10-point ROS was reviewed, no additional remarkable complaints except - Constitutional Constitutional: Present: chills, night sweats. Absent: fever(s) - EENMT Mouth/Throat: Absent: sore throat, sores - Cardiovascular Cardiovascular: Absent: chest pain - Respiratory Respiratory: Absent: cough, dyspnea - Gastrointestinal Gastrointestinal: Present: abdominal pain, diarrhea, nausea, vomiting - Genitourinary Genitourinary: Absent: dysuria - Musculoskeletal Musculoskeletal: Absent: arthralgias - Integumentary/Breasts Integumentary: Absent: rash - Neurological Neurological: Absent: headache(s) Exam Vital Signs: Temperature 97.4 F 02/08/17 07:59 Pulse Rate 67 02/08/17 07:59 Respiratory Rate 18 02/08/17 07:59 Blood Pressure 125/79 02/08/17 07:59 Pulse Oximetry 100 02/08/17 07:59 Height/Weight/BMI: Weight 79 kg - Constitutional Present: no acute distress, well nourished, well developed - Routine HEENT Exam Head: Present: normocephalic, atraumatic Eye: Present: EOMI, PERRL ENT: Present: mucous membranes moist, dentition normal - Routine Neck Exam Present: supple. Absent: lymphadenopathy - Routine Respiratory Exam Present: CTA bilaterally. Absent: accessory muscle use - Routine Cardiovascular Exam Present: RRR. Absent: murmur - Routine Abdominal Exam Present: soft, normoactive bowel sounds, non distended, non tender. Absent: rebound, guarding - Routine Extremities Exam Absent: cyanosis, clubbing, edema - Routine Skin Exam Present: intact. Absent: rash Comments: Port L anterior chest, accessed, no tenderness or surrounding redness - Routine Neurological Exam Present: alert, oriented X3, CN II-XII intact. Absent: motor deficit - Routine Psychiatric Exam Present: normal affect, normal thought process Results - Labs CBC & Chem 7: 02/08/17 04:55 02/08/17 04:55 Microbiology Results: Microbiology 02/04/17 18:49 Port/Picc Blood Culture - Preliminary No Growth After 3 Days 02/07/17 15:20 Peripheral/Iv Start Blood Culture - Preliminary Culture Initiated - Results Pending 02/07/17 15:37 Peripheral/Iv Start Blood Culture - Preliminary Culture Initiated - Results Pending 02/04/17 18:53 Peripheral/Iv Start Gram Stain - Final 02/04/17 18:53 Peripheral/Iv Start Blood Culture - Preliminary Coag negative Staphylococcus Impression: Sepsis, most likely skin source Septicemia with S. epi (on 02/01, 02/02, 02/04), diaz-sensitive Acute gastroenteritis vs Ulcerative Colitis flare, improving with steroids Nausea and vomiting, improving Abdominal pain, improving Dehydration SIRS History pancreatitis Hiatal hernia with reflux Recommendation: I would recommend trying to conserve the port. I would recommend treating with IV antibiotics for 2 weeks after blood cultures are negative. He could be changed to daptomycin 6mg/kg IV daily to facilitate outpatient therapy.
[2017-02-08] MEDS: MESALAMINE PO SCH (15:20)
--- NOTE | 2017-02-08 16:44 | Progress Note ---
<Lina Vizcarra - Last Filed: 02/08/17 16:41> Subjective: Patient is seen today sitting in his room. He has been up walking and states he' s feeling much better. Has been able to eat normal foods. His pain is much less. He states the pain is "deep down" and is not constant. He still concerned about going home, because he is afraid the infection is going to come back. He understands he will be on IV antibiotics for 2 weeks. He is reassured that his blood cultures have come back negative thus far. Objective Vital signs: Temperature 98.1 F 02/08/17 15:00 Pulse Rate 75 02/08/17 15:00 Respiratory Rate 18 02/08/17 15:00 Blood Pressure 118/77 02/08/17 15:00 Pulse Oximetry 98 02/08/17 15:00 Height/Weight/BMI: Weight 79 kg - Constitutional Present: well nourished, well developed - Routine HEENT Exam ENT: Present: mucous membranes moist - Routine Respiratory Exam Present: CTA bilaterally. Absent: wheezes - Routine Cardiovascular Exam Present: RRR, S1, S2. Absent: murmur - Routine Abdominal Exam Present: soft, normoactive bowel sounds, tenderness (minimal epigastric), non distended - Routine Extremities Exam Present: edema, normal capillary refill - Routine Skin Exam Present: dry, warm - Routine Neurological Exam Present: alert, oriented X3, CN II-XII intact - Routine Lymphatic Exam Lymphatic: Absent: adenopathy - Routine Psychiatric Exam Present: normal affect, cooperative Results - Labs CBC & Chem 7: 02/08/17 04:55 02/08/17 04:55 Microbiology Results: Microbiology 02/07/17 15:20 Peripheral/Iv Start Blood Culture - Preliminary No Growth After 1 Day 02/07/17 15:37 Peripheral/Iv Start Blood Culture - Preliminary No Growth After 1 Day 02/04/17 18:49 Port/Picc Blood Culture - Preliminary No Growth After 3 Days 02/04/17 18:53 Peripheral/Iv Start Gram Stain - Final 02/04/17 18:53 Peripheral/Iv Start Blood Culture - Preliminary Coag negative Staphylococcus Assessment and Plan (1) Acute gastroenteritis Current visit: Yes Status: Acute (2) Dehydration Current visit: Yes Status: Acute (3) Ulcerative colitis Current visit: Yes Status: Chronic Assessment and Plan: Impression Bacteremia-Staphylococcus epidermidis-pansensitive Acute gastroenteritis-resolving Abdominal pain-improving Dehydration-resolved Ulcerative colitis-possible flare causing current symptoms HTN - diagnosed during this hospitalization History pancreatitis GERD Depression Plan Patient is clinically improving. His white blood cell count went back up today. Repeat CBC in the a.m. Continue cefazolin. Dr. Pace has recommended 14 days of IV antibiotics from negative blood culture. (02/07/17 would be day 1 of negative findings.) She reported it would be fine to use his port for administration of his IV antibiotics. Patient may be switched to daptomycin 6 mg/kg daily IV once discharged. He will need weekly CBC w/diff, BMP and CPK (labs to be faxed to Dr. Pace office at [phone]) He was started on amlodipine 2.5 mg daily on 02/04/17 for elevated blood pressure. This was increased on 02/07/17 to 5 mg. Blood pressures have improved and are stable at this time. He continues on Lexapro for depression and amitriptyline for insomnia. Will transition him to prednisone by mouth tomorrow morning. Last dose of IV methylprednisolone was today at 0150. Hospital Course Summary Disclaimer: The visit summary below is not to be considered part of the above Progress Note. Hospital Course: Bacteremia-Staphylococcus species growing out on blood culture Acute gastroenteritis Nausea and vomiting, refractory Abdominal pain Dehydration SIRS Ulcerative colitis - possibility of flareup causing current symptoms History pancreatitis Hiatal hernia with reflux 02/01/17-hospital admission Ok is admitted for hydration and symptomatic management. At present acute gastroenteritis appears to be probable diagnosis although I cannot fully exclude a UC flare. CT scan is not suggestive of acute exacerbation of UC and I am going to hold off on initiation of IV steroids at this time but will continue his chronic medication and reassess overnight. Stool will be obtained for GI panel. Neither CT or laboratory data suggests pancreatitis. Antiemetics and pain medications will be available both IV and by mouth. SIRS criteria present however there is no compelling evidence for acute infection and subsequently antibiotics are not being initiated. Patient will be nothing by mouth overnight with ice chips chips for comfort and diet will be advanced as tolerated tomorrow. Monitor electrolytes and CBC for change. 02/02/17 Vancomycin was started for coverage of bacteremia Continue antiemetics and pain meds prn Continue NPO with ice chips and advance as tolerated. At this point, he feels the ice chips cause increased pain. Continue IV fluids. Repeat labs in am to follow blood counts, renal/liver function and electrolytes. 02/03/17 Continue vancomycin for bacteremia DC famotidine and start Protonix 40 mg IV for continued epigastric pain. Patient has history of gastric ulcer in the past. Patient making very slow improvement. Continue IVF's, pain control and PRN antiemetics. Plan-02/04/17 ([place]) Overall, Ok feels like he is slowly improving but continues to have abdominal pain with nausea and vomiting. Diarrhea x 4 today. Repeat blood cultures again revealed gram + cocci in clusters, similar to blood culture obtained on 02/01 which revealed pansensitive staph epidermidis. Discussed and reviewed with Dr. Pollock. Lab was consulted as neither Dr. Pollock , PA, WOM[employer] or the patient's nurse were notified of positive blood cultures. He currently is on Vancomycin for empiric antimicrobial treatment. We'll discuss with infectious disease regarding culture and sensitivity results and antibiotics and additional workup recommended. Dr. Louise saw and evaluated the patient and recommended continuation of antibiotics and steroids. He did not feel that any surgical treatment was warranted at this time. We appreciate his time and expertise. IV fluids were changed to NS with KCl at a rate of 125cc/hr for continued hydration in light of decreased oral intake as well as potassium supplementation as he was hypokalemic on repeat labs this AM with potassium at 3.2. Will recheck BMP in AM to monitor electrolytes and renal function. New leukocytosis noted with WBC at 14.3, possibly secondary to steroid effect. Will recheck CBC in AM to monitor blood counts as well as repeat procalcitonin in AM. Initial procalcitonin on admission was 0.07 and was noted to increase slightly upon recheck on 02/03 at 0.10. Continue with low-dose steroids for possible ulcerative colitis flare. Continue anti-emetics and pain medication as needed. Patient reports that he is having difficulty sleeping at night because his mind is racing and requests his home dose of amitriptyline 50mg QHS. Review of literature indicates that amitriptyline can also be used for abortive treatment for cyclic vomiting. May also consider Ativan 0.5mg Q12 hours PRN in addition to Zofran as additional treatment of abdominal pain, nausea and cyclic vomiting pattern. Continue Protonix for GERD as patient continues to complain of feeling as if he has increased acid in his stomach. Continue clear liquid diet and encourage oral intake as well as ambulation. Blood pressure remains elevated with systolic pressure averaging 150-160. Continue to monitor closely. Will initiate Norvasc 2.5mg daily as patient is no currently on antihypertensive medications. 02/05/17 Continue cefazolin for bacteremia. Blood cultures collected after initiation of antibiotics is pending. White count is improving, procalcitonin is negative. Add Carafate slurry before meals and at bedtime for epigastric pain and nausea. Consideration was given to adding in Reglan routinely before meals and at bedtime, however, due to interaction with Lexapro and patient already having a prolonged QT on EKG, this will not be started. Continues on steroids for possible colitis flare Consider EGD, although patient had an essentially negative EGD 2 months ago in [place]. It is encouraging his labs are improving and he is able to take more by mouth. He has significant depression and anxiety that could be playing a role in his chronic pain and slow improvement. He is on Lexapro 10 mg daily, will increase this to 20 mg. Repeat CBC and BMP in the a.m. to follow blood counts, renal function and electrolytes. 02/06/2017 1. Acute gastroenteritis -patient improving. Diet advanced to normal today 2. Bacteremia -Cefazolin 3. Ulcerative colitis -Surgery consulted and following -Advanced pt to regular diet today -Appears euvolemic -Improved -on steroids for possible flare 6. Refractory nausea and vomiting -Resolved. 7. History of pancreatitis -Stable at present. 8. Abdominal pain -appears to be improved 9. Depression -on Lexapro. 02/07/2017 1. Acute gastroenteritis -patient improving. -Tolerated regular diet yesterday 2. Bacteremia -Cefazolin -repeat peripheral blood cultures today -Dr. Pace to see tomorrow and render an opinion about the port 3. Ulcerative colitis -Surgery consulted and following -Appears euvolemic -on steroids for possible flare 6. Refractory nausea and vomiting -Resolved. 7. History of pancreatitis -Stable at present. 8. Abdominal pain -appears to be improved 9. Depression -on Lexapro. 02/08/17 Patient is clinically improving. His white blood cell count went back up today. Repeat CBC in the a.m. Continue cefazolin. Dr. Pace has recommended 14 days of IV antibiotics from negative blood culture. (02/07/17 would be day 1 of negative findings.) Patient may be switched to daptomycin 6 mg/kg daily IV once discharged. He will need weekly CBC w/diff, BMP and CPK (labs to be faxed to Dr. Pace office at ) He was started on amlodipine 2.5 mg daily on 02/04/17 for elevated blood pressure. This was increased on 02/07/17 to 5 mg. Blood pressures have improved and are stable at this time. He continues on Lexapro for depression and amitriptyline for insomnia. Will transition him to prednisone by mouth tomorrow morning. Last dose of IV methylprednisolone was today at 0150. <Marie Pollock - Last Filed: 02/08/17 22:14> Objective Vital signs: Temperature 98.1 F 02/08/17 15:00 Pulse Rate 75 02/08/17 15:00 Respiratory Rate 18 02/08/17 15:00 Blood Pressure 118/77 02/08/17 15:00 Pulse Oximetry 98 02/08/17 15:00 Height/Weight/BMI: Weight 79 kg Results - Labs CBC & Chem 7: 02/08/17 04:55 02/08/17 04:55 Microbiology Results: Microbiology 02/04/17 18:49 Port/Picc Blood Culture - Preliminary No Growth After 4 Days 02/07/17 15:20 Peripheral/Iv Start Blood Culture - Preliminary No Growth After 1 Day 02/07/17 15:37 Peripheral/Iv Start Blood Culture - Preliminary No Growth After 1 Day 02/04/17 18:53 Peripheral/Iv Start Gram Stain - Final 02/04/17 18:53 Peripheral/Iv Start Blood Culture - Preliminary Coag negative Staphylococcus Assessment and Plan (1) Acute gastroenteritis Current visit: Yes Status: Acute (2) Dehydration Current visit: Yes Status: Acute (3) Ulcerative colitis Current visit: Yes Status: Chronic Assessment and Plan: 02/08/2017-I reviewed this chart, the patient history, and the [employer]OM[employer]'s/PA's documented findings as above. We discussed and formulated the assessment and plan as above with the additions below.-Dr. Pollock The patient is feeling well today. He is eating and drinking well. Abdominal pain is minimal. He was up walking in the halls and walked outside today. Chest is clear to auscultation. Cardiovascular reveals a regular rate and rhythm. Abdomen is soft and nontender. Extremities are free of edema. White count is up today at 96% neutrophils, most likely from steroids. Impression and plan Re: Staph epidermidis bacteremia, Dr. Pace'note is appreciated. Overall, the patient is doing much better. Possible discharge tomorrow if outpatient antibiotics can be arranged. Restart his usual medications for chronic pancreatitis. Repeat CBC and basic metabolic profile tomorrow. Taper steroids. Hospital Course Summary Disclaimer: The visit summary below is not to be considered part of the above Progress Note.
[2017-02-08] MEDS ORDERED: MESALAMINE PO SCH (21:00)
[2017-02-08] MEDS: AMITRIPTYLINE 50 MG TABLET PO SCH (21:14)
[2017-02-09] MEDS: CEFAZOLIN 2 G in NS 100 ML IV SCH ×2 (00:01→08:45)
[2017-02-09] MEDS: SALINE FLUSH 10ml SYRINGE IVF PRN ×2 (00:01→04:05)
[2017-02-09] MEDS: ONDANSETRON ODT 4 MG TABLET PO SCH ×4 (00:03→11:31)
[2017-02-09 00:55] VITALS: PULSE 70
[2017-02-09] MEDS: SUCRALFATE 1gm/10ml ORAL LIQUID PO SCH ×2 (06:11→11:31)
[2017-02-09] MEDS: PANTOPRAZOLE 40 MG TABLET PO SCH (06:11)
[2017-02-09] MEDS ORDERED: NS FLUSH BAG 500ml IV PRN (06:39)
[2017-02-09] MEDS ORDERED: PredniSONE 20 MG TABLET PO SCH (08:00)
[2017-02-09 08:33] VITALS: BP 131/82; RESP 18; TEMP 96.6; O2SAT 94
[2017-02-09] MEDS: AMLODIPINE 5 MG TABLET PO SCH (08:45)
[2017-02-09] MEDS: PREGABALIN 75 MG CAPSULE PO SCH ×2 (08:45→14:54)
[2017-02-09] MEDS: ESCITALOPRAM 10 MG TABLET PO SCH (08:45)
[2017-02-09] MEDS: MESALAMINE PO SCH ×2 (08:46→14:55)
--- NOTE | 2017-02-09 09:15 | Progress Note ---
DATE OF VISIT 02/08/2017 REASON FOR VISIT Follow abdominal pain and Port-A-Cath. SUBJECTIVE Ok says that his abdominal pain continues to improve and is back to his baseline level of pain. He has been tolerating all of the different items he has been trying on a regular diet. He did have an Infectious Disease consultation this morning and Dr. Harriet Pace felt that his port should be conserved if possible. OBJECTIVE VITAL SIGNS: Temperature 98.1, pulse 75, blood pressure 118/77, respiratory rate 18, oxygen saturation 98% on room air. GENERAL: The patient is awake, alert, in no acute distress. ABDOMEN: Soft, essentially nontender, nondistended. No masses are noted. LABORATORY DATA White blood cell count 14.7. IMPRESSION 1. Ulcerative colitis - stable. 2. Epigastric abdominal pain - nearly resolved. 3. Staphylococcus epidermitis bacteremia - Infectious Disease has recommended conservation of his Port-A-Cath. PLAN Since Ok is tolerating a regular diet and abdominal pain has essentially resolved and his port is not needing removed, I will sign off of his case. Please call me if any further surgical care is needed. BARBARA
--- NOTE | 2017-02-09 10:43 | Progress Note ---
DATE OF VISIT 02/07/2017 REASON FOR VISIT Follow abdominal pain and port. SUBJECTIVE Ok says that his abdominal pain is improving. He is tolerating a regular diet so far. OBJECTIVE VITAL SIGNS: Temperature 99.0, pulse 74, blood pressure 150/95, respiratory rate 18, oxygen saturation 97% on room air. GENERAL: The patient is awake and alert, in no acute distress. He is up in the bathroom. ABDOMEN: Soft, minimally tender in the epigastric region. CHEST: His port in the left upper chest shows no evidence of infection. IMPRESSION 1. Ulcerative colitis - chronic, stable. 2. Epigastric abdominal pain - improving. 3. Staphylococcus epidermis bacteremia - still no growth from his most recent blood culture drawn from his Port-A-Cath. PLAN 1. Await infectious disease consultation tomorrow. 2. Continue regular diet. MTDD
[2017-02-09] MEDS ORDERED: PANCRELIPASE PO SCH (12:00)
--- NOTE | 2017-02-09 12:57 | Discharge Summary ---
<Lina Vizcarra - Last Filed: 02/09/17 12:50> Discharge Information Date of admission: 02/02/17 16:15 Anticipated date of discharge: 02/09/17 Attending Physician: Marie Pollock MD Primary care physician: PCP- Dr. Deepti De La Torre in [place] [facility] - Dr. Zeng in [place] Consults: 02/03/17 12:29 Physician Consult [CONS] Routine Consulting Provider: Lionel Louise Reason For Exam: abdominal pain 02/08/17 07:55 Physician Consult [CONS] Routine Consulting Provider: Harriet Pace Reason For Exam: bacteremia, port - Discharge Diagnosis (1) Acute gastroenteritis Status: Resolved (2) Dehydration Status: Resolved (3) Ulcerative colitis Status: Chronic Discharge Diagnosis: Bacteremia-Staphylococcus epidermidis-pansensitive Acute gastroenteritis-resolving Abdominal pain-improving Dehydration-resolved Ulcerative colitis-possible flare causing current symptoms HTN - diagnosed during this hospitalization History pancreatitis GERD Depression - Laboratory Labs: 02/09/17 04:03 02/09/17 04:03 - Microbiology Microbiology 02/01/17-Staphylococcus epidermidis growth from peripheral and port sites 06/07/16-no growth at port site, coag negative staph growth at peripheral site 02/07/17-blood cultures collected this date are negative, final is still pending - Radiology Radiology: Date of Exam: 02/01/17 EXAM: CT abdomen pelvis w con ABDOMEN AND PELVIS FINDINGS: LUNG BASES: There is mild dependent atelectatic changes. Small 4 mm nodular density seen at the right cardiophrenic angle which is likely of benign etiology. HEART: Unremarkable. No significant pericardial effusion. LIVER: Diffusely hypodense which may represent fatty infiltration. There is mild intrahepatic ductal dilatation or periportal edema. GALLBLADDER: The gallbladder is surgically absent with surgical clips seen in the gallbladder fossa. SPLEEN: Calcification is seen in the spleen likely from old granulomatous disease. PANCREAS: Unremarkable. ADRENAL GLANDS: Unremarkable. AORTA/IVC/VASCULATURE: Unremarkable. LYMPH NODES: No lymphadenopathy is identified. Small lymph nodes are noted, but are not pathologically enlarged. GENITOURINARY: Unremarkable. No renal calculi or obstructive uropathy. The bladder and ureters appear unremarkable. The kidneys perfuse symmetrically. BOWEL: There is diffuse wall thickening and fatty infiltration of the colon including the rectosigmoid, descending colon, splenic flexure, transverse colon and ascending colon which may represent sequela from prior inflammatory process. The terminal ileum is patulous but otherwise appears unremarkable. The small bowel and stomach is fluid-filled but does not appear dilated. A gastroenteritis is a consideration. Acute inflammation from Crohn's disease is not seen with certainty. ABDOMINAL/PELVIC WALL: Small umbilical defect without herniated loops of bowel. BONES: Posterior spinal fixation rods and pedicle screws are noted at L2, L3, and L4 with posterior lateral spinal fusion. SI joint degenerative changes with sclerosis is noted. IMPRESSION: 1. There is diffuse wall thickening and fatty infiltration of the entire colon which may represent sequela from prior inflammatory process. However acute inflammation is not seen. 2. The stomach and small bowel is fluid-filled and not dilated. Gastroenteritis is a consideration. Clinical correlation is suggested. 3. Fatty infiltration of the liver. 4. Status post cholecystectomy with mild intrahepatic ductal dilatation. History of Present Illness HPI: History of present illness on admission: Mr. oCnde prescription [id number] male with a history of ulcerative colitis and pancreatitis. He reports several day history of increased diarrhea compared to baseline followed by onset of severe nausea with repeated episodes of emesis starting at 8 AM today. He has had no hematemesis or rectal bleeding. Abdominal pain escalated with pain primarily in the epigastric region and is worsened with dry heaves. He has been lightheaded and feels he is becoming dehydrated. He received 1 L of normal saline in the emergency room in addition to 2 doses of Zofran and 2 doses of Dilaudid for symptomatic management. CT of the abdomen/ pelvis was without acute inflammatory changes and felt most consistent with gastroenteritis. Objective Vital signs: Temperature 96.6 F L 02/09/17 08:31 Pulse Rate 70 02/09/17 08:31 Respiratory Rate 18 02/09/17 08:31 Blood Pressure 131/82 02/09/17 08:31 Pulse Oximetry 94 02/09/17 08:31 Height/Weight/BMI: Weight 78.1 kg - Constitutional Present: no acute distress, well nourished, well developed - Routine HEENT Exam Eye: Present: EOMI ENT: Present: mucous membranes moist - Routine Respiratory Exam Present: CTA bilaterally. Absent: wheezes - Routine Cardiovascular Exam Present: RRR. Absent: murmur - Routine Abdominal Exam Present: soft, normoactive bowel sounds, non distended. Absent: tenderness - Routine Extremities Exam Present: no edema, normal capillary refill - Routine Skin Exam Present: dry, warm - Routine Neurological Exam Present: alert, oriented X3, CN II-XII intact - Routine Lymphatic Exam Lymphatic: Absent: adenopathy - Routine Psychiatric Exam Present: normal affect, cooperative Hospital Course This is a general summary of the patient's hospital course. For more details refer to the complete medical record. Hospital course: 02/01/17-hospital admission Ok is admitted for hydration and symptomatic management. At present acute gastroenteritis appears to be probable diagnosis although I cannot fully exclude a UC flare. CT scan is not suggestive of acute exacerbation of UC and I am going to hold off on initiation of IV steroids at this time but will continue his chronic medication and reassess overnight. Stool will be obtained for GI panel. Neither CT or laboratory data suggests pancreatitis. Antiemetics and pain medications will be available both IV and by mouth. SIRS criteria present however there is no compelling evidence for acute infection and subsequently antibiotics are not being initiated. Patient will be nothing by mouth overnight with ice chips chips for comfort and diet will be advanced as tolerated tomorrow. Monitor electrolytes and CBC for change. 02/02/17 Vancomycin was started for coverage of bacteremia Continue antiemetics and pain meds prn Continue NPO with ice chips and advance as tolerated. At this point, he feels the ice chips cause increased pain. Continue IV fluids. 02/03/17 Continue vancomycin for bacteremia DC famotidine and start Protonix 40 mg IV for continued epigastric pain. Patient has history of gastric ulcer in the past. Plan-02/04/17 Overall, Ok feels like he is slowly improving but continues to have abdominal pain with nausea and vomiting. Diarrhea x 4 today. Repeat blood cultures again revealed gram + cocci in clusters, similar to blood culture obtained on 02/01 which revealed pansensitive staph epidermidis. Dr. Louise saw and evaluated the patient and recommended continuation of antibiotics and steroids. He did not feel that any surgical treatment was warranted at this time. IV fluids were changed to NS with KCl at a rate of 125cc/hr for continued hydration in light of decreased oral intake as well as potassium supplementation as he was hypokalemic on repeat labs this AM with potassium at 3.2. New leukocytosis noted with WBC at 14.3, possibly secondary to steroid effect. Continue with low-dose steroids for possible ulcerative colitis flare. Continue anti-emetics and pain medication as needed. Patient reports that he is having difficulty sleeping at night because his mind is racing and requests his home dose of amitriptyline 50mg QHS. Continue Protonix for GERD as patient continues to complain of feeling as if he has increased acid in his stomach. Continue clear liquid diet and encourage oral intake as well as ambulation. Blood pressure remains elevated with systolic pressure averaging 150-160. Will initiate Norvasc 2.5mg daily as patient is no currently on antihypertensive medications. 02/05/17 Continue cefazolin for bacteremia. Blood cultures collected after initiation of antibiotics is pending. White count is improving, procalcitonin is negative. Add Carafate slurry before meals and at bedtime for epigastric pain and nausea. Consideration was given to adding in Reglan routinely before meals and at bedtime, however, due to interaction with Lexapro and patient already having a prolonged QT on EKG, this will not be started. Continues on steroids for possible colitis flare 02/06/2017 Patient improving. Diet advanced to normal today Continue Cefazolin. Continue steroids. 02/07/2017 Continue Cefazolin Repeat peripheral blood cultures today. Previous repeat blood culture from port shows no growth. Dr. Pace to see tomorrow and render an opinion about the port Increase amlodipine to 5 mg. 02/08/17 Patient is clinically improving. His white blood cell count went back up today. Repeat CBC in the a.m. Continue cefazolin. Dr. Pace has recommended 14 days of IV antibiotics from negative blood culture. (02/07/17 would be day 1 of negative findings.) Patient may be switched to daptomycin 6 mg/kg daily IV once discharged. He will need weekly CBC w/diff, BMP and CPK (labs to be faxed to Dr. Pace office at ) He was started on amlodipine 2.5 mg daily on 02/04/17 for elevated blood pressure. This was increased on 02/07/17 to 5 mg. Blood pressures have improved and are stable at this time. He continues on Lexapro for depression and amitriptyline for insomnia. Will transition him to prednisone by mouth tomorrow morning. Last dose of IV methylprednisolone was today at 0150. 02/09/17 Patient is stable and will be discharged today. Cefazolin will be discontinued on discharge then he will continue daily outpatient IV antibiotics-daptomycin 6 mg/kg daily through February 20 at [facility] in [place]. He already has an appointment to see his PCP next week and his slitter scorer next month. He needs weekly lab as indicated above. Recommend he have his labs drawn on and 02/22. New medications include Norvasc 5 mg daily, pantoprazole 40 mg daily, sucralfate 4 times a day. Will taper down his prednisone over a week. Time spent with patient: discharge greater than 30 minutes DVT Prophylaxis: SCD's GI Prophylaxis: Protonix Discharge Plan - Med Rec/Dispo [place] Instructions: Acute Nausea and Vomiting (GEN) Additional Instructions: Continue your regular home medications. Your new medications are: amlodipine 5 mg daily (for blood pressure) Carafate before meals and at bedtime (for stomach pain/acid) pantoprazole 40 mg daily (for stomach pain/ acid) prednisone 20 mg. You will take 20 mg daily for 4 more days, then take one half pill (10 mg) daily 4 days, then stop. The daptomycin prescription will be sent to [facility]. Be sure to go in daily through February 20 for antibiotic infusion. Your port may be used for the antibiotic infusion. Keep your already scheduled appointments with Dr. De La Torre and slitter scorer. Have your blood drawn on 02/15 and 02/22. This can be done at [facility]. These results will be faxed to the infectious disease doctor, Dr. Pace. Prescriptions: New Amlodipine [Norvasc] 5 mg PO DAILY #30 tab Pantoprazole Tab [Protonix Tab] 40 mg PO ACB #30 tab PredniSONE [Deltasone] 20 mg PO WB #6 tab Amitriptyline [Elavil] 50 mg PO HS tablet DAPTOmycin [Daptomycin] 500 mg IV DAILY #11 vial Sucralfate Oral Liq [Carafate Slurry] 1 gm PO ACHS #40 udc Continue Pregabalin Cap [Lyrica] 75 mg PO BID Mesalamine [Lialda] 4 tab PO DAILY Escitalopram [Lexapro] 10 mg PO DAILY Lipase/Protease/Amylase [Korey Powell 36,000 Units Capsule] 3 cap PO WM Oxycodone/Apap 10/325 [Percocet 10/325] 1 tab PO Q4H PRN PRN Reason: Pain Discontinued Ondansetron [Zofran Odt] 1 tab PO Q4HR Discharge Instructions/Outpatient Orders: Provider Discharge Instructions Location: Determined By Patient - Disposition 01 Discharged Home, Self-Care <Pollock,Marie Nunn - Last Filed: 02/09/17 15:45> Discharge Information Date of admission: 02/02/17 16:15 Attending Physician: Marie Pollock MD Consults: 02/03/17 12:29 Physician Consult [CONS] Routine Consulting Provider: Lionel Louise Reason For Exam: abdominal pain Ordering Provider has Notified Feed Mill Tender: Yes 02/08/17 07:55 Physician Consult [CONS] Routine Consulting Provider: Harriet Pace Reason For Exam: bacteremia, port Ordering Provider has Notified Feed Mill Tender: Yes - Discharge Diagnosis (1) Acute gastroenteritis Status: Resolved (2) Dehydration Status: Resolved (3) Ulcerative colitis Status: Chronic - Laboratory Labs: 02/09/17 04:03 02/09/17 04:03 - Microbiology Microbiology 02/07/17 15:20 Peripheral/Iv Start Blood Culture - Preliminary No Growth After 2 Days 02/07/17 15:37 Peripheral/Iv Start Blood Culture - Preliminary No Growth After 2 Days 02/04/17 18:49 Port/Picc Blood Culture - Preliminary No Growth After 4 Days 02/04/17 18:53 Peripheral/Iv Start Gram Stain - Final 02/04/17 18:53 Peripheral/Iv Start Blood Culture - Preliminary Coag negative Staphylococcus Objective Vital signs: Temperature 96.6 F L 02/09/17 08:31 Pulse Rate 70 02/09/17 08:31 Respiratory Rate 18 02/09/17 08:31 Blood Pressure 131/82 02/09/17 08:31 Pulse Oximetry 94 02/09/17 08:31 Height/Weight/BMI: Weight 78.1 kg Hospital Course This is a general summary of the patient's hospital course. For more details refer to the complete medical record. Hospital course: 02/09/2017-I reviewed this chart, the patient history, and the SYSTEMS CHECKOUT MECHANIC's/PA's documented findings as above. We discussed and formulated the assessment and plan as above with the additions below.-Dr. Pollock The patient is doing well today and appears stable for discharge. He is eating and drinking well. Abdominal pain has resolved. White count has normalized. We have arranged for outpatient antibiotics with daptomycin. He will receive this once daily through February 20. He feels comfortable with discharge plans. On exam he is alert and oriented 3 and in no acute distress. Chest is clear to auscultation. Cardiovascular reveals a regular rate and rhythm. Abdomen is soft and nontender. Extremity's are free of edema. Dismiss to home today in stable condition. Within 30 minutes of time was spent on seeing and evaluating the patient, determining discharge plan, and arranging discharge paperwork.
== END 2017-02-09 16:40 | disposition home or self-care (01) | DRG 386 ==
LOC: ED 12:47 → MED 12:47 → SUATTDRO 02-02 16:15
PROVIDERS: ADMIT Internal Medicine; ATTEND Internal Medicine